=== PATIENT | female | born 1935 | race Caucasian/White ===

== ENCOUNTER 2019-05-13 13:23 | Outpatient (CLI) | payer MEDICARE, OTHER, SELFPAY ==
[2019-05-13 13:30] VITALS: BP 114/82; RESP 20; TEMP 36.1; O2SAT 96
--- NOTE | 2019-05-13 14:12 | PM.PROC.1 ---
Procedures Date/Time Date of procedure: 05/13/19 Time of procedure: 14:12 General Procedure description: PROVIDER: Art Lazna DO Operative Note PREOP DIAGNOSIS 1. FORAMINAL STENOSIS WITH LE SYMPTOMS, POST OP DIAGNOSIS 1. FORAMINAL STENOSIS WITH LE SYMPTOMS, PROCEDURES 1. FLUOROSCOPICALLY GUIDED CONTRAST CONTROLLED TRANSFORAMINAL EPIDURAL STEROID INJECTION - RIGHT L2/3 TFESI SURGEON: Art Lanza DO INDICATIONS Debbie Adhikari is referredfor treatment of Foraminal Stenosis with right LE Symptoms FINDINGS Foraminal Nerve Root Compression secondary to disc disease and facet hypertrophy DESCRIPTION OF PROCEDURE Following review of allergy and review of potential side effects and complications, including, but not necessarily limited to, infection, allergic reaction, local tissue breakdown, stroke, temporary or permanent nerve injury, paralysis, and possible , the patient indicated that the patient understood and agreed to proceed. An informed consent document was signed by the patient, witnessed by a nurse, and placed in the patient's chart. Additionally, other treatment options including medications, modalities, and physical therapy were reviewed with the patient. After review of previous anaesthesic history and IV conscious sedation the patient was deemed safe to proceed with todays procedure with IV conscious sedation as ASA class II designation. Safety time-out was performed to confirm patient ID, procedure to be performed and site of procedure. IV sedation was accomplished with a combination of 2mg of Versed and 50mcg of Fentanyl was administered by the RN after DO order, titrated to patient comfort during the course of the procedure while the patient remained responsive to all verbal commands In the prone position following sterile prep and drape of the lumbar region, the right L3/4 posterior neuroforamen was identified fluoroscopically. The skin was anesthetized via a 25-gauge 1.5-inch needle with 1% lidocaine solution. At this point, a 25-gauge 3.5-inch spinal needle was atraumatically introduced and advanced under fluoroscopic guidance through the posterior right L3/4 neuroforamen to approximately the anterior aspect of the canal. Depth was confirmed on lateral view. Following negative aspiration, injection of approximately 1.5 cc of Isovue 200 under live fluoroscopy in the AP view confirmed excellent flow along the nerve root, into the epidural space without vascular or intrathecal uptake observed Radiological data, including multiple fluoroscopic views of the lumbosacral spine, reveal a spinal needle at the right L3/4 posterior neuroforamen. Subsequent views show flow of contrast material flowing superiorly and inferiorly along the nerve root confirming epidural flow. Subsequently, a test dose of 1.5 cc of 1% lidocaine solution was administered and patient was observed for two minutes for signs or symptoms of complications, including abdominal pain, shortness of breath, bilateral upper or lower extremity weakness, nausea and vomiting, prior to steroid injection. At this point, a total of 3cc or 20mg of dexamethasone and 6mg of betamethasone was injected without incident. The patient tolerated the procedure well without signs or symptoms of complications prior to transfer to the recovery area continued monitoring without incident. The patient was then transferred to the recovery area where they were observed for an appropriate time after the injection. The patient reported a VAS score of 7 prior to the procedure and a post-procedure VAS of 0. Total Fluoroscopy Time: 24.2 seconds Total Conscious Sedation Time: 24min POST OP INSTRUCTIONS The patient was provided a Pain Log to continue to record their response to the target-specific procedure prior to follow-up visit with their referring physician. Additionally, specific post-injection care instructions and a contact number to our office were provided if concerns arise regarding possible complications associated with the procedure are suspected. Art Lanza DO
--- NOTE | 2019-05-13 14:43 | PC.NURSE ---
Pt states UTI symptoms. Urine is dipped and sent to lab. Grossly positive so procedure is cancelled
== END 2019-05-13 14:44 | disposition home or self-care (01) ==
PROVIDERS: Visit Provider Physical Medicine & Rehabilitation
DX: M53.3 Sacrococcygeal disorders, not elsewhere classified (principal)
CPT/HCPCS: 87077; 87086; 87186; J0702; J2250; J3010

== ENCOUNTER 2019-05-30 09:02 | Outpatient (CLI) | payer MEDICARE, OTHER, SELFPAY ==
[2019-05-30] VITALS (8 sets, daily range): BP systolic 134–171; BP diastolic 61–89; PULSE 65–75; RESP 16; TEMP 36.3; O2SAT 94–100
--- NOTE | 2019-05-30 09:08 | DI.RAD.S_ITS ---
PROCEDURE: PAIN SI JOINT INJECTION INDICATIONS: SACROCOCCYGEAL DISORDERS FINDINGS: Fluoroscopic spot filming was performed to verify placement of spinal needles at the left sacroiliac joint as labeled on the films. Appropriate location(s) of the needle tip(s) was confirmed by injection of iodinated contrast. Dictated by: Uri Monterroso M.D. on 05/30/2019 at 11:30 Approved by: Uri Monterroso M.D. on 05/30/2019 at 11:30
[2019-05-30] MEDS: MIDAZOLAM 5 MG/5 ML VIAL IV (09:53)
[2019-05-30] MEDS: BUPIVACAINE 0.5% (PF) VIAL 2 ML INJ (09:59)
[2019-05-30] MEDS: IOPAMIDOL 15 ML VIAL 3 ML INJ (09:59)
[2019-05-30] MEDS: BETAMETHASONE 30 MG/5 ML MDV 12 MG INJ (10:00)
--- NOTE | 2019-05-30 10:02 | PC.NURSE ---
ASSISTING PT OFF TABLE AND TRANSPORTING TO POST PROC AREA IN STABLE CONDITION. PASSING RN CARE OF PT OFF TO MESHA Clark RN.
--- NOTE | 2019-05-30 10:08 | PM.PROC.1 ---
Procedures Date/Time Date of procedure: 05/30/19 Time of procedure: 10:08 General Procedure description: PREOP Dx: Sacroiliac joint pain/DJD POST OP DX: Sacroiliac Joint Pain/DJD Procedures: Fluoroscopic guided contrast controlled left sacroiliac joint injection Physician: Art Lanza D.O. Indications: Debbie Adhikari is referred by Dr. Toribio and DEBORA Dotson for treatment of left sacroiliac joint pain s/p lumbar fusion. Description of procedure Fluoroscopic guided, contrast controlled left sacroiliac joint injection Following review of allergies and review of potential side effects and complications, including, but not necessarily limited to, infection, allergic reaction, local tissue breakdown, temporary as well as permanent nerve injury, paralysis, stroke and possible , the patient indicated that they understood and agreed to proceed. An informed consent was signed by the patient, witnessed by a nurse, and placed in the patient's chart. Additionally, other treatment options including modalities, medications, and physical therapy were reviewed with the patient. After review of previous anaesthesic history and IV conscious sedation the patient was deemed safe to proceed with todays procedure with IV conscious sedation as ASA class II designation. Safety time-out was performed to confirm patient ID, procedure to be performed and site of procedure. IV sedation was accomplished with 1mg of Versed administered by the RN after DO order, titrated to patient comfort during the course of the procedure while the patient remained responsive to all verbal commands. In the prone position following sterile prep and drape of the pelvic region, the hyper lucency on in the inferior aspect of the left sacroiliac joint was identified fluoroscopically the skin was anesthetized be a 25 gauge needle with approximately 2cc of 1% lidocaine solution. At this point, a 25 gauge 3in spinal needle was atraumatically introduced and advanced under fluoroscopic guidance into the inferior aspect of the left sacroiliac joint. Following negative aspiration, approximately 0.3cc of Isovue-300 was injected confirming intra-articular placement without vascular uptake. Radiographic data, including multiple fluoroscopic views of the pelvis, reveals a spinal needle in the left sacroiliac joint hyper lucent zone. Subsequent view show flow contrast tear superiorly and inferiorly within the joint capsule without vascular intrathecal uptake. At this point a total of 1cc or 0.5% Marcaine was combined with 1cc of 6mg of betamethasone was injected without incident. The patient tolerated the procedure well without signs or symptoms of complications prior to transfer to the recovery area for further monitoring. The patient was then transferred to the recovery area with a bur observed for an appropriate time after the injection. The patient reverted a vas score of 7 prior to the procedure and postprocedure vas of 1. Total fluoroscopy time: 11 sec Total conscious sedation time: 24 min Postop instructions The patient was provided with a pain like to continue to record the patient's response to the target specific procedure prior to the patient's follow-up visit with the referring physician. Additionally, specific post injection care instructions and a contact number to our office were provided if concerns arise regarding the possible complications associated with procedure are suspected. Art Lazna D.O. Complications: none
--- NOTE | 2019-05-30 10:19 | PC.NURSE ---
Post procedure discharge note: Patient arrived at 1010 via w/c. Transferred to recliner with stand by assist. Pain level 0/10. VSS on arrival. O2 Sat on RA WNL. Son at chairside. Discharge instructions reviewed with patient and son with good understanding. Continue with plan of care.
== END 2019-05-30 10:25 | disposition home or self-care (01) ==
LOC: RAD 09:06
PROVIDERS: PCP Physician Assistant; Visit Provider Physical Medicine & Rehabilitation
DX: M53.3 Sacrococcygeal disorders, not elsewhere classified (principal); M47.898 Other spondylosis, sacral and sacrococcygeal region; Z98.1 Arthrodesis status
CPT/HCPCS: 27096; 99152; J0702; J2250

== ENCOUNTER → 2019-12-13 08:44 | Outpatient (CLI) | payer MEDICARE, OTHER, SELFPAY ==
--- NOTE | 2019-12-13 08:46 | DI.MRI.S_ITS ---
PROCEDURE: MR LUMBAR SPINE WO CON INDICATIONS: lumbatr radiculopathy s/p fusion TECHNIQUE: Noncontrast sagittal T1 spin echo and T2 fast echo, sagittal STIR, axial T1 and T2 fast spin echo through the lumbar spine. In cases with scoliosis, additional coronal T2 fast spin echo may be performed. COMPARISON: [facility], JAMESON, MRI L-SPINE W/WO CONTRAST, 10/15/2018, 14:08. [facility], JAMESON, XR L-SPINE 2-3V, 04/08/2019, 8:53. FINDINGS: Image quality: Excellent. Alignment and Curvature: Mild anterolisthesis of L4 on L5, measuring 5 mm. Mild retrolisthesis of L3 on L4, measuring 4 mm. Mild retrolisthesis of L2 on L3, measuring 5 mm. Mild retrolisthesis of L1 on L2, measuring 4 mm. Bone Marrow: Marrow is of normal overall signal. No acute vertebral body compression fractures. Spinal Cord: Conus medullaris terminates at the bottom of L1 level. Visualized cord demonstrates normal signal and size. Paraspinous Soft Tissues: No paravertebral masses. T11-T12: Severe disc height loss. Mild central posterior disc protrusion indenting on the ventral cord without canal stenosis. This is a chronic finding, and appears improved since the prior study. T12-L1: Chronic severe disc height loss. Posterior disc bulge. No canal stenosis or significant foraminal stenosis. L1-L2: Severe chronic disc height loss. No canal stenosis. Facet hypertrophy. Mild bilateral foraminal stenosis. L2-L3: Disc bulge. Facet and ligament hypertrophy. Mild canal stenosis. Moderate bilateral foraminal stenosis with mild flattening deformity on the exiting bilateral L2 nerve roots. L3-L4: Marked, progressive canal stenosis secondary to large diffuse disc bulge, which has progressed since the prior study, and prominent facet and ligament hypertrophy. L4-L5: Interval, remote posterior laminectomy and posterior lateral anand and pedicle screw fixation and interbody fusion. No canal stenosis. No foraminal stenosis. L5-S1: Disc bulge. Facet and ligament hypertrophy. Mild canal stenosis. Moderate to severe right foraminal narrowing and moderate left foraminal narrowing with flattening deformity on the exiting bilateral L5 nerve roots. IMPRESSION: 1. Interval posterior laminectomy and posterior lateral anand and pedicle screw fixation at L4-L5. No canal stenosis at that level. 2. Canal stenosis is moderate at L2-L3, marked at L3-L4, and mild at L5-S1. 3. Multilevel facet arthropathy. 4. Alignment as described above. 5. Multilevel foraminal narrowing as described above. Dictated by: Amadeo Rios M.D. on 12/15/2019 at 11:50 Approved by: Amadeo Rios M.D. on 12/15/2019 at 11:59
== END ==
PROVIDERS: PCP Physician Assistant; Referring Provider Physical Medicine & Rehabilitation; Visit Provider Physical Medicine & Rehabilitation
DX: M47.26 Other spondylosis with radiculopathy, lumbar region (principal); M43.16 Spondylolisthesis, lumbar region; M48.061 Spinal stenosis, lumbar region without neurogenic claudication; M48.07 Spinal stenosis, lumbosacral region; M51.24 Other intervertebral disc displacement, thoracic region; Z98.1 Arthrodesis status
CPT/HCPCS: 72148

== ENCOUNTER → 2020-02-21 14:41 | Outpatient (CLI) | payer MEDICARE, OTHER, SELFPAY ==
[2020-02-23 06:02] LABS: COVID19 Sendout Not Detected (Not Detect)
== END ==
PROVIDERS: PCP Physician Assistant; Visit Provider Physician Assistant
DX: Z01.812 Encounter for preprocedural laboratory examination (principal)
CPT/HCPCS: 87635

== ENCOUNTER 2020-02-24 14:05 | Outpatient (CLI) | payer MEDICARE, OTHER, SELFPAY ==
[2020-02-24] VITALS (15 sets, daily range): BP systolic 120–215; BP diastolic 69–116; PULSE 64–90; RESP 10–17; O2SAT 95–100
--- NOTE | 2020-02-24 14:09 | DI.RAD.S_ITS ---
PROCEDURE: PAIN L INTERLAMINAR/CAUDAL INJ INDICATIONS: SPONDYLOSIS COMPARISON: None. FINDINGS: Fluoroscopic spot filming was performed to verify placement of spinal needles at the L3-4 translaminar epidural level(s), as labeled on the films. Appropriate location(s) of the needle tip(s) was confirmed by injection of iodinated contrast. IMPRESSION: Successful paramedian L3-4 epidural access for steroid injection near the midline. Dictated by: Adarsh Foster M.D. on 02/24/2020 at 16:02 Approved by: Adarsh Foster M.D. on 02/24/2020 at 16:03
[2020-02-24] MEDS: fentaNYL 100 MCG/2 ML INJ 50 MCG IV (15:14)
[2020-02-24] MEDS: MIDAZOLAM 5 MG/5 ML VIAL IV (15:14)
[2020-02-24] MEDS: DEXAMETHASONE 10 MG/ML VIAL 20 MG INJ (15:18)
[2020-02-24] MEDS: BETAMETHASONE 30 MG/5 ML MDV 6 MG INJ (15:19)
[2020-02-24] MEDS: IOPAMIDOL 15 ML VIAL 3 ML INJ (15:19)
[2020-02-24] MEDS: BUPIVACAINE 0.25% (PF) VIAL 2 ML INJ (15:19)
--- NOTE | 2020-02-24 15:29 | P.PCN_ITS ---
Date/Time/Diagnoses Date of procedure: 02/24/20 Time of procedure: 15:29 Pre-procedure diagnosis: 1. HNP WITH RADICULAR FEATURES, 2. MULTILEVEL CENTRAL STENOSIS, Post-procedure diagnosis: same Procedure Notes Procedure: 1. FLUOROSCOPICALLY GUIDED CONTRAST CONTROLLED INTERLAMINAR EPIDURAL STEROID INJECTION -L3/4 Indications: Debbie Adhikari is referred by PAC Dotson for treatment of HNP/ Stenosis with R>L LE symptoms. Physician: Art Lanza Total Fluoroscopy time (seconds): 16 Total sedation minutes: 8 Complications: none Procedure in detail & Post-procedure care: FINDINGS Multilevel Central Spinal Stenosis with Nerve Root Compression DESCRIPTION OF PROCEDURE Fluoroscopically guided, contrast-controlled L3/4 translaminar epidural steroid injection. Following review of allergy and review of potential side effects and complications, including, but not necessarily limited to, infection, allergic reaction, local tissue breakdown, temporary as well as permanent nerve injury, paralysis, stroke and possible , the patient indicated that the patient understood and agreed to proceed. An informed consent document was signed by the patient, witnessed by a nurse, and placed in the patient's chart. Additionally, other treatment options including modalities, medications, and physical therapy were reviewed with the patient. After review of previous anaesthesic history and IV conscious sedation the patient was deemed safe to proceed with today?s procedure with IV conscious sedation as ASA class II designation. Safety time-out was performed to confirm patient ID, procedure to be performed and site of procedure. IV sedation was accomplished with a combination of 1mg of Versed and 50mcg of Fentanyl was administered by the RN after DO order, titrated to patient comfort during the course of the procedure while the patient remained responsive to all verbal commands In the prone position, following sterile prep and drape of the lumbar region, the L3/4 translaminar space was identified fluoroscopically. The skin was anesthetized via a 25-gauge, 1.5inch needle with 1% lidocaine solution. At this point, a 22-gauge short bevel spinal needle was atraumatically introduced and advanced under fluoroscopic guidance into the region of the L3/4 translaminar space. Depth was confirmed on lateral view. Radiological data, including multiple fluoroscopic views of the lumbar spine, reveal a spinal needle at the L3/4 translaminar space. Lateral views then show placement of the needle in the epidural space. Subsequent views show contrast material flowing superiorly and inferiorly in the epidural space. No vascular or intrathecal uptake is observed. At this point, using loss of resistance technique with saline and air, the epidural space was entered. This was confirmed following negative aspiration with injection of approximately 1.5cc of Isovue 200, showing excellent epidural flow without vascular or intrathecal uptake. At this point, 1cc of 1% lidocaine solution combined with 3cc or 20mg of dexamethasone and 6mg betamethasone was injected without incident. The patient tolerated the procedure well without signs or symptoms of complications prior to transfer to the recovery area continued monitoring without incident. The patient was then transferred to the recovery area where they were observed for an appropriate period of time after the injection. The patient reported a VAS score of 6 prior to the procedure and a post- procedure VAS of 0. POST OP INSTRUCTIONS The patient was provided a Pain Log to continue to record their response to the target-specific procedure prior to follow-up visit with their referring physician. Additionally, specific post-injection care instructions and a contact number to our office were provided if concerns arise regarding possible complications associated with the procedure are suspected.
== END 2020-02-24 16:39 | disposition home or self-care (01) ==
LOC: RAD 14:07
PROVIDERS: PCP Physician Assistant; Referring Provider Physical Medicine & Rehabilitation; Visit Provider Physical Medicine & Rehabilitation
DX: M51.16 Intervertebral disc disorders with radiculopathy, lumbar region (principal); M48.061 Spinal stenosis, lumbar region without neurogenic claudication
CPT/HCPCS: 62323; J0702; J1100; J2250; J3010

== ENCOUNTER → 2020-09-11 09:11 | Outpatient (CLI) | payer MEDICARE, OTHER, SELFPAY ==
[2020-09-11 11:58] LABS: COVID19 -Nasal RAPID Negative (Negative)
== END ==
PROVIDERS: PCP Physician Assistant; Referring Provider Student in an Organized Health Care Education/Training Program; Visit Provider Student in an Organized Health Care Education/Training Program
DX: Z01.812 Encounter for preprocedural laboratory examination (principal); Z20.822 Contact with and (suspected) exposure to COVID-19
CPT/HCPCS: 87635

== ENCOUNTER 2020-09-13 06:22 | Inpatient (IN) | payer MEDICARE, OTHER, SELFPAY ==
[2020-09-06 09:47] VITALS: BMI 32.2
[2020-09-13] VITALS (33 sets, daily range): BP systolic 107–184; BP diastolic 55–147; PULSE 76–107; RESP 6–98; TEMP 36.1–36.8; O2SAT 7–100; BMI 35.3; BMI 32.2
[2020-09-13] MEDS: LACTATED RINGERS 1,000 ML 42 ML IV ×3 (06:52→12:51)
[2020-09-13] MEDS: ACETAMINOPHEN 325 MG TABLET 975 MG PO (06:55)
--- NOTE | 2020-09-13 07:40 | PM.PREOP ---
Pre-operative Note COVID-19 COVID-19 status: Negative Result date/Date tested (Pos, Neg/Pending): 09/11/20 Interval Note History & Physical reviewed/Exam performed by Physician: Yes Changes to H&P: No
--- NOTE | 2020-09-13 07:47 | P.HP_ITS ---
History of Present Illness History of Present Illness Date Patient Seen: 09/13/20 Time Patient Seen: 07:47 Date of Onset of Symptoms: 09/13/09 Chief complaint: Translaminar Interbody Fusion/Laminotomy Narrative: Ms. Allen is a 85 yo F with hx of chronic back pain. She had previous lumbar fusion with worsening back pain and leg pain. She failed additional conservative care and is scheduled for revision lumbar fusion. Patient History Medical History (Updated 09/06/20 @ 10:34 by Concetta Miguel RN) Abnormal breast biopsy Asthma due to environmental allergies Breast cancer, left (06/2011) Cataract (lens) fragments in eye following cataract surgery, bilateral Cervical cancer (1973) Diabetes Diabetic peripheral neuropathy Difficulty swallowing Eczema GERD (gastroesophageal reflux disease) Gout Herniated nucleus pulposus, L3-4 left HLD (hyperlipidemia) HNP (herniated nucleus pulposus), thoracic HTN (hypertension) Hypothyroidism Kidney infection Lumbar radiculopathy Sacrococcygeal disorders, not elsewhere classified Status post lumbar spinal arthrodesis Vertebral fracture Vertigo Wound abscess Surgical History (Updated 09/06/20 @ 10:22 by Concetta Miguel RN) H/O bilateral mastectomy H/O hysterectomy for benign disease History of bunionectomy of right great toe History of left knee replacement History of lumbar spinal fusion History of surgery History of total right knee replacement Hx of bilateral cataract extraction S/P trigger finger release (2013) Family & Social History Family History Father Congestive heart failure Advanced cirrhosis of liver Grandmother Congestive heart failure Social History: household members spouse Prior Living Arrangements Mobile home Safety & Behavioral: Feels Safe in Current Yes Environment Been Physically Hurt or No Threatened By a Person Suicidal Ideation Description None Suicide Plan Description No Plan Tobacco & Substance use: Smoking Status Former smoker alcohol intake current alcohol intake frequency holiday/special occasion Substance Use Type does not use Meds Home Medications and Allergies Home Medications Medication Instructions Recorded Confirmed Type allopurinol 300 mg tablet 300 mg PO DAILY 12/10/19 09/13/20 History aspirin 81 mg tablet,delayed 162 mg PO DAILY 12/10/19 09/13/20 History release dicyclomine 10 mg capsule 10 mg PO BID 12/10/19 09/13/20 History ezetimibe 10 mg tablet 10 mg PO DAILY 12/10/19 09/13/20 History hydrocodone 5 mg-acetaminophen 325 1 tab PO BID 12/10/19 09/13/20 History mg tablet insulin glargine 100 unit/mL 16 unit SUBCUT BID 12/10/19 09/13/20 History subcutaneous solution insulin lispro 100 unit/mL 4 - 20 sliding scale dose SUBCUT 12/10/19 09/13/20 History subcutaneous solution USEASDIRECTD levothyroxine 88 mcg capsule 88 mcg PO DAILY 12/10/19 09/13/20 History lisinopril 40 mg tablet 40 mg PO DAILY 12/10/19 09/13/20 History celecoxib 200 mg capsule 200 mg PO DAILY #90 cap 06/02/20 09/13/20 Rx melatonin 9 mg PO BEDTIME 09/06/20 09/13/20 History naproxen sodium [Aleve] 220 mg PO TID-QID PRN 09/06/20 09/13/20 History triamcinolone acetonide 1 applic TOPICAL BID PRN 09/06/20 09/13/20 History trospium 20 mg PO BID 09/06/20 09/13/20 History Allergies Allergy/AdvReac Type Severity Reaction Status Date / Time adhesive Allergy Intermediate Rash Verified 09/13/20 07:00 Sulfa (Sulfonamide Allergy Pt does Verified 09/13/20 07:00 Antibiotics) not recall Pncsfqy-Pea-Xll Reductase AdvReac Severe I loose Verified 09/13/20 07:00 Inhibitor all muscle Exam Vital Signs (past 8 hours): - 09/13/20 07:18 Temperature 97.9 F Pulse Rate 76 Respiratory Rate 14 Blood Pressure 127/72 Pulse Oximetry 95 Oxygen Delivery Method Room Air Back/Spine/Pelvis Other: Previous scar from surgery well healed over lumbar spine. Neuro Other: decreased sensibility in bilateral L3, L4, L5 dermatome, motor strength is 4/5 in bilateral TA, EHL and gastroc, + straight leg raise to LLE. Assessment & Plan Assessment & Plan narrative: Ms. Allen is here for scheduled revision L3-4, L5- S1 TLIF and L3-S1 PSF. Risks for surgery include but not limited to bleeding, infection, nerve/dura/bladder/bowel/blood vessel injury, need for additional procedure, even . Pt understands and would like to proceed with surgery. Patient will proceed as planned. COVID-19 COVID-19 status: Negative Result date/Date tested (Pos, Neg/Pending): 09/11/20 Time Spent With Patient Time with patient: 15-24 minutes
[2020-09-13] MEDS: CEFAZOLIN 2 GM/100 ML FROZ.PIGGY IV ×3 (08:03→18:19)
--- NOTE | 2020-09-13 08:38 | SUR.OPER ---
Prone on spine table, head in foam head support, padded chest and pelvic supports, gel pad at knees, lower legs supported by pillows; nipples, genitalia and toes free of pressure, arms secured on foam padded arm boards at <90 degrees abduction. Tape over blanket at thigh secured to table.
[2020-09-13] MEDS: BUPIVACAINE 0.25% W/ EPI 30 ML VIAL INJ (08:44)
[2020-09-13] MEDS: BUPIVACAINE LIPOSOME 266 MG/20 ML VIAL INJ (08:47)
--- NOTE | 2020-09-13 08:48 | SUR.OPER ---
GLASSES IN LABELED BAG TO PACU WITH PATIENT
--- NOTE | 2020-09-13 12:34 | PM.OP.1 ---
Operative Date/Time/Diagnoses Date of procedure: 09/13/20 Time of procedure: 08:16 Pre-op diagnosis: 1. L3-4, L4-5, L5-S1 spinal stenosis 2. Hx of L4-5 fusion with pseudoarthrosis 3. post laminectomy syndrome Post-op diagnosis: same Procedure & Clinicians Procedure: 1. L3-4, L5-S1 posterolateral and posterior interbody fusion 2. L3-4, L5-S1 posterior interbody cage placement 3. L4-5 posterior non-segmental instrumentation removal 4. L4-5 revision laminectomy with exploration of fusion 5. L3-4, L4-5, L5-S1 posterior segmental instrumentation with pedicle screw placement 6. L4-5 posterolatearl fusion 7. [place] of bone marrow from iliac crest through a separate incision 8. Utilization of microsurgical technique and operating microscope Same procedure as scheduled: Yes Indications: Patient has been having chronic back pain and worsening lumbar radiculopathy. Patient had previous lumbar fusion with worsening back pain and lower extremity pain weakness and numbness. Patient failed multiple conservative management with worsening pain weakness and numbness in her lower extremity. Patient has been having difficulty performing activity of daily living. After discussing risks benefits of treatment options, patient elected proceed with surgery. Surgeon: Rupal Loya Infrastructure Software Engineer: Erwin Peñaloza Click Yes if Unassisted: No Anesthesia Type: General Operative Notes Closure Type: primary Specimen(s): none sent Prosthetic devices, grafts, tissues, transplants, or devices: Globus revolve screws, Rise cages Applied: catheter Estimated Blood Loss (mL): 100 Blood products transfused: none Procedure in detail: Patient was seen in the preoperative area. Risks and benefits of the surgery was discussed with the patient. Informed consent was obtained from the patient and placed in the chart. Surgical site was marked. Patient was taken to the operative room. General anesthesia was administered. Prophylactic antibiotic was given to the patient less than 30 min before the incision was made. Patient was placed into a prone position on the Micah table. Patient's back was then prepped and draped in the sterile fashion. Time-out was performed at this time. Using patient's previous scar incision was made over the L3-S1 interval on the left side. Fascia was incised in line with skin incision. Patient's previously placed hardware over the L4-5 level was identified by dissecting down to the level the hardware using a Bovie and a Lopez. The locking caps which was removed using [employer] tower truck driver. The locking anand was then removed from the tulips of the pedicle screws using a Joan. The pedicle screws were then removed using the screwdriver. The screws were found to have good purchase. The Globus and MARS retractors was then placed into the wound and docked onto the L3 and L5 lamina using C-arm guidance. Using microsurgical technique and operating microscope a laminectomy facetectomy was performed by removing the L3 and L5 lamina and the L3-4 L5-S1 facet. The disc space at L3-4 L5-S1 level was identified next. And a total diskectomy was performed at L3-4 L5-S1 level. The endplates were decorticated using a rasp and shaver. The total diskectomy and decortication was performed at L3-4 L5-S1 level in order to to accomplish a L3-4 L5-S1 fusion. The local bone from the laminectomy and facetectomy was saved for local bone grafting. After the total diskectomy and decortication was completed, Globus viacell bone graft material was combined with local bone that was harvested earlier. At this time, a separate skin is incision was made over the iliac crest. A Jamshidi needle was inserted into the iliac crest through a separate skin incision. 5 cc of bone marrow aspiration was obtained through the separate skin incision using a Jamshidi needle from the iliac crest. The bone marrow aspiration was combined with local bone and the via cell bone grafting material. The bone grafting material was placed into the L3-4 L5-S1 interbody space along with a expandable cage. The cage was expanded to its maximum height using the torque limiting screwdriver. At this time a mirror image incision was made on the right side. The fascia was incised in line with the skin incision. Patient's previously placed hardware on the right side was then removed in the same fashion as it was on the left side. The hardware was also found to have good purchase. The fusion mass on the left side was exposed by performing a left-sided hemilaminectomy at L4-5 level. The hemilaminectomy was performed using the Kerrison rongeur to undercut the lamina as well removing additional epidural scar tissue for purpose of decompressing the epidural space. The fusion mass was explored and was found have visible motion indicating pseudoarthrosis. Globus MARS retractor was inserted and docked onto the L3-4, L4-5, L5-S1 posterolateral gutter. Using the power drill, posterior-lateral decortication was performed at L3-4, L4-5, L5-S1 level until bleeding cortical bone was identified. The remaining bone grafting material was placed into the L3-4, L4-5, L5-S1 posterior lateral gutter he order to accomplish posterolateral fusion at the L3-4, L4-5, L5-S1 level. Using the double C-arm technique, pedicle screws were placed into the L3, L4, L5, S1 pedicles bilaterally. This was done by placing the Jamshidi needle into the pedicles, then placing the guidewires over the Jamshidi needle, and finally placing the cannulated screws over the guidewires bilaterally. After the pedicle screws were placed, 2 titanium rods was locked into the heads of the pedicle screws using locking caps and torque limiting screwdriver. After all the hardware was placed, and confirmed with AP and lateral C-arm imaging, the wound was then irrigated with sterile normal saline and packed with Ray-Amadou gauze for 3 min to accomplish hemostasis. After the gauze was removed the deep fascia was closed with #1 Vicryl suture. The subcutaneous layer was closed with 2-0 Vicryl. The skin was closed with skin sagar. Patient tolerated the procedure well. There were no complications. Complications: none Post-operative Condition: stable Disposition: PACU Plan for aftercare: Admit to inpatient hospital
--- NOTE | 2020-09-13 12:38 | DI.RAD.S_ITS ---
PROCEDURE: XR LUMBAR SPINE 2-3V INDICATIONS: L3-4, L5-S1 TLIF TECHNIQUE: 3 views of the lumbar spine were acquired. COMPARISON: [place] [facility], RG, XR L-SPINE 2-3V, 10/30/2019, 14:06. FINDINGS: Bones: 5 [id number] vertebrae are present. There is normal bony alignment. Postsurgical changes compatible with L3-S1 TLIF. Soft tissues: Overlying bowel gas pattern is normal. No suspicious soft tissue calcifications. IMPRESSION: Expected postsurgical change for L3-S1 TLIF. Dictated by: Tatianna Kevin MD, PhD on 09/13/2020 at 13:13 Approved by: Tatianna Kevin MD, PhD on 09/13/2020 at 13:14
[2020-09-13] MEDS: fentaNYL 100 MCG/2 ML INJ IV (13:04)
[2020-09-13] MEDS: hydrOXYzine 50 MG/ML INJ 25 MG IM (13:06)
[2020-09-13] MEDS: HYDROMORPHONE 2 MG INJ IV ×2 (13:45→14:02)
[2020-09-13] MEDS: SODIUM CHLORIDE 0.9% 1,000 ML 100 ML IV (17:41)
[2020-09-13] MEDS: SENNOSIDES 8.6 MG TABLET 17.2 MG PO (20:54)
[2020-09-13] MEDS: DICYCLOMINE 10 MG CAPSULE PO (20:54)
[2020-09-13] MEDS: DOCUSATE 100 MG CAPSULE PO (20:55)
[2020-09-13] MEDS: MELATONIN 3 MG TABLET 9 MG PO (20:55)
[2020-09-13] MEDS: INSULIN GLARGINE 100 UNIT/ML 3ML PEN 16 UNIT SUBCUT (21:02)
[2020-09-14] VITALS (7 sets, daily range): BP systolic 103–150; BP diastolic 51–68; PULSE 76–107; RESP 12–18; TEMP 36.3–37.1; O2SAT 92–100
[2020-09-14] MEDS: HYDROMORPHONE 0.5 MG INJ IV ×3 (00:27→05:22)
[2020-09-14] MEDS: CEFAZOLIN 2 GM/100 ML FROZ.PIGGY IV (01:33)
[2020-09-14] MEDS: LEVOTHYROXINE 88 MCG TABLET PO (05:22)
[2020-09-14] MEDS: hydrOXYzine pamoate 25 MG CAPSULE PO (05:22)
[2020-09-14 05:55] LABS: Hematocrit 33.2 % (36-46); Hemoglobin 10.7 g/dL (12.0-16.0)
[2020-09-14 05:57] LABS: BUN Creatinine Ratio 24.3 (6-22); Blood Urea Nitrogen 18 mg/dL (7-17); Calcium 8.8 mg/dL (8.4-10.2); Carbon Dioxide 26 mmol/L (22-32); Chloride 104 mmol/L (98-107); Estimated Glomerular Filt Rate > 60.0 mL/min (>60); Glucose 148 mg/dL (80-110); HEMOLYSIS < 15 (0-50); Potassium 5.1 mmol/L (3.4-5.1); Sodium 135 mmol/L (137-145)
--- NOTE | 2020-09-14 05:59 | PC.NURSE ---
Bottoming Machine Operator Note-Patient has been drowsy, rouses easily for assessments and care, is oriented x3. On 1L NC overnight, will desat to 88% briefly after IV Dilaudid given per prn, other cruz sats >93%, RR >10, lung sounds CTA. ST, 1st AVB, rate 99-105. Drsg to mid back D/I, CMS to BLEs intact.
--- NOTE | 2020-09-14 07:22 | PM.PNPO.1 ---
Subjective Subjective Date Patient Seen: 09/14/20 Time Patient Seen: 07:22 Interval history: Pain mild at rest and severe with activity. Denies fever or chills. No nausea or vomiting. Exam Vital Signs (past 8 hours): - 09/14/20 00:24 09/14/20 05:26 Temperature 97.3 F L 97.7 F Pulse Rate 102 H 104 H Respiratory Rate 16 15 Blood Pressure 131/53 L 103/51 L Pulse Oximetry 100 98 Oxygen Delivery Method Nasal Cannula Oxygen Flow Rate 0 Narrative Exam Narrative: 85-year-old female resting comfortably in bed in no apparent distress. Patient falls asleep easily well answering questions. Motor functions intact bilateral lower extremities. Sensation grossly intact to light touch. Per nurse dressing is Clean, dry, intact.. Objective Labs Result Diagrams: 09/14/20 05:20 09/14/20 05:20 Labs: Laboratory Results - last 24 hr 09/13/20 09/14/20 09/14/20 17:05 05:20 05:20 Hgb 10.7 L Hct 33.2 L Sodium 135 L Potassium 5.1 Chloride 104 Carbon Dioxide 26 BUN 18 H Creatinine 0.74 Estimated GFR > 60.0 BUN/Creatinine Ratio 24.3 H Glucose 148 H Calcium 8.8 Nasal Screen MRSA (PCR) Negative for mrsa [facility] Medical History Abnormal breast biopsy Asthma due to environmental allergies Breast cancer, left (06/2011) Cataract (lens) fragments in eye following cataract surgery, bilateral Cervical cancer (1973) Diabetes Diabetic peripheral neuropathy Difficulty swallowing Eczema GERD (gastroesophageal reflux disease) Gout Herniated nucleus pulposus, L3-4 left HLD (hyperlipidemia) HNP (herniated nucleus pulposus), thoracic HTN (hypertension) Hypothyroidism Kidney infection Lumbar radiculopathy Sacrococcygeal disorders, not elsewhere classified Status post lumbar spinal arthrodesis Vertebral fracture Vertigo Wound abscess Surgical History H/O bilateral mastectomy H/O hysterectomy for benign disease History of bunionectomy of right great toe History of left knee replacement History of lumbar spinal fusion History of surgery History of total right knee replacement Hx of bilateral cataract extraction S/P trigger finger release (2013) Family History Father Congestive heart failure Advanced cirrhosis of liver Grandmother Congestive heart failure Social History household members: spouse Smoking Status: Former smoker alcohol intake: current Assessment & Plan Post-op Postoperative Procedures: Procedures Operation Date: 09/13/20 07:45 Actual Procedures Side Surgeon p L3-4, L5-S1 TLIF, L4-5 HWR,L3-S1 PSF w. instrumentation Not Applicable Rupal Loya MD Postop day 1. Patient has not had physical therapy yet. Patient was ICU status because she is slow to wake up from anesthesia. Patient is now more alert however drowsy. Patient received Vistaril this morning. On discontinue the Vistaril. She has been receiving Dilaudid as needed. Increase oxycodone to 10 mg every 3 hours as needed pain. Mobilize with physical therapy. Limit bending, twisting, lifting. Quality VTE Deep Vein Thrombosis/Pulmonary Embolism Present on Admission: No
[2020-09-14] MEDS: ACETAMINOPHEN 325 MG TABLET 650 MG PO ×2 (08:49→23:40)
[2020-09-14] MEDS: OXYCODONE IR 10 MG TABLET PO ×2 (08:50→23:40)
[2020-09-14] MEDS: lisinopriL 20 MG TABLET 40 MG PO (08:51)
[2020-09-14] MEDS: EZETIMIBE 10 MG TABLET PO (08:51)
[2020-09-14] MEDS: DOCUSATE 100 MG CAPSULE PO ×2 (08:51→21:15)
[2020-09-14] MEDS: INSULIN LISPRO 100 UNIT/ML 3ML VIAL SUBCUT ×4 (08:52→21:33)
[2020-09-14] MEDS: DICYCLOMINE 10 MG CAPSULE PO ×2 (08:52→21:15)
[2020-09-14] MEDS: INSULIN GLARGINE 100 UNIT/ML 3ML PEN 16 UNIT SUBCUT ×2 (08:52→21:16)
[2020-09-14] MEDS: MAGNESIUM HYDROXIDE 30 ML UDC PO (08:53)
[2020-09-14] MEDS: FLUCONAZOLE 150 MG TABLET PO (08:54)
[2020-09-14] MEDS: allopurinoL 300 MG TABLET PO (09:00)
--- NOTE | 2020-09-14 10:30 | PT.IIE ---
Current Diagnoses Spondylolisthesis, lumbar region (09/13/20) Other spondylosis with radiculopathy, lumbosacral region (09/13/20) Arthrodesis status (09/13/20) Surgery Performed Operation Date: 09/13/20 07:45 Actual Procedures p L3-4, L5-S1 TLIF, L4-5 HWR,L3-S1 PSF w. instrumentation(Not Applicable) - Rupal Loya MD Surgical History (Last Reviewed 09/14/20 @ 07:24 by Edgardo Pastrana PA-C) H/O bilateral mastectomy H/O hysterectomy for benign disease History of bunionectomy of right great toe History of left knee replacement History of lumbar spinal fusion History of surgery History of total right knee replacement Hx of bilateral cataract extraction S/P trigger finger release (2013) Medical History (Last Reviewed 09/14/20 @ 07:24 by Edgardo Pastrana PA-C) Abnormal breast biopsy Asthma due to environmental allergies Breast cancer, left (06/2011) Cataract (lens) fragments in eye following cataract surgery, bilateral Cervical cancer (1973) Diabetes Diabetic peripheral neuropathy Difficulty swallowing Eczema GERD (gastroesophageal reflux disease) Gout Herniated nucleus pulposus, L3-4 left HLD (hyperlipidemia) HNP (herniated nucleus pulposus), thoracic HTN (hypertension) Hypothyroidism Kidney infection Lumbar radiculopathy Sacrococcygeal disorders, not elsewhere classified Status post lumbar spinal arthrodesis Vertebral fracture Vertigo Wound abscess Physical Therapy Inpatient Evaluation/Re-Eval M1 PT/OT-IP Prior Functional Status Start: 09/14/20 11:44 Freq: NEEDED Status: Active Protocol: Document 09/14/20 10:30 AB (Rec: 09/14/20 11:57 AB [id number]) Medical Review Prior Functional Status Medical History Reviewed Yes Communication pt is lethargic and requires constant cues to stay awake Mobility and Gait daughter stated that pt is modified independent with all mobilities and ambulation without AD Prior Functional Level (Other details) daughter stated that pt's spouse just passed last sunday Social History Household Members none Living Arrangements Mobile home Number of Floors (Floors) One Floor Number of Stairs To Enter/Railing? 2 platform steps + ramp to enter Home Environment Standard Height Toilet,Built- In Shower Seat Home Equipment Front Wheel Walker,Raised Toilet Seat w/Armrests,Hand Held Shower,Grab Bars In Shower Additional Social History Comment pt has a walk in tub shower M2 PT-IP Current Condition Start: 09/14/20 11:44 Freq: NEEDED Status: Active Protocol: Document 09/14/20 10:30 AB (Rec: 09/14/20 11:57 AB [id number]) Physical Therapy Current Condition Current Condition Evaluation Date 09/14/20 Treatment Diagnosis s/p L3-4, L4-5, L5S1 instrumentation; L3-4, L5S1 fusion; diff in walking Onset Date 09/13/20 Precautions Lumbar Precautions Log Roll,No Twisting,Limit Bending,Lifting Restriction of 10 lbs,Gait Belt above Incisional Area M3 PT-IP Subjective Start: 09/14/20 11:44 Freq: NEEDED Status: Active Protocol: Document 09/14/20 10:30 AB (Rec: 09/14/20 11:57 AB [email or web address]) Subjective Physical Therapy Visit Type Type Initial Evaluation Visit Start Time 10:30 Visit Stop Time 11:15 Total Visit Minutes 45 Number of ORNAMENTAL IRON WORKER Visits 0 Physical Therapy Visit Comments Patient Comments pt is lethergic but agreed to do PT; daughter in room M4 PT-IP Mobility and Gait Start: 09/14/20 11:44 Freq: NEEDED Status: Active Protocol: Document 09/14/20 10:30 AB (Rec: 09/14/20 11:57 AB [id number]) PT-Bed Mobility Assessment Rolling Type of Rolling Log Rolling Level of Assist Maximal Assistance,2 Person Assistance Supine to Sit Supine to Sit Maximum Assistance,Total Assistance,2 Person Assistance ,Bedrails Scooting Scooting to Edge of Bed Dependent PT-Transfer Assessment Sit to and From Stand Sit to and from Stand Maximum Assistance,2 Person Assistance,Use of Upper Extremities Equipment Transfer Assistive Device Gait Belt,Front Wheeled Walker Orthotic/Prosthetic Devices or Brace: No Transfers Transfer Destination Chair Transfer Technique Stand Pivot Transfer Ability Level of Assist Total Assistance,2 Person Assistance Comments Mobility Comments reviewed back precautions with pt. pt required constant cues to stay awake. completed log roll supine to sit max A x 2 to total Ax 2 and max cues . pt required max A to maintain sitting balance on EOB with increase posterior trunk lean. pt with difficulty following directions. completed sit to stand max A x 2 and max cues and completed 3 reps but pt unable to fully stand upright with BLE pushing against bed and unable to transfer to chair using FWW. completed stand pivot transfer with pt holding on to PT in front and NAC behind pt to assist and completed total A x 2 and max cues. positioned pt on chair. call light and table placed within reach. informed pt and daughter regarding SNF rehab at this time. Gait Assessment Comments Gait Comments unable at this time PT-Balance Assessment Sitting Balance and Reactions Static Sitting Balance Ability Poor Dynamic Sitting Balance Ability Poor Standing Balance and Reactions Static Standing Balance Ability Poor Dynamic Standing Balance Ability Poor Device Used FWW M5 PT-IP Objective Assessments Start: 09/14/20 11:44 Freq: NEEDED Status: Active Protocol: Document 09/14/20 10:30 AB (Rec: 09/14/20 11:57 AB [id number]) Orientation Orientation/Cognition Level of Alertness Lethargic Orientation Name Safety Awareness Decreased Safety Awareness Gross Range of Motion Lower Extremity ROM Assessment Within Functional Limits Strength Lower Extremity Strength Assessment Bilaterally Impaired Hip 3+/5 Knee 3/5 M6 PT-IP Treatment Start: 09/14/20 11:44 Freq: NEEDED Status: Active Protocol: Document 09/14/20 10:30 AB (Rec: 09/14/20 11:57 AB [id number]) Physical Therapy Treatment Education Education Provided Precautions,Weight Bearing Status,Post-Op Packet,Safety M7 PT-IP Assessment and Plan Start: 09/14/20 11:44 Freq: NEEDED Status: Active Protocol: Document 09/14/20 10:30 AB (Rec: 09/14/20 11:57 AB [id number]) PT Summary Assessment and Plan Potential Rehabilitation Potential Fair Status of Condition at Evaluation Evolving Summary Impairments Pain,ROM,Strength,Balance, Coordination,Sensation,Tone, Cognition,Bed Mobility, Transfers,Gait,Activity Tolerance Assessment Summary pt requiring max A x 2 to total A x 2 with all tasks and unable to ambulate at this time. pt is lethargic but able to keep eyes open when pt sat on EOB but has difficulty following directions and has overall weakness. pt will need SNF rehab at this time. Goals Bed Mobility Goal Minimal Assistance Transfer Goal Minimal Assistance,Front Wheeled Walker Gait Goal Minimal Assistance,Front Wheel Walker Gait Distance 50 Days to Meet Goals 10 Frequency of Treatment Frequency Of Treatment Twice a Day Treatment Plan Physical Therapy Treatment Plan Bed Mobility Training,Transfer Training,Gait Training, Therapeutic Exercise,Balance Retraining,Post Op Education, Discharge Planning,Hot or Cold Pack,Neuromuscular Re-ed, Coordination Retraining,Manual Therapy Precautions Lumbar Precautions Log Roll,No Twisting,Limit Bending,Lifting Restriction of 10 lbs,Gait Belt above Incisional Area Recommendations To Nursing Amount of Assist Needed Mechanical Lift Discharge Recommendations PT Discharge Recommendations SNF Rehab Transportation Needs at Discharge Wheelchair/Cabulance
--- NOTE | 2020-09-14 12:06 | CM.DANOTE ---
Discharge Planning/Care Management DCP: assessment: Case received, EMR reviewed. Discussed in Team Rounds. PT and OT will see pt today, no notes are yet available from them. Met now with pt and her POA daughter Shanice/[facility].: [phone]. Introduced self and role. Pt is an 85 year old female who admitted yesterday for a scheduled spinal/fusion surgery. Surgeon: Dr. Loya Admission status: INPT: confirmed by [facility] RENETTA Chacko Payer : Medicare and Pre[employer] D. of note, pt's , who has been at home under Hospice care, did just on Sunday, September 10. Both pt and Shanice say they have been discussing need for snf rehab in order for pt to recover well enough to go home with family support. She has never been in a snf as a pt. Medicare choice list: given. Shanice would like to research the options noting only: we don't want the [facility] of [place] and [facility] is too far away for us all. She is encouraged to chose 2 choices and let the DCP team know as soon as possible what these are. Let her know d/c is very probable 09/16 although not certain until the orthopedic team decide she is medically ready. PASRR: will be needed. CM Discharge Assessment Start: 09/14/20 11:42 Freq: Status: Active Protocol: Document 09/14/20 11:42 ITV (Rec: 09/14/20 11:43 ITV [id number]) Discharge Planning Assessment Advance Directives? Yes Advance Directives on File No History Provided By Medical Record Prior Living Arrangements Mobile home Document 09/14/20 12:05 ITV (Rec: 09/14/20 12:06 ITV [id number]) Discharge Planning Assessment Advance Directives? Yes Advance Directives on File No History Provided By Patient,Family Member,Medical Record Has Patient been admitted in last 30 No days? Prior Living Arrangements Mobile home Household Members none Is patient alert and oriented? Yes Patient/Family Preference [facility] Comment POA daughter Shanice is helping pt research snfs from the Medicare choice list. Review Status In Process Pre-Anesthesia Assessment Start: 09/06/20 09:47 Freq: Status: Complete Protocol: Document 09/06/20 09:47 CAB (Rec: 09/06/20 10:43 CAB [id number]) Pre-Anesthesia Assessment Preferred Name Debbie Adhikari or HAKAN Patient Information Reviewed Via Phone Assessment Assessment Completed With Patient Comment Labs/EKG @ [facility] done, not available, COVID screen @ Primary Care Provider Brenda Dotson Seen Specialist in Last 12 Months Yes Specialist Seen Orthopedist,Urologist,Other Comment GI Primary Language Pashto Corncob Pipes Assembler Required No Height 152.4 cm Weight 74.843 kg Body Mass Index (BMI) 32.2 Hearing Ability Normal Visual Assist Glasses Dentition Type Teeth, Natural Present,Teeth, Missing Barriers to Learning Memory Other Aids Yes: Back brace with outside ambulation Hx Anesthesia Reactions No Hx Family Anesthesia Reaction No Hx Malignant Hyperthermia No Hx Blood Transfusions No Anesthesia Review Requested No alcohol intake current alcohol intake frequency holidays/special occasions only Smoking Status Former smoker how long ago did patient quit smoking Quit 70's Substance Use Type does not use Pain Present Pain Reported Musculoskeletal Symptoms Abnormal Gait,Back Pain, Difficulty Walking,Joint Pain, Neck Pain,Numbness,Radiating Pain into Limb,Tingling History of Falling (Recent or History of Yes ) Patient is completely paralyzed or No completely immobile Prosthesis or Orthotic Device Cane Mental Status Oriented to own ability Is patient on oxygen? No Does patient have APL/SOB Yes: Very rare SOB w/exertion Hx Sleep Apnea No Currently Taking a Beta Maritza No Can You Climb a Flight of Stairs Without No SOB Hx Chest Pain No Hx SOB Yes: Very rare SOB w/exertion Hx Syncope or Dizziness Yes: Vertigo Anti-Coagulant Therapy Yes: ASA 162mg/day Has a Production Assembly Supervisor No Cardiac Testing No Hx Pacemaker/ICD No Pacemaker Rep Required? No Cardiac Clearance Received Not Applicable Diet Type At Home Regular,Low Sodium dysphagia Yes: Both liquids or solids Gastrointestinal Symptoms Reflux Bladder Pattern Incontinent Urinary Catheter Present No Hx Urinary Self Catheterization No Diabetes Yes: Checks blood sugars 4-5x/ day Patient No Lactating No Hx Drug Resistant Organism No Presence of External or Internal Medical Yes: Bilat eye lens, bilat Devices knees, back brace, right toe Have you had any close contact with No someone diagnosed with COVID-19? Marital Status Lives With spouse Prior Living Arrangements Mobile home Number of Floors (Floors) One Floor Support System Family Does the Patient Have Assistance After Yes: Granddaughter, son will Surgery assist, is supportive but in Hospice Patient Discharge Plan Description Return Home Comment Pt advised 3 day length of stay per surgeon Feels Safe in Current Environment Yes Been Physically Hurt or Threatened By a No Person in Current Environment Do you have thoughts of harming yourself None or others? Are you currently considering suicide? No Do you have a plan to hurt yourself or No Plan others? Do You Have Any Spiritual Beliefs That No May Affect Your HC Choices? Do You Have Any Cultural Practices That No May Affect Your HC Choices? Comment Cassidy Who Can We Speak to About Patient's Care Family, friends Identifying Code for Release of Patient Declines to issue Information Health Care Proxy/Next of Kin Luis () Shanice ( daughter) Health Care Proxy Phone Number Luis: [phone] Shanice: [phone] Emergency Contact Name Luis () Shanice ( daughter) Emergency Contact Phone Number Luis: [phone] Shanice: [phone] Advance Directives? No Power of Night Nurse Yes Power of Night Nurse Name Shanice (daughter) Power of Night Nurse PAC Instructions Diabetes instructions,Durable medical equipment,Medications to take/avoid,Nasal antibiotic ,No ETOH/petroleum product on skin DOS,NPO,Pre-surgical wash ,Sturdy shoes/comfortable clothes,Do not bring valuables and remove jewelry
--- NOTE | 2020-09-14 13:35 | PT.IPTN ---
Current Diagnoses Spondylolisthesis, lumbar region (09/13/20) Other spondylosis with radiculopathy, lumbosacral region (09/13/20) Arthrodesis status (09/13/20) Surgery Performed Operation Date: 09/13/20 07:45 Actual Procedures p L3-4, L5-S1 TLIF, L4-5 HWR,L3-S1 PSF w. instrumentation(Not Applicable) - Rupal Loya MD Physical Therapy Treatment Note M2 PT-IP Current Condition Start: 09/14/20 11:44 Freq: NEEDED Status: Active Protocol: Document 09/14/20 10:30 AB (Rec: 09/14/20 11:57 AB [email or web address]) Physical Therapy Current Condition Current Condition Evaluation Date 09/14/20 Treatment Diagnosis s/p L3-4, L4-5, L5S1 instrumentation; L3-4, L5S1 fusion; diff in walking Onset Date 09/13/20 Precautions Lumbar Precautions Log Roll,No Twisting,Limit Bending,Lifting Restriction of 10 lbs,Gait Belt above Incisional Area M3 PT-IP Subjective Start: 09/14/20 11:44 Freq: NEEDED Status: Active Protocol: Document 09/14/20 13:35 AB (Rec: 09/14/20 15:16 AB [email or web address]) Subjective Physical Therapy Visit Type Type Treatment Note Visit Start Time 13:35 Visit Stop Time 13:50 Total Visit Minutes 15 Number of CHEMICAL PROCESSING SUPERVISOR Visits 0 Physical Therapy Visit Comments Patient Comments requesting to go back to bed M4 PT-IP Mobility and Gait Start: 09/14/20 11:44 Freq: NEEDED Status: Active Protocol: Document 09/14/20 13:35 AB (Rec: 09/14/20 15:16 AB [email or web address]) PT-Bed Mobility Assessment Sit to Supine Sit to Supine Total Assistance,2 Person Assistance Scooting Scooting Up and Down in Bed Dependent PT-Transfer Assessment Sit to and From Stand Sit to and from Stand Maximum Assistance,1 Person Assistance,2 Person Assistance ,Use of Upper Extremities Equipment Transfer Assistive Device Gait Belt,Front Wheeled Walker Orthotic/Prosthetic Devices or Brace: No Transfers Transfer Destination Bed Transfer Technique Stand Step Pivot Transfer Ability Level of Assist Maximum Assistance,2 Person Assistance,Use of Upper Extremities Comments Mobility Comments pt sitting on chair and continues to be lethargic. completed sit to stand max A and max cues but unable to tolerate standing and after ~ 2-3 sec, pt sat back on chair and c/o back pain. NAC came in to assist. pt completed sit to stand gain max Ax 2 and max cues and completed stand step transfer using FWW max A x 2 and max cues. pt required total A x 2 for log roll sit to supine and total Ax2 for positioning in bed. call light and table placed within reach . Gait Assessment Comments Gait Comments unable at this time M5 PT-IP Objective Assessments Start: 09/14/20 11:44 Freq: NEEDED Status: Active Protocol: Document 09/14/20 10:30 AB (Rec: 09/14/20 11:57 AB [email or web address]) Orientation Orientation/Cognition Level of Alertness Lethargic Orientation Name Safety Awareness Decreased Safety Awareness Gross Range of Motion Lower Extremity ROM Assessment Within Functional Limits Strength Lower Extremity Strength Assessment Bilaterally Impaired Hip 3+/5 Knee 3/5 M6 PT-IP Treatment Start: 09/14/20 11:44 Freq: NEEDED Status: Active Protocol: Document 09/14/20 13:35 AB (Rec: 09/14/20 15:16 AB [email or web address]) Physical Therapy Treatment Education Education Provided Precautions,Safety M7 PT-IP Assessment and Plan Start: 09/14/20 11:44 Freq: NEEDED Status: Active Protocol: Document 09/14/20 13:35 AB (Rec: 09/14/20 15:16 AB [email or web address]) PT Summary Assessment and Plan Potential Rehabilitation Potential Fair Summary Impairments Pain,ROM,Strength,Balance, Coordination,Sensation,Tone, Cognition,Bed Mobility, Transfers,Gait,Activity Tolerance Progress Towards Goals Slow Progress due to Pain,Slow Progress due to Medical Issues,Slow Progress due to Activity Tolerance Assessment Summary pt continues to be lethargic and requires max Ax 2 to total A x 2 for mobility and is unable to tolerate much activity. pt will need SNF rehab to improve strength and mobility independence. Goals Bed Mobility Goal Minimal Assistance Transfer Goal Minimal Assistance,Front Wheeled Walker Gait Goal Minimal Assistance,Front Wheel Walker Gait Distance 50 Days to Meet Goals 10 Frequency of Treatment Frequency Of Treatment Twice a Day Treatment Plan Physical Therapy Treatment Plan Bed Mobility Training,Transfer Training,Gait Training, Therapeutic Exercise,Balance Retraining,Post Op Education, Discharge Planning,Hot or Cold Pack,Neuromuscular Re-ed, Coordination Retraining,Manual Therapy Precautions Lumbar Precautions Log Roll,No Twisting,Limit Bending,Lifting Restriction of 10 lbs,Gait Belt above Incisional Area Recommendations To Nursing Amount of Assist Needed Mechanical Lift Discharge Recommendations PT Discharge Recommendations SNF Rehab Transportation Needs at Discharge Wheelchair/Cabulance
--- NOTE | 2020-09-14 13:51 | OT.IPNOTE ---
Pt just got back to bed with PT and nursing aid . Pt states too tired to do OT eval at this time. Therefore to check on the pt tomorrow.
[2020-09-14] MEDS: SENNOSIDES 8.6 MG TABLET 17.2 MG PO (21:15)
[2020-09-14] MEDS: MELATONIN 3 MG TABLET 9 MG PO (21:15)
[2020-09-15 05:04] VITALS: BP 94/49; PULSE 71; RESP 16; TEMP 37.1; O2SAT 92
[2020-09-15] MEDS: LEVOTHYROXINE 88 MCG TABLET PO (06:10)
--- NOTE | 2020-09-15 07:41 | P.PN_ITS ---
Subjective Subjective Date Patient Seen: 09/15/20 Time Patient Seen: 07:42 Interval history: Pain [id number]. Pain significantly decreased since yesterday. Denies fever or chills. No nausea or vomiting. Exam Vital Signs (past 8 hours): - 09/14/20 23:50 09/15/20 05:04 Temperature 98.4 F 98.7 F Pulse Rate 89 71 Respiratory Rate 18 16 Blood Pressure 121/59 L 94/49 L Pulse Oximetry 92 92 Oxygen Delivery Method Room Air Oxygen Flow Rate 0 Narrative Exam Narrative: 85-year-old female resting comfortably in bed in no apparent distress. Motor functions intact bilateral lower extremities. Sensation grossly intact to light touch bilateral lower extremities. Dressing is Clean, dry, intact.. Objective Labs Result Diagrams: 09/14/20 05:20 09/14/20 05:20 [facility] Medical History Abnormal breast biopsy Asthma due to environmental allergies Breast cancer, left (06/2011) Cataract (lens) fragments in eye following cataract surgery, bilateral Cervical cancer (1973) Diabetes Diabetic peripheral neuropathy Difficulty swallowing Eczema GERD (gastroesophageal reflux disease) Gout Herniated nucleus pulposus, L3-4 left HLD (hyperlipidemia) HNP (herniated nucleus pulposus), thoracic HTN (hypertension) Hypothyroidism Kidney infection Lumbar radiculopathy Sacrococcygeal disorders, not elsewhere classified Status post lumbar spinal arthrodesis Vertebral fracture Vertigo Wound abscess Surgical History H/O bilateral mastectomy H/O hysterectomy for benign disease History of bunionectomy of right great toe History of left knee replacement History of lumbar spinal fusion History of surgery History of total right knee replacement Hx of bilateral cataract extraction S/P trigger finger release (2013) Family History Father Congestive heart failure Advanced cirrhosis of liver Grandmother Congestive heart failure Social History household members: none Smoking Status: Former smoker alcohol intake: current Assessment & Plan Post-op Postoperative Procedures: Procedures Operation Date: 09/13/20 07:45 Actual Procedures Side Surgeon p L3-4, L5-S1 TLIF, L4-5 HWR,L3-S1 PSF w. instrumentation Not Applicable Rupal Loya MD Postop day 2. Patient progressing slower than expected. Encourage out of bed. Recheck H&H. Likely discharge home versus senior living facility tomorrow. Quality VTE Deep Vein Thrombosis/Pulmonary Embolism Present on Admission: No
[2020-09-15 08:00] VITALS: BP 101/51; PULSE 76; RESP 18; TEMP 36.6; O2SAT 94
[2020-09-15] MEDS: INSULIN LISPRO 100 UNIT/ML 3ML VIAL SUBCUT ×4 (08:23→20:26)
[2020-09-15] MEDS: INSULIN GLARGINE 100 UNIT/ML 3ML PEN 16 UNIT SUBCUT ×2 (08:26→20:25)
[2020-09-15] MEDS: OXYCODONE IR 10 MG TABLET PO ×2 (08:27→15:44)
[2020-09-15] MEDS: allopurinoL 100 MG TABLET 200 MG PO (08:27)
[2020-09-15] MEDS: DOCUSATE 100 MG CAPSULE PO ×2 (08:27→20:23)
[2020-09-15] MEDS: lisinopriL 20 MG TABLET 40 MG PO (08:27)
[2020-09-15] MEDS: DICYCLOMINE 10 MG CAPSULE PO ×2 (08:27→20:23)
[2020-09-15] MEDS: MAGNESIUM HYDROXIDE 30 ML UDC PO (08:28)
[2020-09-15] MEDS: EZETIMIBE 10 MG TABLET PO (08:28)
[2020-09-15] MEDS: SODIUM CHLORIDE 0.9% FLUSH 10 ML IV ×2 (08:28→20:27)
[2020-09-15] MEDS: ACETAMINOPHEN 325 MG TABLET 650 MG PO ×2 (08:28→15:44)
--- NOTE | 2020-09-15 11:10 | OT.IP.EVAL ---
Current Diagnoses Spondylolisthesis, lumbar region (09/13/20) Other spondylosis with radiculopathy, lumbosacral region (09/13/20) Arthrodesis status (09/13/20) Surgery Performed Operation Date: 09/13/20 07:45 Actual Procedures p L3-4, L5-S1 TLIF, L4-5 HWR,L3-S1 PSF w. instrumentation(Not Applicable) - Rupal Loya MD Past Medical History (Last Reviewed 09/15/20 @ 07:42 by Edgardo Pastrana PA-C) Abnormal breast biopsy Asthma due to environmental allergies Breast cancer, left (06/2011) Cataract (lens) fragments in eye following cataract surgery, bilateral Cervical cancer (1973) Diabetes Diabetic peripheral neuropathy Difficulty swallowing Eczema GERD (gastroesophageal reflux disease) Gout Herniated nucleus pulposus, L3-4 left HLD (hyperlipidemia) HNP (herniated nucleus pulposus), thoracic HTN (hypertension) Hypothyroidism Kidney infection Lumbar radiculopathy Sacrococcygeal disorders, not elsewhere classified Status post lumbar spinal arthrodesis Vertebral fracture Vertigo Wound abscess Surgical History (Last Reviewed 09/14/20 @ 07:24 by Edgardo Pastrana PA-C) H/O bilateral mastectomy H/O hysterectomy for benign disease History of bunionectomy of right great toe History of left knee replacement History of lumbar spinal fusion History of surgery History of total right knee replacement Hx of bilateral cataract extraction S/P trigger finger release (2013) Occupational Therapy Inpatient Evaluation/Re-Eval M1 PT/OT-IP Prior Functional Status Start: 09/14/20 11:44 Freq: NEEDED Status: Active Protocol: Document 09/15/20 10:30 [facility] (Rec: 09/15/20 12:35 [facility] [id number]) Medical Review Prior Functional Status Medical History Reviewed Yes Communication pt is alert today Mobility and Gait Pt states mainly just holds onto surfaces to get around in her home. Prior Functional Level (Other details) daughter stated that pt's spouse just passed last sunday Social History Household Members none Living Arrangements Mobile home Number of Floors (Floors) One Floor Number of Stairs To Enter/Railing? Pt states has a ramp to enter. Home Environment Standard Height Toilet,Built- In Shower Seat Home Equipment Front Wheel Walker,Raised Toilet Seat w/Armrests,Hand Held Shower,Grab Bars In Shower Additional Social History Comment pt has a walk in tub shower M2 OT-IP Current Condition Start: 09/15/20 12:11 Freq: Status: Active Protocol: Document 09/15/20 10:30 [facility] (Rec: 09/15/20 12:35 [facility] [id number]) Occupational Therapy Current Condition Current Condition Evaluation Date 09/15/20 Treatment Diagnosis S/P L3-4, L5-S1 TLIF, L4-5 HWR , L3-S1 PSF Diagnosis Onset Date 09/13/20 Post Operative Precautions Lumbar Precautions Log Roll,No Twisting,Limit Bending,Lifting Restriction of 10 lbs,Gait Belt above Incisional Area M3 OT- IP Subjective and Pain Start: 09/15/20 12:11 Freq: Status: Active Protocol: Document 09/15/20 10:30 [facility] (Rec: 09/15/20 12:35 [facility] [id number]) OT- Subjective Occupational Therapy Visit Type Type Initial Evaluation Visit Start Time 10:30 Visit Stop Time 11:10 Total Visit Minutes 40 Occupational Therapy Visit Comments Patient Comments Pt agreed to get up. ASSISTANT PROJECT MANAGER present also during OT eval as pt needing extensive assist for mobility needs. Patient/Caregiver Goals TO go home, pt not wanting to go to skilled rehab. OT Pain Assessment Pain When Pain Assessed At Rest Pain Present Pain Present Pain Reported Location lower back Intensity 3 Scale Used Numeric (0 - 10) M4 OT- IP ADL's Start: 09/15/20 12:11 Freq: Status: Active Protocol: Document 09/15/20 10:30 [facility] (Rec: 09/15/20 12:35 [facility] [id number]) OT [id number] General Evaluation Self-Feeding Ability Standby Assistance Comments OT Self-Feeding Comments set-up assist OT ADL-Grooming General Evaluation Grooming Ability Standby Assistance Areas Needing Assistance Retrieving/Set-up of Grooming Items Comments OT Grooming Comments While seated in bed. OT ADL-Oral Care General Eval Oral Care Ability Independent OT ADL-Dressing General Eval Lower Body Dressing Ability Maximum Assistance Areas Needing Assistance Socks Comments OT Dressing Comments Pt has all LB dressing devices at home to use to assist with her dressing needs. OT ADL-Toileting General Evaluation Toileting Ability Standby Assistance,Moderate Assistance Comments OT Toileting Comments Pt able to wipe after urination, however if having a bowel movement would need assist for completeness in order to best follow her back precautions. OT ADL-Bathing Comments OT Bathing Comments Not performed. M5 OT- IP IADL's Start: 09/15/20 12:11 Freq: Status: Active Protocol: Document 09/15/20 10:30 [facility] (Rec: 09/15/20 12:35 [facility] [id number]) OT-Instrumental Activities of Daily Living Home Safety Awareness Awareness of Need for Assistance at Home Decreased Awareness Home Safety Comments Pt very insistent on going home and have insight of needs at this time. pt states, I am very stubborn. Medication Management Medication Management Comments If pt going home would be best for someone to assist her for all her ADL and functional mobility needs. M6 OT- IP Functional Cognition Start: 09/15/20 12:11 Freq: Status: Active Protocol: Document 09/15/20 10:30 [facility] (Rec: 09/15/20 12:35 [facility] [id number]) Cognitive Factors Limiting Selfcare Function Cognitive Ability Level of Alertness Alert Patient Orientation Name,Place,Situation Attention Span Ability Capable of Focused Attention Ability to Follow Commands Able to Follow One Step Commands Safety Awareness Decreased Ability to Apply Precautions,Underestimates Need for Assistance Cognitive Comments Cognitive Assessment Comments VC to keep the FWW closer. VC to push up from surfaces sitting on to stand. Pt really insistent on going home at this time and questionable how realistic it would be pending on success of caregiver training. OT- Vision and Hearing OT- Hearing Assessment OT- Hearing Assessment WFL OT- Vision Assessment Visual Acuity Glasses All The Time M7 OT- IP Mobility and Balance Start: 09/15/20 12:11 Freq: Status: Active Protocol: Document 09/15/20 10:30 [facility] (Rec: 09/15/20 12:35 [facility] [id number]) OT- Bed Mobility Assessment Rolling Type of Rolling Roll to Right Level of Assistance Moderate Assistance,1 Person Assistance Supine to Sit Supine to Sit Assist Maximum Assistance,1 Person Assistance OT-Transfer Assessment Sit to and From Stand Sit to and from Stand Minimal Assistance,1 Person Assistance,2 Person Assistance ,Use of Upper Extremities Transfers Transfer Ability Moderate Assistance,2 Person Assistance Technique Transfer Destination Bed,Chair Transfer Technique Stand Step Pivot Devices Transfer Assistive Devices Gait Belt,Front Wheeled Walker Comments Mobility Comments Pt maxA for bed mobility needs and 2 person assist for mobility as pt unsteady on her feet and having difficulty to guide the FWW. OT- Balance Assessment Sitting Balance and Reactions Static Sitting Balance Ability Good Dynamic Sitting Balance Ability Fair Standing Balance and Reactions Static Standing Balance Ability Poor M8 OT- IP Objective Assessments Start: 09/15/20 12:11 Freq: Status: Active Protocol: Document 09/15/20 10:30 [facility] (Rec: 09/15/20 12:35 [facility] [id number]) OT Gross Range of Motion Upper Extremity Range of Motion ROM Impairments grossly WFL for needs OT Strength Comments Strength Comments BUE 4/5 M9 OT- IP Assessment and Plan Start: 09/15/20 12:11 Freq: Status: Active Protocol: Document 09/15/20 10:30 [facility] (Rec: 09/15/20 12:35 [facility] [id number]) OT Summary Assessment and Plan Potential Rehabilitation Potential Good Analytic Complexity at Evaluation Low Summary OT Impairments Pain,Balance,Functional Cognition,Functional Mobility, Grooming,Dressing,Toileting, Bathing,Toilet Transfers, Shower Transfers,Activity Tolerance Progress Towards Goals Slow Progress due to Pain,Slow Progress due to Activity Tolerance Assessment Summary Pt low complexity and main barriers are pain, now needing two person assist for mobility needs at this time, and having difficulty to incorporate her back precautions during her needs. Sunni would highly benefit from skilled rehab to continued training educations of back precautions in order to improve on her safety and independence for all Adl and functional mobility needs. Pt insistent to go home, ASSISTANT PROJECT MANAGER set up caregiver training for this PM. Goals Grooming Goal Independent Dressing Goal Independent Toileting Goal Independent Bathing Goal Independent Toilet Transfer Goal Independent Shower Transfer Goal Independent Patient/Caregiver Education Goal Demonstrate Post-Op Precautions,Caregiver Independent Assisting Patient Days to Meet Goals 10 Frequency of Treatment Frequency Of Treatment Once a Day Treatment Plan OT Treatment Plan ADL Training,Functional Cognition Training,Functional Mobility,Patient/Family Education,Discharge Planning Other Treatment Recommendations and Next Practicing back precautions Treatment Focus during ADl needs. Discharge Recommendations OT Discharge Recommendations SNF Rehab Other Discharge Recommendations Pending success of caregiver training, questionable home with 27/11 assist. Transportation Needs at Discharge Wheelchair/Cabulance
--- NOTE | 2020-09-15 11:13 | PT.IPTN ---
Current Diagnoses Spondylolisthesis, lumbar region (09/13/20) Other spondylosis with radiculopathy, lumbosacral region (09/13/20) Arthrodesis status (09/13/20) Surgery Performed Operation Date: 09/13/20 07:45 Actual Procedures p L3-4, L5-S1 TLIF, L4-5 HWR,L3-S1 PSF w. instrumentation(Not Applicable) - Rupla Loya MD Physical Therapy Treatment Note M2 PT-IP Current Condition Start: 09/14/20 11:44 Freq: NEEDED Status: Active Protocol: Document 09/14/20 10:30 AB (Rec: 09/14/20 11:57 AB [id number]) Physical Therapy Current Condition Current Condition Evaluation Date 09/14/20 Treatment Diagnosis s/p L3-4, L4-5, L5S1 instrumentation; L3-4, L5S1 fusion; diff in walking Onset Date 09/13/20 Precautions Lumbar Precautions Log Roll,No Twisting,Limit Bending,Lifting Restriction of 10 lbs,Gait Belt above Incisional Area M3 PT-IP Subjective Start: 09/14/20 11:44 Freq: NEEDED Status: Active Protocol: Document 09/15/20 10:43 SP (Rec: 09/15/20 13:08 SP [id number]) Subjective Physical Therapy Visit Type Type Treatment Note Visit Start Time 10:43 Visit Stop Time 11:13 Total Visit Minutes 30 Notes Co Tx with OT Number of PIGMENT WEIGHER Visits 1 Physical Therapy Visit Comments Patient Comments Pt agreeable to working with PT. Patient Goals To return home with daughter and or grand daughter to assist her. Therapy Pain Assessment Pain When Pain Assessed During Mobility Pain Present Pain Present Denied Pain Location lower back Intensity 3 Scale Used Numeric (0 - 10) Description With Movement Pain Behaviors Facial Grimacing Pain Management Techniques Re-positioning,Timing of Activity with Medications M4 PT-IP Mobility and Gait Start: 09/14/20 11:44 Freq: NEEDED Status: Active Protocol: Document 09/15/20 10:43 SP (Rec: 09/15/20 13:08 SP [id number]) PT-Bed Mobility Assessment Rolling Type of Rolling Log Rolling,Roll to Right Level of Assist Moderate Assistance,1 Person Assistance Supine to Sit Supine to Sit Maximum Assistance,1 Person Assistance,Bedrails Scooting Scooting to Edge of Bed Maximum Assistance PT-Transfer Assessment Sit to and From Stand Sit to and from Stand Moderate Assistance,2 Person Assistance,Use of Upper Extremities Equipment Transfer Assistive Device Gait Belt,Front Wheeled Walker Orthotic/Prosthetic Devices or Brace: No Transfers Transfer Destination Chair,Toilet Transfer Technique Pt ambulated using FWW Transfer Ability Level of Assist Moderate Assistance,2 Person Assistance,Use of Upper Extremities Comments Mobility Comments Completed LR to R with cuing for LUE reaching across body to bed rail and verbal/ contact cues LLE bent WB on bed assist Mod A x1, R SL>sit Max A x1 for trunk righting and scoot wt shift each LE to EOB. Sitting balance EOB CGA> SBA. Sit>stand Min A then FWW from EOB cues for pushing from bed, only stood 10 sec before needed sit. Sit>stand cGA ambulated to toilet 10 ft Mod A x2 with trunk support due to retro lean and assist for fWW repositioning. Cued piovt and center back up toilet then use of grab bar slow descent to toilet Min A x1. Sit>stand from toilet using grab bar Min A and complete self hygiene, declined brief use to OT when offered not unless really need it, pt ambulate back to chair 5 ft with CG, Min A x2 with support for fWW repositioning and body positioning, cued reach back prior to sit for slow descent Torie x1. Pt feet supported on chair foot plate. Instructed BLE exercises seated in chair. Provided call light and all needs in reach before left. Gait Assessment Gait Gait Assistance Required: Moderate Assistance,2 Person Assist Distance (Feet) 10 Able to Maintain Weight Bearing Status No During Gait Assistive Devices Assistive Device Gait Belt,Front Wheeled Walker Orthotic/Prosthetic Devices or Brace: No Gait Deviations General Gait Pattern Antalgic,Decreased Stride Length,Decreased Feet Clearance,Flexed Trunk,Narrow Based Gait,Step-to Gait Factors Limiting Gait Function Factors Limiting Gait Function Decreased Activity Tolerance, Decreased Strength,Limited Range of Motion,Pain,Poor Balance,Poor Safety Awareness Comments Gait Comments Retro lean initially, max cuing for body closer to FWW, Mod 2 for trunk support and FWW repositioning and proper use of FWW using BUE, tends to let go reaching for furniture . Flexed trunk return to chair cued for upright posture, pt reported usually a bent posture. Stair Climbing Assessment Comments Stair Climbing Comments Unable at this time, unsure if 2 PF steps, pt states only a ramp. Clarify with daughter at pm tx. PT-Balance Assessment Sitting Balance and Reactions Static Sitting Balance Ability Good Dynamic Sitting Balance Ability Fair Standing Balance and Reactions Static Standing Balance Ability Poor Dynamic Standing Balance Ability Poor Device Used FWW M5 PT-IP Objective Assessments Start: 09/14/20 11:44 Freq: NEEDED Status: Active Protocol: Document 09/14/20 10:30 AB (Rec: 09/14/20 11:57 AB [facility] [id number]) Orientation Orientation/Cognition Level of Alertness Lethargic Orientation Name Safety Awareness Decreased Safety Awareness Gross Range of Motion Lower Extremity ROM Assessment Within Functional Limits Strength Lower Extremity Strength Assessment Bilaterally Impaired Hip 3+/5 Knee 3/5 M6 PT-IP Treatment Start: 09/14/20 11:44 Freq: NEEDED Status: Active Protocol: Document 09/15/20 10:43 SP (Rec: 09/15/20 13:08 SP [id number]) Physical Therapy Treatment Exercises Exercises Ankle Pumps,Seated Knee Flexion/Extension Education Education Provided Precautions,Safety Other Treatments Other Treatment Performed seated marching x5 reps each BLE M7 PT-IP Assessment and Plan Start: 09/14/20 11:44 Freq: NEEDED Status: Active Protocol: Document 09/15/20 10:43 SP (Rec: 09/15/20 13:08 SP [id number]) PT Summary Assessment and Plan Potential Rehabilitation Potential Fair Status of Condition at Evaluation Evolving Summary Impairments Pain,ROM,Strength,Balance, Coordination,Sensation,Tone, Cognition,Bed Mobility, Transfers,Gait,Activity Tolerance Progress Towards Goals Slow Progress due to Pain,Slow Progress due to Activity Tolerance Assessment Summary Pt has decreased assist required this am tx. She requires max cuing for safety use of FWW requiring Mod A x2 persons during standing mobility using FWW, Max x1 during bed mobility. Pt plans to return home upon discharge. PIGMENT WEIGHER recommending continue acute skilled PT services at this time, coordinated caregiver training with daughter at 230. Will continue to assess progress. Goals Bed Mobility Goal Minimal Assistance Transfer Goal Minimal Assistance,Front Wheeled Walker Gait Goal Minimal Assistance,Front Wheel Walker Gait Distance 50 Days to Meet Goals 10 Frequency of Treatment Frequency Of Treatment Twice a Day Treatment Plan Physical Therapy Treatment Plan Bed Mobility Training,Transfer Training,Gait Training, Therapeutic Exercise,Balance Retraining,Post Op Education, Discharge Planning,Hot or Cold Pack,Neuromuscular Re-ed, Coordination Retraining,Manual Therapy Other Recommendations and Next Treatment caregiver training 230 w/ Focus Shanice, bed mobility, transfers, gait, clarify if 2 PF steps or just ramp. Precautions Lumbar Precautions Log Roll,No Twisting,Limit Bending,Lifting Restriction of 10 lbs,Gait Belt above Incisional Area Recommendations To Nursing Amount of Assist Needed 2 Person Assist Discharge Recommendations PT Discharge Recommendations SNF Rehab Transportation Needs at Discharge Wheelchair/Cabulance
[2020-09-15 12:00] VITALS: BP 96/54; PULSE 98; RESP 17; TEMP 36.6; O2SAT 93
--- NOTE | 2020-09-15 12:52 | CM.DPC ---
DCP Cont: Was going to meet with patient, but she is currently sleeping. Confirmed with Jayne at [facility] that she can accept patient tomorrow, as will be her 3rd Medicare midnight. Called and spoke to patient's daughter, Shanice, who is POA. Let her know that patient wants to go home, but she is a two person maximum assist. Daughter agrees that she needs skilled. Confirmed that [facility] is the plan, and gave her October's phone number for questions that daughter has regarding visitation policy. Patient has had both COVID vaccinations, and prem has her card. Daughter has also been vaccinated. Daughter will stop by and see her mom and discuss discharge plan. Patient's spouse just on Sunday after being on hospice services. Grand daughter had been primary caregiver. Daughter, Shanice, lives in [place], and can't care for her mother, so she mentioned that skilled is necessary before she goes home. Encouraged daughter to let mom know that this is temporary until she can be strong enough to go home. P: DCP to continue to follow. Will complete PASSR today. Agueda Carter, RENETTA/Foreign Legal Consultant
[2020-09-15] MEDS: TRIAMCINOLONE 0.1% CREAM 1 APPLIC TOP (14:09)
--- NOTE | 2020-09-15 14:13 | PC.NURSE ---
Day Shift Note Pt alert and oriented x3. Medicated with 10 mg oxycodone/Tylenol this morning, has declined any further pain meds, denies pain. Dressing to lower back D/I, old bloody drainage visible through dressing. CMS is intact to BLEs. Up with PT/OT, in chair for several hours. Currently back in bed, 2 person assist with FWW to transfer. Noted leaning backward while transferring, required cueing and physical assistance to stand up straight. Itching reported under abdominal folds, right side split at fold with erythema surrounding, left side erythemic with intact skin. Pt reports this is not new for her. Cleansed under folds and triamcinolone cream applied. Call light within reach and bed alarm on for safety.
--- NOTE | 2020-09-15 15:22 | PT.IPTN ---
Current Diagnoses Spondylolisthesis, lumbar region (09/13/20) Other spondylosis with radiculopathy, lumbosacral region (09/13/20) Arthrodesis status (09/13/20) Surgery Performed Operation Date: 09/13/20 07:45 Actual Procedures p L3-4, L5-S1 TLIF, L4-5 HWR,L3-S1 PSF w. instrumentation(Not Applicable) - Rupal Loya MD Physical Therapy Treatment Note M2 PT-IP Current Condition Start: 09/14/20 11:44 Freq: NEEDED Status: Active Protocol: Document 09/14/20 10:30 AB (Rec: 09/14/20 11:57 AB [id number]) Physical Therapy Current Condition Current Condition Evaluation Date 09/14/20 Treatment Diagnosis s/p L3-4, L4-5, L5S1 instrumentation; L3-4, L5S1 fusion; diff in walking Onset Date 09/13/20 Precautions Lumbar Precautions Log Roll,No Twisting,Limit Bending,Lifting Restriction of 10 lbs,Gait Belt above Incisional Area M3 PT-IP Subjective Start: 09/14/20 11:44 Freq: NEEDED Status: Active Protocol: Document 09/15/20 14:51 SP (Rec: 09/15/20 17:08 SP [id number]) Subjective Physical Therapy Visit Type Type Treatment Note Visit Start Time 14:51 Visit Stop Time 15:22 Total Visit Minutes 31 Notes Daughter completed caregiver trng, provided physical assist throughout tx. Vitals taken during PT: seated EOB post mobility BP 118/68. Number of POWER AND RECOVERY SUPERVISOR Visits 2 Physical Therapy Visit Comments Patient Comments Pt agreeable to working with PT. Patient Goals Pt agreeable to go to SNF rehab. Therapy Pain Assessment Pain When Pain Assessed During Mobility Pain Present Pain Present Pain Reported Location lower back Intensity 10 Scale Used 3/10 at rest, 10/10 Description With Movement Pain Behaviors Facial Grimacing Pain Management Techniques Re-positioning,Timing of Activity with Medications M4 PT-IP Mobility and Gait Start: 09/14/20 11:44 Freq: NEEDED Status: Active Protocol: Document 09/15/20 14:51 SP (Rec: 09/15/20 17:08 SP [id number]) PT-Bed Mobility Assessment Rolling Type of Rolling Log Rolling,Roll to Right,Roll to Left Level of Assist Moderate Assistance,Maximal Assistance,1 Person Assistance Supine to Sit Supine to Sit Maximum Assistance,1 Person Assistance,Bedrails Sit to Supine Sit to Supine Maximum Assistance,1 Person Assistance,Bedrails Scooting Scooting to Edge of Bed Moderate Assistance PT-Transfer Assessment Sit to and From Stand Sit to and from Stand Minimal Assistance,1 Person Assistance,Use of Upper Extremities Equipment Transfer Assistive Device Gait Belt,Front Wheeled Walker Orthotic/Prosthetic Devices or Brace: No Transfers Transfer Destination Bed Transfer Technique Pt ambulated using FWW Transfer Ability Level of Assist Moderate Assistance,2 Person Assistance,Use of Upper Extremities Comments Mobility Comments Pt required Mod A x1 LR R, R SL>sit Max A x1, scoot Mod A x1 for trunk balance, able to self scoot to EOB. Occasional Min A due to retro lean,cues for forward trunk positioning. Sit>Stand Min A x1 with max cues for hand placement push from bed, ambulated 5 ft to PF step using heavy BUE on FWW able to steer FWW self, cuing for upright posture. Once front step pt leaning on FWW with forearms, unable to attempt ascend PF step, has to complete x2 to enter her home . Pt pivoted and returned to R EOB with mod A x1-2 persons due to forward posture fWW out front then retro lean stepping into fWW. stand>sit EOB min A safety cues HP. Sitting balance EOB CG- Min x1 w/ mod cues for sitting balance forward during vital assessment. sit>R SL>supine with support for trunk righting and LE support into bed Max x1. Pt able to reposition LEs and upper body self with cuing. Pt had call light, all needs in reach, bed alarmed for safety fall risk. POWER AND RECOVERY SUPERVISOR discussed SNF upon DC with daughter and pt in agreement. Gait Assessment Gait Gait Assistance Required: Moderate Assistance,2 Person Assist Distance (Feet) 10 Able to Maintain Weight Bearing Status No During Gait Assistive Devices Assistive Device Gait Belt,Front Wheeled Walker Orthotic/Prosthetic Devices or Brace: No Gait Deviations General Gait Pattern Antalgic,Decreased Stride Length,Decreased Feet Clearance,Flexed Trunk,Narrow Based Gait,Step-to Gait Factors Limiting Gait Function Factors Limiting Gait Function Decreased Activity Tolerance, Decreased Strength,Difficulty Following Directions,Limited Range of Motion,Pain,Poor Balance,Poor Safety Awareness Comments Gait Comments See mobility comments. Stair Climbing Assessment Comments Stair Climbing Comments Pt stated wanted to perform 2- 4 PF steps has at home. Unable at this time due to heavy on FWW and flexed trunk when front of PF step and unable to stand tall w/ leaning on fWW Min A. PT-Balance Assessment Sitting Balance and Reactions Static Sitting Balance Ability Poor Dynamic Sitting Balance Ability Poor Standing Balance and Reactions Static Standing Balance Ability Poor Dynamic Standing Balance Ability Poor Device Used FWW M5 PT-IP Objective Assessments Start: 09/14/20 11:44 Freq: NEEDED Status: Active Protocol: Document 09/14/20 10:30 AB (Rec: 09/14/20 11:57 AB [id number]) Orientation Orientation/Cognition Level of Alertness Lethargic Orientation Name Safety Awareness Decreased Safety Awareness Gross Range of Motion Lower Extremity ROM Assessment Within Functional Limits Strength Lower Extremity Strength Assessment Bilaterally Impaired Hip 3+/5 Knee 3/5 M6 PT-IP Treatment Start: 09/14/20 11:44 Freq: NEEDED Status: Active Protocol: Document 09/15/20 14:51 SP (Rec: 09/15/20 17:08 SP [id number]) Physical Therapy Treatment Education Education Provided Precautions,Safety M7 PT-IP Assessment and Plan Start: 09/14/20 11:44 Freq: NEEDED Status: Active Protocol: Document 09/15/20 14:51 SP (Rec: 09/15/20 17:08 SP [id number]) PT Summary Assessment and Plan Potential Rehabilitation Potential Fair Status of Condition at Evaluation Evolving Summary Impairments Pain,ROM,Strength,Balance, Coordination,Sensation,Tone, Cognition,Bed Mobility, Transfers,Gait,Activity Tolerance Progress Towards Goals Slow Progress due to Pain,Slow Progress due to Activity Tolerance Assessment Summary Pt required Max A during bed mob, Min sit>stand, Mod 1-2 persons during gait using fWW. Pt unable complete stair mgt at this time to enter home. Pt would benefit from continued skilled service going to SNF with verbal in agreement end tx. Will continue to assess progress. Goals Bed Mobility Goal Minimal Assistance Transfer Goal Minimal Assistance,Front Wheeled Walker Gait Goal Minimal Assistance,Front Wheel Walker Gait Distance 50 Days to Meet Goals 10 Frequency of Treatment Frequency Of Treatment Twice a Day Treatment Plan Physical Therapy Treatment Plan Bed Mobility Training,Transfer Training,Gait Training, Therapeutic Exercise,Balance Retraining,Post Op Education, Discharge Planning,Hot or Cold Pack,Neuromuscular Re-ed, Coordination Retraining,Manual Therapy Other Recommendations and Next Treatment bed mobility, transfers, gait Focus using FWW further distance in room w/ tall posture. Precautions Lumbar Precautions Log Roll,No Twisting,Limit Bending,Lifting Restriction of 10 lbs,Gait Belt above Incisional Area Recommendations To Nursing Amount of Assist Needed 2 Person Assist Discharge Recommendations PT Discharge Recommendations SNF Rehab Other Discharge Recommendations Assess 2 PF steps prior to DC home. Transportation Needs at Discharge Wheelchair/Cabulance
[2020-09-15 15:25] LABS: Hematocrit 28.9 % (36-46); Hemoglobin 9.5 g/dL (12.0-16.0)
[2020-09-15 15:44] VITALS: BP 102/50; PULSE 87; RESP 16; TEMP 36.3; O2SAT 99
--- NOTE | 2020-09-15 18:20 | PC.NURSE ---
Evening shift note: Pt working with PT, Alert and oriented x3, refused pain medication to prior to working with PT, after working with PT pain is 8/10, educated pt and daughter on the importance of keeping pain under control and possibly medicating prior to working with PT/OT. Dressing to lower back dry and intact, old bloody drainage visible through the dressing, dressing to be changed tomorrow during showering per pt request. CMS intact to BLE, 1-2 person assist with FWW for transferring, pt does lean backward when walking with the FWW, cueing required to correct. Itching under abdominal folds, right side vs left, split on the right side with erythema surrounding, left side erythema only with intact skin, both sides cleansed and treated with triamcinolone cream. Bed low and locked, alarm on for safety, call light within reach, will continue to monitor.
[2020-09-15] MEDS: MELATONIN 3 MG TABLET 9 MG PO (20:23)
[2020-09-15] MEDS: SENNOSIDES 8.6 MG TABLET 17.2 MG PO (20:25)
[2020-09-15 21:17] VITALS: BP 92/48; PULSE 77; RESP 16; TEMP 36.2; O2SAT 97
[2020-09-16 00:10] VITALS: BP 123/55; PULSE 70; RESP 16; TEMP 36.3; O2SAT 97
[2020-09-16] MEDS: OXYCODONE IR 5 MG TABLET PO ×4 (00:19→11:23)
[2020-09-16 05:27] VITALS: BP 112/54; PULSE 89; RESP 18; TEMP 36.8; O2SAT 93
[2020-09-16] MEDS: LEVOTHYROXINE 88 MCG TABLET PO (05:41)
[2020-09-16 08:00] VITALS: BP 110/50; PULSE 77; RESP 18; TEMP 36.6; O2SAT 92
[2020-09-16] MEDS: DICYCLOMINE 10 MG CAPSULE PO (08:38)
[2020-09-16] MEDS: ACETAMINOPHEN 325 MG TABLET 650 MG PO (08:38)
[2020-09-16] MEDS: allopurinoL 100 MG TABLET 200 MG PO (08:38)
[2020-09-16] MEDS: DOCUSATE 100 MG CAPSULE PO (08:39)
[2020-09-16] MEDS: lisinopriL 20 MG TABLET 40 MG PO (08:39)
[2020-09-16] MEDS: MAGNESIUM HYDROXIDE 30 ML UDC PO (08:39)
[2020-09-16] MEDS: EZETIMIBE 10 MG TABLET PO (08:39)
[2020-09-16] MEDS: INSULIN GLARGINE 100 UNIT/ML 3ML PEN 16 UNIT SUBCUT (08:39)
[2020-09-16] MEDS: BISACODYL 10 MG SUPP PR (08:39)
[2020-09-16] MEDS: SODIUM CHLORIDE 0.9% FLUSH 10 ML IV (08:41)
[2020-09-16 09:23] LABS: COVID19 - ADMIT (NP swab/PCR) Negative (Negative)
--- NOTE | 2020-09-16 09:51 | PM.PNPO.1 ---
Subjective Subjective Date Patient Seen: 09/16/20 Time Patient Seen: 09:51 Interval history: Patient states she is doing well overall and feels that her condition is improving significantly. At this time the patient denies fever, chills, nausea, chest pain, shortness of breath, or urinary retention. Patient reports good sensation throughout the bilateral lower extremities. Patient explains that she understands that she is likely to be transferred to a nursing home facility. Exam Vital Signs (past 8 hours): - 09/16/20 05:27 09/16/20 08:00 Temperature 98.3 F 97.8 F Pulse Rate 89 77 Respiratory Rate 18 18 Blood Pressure 112/54 L 110/50 L Pulse Oximetry 93 92 Oxygen Delivery Method Room Air Oxygen Flow Rate 0 Narrative Exam Narrative: Pleasant 85-year-old female postop day 3. Patient is resting comfortably in bed, is in no acute distress, is alert and oriented x3. Skin is warm dry, and the skin surrounding the incision site is free of erythema, warmth, induration, or discharge. Good sensation appreciated throughout the bilateral lower extremities to light touch. Ankle dorsiflexion, plantar flexion, eversion, inversion performed bilaterally without difficulty or discomfort. Palpable pulses appreciated, capillary refill less than 2 seconds. Calves are soft and nontender, negative Homans sign. No other signs of DVT appreciated. Const General: cooperative, healthy appearing and comfortable Resp Effort & Inspection: normal respiratory effort and able to speak in complete sentences Skin General: no rashes or lesions noted Objective Labs Result Diagrams: 09/15/20 14:23 09/14/20 05:20 Labs: Laboratory Results - last 24 hr 09/15/20 09/16/20 14:23 08:45 Hgb 9.5 L Hct 28.9 L SARS-CoV-2 (PCR) Negative [facility] Medical History Abnormal breast biopsy Asthma due to environmental allergies Breast cancer, left (06/2011) Cataract (lens) fragments in eye following cataract surgery, bilateral Cervical cancer (1973) Diabetes Diabetic peripheral neuropathy Difficulty swallowing Eczema GERD (gastroesophageal reflux disease) Gout Herniated nucleus pulposus, L3-4 left HLD (hyperlipidemia) HNP (herniated nucleus pulposus), thoracic HTN (hypertension) Hypothyroidism Kidney infection Lumbar radiculopathy Sacrococcygeal disorders, not elsewhere classified Status post lumbar spinal arthrodesis Vertebral fracture Vertigo Wound abscess Surgical History H/O bilateral mastectomy H/O hysterectomy for benign disease History of bunionectomy of right great toe History of left knee replacement History of lumbar spinal fusion History of surgery History of total right knee replacement Hx of bilateral cataract extraction S/P trigger finger release (2013) Family History Father Congestive heart failure Advanced cirrhosis of liver Grandmother Congestive heart failure Social History household members: none Smoking Status: Former smoker alcohol intake: current Assessment & Plan Post-op Postoperative Procedures: Procedures Operation Date: 09/13/20 07:45 Actual Procedures Side Surgeon p L3-4, L5-S1 TLIF, L4-5 HWR,L3-S1 PSF w. instrumentation Not Applicable Rupal Loya MD Postoperative day: 3 Postoperative status: doing well Postoperative plan: ambulate Postoperative plan narrative: Patient is to continue working on ambulation with PT. Patient weight-bearing as tolerated with the assistance of a front wheeled walker. Current pain management regimen is to be continued as is adequately controlling the patient's pain level at this time. As of this morning the plan is to have the patient transferred to nursing home facility at approximately 1:30 p.m. today. Time Spent With Patient Time with patient: 15-24 minutes Quality VTE Deep Vein Thrombosis/Pulmonary Embolism Present on Admission: No
--- NOTE | 2020-09-16 10:37 | P.DS_ITS ---
History of Present Illness History of Present Illness Date Patient Seen: 09/16/20 Time Patient Seen: 10:38 Chief complaint: Translaminar Interbody Fusion/Laminotomy Narrative: Ms. Allen is a 85 yo F with hx of chronic back pain. She had previous lumbar fusion with worsening back pain and leg pain. She failed additional conservative care and is scheduled for revision lumbar fusion. 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 Following the procedure the patient has been convalescing slowly in her pain has been managed with her current pain management regimen. Patient has continued to improve in her condition following initial admission, and she notes that her pain level has gradually decreased throughout her stay. Throughout her time in the hospital the patient has denied fever, chills, nausea, chest pain, shortness of breath, or urinary retention. Patient has progressed slower than anticipated. Patient has worked with physical therapy on ambulation with the assistance of a front wheeled walker and has remained weight-bearing as tolerated. SCDs have been used throughout her stay for DVT prophylaxis. Status at Discharge Cognitive/behavioral status at discharge: oriented Functional status at discharge: uses cane/walker Overall status at discharge: patient is progressing back to baseline Exam Vital Signs (past 8 hours): - 09/16/20 05:27 09/16/20 08:00 Temperature 98.3 F 97.8 F Pulse Rate 89 77 Respiratory Rate 18 18 Blood Pressure 112/54 L 110/50 L Pulse Oximetry 93 92 Oxygen Delivery Method Room Air Oxygen Flow Rate 0 Narrative Exam Narrative: Pleasant 85-year-old female postop day 3. Patient is resting comfortably in bed, is in no acute distress, is alert and oriented x3. Skin is warm and dry, and the skin around the incision site is free of erythema, warmth, induration, or discharge. Good sensation appreciated throughout the bilateral lower extremities to light touch. Ankle dorsiflexion, plantar flexion, eversion, inversion performed bilaterally without difficulty or discomfort. Calves are soft and nontender, negative Homans sign. Capillary refill less than 2 seconds, palpable pulses appreciated. No other signs of DVT appreciated at this time. Const General: cooperative, healthy appearing and comfortable Resp Effort & Inspection: normal respiratory effort and able to speak in complete sentences Skin General: no rashes or lesions noted Objective Labs Result Diagrams: 09/15/20 14:23 09/14/20 05:20 Labs: Laboratory Results - last 24 hr 09/15/20 09/16/20 14:23 08:45 Hgb 9.5 L Hct 28.9 L SARS-CoV-2 (PCR) Negative PFSH Medical History Abnormal breast biopsy Asthma due to environmental allergies Breast cancer, left (06/2011) Cataract (lens) fragments in eye following cataract surgery, bilateral Cervical cancer (1973) Diabetes Diabetic peripheral neuropathy Difficulty swallowing Eczema GERD (gastroesophageal reflux disease) Gout Herniated nucleus pulposus, L3-4 left HLD (hyperlipidemia) HNP (herniated nucleus pulposus), thoracic HTN (hypertension) Hypothyroidism Kidney infection Lumbar radiculopathy Sacrococcygeal disorders, not elsewhere classified Status post lumbar spinal arthrodesis Vertebral fracture Vertigo Wound abscess Surgical History H/O bilateral mastectomy H/O hysterectomy for benign disease History of bunionectomy of right great toe History of left knee replacement History of lumbar spinal fusion History of surgery History of total right knee replacement Hx of bilateral cataract extraction S/P trigger finger release (2013) Family History Father Congestive heart failure Advanced cirrhosis of liver Grandmother Congestive heart failure Social History household members: none Smoking Status: Former smoker alcohol intake: current Discharge Assessment & Plan Assessment and Plan Assessment: Patient has gradually progressed throughout her stay in the hospital. Plan of Treatment: Patient is to remain weight-bearing as tolerated with the assistance of a front wheeled walker. Physical therapy is to be continued at [facility]. First postoperative visit is scheduled in the clinic 2 weeks following discharge from the hospital. Patient is to refrain from bending, twisting, or lifting in excess of 10 lb. Dressing over the incision site is to be addressed as needed if it is to become soiled or damaged. Incision site should remain free of any topical ointments. Current pain management regimen is to be continued as it is adequately control the patient's pain level at this time. Patient is to contact the clinic with any concerns or questions. Any signs of increased redness, swelling, warmth, or discharge from the incision site should be reported to the clinic. Patient is to remain weight-bearing as tolerated with the assistance of a front wheeled walker. Discharge Plan Discharge Plan Patient Disposition: SNF Transfer to: [facility] Discharge orders & Medications Prescriptions: New acetaminophen 325 mg Tablet 650 mg PO Q6HR PRN (Reason: Pain, Mild (1-3)) Qty: 90 RF: 0 oxycodone 10 mg Tablet 10 mg PO Q3HR PRN (Reason: Pain, Severe (7-10)) Qty: 42 RF: 0 Continued melatonin 3 mg Tablet 9 mg PO BEDTIME RF: 0 trospium 20 mg Tablet 20 mg PO BID RF: 0 naproxen sodium [Aleve] 220 mg Capsule 220 mg PO TID-QID PRN (Reason: Pain) RF: 0 triamcinolone acetonide 0.1 % Cream 1 applic TOPICAL BID PRN (Reason: Rash various locations) RF: 0 aspirin [Adult Aspirin Regimen] 81 mg tablet,delayed release (DR/EC) 162 mg PO DAILY RF: 0 lisinopril 40 mg tablet 40 mg PO DAILY RF: 0 levothyroxine 88 mcg capsule 88 mcg PO DAILY RF: 0 allopurinol 300 mg tablet 300 mg PO DAILY RF: 0 insulin lispro [Humalog U-100 Insulin] 100 unit/mL solution 4 - 20 sliding scale dose SUBCUT USEASDIRECTD RF: 0 Lantus U-100 Insulin 100 unit/mL solution 16 unit SUBCUT BID RF: 0 ezetimibe [Zetia] 10 mg tablet 10 mg PO DAILY RF: 0 hydrocodone-acetaminophen 5-325 mg tablet 1 tab PO BID RF: 0 dicyclomine 10 mg capsule 10 mg PO BID RF: 0 celecoxib [Celebrex] 200 mg capsule 200 mg PO DAILY Qty: 90 RF: 1 Follow up/Referrals: Brenda Dotson PA-C [Primary Care Provider] - Diet/Activity/Treatments Diet: Diet as Tolerated Activity: Weightbearing as tolerated the assistance of a front wheeled walker. Avoid bending, twisting, or lifting in excess of 10 lb. Skin/Wound/Dressing Care Report to your healthcare provider any signs of infection, such as:: chills, fever, night sweats, increased pain, unusual drainage and unusual redness Dressing: Dressing over the incision site is to be changed as needed if it is to become soiled or removed. Other wound treatment: Avoid placing topical ointments over the incision site. Special Rehabilitation Services Reason for rehabilitation: Post-operative therapy Visit Report/Discharge Packet Instructions: DI for Prescription Opioid Use, DI for Transforaminal Lumbar Interbody Fusion Stand Alone Forms: Surgery Discharge Discharge Data Primary Care Provider: Brenda Dotson Quality VTE Deep Vein Thrombosis/Pulmonary Embolism Present on Admission: No
--- NOTE | 2020-09-16 10:54 | PT.IPTN ---
Current Diagnoses Spondylolisthesis, lumbar region (09/13/20) Other spondylosis with radiculopathy, lumbosacral region (09/13/20) Arthrodesis status (09/13/20) Surgery Performed Operation Date: 09/13/20 07:45 Actual Procedures p L3-4, L5-S1 TLIF, L4-5 HWR,L3-S1 PSF w. instrumentation(Not Applicable) - Rupal Loya MD Physical Therapy Treatment Note M2 PT-IP Current Condition Start: 09/14/20 11:44 Freq: NEEDED Status: Active Protocol: Document 09/14/20 10:30 AB (Rec: 09/14/20 11:57 AB [email or web address]) Physical Therapy Current Condition Current Condition Evaluation Date 09/14/20 Treatment Diagnosis s/p L3-4, L4-5, L5S1 instrumentation; L3-4, L5S1 fusion; diff in walking Onset Date 09/13/20 Precautions Lumbar Precautions Log Roll,No Twisting,Limit Bending,Lifting Restriction of 10 lbs,Gait Belt above Incisional Area M3 PT-IP Subjective Start: 09/14/20 11:44 Freq: NEEDED Status: Active Protocol: Document 09/16/20 10:29 CLB (Rec: 09/16/20 11:12 CLB [id number]) Subjective Physical Therapy Visit Type Type Treatment Note Visit Start Time 10:29 Visit Stop Time 10:54 Total Visit Minutes 25 Notes daughter present for tx Number of ADULT PSYCHIATRIST Visits 3 Physical Therapy Visit Comments Patient Comments Pt agreeable to working with PT. Therapy Pain Assessment Pain When Pain Assessed At Rest Pain Present Pain Present Pain Reported Location lower back Intensity 3 Scale Used 5/10 during mobility Description With Movement Pain Behaviors Facial Grimacing Pain Management Techniques Re-positioning,Timing of Activity with Medications M4 PT-IP Mobility and Gait Start: 09/14/20 11:44 Freq: NEEDED Status: Active Protocol: Document 09/16/20 10:29 CLB (Rec: 09/16/20 11:12 CLB [id number]) PT-Bed Mobility Assessment Rolling Type of Rolling Log Rolling,Roll to Right Level of Assist Moderate Assistance,1 Person Assistance Supine to Sit Supine to Sit Maximum Assistance,1 Person Assistance Scooting Scooting to Edge of Bed Moderate Assistance PT-Transfer Assessment Sit to and From Stand Sit to and from Stand Minimal Assistance,1 Person Assistance,Use of Upper Extremities Equipment Transfer Assistive Device Gait Belt,Front Wheeled Walker Orthotic/Prosthetic Devices or Brace: No Transfers Transfer Destination Chair Transfer Technique Pt ambulated using FWW Transfer Ability Level of Assist Minimal Assistance,1 Person Assistance,Use of Upper Extremities Comments Mobility Comments Pt recalled 3/3 back precations. Pt requires verbal and tactile cues for sequencing with LR and hand placement while sitting on EOB . Pt had difficulty with posterior lean at EOB and required cues for posture. Pt stood with cues for HP for safety. Once in standing pt relied heavily with back of legs on bed for support. Pt ambulated to chair requiring Mod A x2 with Max cues for walker management and to stay closer to walker. Pt sat on chair with cues for HP and rested. Pt then stood from chair and ambulated Mod A with max cues for sequencing steps and walker use, pt also required constant cues for posture. Pt then sat in chair and after resting performed stand>sit to assure pt understood HP on chair before sitting to avoid plopping on chair. Pt performed seated ther ex. Pt left in room with all needs within reach and daughter present. Informed RN of pt progress. Gait Assessment Gait Gait Assistance Required: Moderate Assistance,2 Person Assist Distance (Feet) 10 Able to Maintain Weight Bearing Status No During Gait Assistive Devices Assistive Device Gait Belt,Front Wheeled Walker Orthotic/Prosthetic Devices or Brace: No Gait Deviations General Gait Pattern Antalgic,Decreased Stride Length,Decreased Feet Clearance,Flexed Trunk,Narrow Based Gait,Step-to Gait Factors Limiting Gait Function Factors Limiting Gait Function Decreased Activity Tolerance, Decreased Strength,Difficulty Following Directions,Limited Range of Motion,Pain,Poor Balance,Poor Safety Awareness Comments Gait Comments See mobility comments. Stair Climbing Assessment Comments Stair Climbing Comments unable at this time. M5 PT-IP Objective Assessments Start: 09/14/20 11:44 Freq: NEEDED Status: Active Protocol: Document 09/14/20 10:30 AB (Rec: 09/14/20 11:57 AB [id number]) Orientation Orientation/Cognition Level of Alertness Lethargic Orientation Name Safety Awareness Decreased Safety Awareness Gross Range of Motion Lower Extremity ROM Assessment Within Functional Limits Strength Lower Extremity Strength Assessment Bilaterally Impaired Hip 3+/5 Knee 3/5 M6 PT-IP Treatment Start: 09/14/20 11:44 Freq: NEEDED Status: Active Protocol: Document 09/16/20 10:29 CLB (Rec: 09/16/20 11:12 CLB [id number]) Physical Therapy Treatment Exercises Exercises Ankle Pumps,Quad Sets Education Education Provided Precautions,Safety M7 PT-IP Assessment and Plan Start: 09/14/20 11:44 Freq: NEEDED Status: Active Protocol: Document 09/16/20 10:29 CLB (Rec: 09/16/20 11:12 CLB [id number]) PT Summary Assessment and Plan Potential Rehabilitation Potential Fair Status of Condition at Evaluation Evolving Summary Impairments Pain,ROM,Strength,Balance, Coordination,Sensation,Tone, Cognition,Bed Mobility, Transfers,Gait,Activity Tolerance Progress Towards Goals Slow Progress due to Pain,Slow Progress due to Activity Tolerance Assessment Summary Pt continues to required Max A for bed mobility and Min A for sit-stand. Pt able to transfer to chair Mod A x2 then ambulate ~10ft Mod A x1 with chair follow. Pt with posterior lean with sitting balance in bed but able to sit up in chair. Pt will require SNF rehab to increase strength for functional mobility. Goals Bed Mobility Goal Minimal Assistance Transfer Goal Minimal Assistance,Front Wheeled Walker Gait Goal Minimal Assistance,Front Wheel Walker Gait Distance 50 Days to Meet Goals 10 Frequency of Treatment Frequency Of Treatment Twice a Day Treatment Plan Physical Therapy Treatment Plan Bed Mobility Training,Transfer Training,Gait Training, Therapeutic Exercise,Balance Retraining,Post Op Education, Discharge Planning,Hot or Cold Pack,Neuromuscular Re-ed, Coordination Retraining,Manual Therapy Precautions Lumbar Precautions Log Roll,No Twisting,Limit Bending,Lifting Restriction of 10 lbs,Gait Belt above Incisional Area Recommendations To Nursing Amount of Assist Needed 2 Person Assist Discharge Recommendations PT Discharge Recommendations SNF Rehab Transportation Needs at Discharge Wheelchair/Cabulance
--- NOTE | 2020-09-16 11:23 | CM.DPC ---
DCP Cont: Patient is discharging to [facility] today. Had Erwin Peñaloza, PAC/ortho, complete orders. Faxed over signed med sheets, PASSR, and COVID results to [facility]. Confirmed garbage pick up man time of 1330. Updated daughter and patient. She is hopeful to have BM before she goes. Updated white board at main nursing station. P: Patient is discharging to [facility] today. Agueda Carter RN/Exchange Specialist
[2020-09-16 12:00] VITALS: BP 112/53; PULSE 90; RESP 18; TEMP 36.6; O2SAT 96
--- NOTE | 2020-09-16 12:44 | OT.IP.TRT ---
Current Diagnoses Spondylolisthesis, lumbar region (09/13/20) Other spondylosis with radiculopathy, lumbosacral region (09/13/20) Arthrodesis status (09/13/20) Surgery Performed Operation Date: 09/13/20 07:45 Actual Procedures p L3-4, L5-S1 TLIF, L4-5 HWR,L3-S1 PSF w. instrumentation(Not Applicable) - Rupal Loya MD Occupational Therapy Treatment Note M2 OT-IP Current Condition Start: 09/15/20 12:11 Freq: Status: Active Protocol: Document 09/15/20 10:30 [facility] (Rec: 09/15/20 12:35 [facility] [id number]) Occupational Therapy Current Condition Current Condition Evaluation Date 09/15/20 Treatment Diagnosis S/P L3-4, L5-S1 TLIF, L4-5 HWR , L3-S1 PSF Diagnosis Onset Date 09/13/20 Post Operative Precautions Lumbar Precautions Log Roll,No Twisting,Limit Bending,Lifting Restriction of 10 lbs,Gait Belt above Incisional Area M3 OT- IP Subjective and Pain Start: 09/15/20 12:11 Freq: Status: Active Protocol: Document 09/16/20 12:25 [facility] (Rec: 09/16/20 12:44 [facility] [id number]) OT- Subjective Occupational Therapy Visit Type Type Treatment Note Visit Start Time 11:16 Visit Stop Time 11:47 Total Visit Minutes 31 Occupational Therapy Visit Comments Patient Comments Daughter in the room and pt not wanting to shower but agreed to sponge bath. Patient/Caregiver Goals To go to skilled rehab. OT Pain Assessment Pain When Pain Assessed At Rest Pain Present Pain Present Denied Pain M4 OT- IP ADL's Start: 09/15/20 12:11 Freq: Status: Active Protocol: Document 09/16/20 12:25 [facility] (Rec: 09/16/20 12:44 [facility] [id number]) OT ADL-Grooming General Evaluation Grooming Ability Standby Assistance Areas Needing Assistance Retrieving/Set-up of Grooming Items OT ADL-Toileting General Evaluation Toileting Ability Standby Assistance,Moderate Assistance Areas Needing Assistance Perform Perineal Hygiene Comments OT Toileting Comments Pt able to wipe after urination. Pt will need assist if having a bowel movement. OT ADL-Bathing Bathing Type Bathing Type Sponge Bath General Evaluation Bathing Ability Maximal Assistance Areas Needing Assistance Wash/Dry Back,Wash/Dry Perineal Area,Wash/Dry Lower Extremities M5 OT- IP IADL's Start: 09/15/20 12:11 Freq: Status: Active Protocol: Document 09/15/20 10:30 [facility] (Rec: 09/15/20 12:35 [facility] [id number]) OT-Instrumental Activities of Daily Living Home Safety Awareness Awareness of Need for Assistance at Home Decreased Awareness Home Safety Comments Pt very insistent on going home and have insight of needs at this time. pt states, I am very stubborn. Medication Management Medication Management Comments If pt going home would be best for someone to assist her for all her ADL and functional mobility needs. M6 OT- IP Functional Cognition Start: 09/15/20 12:11 Freq: Status: Active Protocol: Document 09/16/20 12:25 [facility] (Rec: 09/16/20 12:44 [facility] [id number]) Cognitive Factors Limiting Selfcare Function Cognitive Ability Level of Alertness Alert Patient Orientation Name,Place,Situation Attention Span Ability Capable of Focused Attention Ability to Follow Commands Able to Follow One Step Commands Safety Awareness Decreased Ability to Apply Precautions,Underestimates Need for Assistance Cognitive Comments Cognitive Assessment Comments Pt still needing cues to keep the FWW closer to her during transfers and be sure to use the FWW to turn all the way back to surfaces versus trying to reach out to the grab bar of the toilet or armrest of the recliner. Pt still needing more education for back precautions. M7 OT- IP Mobility and Balance Start: 09/15/20 12:11 Freq: Status: Active Protocol: Document 09/16/20 12:25 [facility] (Rec: 09/16/20 12:44 [facility] [id number]) OT-Transfer Assessment Sit to and From Stand Sit to and from Stand Minimal Assistance,Moderate Assistance,1 Person Assistance Transfers Transfer Ability Moderate Assistance,1 Person Assistance,2 Person Assistance Technique Transfer Destination Chair,Toilet Transfer Technique Stand Step Pivot Devices Transfer Assistive Devices Gait Belt,Front Wheeled Walker Comments Mobility Comments MINAx 2 to MOD A x2 for mobility needs assist for balance and to guide the FWW. OT- Balance Assessment Sitting Balance and Reactions Static Sitting Balance Ability Good Dynamic Sitting Balance Ability Fair Standing Balance and Reactions Static Standing Balance Ability Poor M8 OT- IP Objective Assessments Start: 09/15/20 12:11 Freq: Status: Active Protocol: Document 09/15/20 10:30 [facility] (Rec: 09/15/20 12:35 [facility] [id number]) OT Gross Range of Motion Upper Extremity Range of Motion ROM Impairments grossly WFL for needs OT Strength Comments Strength Comments BUE 4/5 M9 OT- IP Assessment and Plan Start: 09/15/20 12:11 Freq: Status: Active Protocol: Document 09/16/20 12:25 [facility] (Rec: 09/16/20 12:44 [facility] [id number]) OT Summary Assessment and Plan Potential Rehabilitation Potential Good Analytic Complexity at Evaluation Low Summary Progress Towards Goals Progressing Toward Goals Assessment Summary Pt able to participate in sponge bathing and toileting. Pt moving better but still needing safety cues for back precautions needs for ADl and functional mobility. Goals Grooming Goal Independent Dressing Goal Independent Toileting Goal Independent Bathing Goal Independent Toilet Transfer Goal Independent Shower Transfer Goal Independent Patient/Caregiver Education Goal Demonstrate Post-Op Precautions,Caregiver Independent Assisting Patient Days to Meet Goals 10 Treatment Plan OT Treatment Plan ADL Training,Functional Cognition Training,Functional Mobility,Patient/Family Education,Discharge Planning Discharge Recommendations OT Discharge Recommendations SNF Rehab Transportation Needs at Discharge Wheelchair/Cabulance
== END 2020-09-16 13:40 | DRG 454 ==
LOC: AC 13:59 → ICU 17:03
PROVIDERS: Physician Assistant Medical; Admitting Provider Orthopaedic Surgery Orthopaedic Surgery of the Spine; PCP Physician Assistant; Referring Provider Physical Medicine & Rehabilitation; Visit Provider Orthopaedic Surgery Orthopaedic Surgery of the Spine
PROC: 0SG00AJ Fusion of Lumbar Vertebral Joint with Interbody Fusion Device, Posterior Approach, Anterior Column, Open Approach (ICD-10-PCS; principal; 2020-09-13 07:45)
DX: M48.061 Spinal stenosis, lumbar region without neurogenic claudication (principal); M96.0 Pseudarthrosis after fusion or arthrodesis; M43.16 Spondylolisthesis, lumbar region; I10 Essential (primary) hypertension; E78.5 Hyperlipidemia, unspecified; E03.9 Hypothyroidism, unspecified; M53.3 Sacrococcygeal disorders, not elsewhere classified; M10.9 Gout, unspecified; E11.9 Type 2 diabetes mellitus without complications; Z79.4 Long term (current) use of insulin; Z87.891 Personal history of nicotine dependence; Z85.3 Personal history of malignant neoplasm of breast; Z20.822 Contact with and (suspected) exposure to COVID-19; M96.1 Postlaminectomy syndrome, not elsewhere classified; G89.18 Other acute postprocedural pain
CPT/HCPCS: 36415; 36592; 72100; 76000; 80048; 82962; 85014; 85018; 87635; 87797; 97116; 97162; 97165; 97530; 97535; C1776; C9803; C9290; J0330; J0690; J1170; J1815; J2250; J2405; J2704; J3010; J3410

== ENCOUNTER 2020-09-26 22:00 | Inpatient (IN) | payer MEDICARE, OTHER, SELFPAY ==
[2020-09-13 06:43] VITALS: BMI 35.3
[2020-09-26] VITALS (8 sets, daily range): BP systolic 95; BP diastolic 51–53; PULSE 88–97; RESP 15–23; TEMP 37.3–37.7; O2SAT 95–98; BMI 32.2
--- NOTE | 2020-09-26 22:06 | ED_ITS ---
HPI - General Adult General Chief complaint: Fever Stated complaint: Lethargic/ febrile/ poss sepsis Time Seen by Provider: 09/26/20 22:04 History of Present Illness HPI narrative: 85-year-old woman with spinal procedure detailed below on September 13. At [facility] for the last 2 weeks. Had been doing well until today when she began having increasing pain and purulence drainage from her surgical incision site. Had a temperature to 100.3. Staff report that she has been increasingly lethargic over the course of the day, initial blood pressure from medics was 96/62 with a map of 62. Last medication was 2 Vicodin 2 hours prior to arrival. She does not note that she has been having chest pain palpitations, dysuria, constipation or diarrhea. Age/Sex: 85 / F Date of Service: 09/13/20Provider: Rupal Loya MD Operative Date/Time/Diagnoses Date of procedure: 09/13/20 Time of procedure: 08:16 Pre-op diagnosis: 1. L3-4, L4-5, L5-S1 spinal stenosis 2. Hx of L4-5 fusion with pseudoarthrosis 3. post laminectomy syndrome Post-op diagnosis: same Procedure & Clinicians Procedure: 1. L3-4, L5-S1 posterolateral and posterior interbody fusion 2. L3-4, L5-S1 posterior interbody cage placement 3. L4-5 posterior non-segmental instrumentation removal 4. L4-5 revision laminectomy with exploration of fusion 5. L3-4, L4-5, L5-S1 posterior segmental instrumentation with pedicle screw placement 6. L4-5 posterolatearl fusion 7. [place] of bone marrow from iliac crest through a separate incision 8. Utilization of microsurgical technique and operating microscope Related Data Home Medications Medication Instructions Recorded Confirmed allopurinol 300 mg tablet 300 mg PO DAILY 12/10/19 09/27/20 aspirin 81 mg tablet,delayed 81 mg PO DAILY 12/10/19 09/27/20 release dicyclomine 10 mg capsule 10 mg PO BID 12/10/19 09/27/20 ezetimibe 10 mg tablet 10 mg PO DAILY 12/10/19 09/27/20 insulin glargine 100 unit/mL 16 unit SUBCUT BID 12/10/19 09/27/20 subcutaneous solution insulin lispro 100 unit/mL 4 - 20 sliding scale dose SUBCUT 12/10/19 09/27/20 subcutaneous solution USEASDIRECTD levothyroxine 88 mcg capsule 88 mcg PO DAILY 12/10/19 09/27/20 lisinopril 40 mg tablet 40 mg PO DAILY 12/10/19 09/27/20 melatonin 9 mg PO BEDTIME 09/06/20 09/27/20 naproxen sodium [Aleve] 220 mg PO TID-QID PRN 09/06/20 09/27/20 triamcinolone acetonide 1 applic TOPICAL BID PRN 09/06/20 09/27/20 trospium 20 mg PO BEDTIME 09/06/20 09/27/20 pantoprazole 40 mg PO DAILY 09/27/20 09/27/20 Previous Rx's Medication Instructions Recorded celecoxib 200 mg capsule 200 mg PO DAILY #90 cap 06/02/20 acetaminophen 650 mg PO Q6HR PRN #90 tab 09/16/20 hydrocodone-acetaminophen 1 tab PO BID PRN #30 tab 09/16/20 Allergies Allergy/AdvReac Type Severity Reaction Status Date / Time adhesive Allergy Intermediate Rash Verified 09/13/20 07:00 Sulfa (Sulfonamide Allergy Pt does Verified 09/13/20 07:00 Antibiotics) not recall Tpugoxd-Qqk-Chw Reductase AdvReac Severe I loose Verified 09/13/20 07:00 Inhibitor all muscle Review of Systems Review of Systems Narrative: Remainder of review is unremarkable Patient History Medical History Abnormal breast biopsy Asthma due to environmental allergies Breast cancer, left (06/2011) Cataract (lens) fragments in eye following cataract surgery, bilateral Cervical cancer (1973) Diabetes Diabetic peripheral neuropathy Difficulty swallowing Eczema GERD (gastroesophageal reflux disease) Gout Herniated nucleus pulposus, L3-4 left HLD (hyperlipidemia) HNP (herniated nucleus pulposus), thoracic HTN (hypertension) Hypothyroidism Kidney infection Lumbar radiculopathy Sacrococcygeal disorders, not elsewhere classified Status post lumbar spinal arthrodesis Vertebral fracture Vertigo Wound abscess Surgical History H/O bilateral mastectomy H/O hysterectomy for benign disease History of bunionectomy of right great toe History of left knee replacement History of lumbar spinal fusion History of surgery History of total right knee replacement Hx of bilateral cataract extraction S/P trigger finger release (2013) Family History Father Congestive heart failure Advanced cirrhosis of liver Grandmother Congestive heart failure Social History household members: none Smoking Status: Former smoker alcohol intake: current Smoking Status: Former smoker alcohol intake frequency: holidays/special occasions only Substance Use Type: does not use Exam Narrative Exam Narrative: General: Pale and acutely ill appearing. Cognitively alert and able to speak in full sentences HEENT: Very dry mucous membranes, normal sclera with reactive pupils, Neck: No JVD, supple Respiratory: Lungs are clear to auscultation, no wheezing no rales no rhonchi. Full and symmetrical air movement Chest: Surgically absent breasts Cardiac: Tachycardic but otherwise Regular rate and rhythm no murmurs no bruits Abdomen: Soft, nontender, good bowel tones, no flank pain Skin: Pale without diaphoresis Neurologic: Grossly neurologically intact with no obvious asymmetries or abnormalities Spine: Postoperative sites are both red and irritated and the 1 to the left of the spine has purulence drainage from both the upper and lower portions of the wound. [place] remain in place for both wounds Extremities: No trauma, delayed peripheral perfusion without overt mottling, 1+ bilateral lower extremity edema Psych: Cooperative, fluent speech with appropriate content Initial Vital Signs Initial Vital Signs: Vital Signs Pulse Rate 88 09/26/20 22:05 Respiratory Rate 17 09/26/20 22:05 Pulse Oximetry 95 09/26/20 22:05 Course Orders Ordered: ED Orders 09/26/20 22:17 EKG-12 Lead Stat 09/26/20 22:20 CT lumbar spine w con Stat 09/26/20 23:45 Blood Culture Stat Complete Blood Count AUTO DIFF Stat Comprehensive Metabolic Panel Stat Lactate (Lactic Acid) Stat Procalcitonin Stat Troponin & CK Cardiac Panel Stat 09/27/20 00:35 COVID19 - ADMIT (HOSPITAL PHARMACY TECHNICIAN swab/PCR) Stat 09/27/20 01:05 Urinalysis and Microscopic Stat Urine Culture Stat Hydromorphone HCl (Hydromorphone 0.5 Mg Inj) 0.5 mg IV Q15MIN PRN PRN Reason: Pain, Last Admin: 09/26/20 22:30 Dose: 0.5 mg Documented by: AKBAR Hydromorphone HCl (Hydromorphone 0.5 Mg Inj) 0.5 mg IV Q2H PRN PRN Reason: Pain, Severe (7-10) Sodium Chloride (Normal Saline 0.9%) 1,000 mls @ 125 mls/hr IV CONT GUIDO Last Admin: 09/27/20 02:13 Dose: 125 mls/hr Documented by: RAFITA Discontinued Medications Acetaminophen (Acetaminophen 325 Mg Tablet) 975 mg PO NOW ONE Stop: 09/26/20 22:21 Last Admin: 09/26/20 22:37 Dose: 975 mg Documented by: AKBAR Sodium Chloride (Normal Saline 0.9%) 2,245.29 mls @ 748.43 mls/hr 30 ml/kg infuse over 3 hr (2245.29 ml) IV NOW ONE Stop: 09/27/20 01:15 Last Infusion: 09/27/20 02:13 Dose: 0 mls/hr Documented by: Admin: 09/26/20 22:31 Dose: 748.43 mls/hr Documented by: AKBAR Cefepime HCl 2 gm/ Sodium (Chloride) 100 mls @ 200 mls/hr IV NOW ONE Stop: 09/26/20 22:17 Last Infusion: 09/27/20 00:33 Dose: 0 mls/hr Documented by: Admin: 09/26/20 23:54 Dose: 200 mls/hr Documented by: AKBAR Vancomycin HCl (Vancomycin) 1,000 mg in 200 mls @ 200 mls/hr IV NOW ONE Stop: 09/26/20 23:15 Last Infusion: 09/27/20 01:11 Dose: 0 mls/hr Documented by: Admin: 09/26/20 23:58 Dose: 200 mls/hr Documented by: AKBAR Vital Signs Vital signs: Vital Signs - 8 hr 09/26/20 22:05 09/26/20 22:06 09/26/20 22:07 Temperature 99.2 F Pulse Rate 88 90 91 H Respiratory Rate 17 23 20 Blood Pressure 95/53 L 95/53 L Pulse Oximetry 95 95 96 09/26/20 22:30 09/26/20 22:34 09/26/20 23:00 Temperature 100 F H Pulse Rate 91 H 97 H Respiratory Rate 15 19 Blood Pressure Pulse Oximetry 98 09/26/20 23:30 09/26/20 23:56 09/27/20 00:00 Temperature Pulse Rate 97 H 92 H 91 H Respiratory Rate 20 16 22 Blood Pressure 95/51 L 96/51 L Pulse Oximetry 96 96 09/27/20 00:30 09/27/20 00:32 09/27/20 01:00 Temperature Pulse Rate 91 H 90 96 H Respiratory Rate 23 20 21 Blood Pressure 90/49 L Pulse Oximetry 96 95 09/27/20 01:02 09/27/20 01:10 Temperature 97.8 F Pulse Rate 91 H Respiratory Rate 20 Blood Pressure 99/49 L Pulse Oximetry 96 Medical Decision Making Medical Records Medical records reviewed: Yes I reviewed the patient's medical records. Lab Data Lab results reviewed: Yes I reviewed the patient's lab results. Result diagrams: 09/26/20 23:45 09/26/20 23:45 Labs: Lab Results 09/26/20 09/26/20 09/26/20 Range/Units 23:30 23:45 23:45 WBC 22.4 H (4.5-11.0) X10^3/uL RBC 2.84 L (4.0-5.2) X10^6/uL Hgb 8.5 L (12.0-16.0) g/dL Hct 26.7 L (36-46) % MCV 93.9 (80-100) fL MCH 29.8 (26-34) PG MCHC 31.8 (30-36) % RDW 16.3 H (11.6-14.8) % Plt Count 306 (150-400) X10^3/uL Neut % (Auto) 93.7 H (50-75) % Lymph % (Auto) 2.8 L (25-40) % [place] % (Auto) 2.2 L (3-14) % Eos % (Auto) 0.2 L (2-4) % Baso % (Auto) 1.1 (0-2) % Neut # (Auto) 97793 H (4906-0748) /uL Lymph # (Auto) 600 L (2564-9602) /uL [place] # (Auto) 500 (0-900) /uL Eos # (Auto) 0 (0-450) /uL Baso # (Auto) 200 H (0-100) /uL Sodium 127 L (137-145) mmol/L Potassium 5.0 (3.4-5.1) mmol/L Chloride 97 L (98-107) mmol/L Carbon Dioxide 24 (22-32) mmol/L BUN 36 H (7-17) mg/dL Creatinine 1.52 H (0.52-1.04) mg/dL Estimated GFR 32.7 L (>60) mL/min BUN/Creatinine Ratio 23.7 H (6-22) Glucose 96 (80-110) mg/dL Lactate (0.7-2.1) mmol/L Calcium 8.4 (8.4-10.2) mg/dL Total Bilirubin 0.9 (0.2-1.3) mg/dL AST 50 H (14-36) IU/L ALT 15 (<35) IU/L Alkaline Phosphatase 167 H (38-126) U/L Total Creatine Kinase 76 (30-135) U/L CK-MB (CK-2) TNP CK-MB (CK-2) Rel Index TNP Troponin I < 0.012 (0.01-0.034) ng/mL Total Protein 6.2 L (6.3-8.2) g/dL Albumin 2.9 L (3.5-5.0) g/dL Globulin 3.3 (1.7-4.1) g/dL Albumin/Globulin Ratio 0.9 L (1.0-2.8) Procalcitonin 0.92 H (<0.5) ng/mL Urine Color Urine Appearance Urine pH (4.5-8.0) Ur Specific [place] (1.000-1.035) Urine Protein (Negative) Urine Glucose (UA) (Negative) g/dL Urine Ketones (NEGATIVE) Urine Occult Blood (Negative) Urine Nitrate (Negative) Urine Bilirubin (NEGATIVE) Urine Urobilinogen (0.2) E.U./dL Ur Leukocyte Esterase (NEGATIVE) Urine RBC (0-5/HPF) Urine WBC (0-5/HPF) Urine Bacteria (None) Ur Culture Indicated? SARS-CoV-2 (PCR) Negative (Negative) 09/26/20 09/27/20 Range/Units 23:45 01:05 WBC (4.5-11.0) X10^3/uL RBC (4.0-5.2) X10^6/uL Hgb (12.0-16.0) g/dL Hct (36-46) % MCV (80-100) fL MCH (26-34) PG MCHC (30-36) % RDW (11.6-14.8) % Plt Count (150-400) X10^3/uL Neut % (Auto) (50-75) % Lymph % (Auto) (25-40) % [place] % (Auto) (3-14) % Eos % (Auto) (2-4) % Baso % (Auto) (0-2) % Neut # (Auto) (8356-9756) /uL Lymph # (Auto) (9646-5505) /uL [place] # (Auto) (0-900) /uL Eos # (Auto) (0-450) /uL Baso # (Auto) (0-100) /uL Sodium (137-145) mmol/L Potassium (3.4-5.1) mmol/L Chloride (98-107) mmol/L Carbon Dioxide (22-32) mmol/L BUN (7-17) mg/dL Creatinine (0.52-1.04) mg/dL Estimated GFR (>60) mL/min BUN/Creatinine Ratio (6-22) Glucose (80-110) mg/dL Lactate 1.2 (0.7-2.1) mmol/L Calcium (8.4-10.2) mg/dL Total Bilirubin (0.2-1.3) mg/dL AST (14-36) IU/L ALT (<35) IU/L Alkaline Phosphatase (38-126) U/L Total Creatine Kinase (30-135) U/L CK-MB (CK-2) CK-MB (CK-2) Rel Index Troponin I (0.01-0.034) ng/mL Total Protein (6.3-8.2) g/dL Albumin (3.5-5.0) g/dL Globulin (1.7-4.1) g/dL Albumin/Globulin Ratio (1.0-2.8) Procalcitonin (<0.5) ng/mL Urine Color Yellow Urine Appearance Cloudy Urine pH 6.0 (4.5-8.0) Ur Specific [place] 1.020 (1.000-1.035) Urine Protein 2+ H (Negative) Urine Glucose (UA) Negative (Negative) g/dL Urine Ketones Negative (NEGATIVE) Urine Occult Blood 2+ H (Negative) Urine Nitrate Negative (Negative) Urine Bilirubin Negative (NEGATIVE) Urine Urobilinogen 0.2 (0.2) E.U./dL Ur Leukocyte Esterase 2+ H (NEGATIVE) Urine RBC None seen (0-5/HPF) Urine WBC >100/hpf H (0-5/HPF) Urine Bacteria Many (>30) H (None) Ur Culture Indicated? Specimen cultured SARS-CoV-2 (PCR) (Negative) MDM Narrative Medical decision making narrative: 85-year-old woman who is now 14 days post lumbar surgery presents from rehab facility with fevers, hypertension, increased surgical site/spine pain and [facility] staff report increased lethargy over the course of the day. Initially she is quite pale hypotensive she is alert and able to participate in history. Surgical site is clearly infected. Culture is done of the wound drainage. Initial concern for sepsis. Sepsis protocols were initiated with 30 per kilos fluid boluses and cefepime as well as vancomycin. Urine was obtained and is a quite cloudy. After initial L of fluid patient is significantly improved with blood pressures up to 99 systolic and maps in the 65-70 range with significantly improved color and overall perfusion. Labs returned with significant leukocytosis continued anemia, lactic acid is not elevated. She is mildly hyponatremic at 127 and mildly elevated alkaline phosphatase. CT scan of the lumbar spine is obtained and reveals bilateral superficial paraspinous fluid and air collections from L3 through L5 with nonspecific heterogeneous material noted in laminectomy defect that was not able to be further assessed on CT due to streak artifact. 100am Care is reviewed with Dr. Saldana, on-call for Dr. Loya. He agrees with hospital admission, continued NPO status with anticipation of surgical I and D of the wound after Dr. Andino is able to examine the patient later this morning. 130 at this time, pain is controlled, fluids are continuing to infuse, patient continues to improve both cognitively, overall visible perfusion as well as blood pressures. She has been given cefepime and vancomycin as initial antibiotic choice with concerns for sepsis. Urinalysis returns with significant leukocyte esterase, white blood cells and bacteria with presumption of urinary tract infection. Cefepime will be adequate initial coverage at this time. Discharge Plan Departure Patient Disposition: Admitted As Inpatient Clinical Impression: Deep incisional surgical site infection, Acute hyponatremia, Acute kidney injury, Acute UTI Admit Date/Time: 09/27/20 01:13 Admit Provider: Rupal Loya
--- NOTE | 2020-09-26 22:20 | DI.CT.S_ITS ---
PROCEDURE: CT LUMBAR SPINE W CON INDICATIONS: infected surgical site - L3-S1 TECHNIQUE: After the administration of intravenous Isovue contrast, 3 mm thick sections acquired through the levels of interest. Sagittal and coronal reformats were then constructed. For radiation dose reduction, the following was used: automated exposure control. COMPARISON: [facility], MR, MR LUMBAR SPINE WO CON, 12/13/2019, 8:49. [facility], CR, XR LUMBAR SPINE 2-3V, 09/13/2020, 8:32. FINDINGS: Image quality: Excellent. Bones: Postsurgical changes compatible with L3-S1 TLIF and L4 laminectomy. Orthopedic hardware is intact. No lucency is identified at the bone-hardware interface. No osseous erosive changes. There is mild L1-L2 and L2-L3 retrolisthesis. Severe degenerative disc changes noted throughout the visualized spine. Moderate facet hypertrophy noted throughout the visualized spine. Large posterior bridging osteophytes/disc osteophyte complex noted at the level of the T10-T11 and T11-T12 discs which causes severe central canal narrowing at the level of the T10-T11 disc and moderate central canal narrowing is low T11-T12 disc. Severe L2-L3 central canal narrowing secondary to degenerative spondylolisthesis, degenerative disc disease and facet arthropathy. Severe bilateral L2-L3 neural foraminal narrowing secondary to disc disease and facet hypertrophy. Chronic appearing L4 compression deformity stable compared to prior exams. Soft tissues: Multiple skin sagar noted in the posterior paraspinous soft tissues the level of the L1-L3 vertebral bodies. Scattered fluid collections with internal small air locules noted in the posterior superior spinous soft tissues extending from L2-L5 which could be related to recent surgery or infection. Small hiatal hernia incidentally noted. Atherosclerotic calcifications noted in the visualized abdominal and pelvic vasculature. IMPRESSION: 1. Status post L3-S1 TLIF and L4 laminectomy. 2. Multilevel degenerative disc disease. 3. Multilevel facet arthropathy. 4. Severe T10-T11 and L2-L3 central canal narrowing. 5. Severe bilateral L2-L3 neural foraminal narrowing. 6. Large fluid collection with small internal air locules in the posterior paraspinous soft tissues extending from L1-L5 which could be related to recent surgery or infection/abscess. Dictated by: Tatianna Kevin MD, PhD on 09/27/2020 at 8:00 Approved by: Tatianna Kevin MD, PhD on 09/27/2020 at 8:11
[2020-09-26] MEDS: HYDROMORPHONE 0.5 MG INJ IV (22:30)
[2020-09-26] MEDS: SODIUM CHLORIDE 0.9% 2,245.29 ML 748.43 ML IV (22:31)
[2020-09-26] MEDS: ACETAMINOPHEN 325 MG TABLET 975 MG PO (22:37)
[2020-09-26] MEDS: CEFEPIME 2 GM in SODIUM CHLORIDE 0.9% 100 ML 200 ML IV (23:54)
[2020-09-26] MEDS: VANCOMYCIN 1,000 MG/200 ML PIGGYBACK 200 MG IV (23:58)
[2020-09-27] VITALS (40 sets, daily range): BP systolic 65–151; BP diastolic 31–70; PULSE 73–120; RESP 11–23; TEMP 36.4–37.9; O2SAT 91–100; BMI 32.2
[2020-09-27 00:02] LABS: Add Manual Diff / Slide Review NO; Basophils Absolute Auto 200 /uL (0-100); Basophils Percent Auto 1.1 % (0-2); Eosinophils Absolute Auto 0 /uL (0-450); Eosinophils Percent Auto 0.2 % (2-4); Hematocrit 26.7 % (36-46); Hemoglobin 8.5 g/dL (12.0-16.0); Lymphocytes Absolute Auto 600 /uL (1100-4500); Lymphocytes Percent Auto 2.8 % (25-40); Mean Corpuscular HGB Conc 31.8 % (30-36); Mean Corpuscular Hemoglobin 29.8 PG (26-34); Mean Corpuscular Volume 93.9 fL (80-100); Monocytes Absolute Auto 500 /uL (0-900); Monocytes Percent Auto 2.2 % (3-14); Neutrophils Absolute Auto 21000 /uL (1500-7000); Neutrophils Percent Auto 93.7 % (50-75); Platelet Count 306 X10^3/uL (150-400); Red Blood Cell Count 2.84 X10^6/uL (4.0-5.2); Red Cell Distribution Width 16.3 % (11.6-14.8); White Blood Cell Count 22.4 X10^3/uL (4.5-11.0)
[2020-09-27 00:09] LABS: Lactate (Lactic Acid) 1.2 mmol/L (0.7-2.1)
[2020-09-27 00:10] LABS: Alanine Aminotransferase 15 IU/L (<35); Albumin 2.9 g/dL (3.5-5.0); Albumin Globulin Ratio 0.9 (1.0-2.8); BUN Creatinine Ratio 23.7 (6-22); Bilirubin Total 0.9 mg/dL (0.2-1.3); Blood Urea Nitrogen 36 mg/dL (7-17); Calcium 8.4 mg/dL (8.4-10.2); Carbon Dioxide 24 mmol/L (22-32); Chloride 97 mmol/L (98-107); Creatine Kinase 76 U/L (30-135); Estimated Glomerular Filt Rate 32.7 mL/min (>60); Globulin 3.3 g/dL (1.7-4.1); Glucose 96 mg/dL (80-110); Sodium 127 mmol/L (137-145); Total Protein 6.2 g/dL (6.3-8.2)
[2020-09-27 00:21] LABS: HEMOLYSIS 89 (0-50)
[2020-09-27 00:22] LABS: Troponin I < 0.012 ng/mL (0.01-0.034)
[2020-09-27 00:23] LABS: Alkaline Phosphatase 167 U/L (38-126); Aspartate Aminotransferase 50 IU/L (14-36)
[2020-09-27 00:27] LABS: Procalcitonin 0.92 ng/mL (<0.5)
[2020-09-27 01:12] LABS: RBC Urine None Seen (0-5/HPF)
[2020-09-27 01:15] LABS: Appearance Urine UA CLOUDY; Bilirubin Urine UA NEGATIVE (NEGATIVE); Color Urine UA YELLOW; Glucose Urine UA NEGATIVE (Negative); Ketones Urine UA NEGATIVE (NEGATIVE); Leukocyte Esterase Urine UA 2+ (NEGATIVE); Nitrite Urine UA NEGATIVE (Negative); Occult Blood Urine UA 2+ (Negative); Protein Urine UA 2+ (Negative); Urobilinogen Urine UA 0.2 E.U./dL (0.2)
[2020-09-27 01:26] LABS: Bacteria Urine Many (>30); Culture Indicated Urine Specimen Cultured; WBC Urine >100/HPF (0-5/HPF)
[2020-09-27 01:35] LABS: COVID19 - ADMIT (NP swab/PCR) Negative (Negative)
--- NOTE | 2020-09-27 02:12 | PC.NURSE ---
IVF were at a volume of 1371 at time of transfer; notified RN upstairs.
[2020-09-27] MEDS: SODIUM CHLORIDE 0.9% 1,000 ML 125 ML IV ×2 (02:13→10:25)
--- NOTE | 2020-09-27 07:32 | PC.NURSE ---
Oncoming PA notified of pt's BP of 91/42 (51) and that pt is A&Ox4 and denies feeling dizzy, weak, CP or SOB. PA reports that he will speak with Dr. Loya about interventions for hypotension. Oncoming RT notified that SpO2 probe is no working for this pt and requires a specialized probe. He reported that he will grab one.
--- NOTE | 2020-09-27 07:35 | P.PN_ITS ---
Subjective Subjective Date Patient Seen: 09/27/20 Time Patient Seen: 07:35 Interval history: Patient states she is doing well and is in minimal discomfort at rest. Patient reports that she was in the emergency room last night for symptoms of fever and increased fatigue. She also explains that she had increased pain from around her incision site with increased drainage. Patient had the following procedure on September 13: L3-4, L5-S1 posterolateral and posterior interbody fusion, L3-4, L5-S1 posterior interbody cage placement, L4-5 posterior non-segmental instrumentation removal, L4-5 revision laminectomy with exploration of fusion, L3-4, L4-5, L5-S1 posterior segmental instrumentation with pedicle screw placement, L4-5 posterolatearl fusion, [place] of bone marrow from iliac crest through a separate incision, Utilization of microsurgical technique and operating microscope. At this time the patient denies fever, chills, nausea, chest pain, shortness of breath, or urinary retention. Exam Vital Signs (past 8 hours): - 09/26/20 23:56 09/27/20 00:00 09/27/20 00:30 Temperature Pulse Rate 92 H 91 H 91 H Respiratory Rate 16 22 23 Blood Pressure 95/51 L 96/51 L Pulse Oximetry 96 96 96 09/27/20 00:32 09/27/20 01:00 09/27/20 01:02 Temperature Pulse Rate 90 96 H 91 H Respiratory Rate 20 21 20 Blood Pressure 90/49 L 99/49 L Pulse Oximetry 95 96 09/27/20 01:10 09/27/20 01:30 09/27/20 01:31 Temperature 97.8 F Pulse Rate 83 84 Respiratory Rate 14 20 Blood Pressure 86/40 L Pulse Oximetry 95 96 09/27/20 01:36 09/27/20 01:39 09/27/20 02:11 Temperature 98.0 F Pulse Rate 83 83 91 H Respiratory Rate 17 19 16 Blood Pressure 114/55 L 103/70 Pulse Oximetry 94 95 96 09/27/20 06:55 Temperature 98.3 F Pulse Rate 84 Respiratory Rate 16 Blood Pressure 100/40 L Pulse Oximetry Oxygen Delivery Method Room Air Oxygen Flow Rate 0 Narrative Exam Narrative: Pleasant 85-year-old female. Patient is resting comfortably in bed, is in no acute distress, is alert and oriented x3. Skin is warm and dry and pink. Good sensation appreciated throughout the bilateral lower extremities light touch. Calves are soft nontender, negative Homans sign. Ankle dorsif lexion, plantar flexion, eversion, inversion performed bilaterally without difficulty or discomfort. Hip flexion performed bilaterally with slight difficulty (patient notes this is her baseline strength). Dressing over the incision site is clean and dry. Const General: cooperative, healthy appearing and comfortable Resp Effort & Inspection: normal respiratory effort and able to speak in complete sentences Skin General: no rashes or lesions noted Objective Labs Result Diagrams: 09/26/20 23:45 09/26/20 23:45 Labs: Laboratory Results - last 24 hr 09/26/20 09/26/20 09/26/20 23:30 23:45 23:45 WBC 22.4 H RBC 2.84 L Hgb 8.5 L Hct 26.7 L MCV 93.9 MCH 29.8 MCHC 31.8 RDW 16.3 H Plt Count 306 Neut % (Auto) 93.7 H Lymph % (Auto) 2.8 L [place] % (Auto) 2.2 L Eos % (Auto) 0.2 L Baso % (Auto) 1.1 Neut # (Auto) 80785 H Lymph # (Auto) 600 L [place] # (Auto) 500 Eos # (Auto) 0 Baso # (Auto) 200 H Sodium 127 L Potassium 5.0 Chloride 97 L Carbon Dioxide 24 BUN 36 H Creatinine 1.52 H Estimated GFR 32.7 L BUN/Creatinine Ratio 23.7 H Glucose 96 Lactate Calcium 8.4 Total Bilirubin 0.9 AST 50 H ALT 15 Alkaline Phosphatase 167 H Total Creatine Kinase 76 CK-MB (CK-2) TNP CK-MB (CK-2) Rel Index TNP Troponin I < 0.012 Total Protein 6.2 L Albumin 2.9 L Globulin 3.3 Albumin/Globulin Ratio 0.9 L Procalcitonin 0.92 H Urine Color Urine Appearance Urine pH Ur Specific [place] Urine Protein Urine Glucose (UA) Urine Ketones Urine Occult Blood Urine Nitrate Urine Bilirubin Urine Urobilinogen Ur Leukocyte Esterase Urine RBC Urine WBC Urine Bacteria Ur Culture Indicated? SARS-CoV-2 (PCR) Negative 09/26/20 09/27/20 23:45 01:05 WBC RBC Hgb Hct MCV MCH MCHC RDW Plt Count Neut % (Auto) Lymph % (Auto) [place] % (Auto) Eos % (Auto) Baso % (Auto) Neut # (Auto) Lymph # (Auto) [place] # (Auto) Eos # (Auto) Baso # (Auto) Sodium Potassium Chloride Carbon Dioxide BUN Creatinine Estimated GFR BUN/Creatinine Ratio Glucose Lactate 1.2 Calcium Total Bilirubin AST ALT Alkaline Phosphatase Total Creatine Kinase CK-MB (CK-2) CK-MB (CK-2) Rel Index Troponin I Total Protein Albumin Globulin Albumin/Globulin Ratio Procalcitonin Urine Color Yellow Urine Appearance Cloudy Urine pH 6.0 Ur Specific [place] 1.020 Urine Protein 2+ H Urine Glucose (UA) Negative Urine Ketones Negative Urine Occult Blood 2+ H Urine Nitrate Negative Urine Bilirubin Negative Urine Urobilinogen 0.2 Ur Leukocyte Esterase 2+ H Urine RBC None seen Urine WBC >100/hpf H Urine Bacteria Many (>30) H Ur Culture Indicated? Specimen cultured SARS-CoV-2 (PCR) [facility] Medical History Abnormal breast biopsy Asthma due to environmental allergies Breast cancer, left (06/2011) Cataract (lens) fragments in eye following cataract surgery, bilateral Cervical cancer (1973) Diabetes Diabetic peripheral neuropathy Difficulty swallowing Eczema GERD (gastroesophageal reflux disease) Gout Herniated nucleus pulposus, L3-4 left HLD (hyperlipidemia) HNP (herniated nucleus pulposus), thoracic HTN (hypertension) Hypothyroidism Kidney infection Lumbar radiculopathy Sacrococcygeal disorders, not elsewhere classified Status post lumbar spinal arthrodesis Vertebral fracture Vertigo Wound abscess Surgical History H/O bilateral mastectomy H/O hysterectomy for benign disease History of bunionectomy of right great toe History of left knee replacement History of lumbar spinal fusion History of surgery History of total right knee replacement Hx of bilateral cataract extraction S/P trigger finger release (2013) Family History Father Congestive heart failure Advanced cirrhosis of liver Grandmother Congestive heart failure Social History household members: none Smoking Status: Former smoker alcohol intake: current Assessment & Plan Assessment & Plan narrative: Patient is doing well overall. Her pain is currently being managed with her current pain management regimen. At this time the patient is to remain NPO with anticipation of surgical I& D. She has been given cefepime and vancomycin as initial antibiotic choice with concerns for sepsis. Urinalysis returns with significant leukocyte esterase, white blood cells and bacteria with presumption of urinary tract infection. Cefepime will be adequate initial coverage at this time. Quality VTE Deep Vein Thrombosis/Pulmonary Embolism Present on Admission: No
[2020-09-27] MEDS: SODIUM CHLORIDE 0.9% 1,000 ML 1000 ML IV ×2 (10:22→10:51)
[2020-09-27 11:12] LABS: Add Manual Diff / Slide Review NO; Basophils Absolute Auto 100 /uL (0-100); Basophils Percent Auto 0.4 % (0-2); Eosinophils Absolute Auto 100 /uL (0-450); Eosinophils Percent Auto 0.3 % (2-4); Hematocrit 23.5 % (36-46); Hemoglobin 7.6 g/dL (12.0-16.0); Lymphocytes Absolute Auto 300 /uL (1100-4500); Lymphocytes Percent Auto 1.5 % (25-40); Mean Corpuscular HGB Conc 32.4 % (30-36); Mean Corpuscular Hemoglobin 30.5 PG (26-34); Mean Corpuscular Volume 94.2 fL (80-100); Monocytes Absolute Auto 1000 /uL (0-900); Monocytes Percent Auto 4.9 % (3-14); Neutrophils Absolute Auto 18800 /uL (1500-7000); Neutrophils Percent Auto 92.9 % (50-75); Platelet Count 266 X10^3/uL (150-400); Red Blood Cell Count 2.49 X10^6/uL (4.0-5.2); Red Cell Distribution Width 16.4 % (11.6-14.8); White Blood Cell Count 20.3 X10^3/uL (4.5-11.0)
[2020-09-27 11:24] LABS: Lactate (Lactic Acid) 1.2 mmol/L (0.7-2.1)
[2020-09-27 11:32] LABS: Acinetobacter baumannii Not Detected (Not Detect); Enterobacteriaceae species Detected (Not Detect); Enterococcus species Not Detected (Not Detect); Listeria monocytogenes Not Detected (Not Detect); Staphylococcus species Not Detected (Not Detect); Streptococcus agalactiae (Gr B Not Detected (Not Detect); Streptococcus pneumonia Not Detected (Not Detect); Streptococcus pyogenes (Gr A) Not Detected (Not Detect); Streptococcus species Not Detected (Not Detect)
[2020-09-27 11:33] LABS: Candida albicans Not Detected (Not Detect); Candida glabrata Not Detected (Not Detect); Candida krusei Not Detected (Not Detect); Candida parapsilosis Not Detected (Not Detect); Candida tropicalis Not Detected (Not Detect); Enterobacter cloacae complex Not Detected (Not Detect); Haemophilus influenzae Not Detected (Not Detect); KPC (carbapenem-resist gene) Not Detected (Not Detect); Neisseria meningitidis Not Detected (Not Detect); Proteus species Not Detected (Not Detect); Pseudomonas aeruginosa Not Detected (Not Detect); Serratia marcescens Not Detected (Not Detect)
[2020-09-27 11:34] LABS: E. coli Detected (Not Detect)
--- NOTE | 2020-09-27 11:43 | PC.NURSE ---
Day shift: Dr Garcia informed about E. Coli in Pt's blood at approx 1140.
[2020-09-27] MEDS: HYDROMORPHONE 0.5 MG INJ IV ×2 (11:46→13:06)
--- NOTE | 2020-09-27 11:47 | PC.NURSE ---
Day shift: Back dressing is approx 75% saturated. It remains intact w/ no leaking outside of dressing at this time. Dressing should be changed. No MD orders to change of reinforce dressing at this time. Per NOC RN report Pt to have I&D of back surgery site today. Will continue to monitor. Back to bed after voiding. Call light in reach. Daughter (Shanice) in room for support.
[2020-09-27] MEDS: ACETAMINOPHEN 325 MG TABLET 650 MG PO ×2 (13:21→19:59)
--- NOTE | 2020-09-27 13:36 | PC.NURSE ---
Day shift: Pt HR tachy at approx 118 bpm. BP better 139/59 and fluid bolus will be completed soon. Temp approx 100 and gave PO Tylenol per JUL. Dr Garcia informed of the above information. Pt is shaking and warm blankets placed on her. Will continue to monitor.
--- NOTE | 2020-09-27 14:10 | CM.DANOTE ---
Patient is an 85 yo female READMIT on 09/27/20 today for Infection. Pt has MCR and PRE DIM for insurance and her PCP is Dr. Brenda Dotson. EMR was reviewed. Per Ortho MD, pt had recent back surgery and discharged to SNF but readmission almost two weeks later for infection. Pt scheduled for I&D this evening and then likely need SNF again at d/c. PT not ordered until after I&D. SW met bedside with pt and Dtr/SULEMA Shanice (who lives in [place]) and explained role and they confirm that pt typically lives alone in [facility] fairly independently but does have granddtr living nearby who provides assist when needed but granddtr also works so not available 27/11. Pt confirms she has been at [facility] SNF rehab the past 10 days post back surgery and had multiple falls and pt and Dtr preference is not to return to [facility] and request a different SNF at d/c before pt is safe for return home. SW provided the SNF Choice List and preference is 1) [facility] 2) [facility]. SW called [facility] admissions and faxed referral and they reviewed and requested additional info regarding pt's RN notes (not many as pt just admitted), med list, social security number to look up her Medicare days and were able to find patient's [place] COVID vaccination record. [facility] confirms that they can accept when pt stable for d/c. SW met bedside with pt (Dtr was at [facility] picking up pt's belongings) and updated on acceptance at [facility] and pt very appreciative. PASRR completed in anticipation of SNF when stable. Plan: SW to follow for plan of [facility] when medically stable for d/c and confirming if COVID negative test needed prior to d/c pending pt's length of stay. HALIMA Prince Discharge Planning/Care Management CM Discharge Assessment Start: 09/27/20 14:05 Freq: Status: Active Protocol: Document 09/27/20 14:06 BF (Rec: 09/27/20 14:10 [id number]) Discharge Planning Assessment Assigned Cyber Workforce Developer And Manager HALIMA Spaulding/Assigned Designee Name Guillermostef Prasad in [place] Contact Information [phone] Advance Directives? Yes Advance Directives on File No History Provided By Patient,Family Member,Medical Record Has Patient been admitted in last 30 Yes days? Comment Recent d/c after back surg on 09/16/20 to [facility] Prior Living Arrangements House Household Members none Type of transporation used prior to Relies on Others admit Willing to Return to Facility? No Independent with ADL's Yes Is patient alert and oriented? Yes Needs Assistance With Managing Medications,Home Chores / Shopping Caregiver for Another No Community Services used prior to Physical Therapy admission: DME Already Rented / Owned FWW / Walker Patient/Family Preference [facility] Facility Barriers to Discharge No Discharge Plan [facility] Facility Transportation Arrangement facility van Referrals Initiated [facility] If patient plan is SNF: Has PASSR been Yes completed? Medicare Choice List Provided Yes SNF/HH Preference [facility] Has Agency SNF been contacted Yes Whiteboard Updated in Patient Room with Yes name and ext. # of Cyber Workforce Developer And Manager Review Status In Process Please Provide Date Initial DC 09/27/20 Assessment Was Performed Next Review Type Continued Stay Review
[2020-09-27 14:56] LABS: BUN Creatinine Ratio 24.2 (6-22); Blood Urea Nitrogen 32 mg/dL (7-17); Calcium 7.9 mg/dL (8.4-10.2); Carbon Dioxide 18 mmol/L (22-32); Chloride 106 mmol/L (98-107); Estimated Glomerular Filt Rate 38.4 mL/min (>60); Glucose 83 mg/dL (80-110); HEMOLYSIS 25 (0-50); Potassium 5.1 mmol/L (3.4-5.1); Sodium 131 mmol/L (137-145)
[2020-09-27] MEDS: LACTATED RINGERS 1,000 ML 42 ML IV (15:40)
--- NOTE | 2020-09-27 16:22 | PM.HP.1 ---
History of Present Illness History of Present Illness Date Patient Seen: 09/27/20 Time Patient Seen: 08:02 Date of Onset of Symptoms: 09/25/20 Chief complaint: Lethargic/ febrile/ poss sepsis Narrative: Ms. Allen is a 85 yo F presented through ED for fever, increased wound drainage from her lumbar spine 2 days ago and lethargy. Patient is 2 weeks s/p L3-S1 PSF with revision instrumentation and cages placement. Patient had additional work up showing an active UTI and dehydration. Medicine service has been consulted for management of patient's medical issues including UTI and dehydration. Patient History Medical History Abnormal breast biopsy Asthma due to environmental allergies Breast cancer, left (06/2011) Cataract (lens) fragments in eye following cataract surgery, bilateral Cervical cancer (1973) Diabetes Diabetic peripheral neuropathy Difficulty swallowing Eczema GERD (gastroesophageal reflux disease) Gout Herniated nucleus pulposus, L3-4 left HLD (hyperlipidemia) HNP (herniated nucleus pulposus), thoracic HTN (hypertension) Hypothyroidism Kidney infection Lumbar radiculopathy Sacrococcygeal disorders, not elsewhere classified Status post lumbar spinal arthrodesis Vertebral fracture Vertigo Wound abscess Surgical History H/O bilateral mastectomy H/O hysterectomy for benign disease History of bunionectomy of right great toe History of left knee replacement History of lumbar spinal fusion History of surgery History of total right knee replacement Hx of bilateral cataract extraction S/P trigger finger release (2013) Family & Social History Family History Father Congestive heart failure Advanced cirrhosis of liver Grandmother Congestive heart failure Social History: household members none Prior Living Arrangements House Safety & Behavioral: Feels Safe in Current Yes Environment Been Physically Hurt or No Threatened By a Person Suicidal Ideation Description None Suicide Plan Description No Plan Tobacco & Substance use: Tobacco type cigarettes Smoking Status Former smoker alcohol intake current alcohol intake frequency holiday/special occasion Substance Use Type does not use Meds Home Medications and Allergies Home Medications Medication Instructions Recorded Confirmed Type allopurinol 300 mg tablet 300 mg PO DAILY 12/10/19 09/27/20 History aspirin 81 mg tablet,delayed 81 mg PO DAILY 12/10/19 09/27/20 History release dicyclomine 10 mg capsule 10 mg PO BID 12/10/19 09/27/20 History ezetimibe 10 mg tablet 10 mg PO DAILY 12/10/19 09/27/20 History insulin glargine 100 unit/mL 16 unit SUBCUT BID 12/10/19 09/27/20 History subcutaneous solution insulin lispro 100 unit/mL 4 - 20 sliding scale dose SUBCUT 12/10/19 09/27/20 History subcutaneous solution USEASDIRECTD levothyroxine 88 mcg capsule 88 mcg PO DAILY 12/10/19 09/27/20 History lisinopril 40 mg tablet 40 mg PO DAILY 12/10/19 09/27/20 History celecoxib 200 mg capsule 200 mg PO DAILY #90 cap 06/02/20 09/27/20 Rx melatonin 9 mg PO BEDTIME 09/06/20 09/27/20 History naproxen sodium [Aleve] 220 mg PO TID-QID PRN 09/06/20 09/27/20 History triamcinolone acetonide 1 applic TOPICAL BID PRN 09/06/20 09/27/20 History trospium 20 mg PO BEDTIME 09/06/20 09/27/20 History acetaminophen 650 mg PO Q6HR PRN #90 tab 09/16/20 09/27/20 Rx hydrocodone-acetaminophen 1 tab PO BID PRN #30 tab 09/16/20 09/27/20 Rx pantoprazole 40 mg PO DAILY 09/27/20 09/27/20 History Allergies Allergy/AdvReac Type Severity Reaction Status Date / Time adhesive Allergy Intermediate Rash Verified 09/13/20 07:00 Sulfa (Sulfonamide Allergy Pt does Verified 09/13/20 07:00 Antibiotics) not recall [id number] Reductase AdvReac Severe I loose Verified 09/13/20 07:00 Inhibitor all muscle Exam Vital Signs (past 8 hours): - 09/27/20 08:49 09/27/20 08:52 09/27/20 10:00 Temperature 97.5 F L Pulse Rate 80 85 73 Respiratory Rate 16 Blood Pressure 90/39 L 81/37 L 65/40 L Pulse Oximetry 95 09/27/20 10:05 09/27/20 11:52 09/27/20 13:25 Temperature 98.1 F Pulse Rate 78 84 120 H Respiratory Rate 18 Blood Pressure 73/31 L 99/48 L Pulse Oximetry 95 100 09/27/20 13:28 09/27/20 13:33 09/27/20 14:03 Temperature 99.8 F H 99.4 F Pulse Rate 117 H 118 H Respiratory Rate 20 Blood Pressure 139/59 L Pulse Oximetry 98 09/27/20 14:05 09/27/20 15:08 09/27/20 15:15 Temperature 99.4 F 100.2 F H Pulse Rate 102 H 94 H Respiratory Rate 17 17 Blood Pressure 97/42 L Pulse Oximetry 99 91 97 09/27/20 15:33 09/27/20 15:42 Temperature Pulse Rate 90 86 Respiratory Rate 16 12 Blood Pressure 86/43 L 88/43 L Pulse Oximetry 97 97 Oxygen Delivery Method Nasal Cannula Oxygen Flow Rate 2 Back/Spine/Pelvis Other: Patient's back incisions has erythema around the sagar bilaterally, small amount of serosangunous drainage was identified on patient's dressing, no purulent material identified and foul odor. [place] are in place. Skin edges for incision are macerated due to excess moisture. Neuro Other: Patient is neurovascularly intact on exam. Objective Labs Result Diagrams: 09/27/20 11:00 09/27/20 14:05 Labs: Laboratory Results - last 24 hr 09/26/20 09/26/20 09/26/20 23:00 23:30 23:45 WBC 22.4 H RBC 2.84 L Hgb 8.5 L Hct 26.7 L MCV 93.9 MCH 29.8 MCHC 31.8 RDW 16.3 H Plt Count 306 Neut % (Auto) 93.7 H Lymph % (Auto) 2.8 L [place] % (Auto) 2.2 L Eos % (Auto) 0.2 L Baso % (Auto) 1.1 Neut # (Auto) 74622 H Lymph # (Auto) 600 L [place] # (Auto) 500 Eos # (Auto) 0 Baso # (Auto) 200 H Sodium Potassium Chloride Carbon Dioxide BUN Creatinine Estimated GFR BUN/Creatinine Ratio Glucose Lactate Calcium Total Bilirubin AST ALT Alkaline Phosphatase Total Creatine Kinase CK-MB (CK-2) CK-MB (CK-2) Rel Index Troponin I Total Protein Albumin Globulin Albumin/Globulin Ratio Procalcitonin Urine Color Urine Appearance Urine pH Ur Specific [place] Urine Protein Urine Glucose (UA) Urine Ketones Urine Occult Blood Urine Nitrate Urine Bilirubin Urine Urobilinogen Ur Leukocyte Esterase Urine RBC Urine WBC Urine Bacteria Ur Culture Indicated? A. baumannii (PCR) Not detected Madelyn albicans (PCR) Not detected C. glabrata (PCR) Not detected C. krusei (PCR) Not detected C. parapsilosis (PCR) Not detected C. tropicalis (PCR) Not detected SARS-CoV-2 (PCR) Negative Enterobacteriac sp PCR Detected H E. cloacae complex PCR Not detected Enterococcus sp PCR Not detected E. coli (PCR) Detected H H. influenzae (PCR) Not detected Klebsiella oxytoca PCR Not detected Klebsiella pneumoniae Not detected List. monocytogenes PCR Not detected N. meningitidis (PCR) Not detected Proteus species (PCR) Not detected Serratia marcescens PCR Not detected Staphylococcus sp PCR Not detected Staph aureus (PCR) Not detected mecA-Methicil Res Gene Not Reportable Streptococcus sp PCR Not detected Group A Strep (PCR) Not detected Strep agalactiae (PCR) Not detected Strep pneumoniae (PCR) Not detected P. aeruginosa (PCR) Not detected Ebony/B-Vanco Res Genes Not Reportable KPC-Carbap Res Gene PCR Not detected Blood Type Antibody Screen 09/26/20 09/26/20 09/27/20 23:45 23:45 01:05 WBC RBC Hgb Hct MCV MCH MCHC RDW Plt Count Neut % (Auto) Lymph % (Auto) [place] % (Auto) Eos % (Auto) Baso % (Auto) Neut # (Auto) Lymph # (Auto) [place] # (Auto) Eos # (Auto) Baso # (Auto) Sodium 127 L Potassium 5.0 Chloride 97 L Carbon Dioxide 24 BUN 36 H Creatinine 1.52 H Estimated GFR 32.7 L BUN/Creatinine Ratio 23.7 H Glucose 96 Lactate 1.2 Calcium 8.4 Total Bilirubin 0.9 AST 50 H ALT 15 Alkaline Phosphatase 167 H Total Creatine Kinase 76 CK-MB (CK-2) TNP CK-MB (CK-2) Rel Index TNP Troponin I < 0.012 Total Protein 6.2 L Albumin 2.9 L Globulin 3.3 Albumin/Globulin Ratio 0.9 L Procalcitonin 0.92 H Urine Color Yellow Urine Appearance Cloudy Urine pH 6.0 Ur Specific [place] 1.020 Urine Protein 2+ H Urine Glucose (UA) Negative Urine Ketones Negative Urine Occult Blood 2+ H Urine Nitrate Negative Urine Bilirubin Negative Urine Urobilinogen 0.2 Ur Leukocyte Esterase 2+ H Urine RBC None seen Urine WBC >100/hpf H Urine Bacteria Many (>30) H Ur Culture Indicated? Specimen cultured A. baumannii (PCR) Madelyn albicans (PCR) C. glabrata (PCR) C. krusei (PCR) C. parapsilosis (PCR) C. tropicalis (PCR) SARS-CoV-2 (PCR) Enterobacteriac sp PCR E. cloacae complex PCR Enterococcus sp PCR E. coli (PCR) H. influenzae (PCR) Klebsiella oxytoca PCR Klebsiella pneumoniae List. monocytogenes PCR N. meningitidis (PCR) Proteus species (PCR) Serratia marcescens PCR Staphylococcus sp PCR Staph aureus (PCR) mecA-Methicil Res Gene Streptococcus sp PCR Group A Strep (PCR) Strep agalactiae (PCR) Strep pneumoniae (PCR) P. aeruginosa (PCR) Ebony/B-Vanco Res Genes KPC-Carbap Res Gene PCR Blood Type Antibody Screen 09/27/20 09/27/20 09/27/20 11:00 11:00 11:00 WBC 20.3 H RBC 2.49 L Hgb 7.6 L Hct 23.5 L MCV 94.2 MCH 30.5 MCHC 32.4 RDW 16.4 H Plt Count 266 Neut % (Auto) 92.9 H Lymph % (Auto) 1.5 L [place] % (Auto) 4.9 Eos % (Auto) 0.3 L Baso % (Auto) 0.4 Neut # (Auto) 61289 H Lymph # (Auto) 300 L [place] # (Auto) 1000 H Eos # (Auto) 100 Baso # (Auto) 100 Sodium Potassium Chloride Carbon Dioxide BUN Creatinine Estimated GFR BUN/Creatinine Ratio Glucose Lactate 1.2 Calcium Total Bilirubin AST ALT Alkaline Phosphatase Total Creatine Kinase CK-MB (CK-2) CK-MB (CK-2) Rel Index Troponin I Total Protein Albumin Globulin Albumin/Globulin Ratio Procalcitonin Urine Color Urine Appearance Urine pH Ur Specific [place] Urine Protein Urine Glucose (UA) Urine Ketones Urine Occult Blood Urine Nitrate Urine Bilirubin Urine Urobilinogen Ur Leukocyte Esterase Urine RBC Urine WBC Urine Bacteria Ur Culture Indicated? A. baumannii (PCR) Madelyn albicans (PCR) C. glabrata (PCR) C. krusei (PCR) C. parapsilosis (PCR) C. tropicalis (PCR) SARS-CoV-2 (PCR) Enterobacteriac sp PCR E. cloacae complex PCR Enterococcus sp PCR E. coli (PCR) H. influenzae (PCR) Klebsiella oxytoca PCR Klebsiella pneumoniae List. monocytogenes PCR N. meningitidis (PCR) Proteus species (PCR) Serratia marcescens PCR Staphylococcus sp PCR Staph aureus (PCR) mecA-Methicil Res Gene Streptococcus sp PCR Group A Strep (PCR) Strep agalactiae (PCR) Strep pneumoniae (PCR) P. aeruginosa (PCR) Ebony/B-Vanco Res Genes KPC-Carbap Res Gene PCR Blood Type AB Positive Antibody Screen Negative 09/27/20 14:05 WBC RBC Hgb Hct MCV MCH MCHC RDW Plt Count Neut % (Auto) Lymph % (Auto) [place] % (Auto) Eos % (Auto) Baso % (Auto) Neut # (Auto) Lymph # (Auto) [place] # (Auto) Eos # (Auto) Baso # (Auto) Sodium 131 L Potassium 5.1 Chloride 106 Carbon Dioxide 18 L BUN 32 H Creatinine 1.32 H Estimated GFR 38.4 L BUN/Creatinine Ratio 24.2 H Glucose 83 Lactate Calcium 7.9 L Total Bilirubin AST ALT Alkaline Phosphatase Total Creatine Kinase CK-MB (CK-2) CK-MB (CK-2) Rel Index Troponin I Total Protein Albumin Globulin Albumin/Globulin Ratio Procalcitonin Urine Color Urine Appearance Urine pH Ur Specific [place] Urine Protein Urine Glucose (UA) Urine Ketones Urine Occult Blood Urine Nitrate Urine Bilirubin Urine Urobilinogen Ur Leukocyte Esterase Urine RBC Urine WBC Urine Bacteria Ur Culture Indicated? A. baumannii (PCR) Madelyn albicans (PCR) C. glabrata (PCR) C. krusei (PCR) C. parapsilosis (PCR) C. tropicalis (PCR) SARS-CoV-2 (PCR) Enterobacteriac sp PCR E. cloacae complex PCR Enterococcus sp PCR E. coli (PCR) H. influenzae (PCR) Klebsiella oxytoca PCR Klebsiella pneumoniae List. monocytogenes PCR N. meningitidis (PCR) Proteus species (PCR) Serratia marcescens PCR Staphylococcus sp PCR Staph aureus (PCR) mecA-Methicil Res Gene Streptococcus sp PCR Group A Strep (PCR) Strep agalactiae (PCR) Strep pneumoniae (PCR) P. aeruginosa (PCR) Ebony/B-Vanco Res Genes KPC-Carbap Res Gene PCR Blood Type Antibody Screen Assessment & Plan Assessment & Plan narrative: Patient is re-admitted for fever, elevated WBC 2 weeks post lumbar fusion surgery. Patient has cellullitis with possible wound infection. Patient has active UTI and current systemic response is likely to be urosepsis after discussing with medicine team. Since patient does have active drainage with macerated skin near her incisions, I recommended perform wound I&D and assess her wound for possible infection. Patient is being treated with IV antibiotics for her UTI and cellulitis of her lumbar wound. Patient is given informed consent and will be scheduled for urgent I&D of her lumbar wound. Risks for surgery include but not limited to bleeding, persisting infection, possible need for additional surgery, even , need for blood transfusion. Pt understands and will proceed with surgery today. Quality VTE Deep Vein Thrombosis/Pulmonary Embolism Present on Admission: No
--- NOTE | 2020-09-27 16:40 | SUR.PREOP ---
Surgeon at [facility] speaking with pt and pt's daughter. Questions answered and expectations explained. Consent obtained from pt.
--- NOTE | 2020-09-27 16:57 | SUR.PREOP ---
Pt going to OR. Daughter to be called when surgery finished.
[2020-09-27] MEDS: SODIUM CHLORIDE IRRIG SOLUTION 3,000 ML, GENTAMICIN 240 MG IRR ×2 (17:36→17:40)
[2020-09-27] MEDS: CEFEPIME 1 GM in SODIUM CHLORIDE 0.9% 100 ML 200 ML IV (17:43)
--- NOTE | 2020-09-27 18:52 | PM.OP.1 ---
Operative Date/Time/Diagnoses Date of procedure: 09/27/20 Time of procedure: 16:52 Pre-op diagnosis: 1. Lumbar post op wound infection Post-op diagnosis: same Procedure & Clinicians Procedure: 1. Lumbar post op wound irrigation and debridement of skin, muscle and bone Same procedure as scheduled: Yes Indications: Ms. Allen is 2 weeks s/p lumbar revision fusion L3-S1. Patient was admitted to SNF facility after discharge from the hospital. Patient reported fever, lethargy, drainage from her wound 2 days ago. Patient was admitted to hospital through ED. Patient was found to have an active UTI, draining lumbar wound, dehydration, hyponatremia. CT showed fluid collection in her lumbar surgical wound. After discussing risks and benefits of surgery, and obtaining informed consent, patient was taken to the OR urgently for I&D of her lumbar wound. Surgeon: Rupal Loya Industrial Fabric Cutter: Erwin Peñaloza Click Yes if Unassisted: No Anesthesia Type: General Operative Notes Closure Type: primary Specimen(s): none sent Applied: drain(s) (Bilateral HV) Estimated Blood Loss (mL): 50 Blood products transfused: none Procedure in detail: Patient was seen in the preoperative area. Risks and benefits of the surgery was discussed with the patient. Informed consent was obtained from the patient and placed in the chart. Surgical site was marked. Patient was taken to the operative room. General anesthesia was administered. Prophylactic antibiotic was given to the patient less than 30 min before the incision was made. Patient was placed into a prone position on the [place] table. Patient's back was then prepped and draped in the sterile fashion. Time-out was performed at this time. Patient's previously scheduled dose of IV antibiotics was given since patient has been on IV antibiotics since admission, IV antibiotics was not withheld. Patient's sagar were removed after patient was prepped and draped. There was immediately significant amount of purulent material identified in the subcutaneous layer of bilateral lumbar wound. Culture swabs were used to take culture from patient's wound at this time. Lopez and rongeur was used to remove unhealthy appearing soft tissue including subcutaneous fat and muscle fascia in order to expose healthy tissue. Patient's deep fascia was then explored. There was sutures in place. After exploration and exposing the deeper lumbar wound below the fascia was identified there was scant amount of purulent material below the fascia on both sides of the incision. The fascia was opened by removing the sutures that was previously placed. And any remaining suture and was removed from the wound to minimize chance of retaining foreign material. Curette and pituitary was used to remove unhealthy appearing skin muscle and bone including bone graft in the deep wound. And there was purulent material on both sides of the deep wound below the fascia. Copious amount of sterile normal saline with gentamicin was used to irrigate bilateral lumbar wounds total 6 L of sterile normal saline mixed with gentamicin was used. Hemovac drain was placed deep to the lumbar fascia bilaterally and sutured into the skin. The deep fascia was closed with #1 PDS suture. The subcutaneous tissue was closed with 2-0 PDS suture. Skin was closed with skin sagar. Patient tolerated the procedure well. There were no complications. Patient was transferred recovery room in stable condition. Patient will be admitted back to the inpatient hospital for IV antibiotics while following patient's wound culture and adjusting IV therapy accordingly. Patient will need 4-6 weeks of IV antibiotic therapy since patient's infection was down below the fascial layer. Patient will require a PICC line placement for IV therapy of antibiotics. Complications: none Post-operative Condition: stable Disposition: PACU Plan for aftercare: Admit to inpatient hospital
[2020-09-27] MEDS: HYDROMORPHONE 2 MG INJ IV ×4 (19:28→20:04)
--- NOTE | 2020-09-27 20:13 | P.CONS_ITS ---
History of Present Illness Consult details Date Patient Seen: 09/27/20 Time Patient Seen: 09:13 Chief complaint: Lethargic/ febrile/ poss sepsis Reason for consult: Hypotension Requesting provider: Rupal Loya Narrative: Ms. Allen is an 85W with PMH of recent spinal surgery with Dr. Loya for L3-L4,L4-L5, L5-S1 spinal stenosis. This was done on 09/13/20. She had been doing well until yesterday she developed pain and purulence from her surgical incision site. Her temperature was 100.3. She was lethargic and blood pressure was in the 90s. SHe was not having dysuria. She presented to the ED on 09/26, was found to have WBC of 22.4, hemoglobin 8.5, sodium 127, creatinine 1.52. UA showed, urine wbc >100, leuk esterase 2+, many bacteria. Urine culture, blood culture were ordered. She was started on vancomycin and cefepime. Her blood pressure was initially in the 90s. She dropped to a blood pressure in the 70s the morning of 09/27 at which point hospital medicine was consulted. She was given IV fluid boluses, she was continued on vancomycin and cefepime. Her urine culture was noted to be gram negative bacilli, her blood cultures were positive for E. coli. She was taken to the OR and was found to have pus in a deep fascial layer per orthopedics note and she did have washout of this. Meds Home Medications and Allergies Home Medications Medication Instructions Recorded Confirmed Type allopurinol 300 mg tablet 300 mg PO DAILY 12/10/19 09/27/20 History aspirin 81 mg tablet,delayed 81 mg PO DAILY 12/10/19 09/27/20 History release dicyclomine 10 mg capsule 10 mg PO BID 12/10/19 09/27/20 History ezetimibe 10 mg tablet 10 mg PO DAILY 12/10/19 09/27/20 History insulin glargine 100 unit/mL 16 unit SUBCUT BID 12/10/19 09/27/20 History subcutaneous solution insulin lispro 100 unit/mL 4 - 20 sliding scale dose SUBCUT 12/10/19 09/27/20 History subcutaneous solution USEASDIRECTD levothyroxine 88 mcg capsule 88 mcg PO DAILY 12/10/19 09/27/20 History lisinopril 40 mg tablet 40 mg PO DAILY 12/10/19 09/27/20 History celecoxib 200 mg capsule 200 mg PO DAILY #90 cap 06/02/20 09/27/20 Rx melatonin 9 mg PO BEDTIME 09/06/20 09/27/20 History naproxen sodium [Aleve] 220 mg PO TID-QID PRN 09/06/20 09/27/20 History triamcinolone acetonide 1 applic TOPICAL BID PRN 09/06/20 09/27/20 History trospium 20 mg PO BEDTIME 09/06/20 09/27/20 History acetaminophen 650 mg PO Q6HR PRN #90 tab 09/16/20 09/27/20 Rx hydrocodone-acetaminophen 1 tab PO BID PRN #30 tab 09/16/20 09/27/20 Rx pantoprazole 40 mg PO DAILY 09/27/20 09/27/20 History Allergies Allergy/AdvReac Type Severity Reaction Status Date / Time adhesive Allergy Intermediate Rash Verified 09/13/20 07:00 Sulfa (Sulfonamide Allergy Pt does Verified 09/13/20 07:00 Antibiotics) not recall Ipsxxhj-Sgv-Rid Reductase AdvReac Severe I loose Verified 09/13/20 07:00 Inhibitor all muscle Review of Systems Review of Systems Narrative: 14 systems reviewed and negative aside from what is noted in HPI Exam Vital Signs (past 8 hours): - 09/27/20 13:25 09/27/20 13:28 09/27/20 13:33 Temperature 99.8 F H Pulse Rate 120 H 117 H 118 H Respiratory Rate 20 Blood Pressure 139/59 L Pulse Oximetry 100 98 09/27/20 14:03 09/27/20 14:05 09/27/20 15:08 Temperature 99.4 F 99.4 F 100.2 F H Pulse Rate 102 H 94 H Respiratory Rate 17 17 Blood Pressure Pulse Oximetry 99 91 09/27/20 15:15 09/27/20 15:33 09/27/20 15:42 Temperature Pulse Rate 90 86 Respiratory Rate 16 12 Blood Pressure 97/42 L 86/43 L 88/43 L Pulse Oximetry 97 97 97 09/27/20 16:26 09/27/20 16:44 09/27/20 19:15 Temperature 99.3 F 99.4 F Pulse Rate 77 80 97 H Respiratory Rate 18 15 11 L Blood Pressure 100/40 L 101/35 L 98/38 L Pulse Oximetry 97 97 98 09/27/20 19:20 09/27/20 19:25 09/27/20 19:30 Temperature Pulse Rate 96 H 97 H 99 H Respiratory Rate 16 18 20 Blood Pressure 114/67 108/65 118/53 L Pulse Oximetry 95 95 94 09/27/20 19:45 Temperature Pulse Rate 98 H Respiratory Rate 14 Blood Pressure 110/46 L Pulse Oximetry 94 Oxygen Delivery Method Room Air Oxygen Flow Rate 2 Narrative Exam Narrative: GEN: pale, chronically ill appearing, no acute distress HEENT: Very dry mucous membranes, PERRL Neck: No JVD, trachea midline Respiratory: Lungs are clear with no wheezes, rhonchi, rales Cardiac: Regular rate and rhythm no murmurs no bruits Abdomen: Soft, nontender, normal bowel sounds Skin: no rashes noted Neurologic: moving all extremities, with no gross abnormalities Spine: Postoperative sites are erythematous with drainage from both the upper and lower portions of the wound. Radha in place Extremities: 1+ bilateral lower extremity edema Psych: Cooperative, fluent speech with appropriate content Objective Labs Result Diagrams: 09/27/20 11:00 09/27/20 14:05 Labs: Laboratory Results - last 24 hr 09/26/20 09/26/20 09/26/20 23:00 23:30 23:45 WBC 22.4 H RBC 2.84 L Hgb 8.5 L Hct 26.7 L MCV 93.9 MCH 29.8 MCHC 31.8 RDW 16.3 H Plt Count 306 Neut % (Auto) 93.7 H Lymph % (Auto) 2.8 L [place] % (Auto) 2.2 L Eos % (Auto) 0.2 L Baso % (Auto) 1.1 Neut # (Auto) 02058 H Lymph # (Auto) 600 L [place] # (Auto) 500 Eos # (Auto) 0 Baso # (Auto) 200 H Sodium Potassium Chloride Carbon Dioxide BUN Creatinine Estimated GFR BUN/Creatinine Ratio Glucose Lactate Calcium Total Bilirubin AST ALT Alkaline Phosphatase Total Creatine Kinase CK-MB (CK-2) CK-MB (CK-2) Rel Index Troponin I Total Protein Albumin Globulin Albumin/Globulin Ratio Procalcitonin Urine Color Urine Appearance Urine pH Ur Specific [place] Urine Protein Urine Glucose (UA) Urine Ketones Urine Occult Blood Urine Nitrate Urine Bilirubin Urine Urobilinogen Ur Leukocyte Esterase Urine RBC Urine WBC Urine Bacteria Ur Culture Indicated? A. baumannii (PCR) Not detected Madelyn albicans (PCR) Not detected C. glabrata (PCR) Not detected C. krusei (PCR) Not detected C. parapsilosis (PCR) Not detected C. tropicalis (PCR) Not detected SARS-CoV-2 (PCR) Negative Enterobacteriac sp PCR Detected H E. cloacae complex PCR Not detected Enterococcus sp PCR Not detected E. coli (PCR) Detected H H. influenzae (PCR) Not detected Klebsiella oxytoca PCR Not detected Klebsiella pneumoniae Not detected List. monocytogenes PCR Not detected N. meningitidis (PCR) Not detected Proteus species (PCR) Not detected Serratia marcescens PCR Not detected Staphylococcus sp PCR Not detected Staph aureus (PCR) Not detected mecA-Methicil Res Gene Not Reportable Streptococcus sp PCR Not detected Group A Strep (PCR) Not detected Strep agalactiae (PCR) Not detected Strep pneumoniae (PCR) Not detected P. aeruginosa (PCR) Not detected Ebony/B-Vanco Res Genes Not Reportable KPC-Carbap Res Gene PCR Not detected Blood Type Antibody Screen 09/26/20 09/26/20 09/27/20 23:45 23:45 01:05 WBC RBC Hgb Hct MCV MCH MCHC RDW Plt Count Neut % (Auto) Lymph % (Auto) [place] % (Auto) Eos % (Auto) Baso % (Auto) Neut # (Auto) Lymph # (Auto) [place] # (Auto) Eos # (Auto) Baso # (Auto) Sodium 127 L Potassium 5.0 Chloride 97 L Carbon Dioxide 24 BUN 36 H Creatinine 1.52 H Estimated GFR 32.7 L BUN/Creatinine Ratio 23.7 H Glucose 96 Lactate 1.2 Calcium 8.4 Total Bilirubin 0.9 AST 50 H ALT 15 Alkaline Phosphatase 167 H Total Creatine Kinase 76 CK-MB (CK-2) TNP CK-MB (CK-2) Rel Index TNP Troponin I < 0.012 Total Protein 6.2 L Albumin 2.9 L Globulin 3.3 Albumin/Globulin Ratio 0.9 L Procalcitonin 0.92 H Urine Color Yellow Urine Appearance Cloudy Urine pH 6.0 Ur Specific [place] 1.020 Urine Protein 2+ H Urine Glucose (UA) Negative Urine Ketones Negative Urine Occult Blood 2+ H Urine Nitrate Negative Urine Bilirubin Negative Urine Urobilinogen 0.2 Ur Leukocyte Esterase 2+ H Urine RBC None seen Urine WBC >100/hpf H Urine Bacteria Many (>30) H Ur Culture Indicated? Specimen cultured A. baumannii (PCR) Madelyn albicans (PCR) C. glabrata (PCR) C. krusei (PCR) C. parapsilosis (PCR) C. tropicalis (PCR) SARS-CoV-2 (PCR) Enterobacteriac sp PCR E. cloacae complex PCR Enterococcus sp PCR E. coli (PCR) H. influenzae (PCR) Klebsiella oxytoca PCR Klebsiella pneumoniae List. monocytogenes PCR N. meningitidis (PCR) Proteus species (PCR) Serratia marcescens PCR Staphylococcus sp PCR Staph aureus (PCR) mecA-Methicil Res Gene Streptococcus sp PCR Group A Strep (PCR) Strep agalactiae (PCR) Strep pneumoniae (PCR) P. aeruginosa (PCR) Ebony/B-Vanco Res Genes KPC-Carbap Res Gene PCR Blood Type Antibody Screen 09/27/20 09/27/20 09/27/20 11:00 11:00 11:00 WBC 20.3 H RBC 2.49 L Hgb 7.6 L Hct 23.5 L MCV 94.2 MCH 30.5 MCHC 32.4 RDW 16.4 H Plt Count 266 Neut % (Auto) 92.9 H Lymph % (Auto) 1.5 L [place] % (Auto) 4.9 Eos % (Auto) 0.3 L Baso % (Auto) 0.4 Neut # (Auto) 66388 H Lymph # (Auto) 300 L [place] # (Auto) 1000 H Eos # (Auto) 100 Baso # (Auto) 100 Sodium Potassium Chloride Carbon Dioxide BUN Creatinine Estimated GFR BUN/Creatinine Ratio Glucose Lactate 1.2 Calcium Total Bilirubin AST ALT Alkaline Phosphatase Total Creatine Kinase CK-MB (CK-2) CK-MB (CK-2) Rel Index Troponin I Total Protein Albumin Globulin Albumin/Globulin Ratio Procalcitonin Urine Color Urine Appearance Urine pH Ur Specific [place] Urine Protein Urine Glucose (UA) Urine Ketones Urine Occult Blood Urine Nitrate Urine Bilirubin Urine Urobilinogen Ur Leukocyte Esterase Urine RBC Urine WBC Urine Bacteria Ur Culture Indicated? A. baumannii (PCR) Madelyn albicans (PCR) C. glabrata (PCR) C. krusei (PCR) C. parapsilosis (PCR) C. tropicalis (PCR) SARS-CoV-2 (PCR) Enterobacteriac sp PCR E. cloacae complex PCR Enterococcus sp PCR E. coli (PCR) H. influenzae (PCR) Klebsiella oxytoca PCR Klebsiella pneumoniae List. monocytogenes PCR N. meningitidis (PCR) Proteus species (PCR) Serratia marcescens PCR Staphylococcus sp PCR Staph aureus (PCR) mecA-Methicil Res Gene Streptococcus sp PCR Group A Strep (PCR) Strep agalactiae (PCR) Strep pneumoniae (PCR) P. aeruginosa (PCR) Ebony/B-Vanco Res Genes KPC-Carbap Res Gene PCR Blood Type AB Positive Antibody Screen Negative 09/27/20 14:05 WBC RBC Hgb Hct MCV MCH MCHC RDW Plt Count Neut % (Auto) Lymph % (Auto) [place] % (Auto) Eos % (Auto) Baso % (Auto) Neut # (Auto) Lymph # (Auto) [place] # (Auto) Eos # (Auto) Baso # (Auto) Sodium 131 L Potassium 5.1 Chloride 106 Carbon Dioxide 18 L BUN 32 H Creatinine 1.32 H Estimated GFR 38.4 L BUN/Creatinine Ratio 24.2 H Glucose 83 Lactate Calcium 7.9 L Total Bilirubin AST ALT Alkaline Phosphatase Total Creatine Kinase CK-MB (CK-2) CK-MB (CK-2) Rel Index Troponin I Total Protein Albumin Globulin Albumin/Globulin Ratio Procalcitonin Urine Color Urine Appearance Urine pH Ur Specific [place] Urine Protein Urine Glucose (UA) Urine Ketones Urine Occult Blood Urine Nitrate Urine Bilirubin Urine Urobilinogen Ur Leukocyte Esterase Urine RBC Urine WBC Urine Bacteria Ur Culture Indicated? A. baumannii (PCR) Madelyn albicans (PCR) C. glabrata (PCR) C. krusei (PCR) C. parapsilosis (PCR) C. tropicalis (PCR) SARS-CoV-2 (PCR) Enterobacteriac sp PCR E. cloacae complex PCR Enterococcus sp PCR E. coli (PCR) H. influenzae (PCR) Klebsiella oxytoca PCR Klebsiella pneumoniae List. monocytogenes PCR N. meningitidis (PCR) Proteus species (PCR) Serratia marcescens PCR Staphylococcus sp PCR Staph aureus (PCR) mecA-Methicil Res Gene Streptococcus sp PCR Group A Strep (PCR) Strep agalactiae (PCR) Strep pneumoniae (PCR) P. aeruginosa (PCR) Ebony/B-Vanco Res Genes KPC-Carbap Res Gene PCR Blood Type Antibody Screen Assessment & Plan Assessment & Plan narrative: Ms. Allen is a 85W with PMH of recent spinal surgery who presented with concern for sepsis from infected surgical wound versus urinary source. 1. Sepsis with spinal wound infection and urinary tract infection and bacteremia -evidenced by hypotension, organ dysfunction with acute kidney injury, leukocytosis of 22, procalcitonin 0.92 on admission -has multiple possible etiologies including infected spinal surgical site which per ortho operative note has evidence of pus -also has positive urinary tract infection and bacteremia -urinary tract infection shows gram negative rods, bacteremia with e.coli with sensitivities pending -wound cultures from OR pending -serology PCR shows e.coli and enterobacter -on vancomycin and cefepime -per ER note was diagnosed with sepsis and bolused IV fluids -likely will need prolonged antibiotics with likely need for PICC -hypotension improved with IV fluids 2. Anemia -hemoglobin midly low at 8.5 -no evidence of active blood loss -continue to monitor hemoglobin closely -transfuse if hemoglobin below 7 3. Acute kidney injury -probable from hypovolemia from sepsis and infection -creatinine on admission 1.52, baseline appears to be 0.74 -improved with IV fluids -has been having good urinary output -hold home dose lisinopril We will continue to follow. Thank you for this consult. Code status: Full, contact is daughter Shanice
[2020-09-27] MEDS: SODIUM CHLORIDE 0.9% 1,000 ML 100 ML IV (21:08)
[2020-09-28] VITALS (10 sets, daily range): BP systolic 93–137; BP diastolic 47–82; PULSE 58–90; RESP 14–20; TEMP 36.6–37.3; O2SAT 92–99
--- NOTE | 2020-09-28 00:39 | DI.RAD.S_ITS ---
PROCEDURE: XR CHEST 1V INDICATIONS: Pulmonary Status TECHNIQUE: One view of the chest was acquired. COMPARISON: None. FINDINGS: Surgical changes and devices: Partially visualized lumbar spine fixation hardware. Multiple surgical skin sagar project over the midline of the upper abdomen/back. Lungs and pleura: Lungs are clear. No pleural effusions or pneumothorax. Mediastinum: Mediastinal contours appear normal. Heart size is normal. Bones and chest wall: No suspicious bony lesions. Overlying soft tissues appear unremarkable. IMPRESSION: No acute cardiopulmonary disease process. Dictated by: Tatianna Kevin MD, PhD on 09/28/2020 at 7:23 Approved by: Tatianna Kevin MD, PhD on 09/28/2020 at 7:37
[2020-09-28] MEDS: SODIUM CHLORIDE 0.9% 1,000 ML 2000 ML IV (00:56)
[2020-09-28 04:29] LABS: Add Manual Diff / Slide Review NO; Basophils Absolute Auto 100 /uL (0-100); Basophils Percent Auto 0.6 % (0-2); Eosinophils Absolute Auto 100 /uL (0-450); Hematocrit 22.5 % (36-46); Hemoglobin 7.2 g/dL (12.0-16.0); Lymphocytes Absolute Auto 700 /uL (1100-4500); Lymphocytes Percent Auto 5.3 % (25-40); Mean Corpuscular HGB Conc 31.8 % (30-36); Mean Corpuscular Hemoglobin 30.3 PG (26-34); Mean Corpuscular Volume 95.1 fL (80-100); Monocytes Absolute Auto 800 /uL (0-900); Monocytes Percent Auto 6.6 % (3-14); Neutrophils Absolute Auto 11100 /uL (1500-7000); Neutrophils Percent Auto 86.5 % (50-75); Platelet Count 252 X10^3/uL (150-400); Red Blood Cell Count 2.37 X10^6/uL (4.0-5.2); Red Cell Distribution Width 16.2 % (11.6-14.8); White Blood Cell Count 12.8 X10^3/uL (4.5-11.0)
[2020-09-28 04:39] LABS: BUN Creatinine Ratio 24.8 (6-22); Blood Urea Nitrogen 30 mg/dL (7-17); Calcium 7.6 mg/dL (8.4-10.2); Carbon Dioxide 19 mmol/L (22-32); Chloride 112 mmol/L (98-107); Estimated Glomerular Filt Rate 42.5 mL/min (>60); Glucose 85 mg/dL (80-110); HEMOLYSIS 22 (0-50); Potassium 5.1 mmol/L (3.4-5.1); Sodium 137 mmol/L (137-145)
[2020-09-28] MEDS: LEVOTHYROXINE 88 MCG TABLET PO (08:33)
--- NOTE | 2020-09-28 08:33 | PM.PN.1 ---
Exam Vital Signs (past 8 hours): - 09/28/20 01:30 09/28/20 04:30 09/28/20 08:31 Temperature 98.3 F 98.1 F Pulse Rate 85 81 Respiratory Rate 18 16 Blood Pressure 137/55 L 110/53 L 111/49 L Pulse Oximetry 98 99 Oxygen Delivery Method Nasal Cannula Oxygen Flow Rate 2 Objective Labs Result Diagrams: 09/28/20 04:20 09/28/20 04:20 Labs: Laboratory Results - last 24 hr 09/26/20 09/26/20 09/26/20 23:00 23:45 23:45 WBC 22.4 H RBC 2.84 L Hgb 8.5 L Hct 26.7 L MCV 93.9 MCH 29.8 MCHC 31.8 RDW 16.3 H Plt Count 306 Neut % (Auto) 93.7 H Lymph % (Auto) 2.8 L [place] % (Auto) 2.2 L Eos % (Auto) 0.2 L Baso % (Auto) 1.1 Neut # (Auto) 05851 H Lymph # (Auto) 600 L [place] # (Auto) 500 Eos # (Auto) 0 Baso # (Auto) 200 H Sodium 127 L Potassium 5.0 Chloride 97 L Carbon Dioxide 24 BUN 36 H Creatinine 1.52 H Estimated GFR 32.7 L BUN/Creatinine Ratio 23.7 H Glucose 96 Lactate Calcium 8.4 Total Bilirubin 0.9 AST 50 H ALT 15 Alkaline Phosphatase 167 H Total Creatine Kinase 76 CK-MB (CK-2) TNP CK-MB (CK-2) Rel Index TNP Troponin I < 0.012 Total Protein 6.2 L Albumin 2.9 L Globulin 3.3 Albumin/Globulin Ratio 0.9 L Procalcitonin 0.92 H A. baumannii (PCR) Not detected Madelyn albicans (PCR) Not detected C. glabrata (PCR) Not detected C. krusei (PCR) Not detected C. parapsilosis (PCR) Not detected C. tropicalis (PCR) Not detected Enterobacteriac sp PCR Detected H E. cloacae complex PCR Not detected Enterococcus sp PCR Not detected E. coli (PCR) Detected H H. influenzae (PCR) Not detected Klebsiella oxytoca PCR Not detected Klebsiella pneumoniae Not detected List. monocytogenes PCR Not detected N. meningitidis (PCR) Not detected Proteus species (PCR) Not detected Serratia marcescens PCR Not detected Staphylococcus sp PCR Not detected Staph aureus (PCR) Not detected mecA-Methicil Res Gene Not Reportable Streptococcus sp PCR Not detected Group A Strep (PCR) Not detected Strep agalactiae (PCR) Not detected Strep pneumoniae (PCR) Not detected P. aeruginosa (PCR) Not detected Ebony/B-Vanco Res Genes Not Reportable KPC-Carbap Res Gene PCR Not detected Blood Type Antibody Screen Crossmatch 09/26/20 09/27/20 09/27/20 23:45 11:00 11:00 WBC 20.3 H RBC 2.49 L Hgb 7.6 L Hct 23.5 L MCV 94.2 MCH 30.5 MCHC 32.4 RDW 16.4 H Plt Count 266 Neut % (Auto) 92.9 H Lymph % (Auto) 1.5 L [place] % (Auto) 4.9 Eos % (Auto) 0.3 L Baso % (Auto) 0.4 Neut # (Auto) 13426 H Lymph # (Auto) 300 L [place] # (Auto) 1000 H Eos # (Auto) 100 Baso # (Auto) 100 Sodium Potassium Chloride Carbon Dioxide BUN Creatinine Estimated GFR BUN/Creatinine Ratio Glucose Lactate 1.2 1.2 Calcium Total Bilirubin AST ALT Alkaline Phosphatase Total Creatine Kinase CK-MB (CK-2) CK-MB (CK-2) Rel Index Troponin I Total Protein Albumin Globulin Albumin/Globulin Ratio Procalcitonin A. baumannii (PCR) Madelyn albicans (PCR) C. glabrata (PCR) C. krusei (PCR) C. parapsilosis (PCR) C. tropicalis (PCR) Enterobacteriac sp PCR E. cloacae complex PCR Enterococcus sp PCR E. coli (PCR) H. influenzae (PCR) Klebsiella oxytoca PCR Klebsiella pneumoniae List. monocytogenes PCR N. meningitidis (PCR) Proteus species (PCR) Serratia marcescens PCR Staphylococcus sp PCR Staph aureus (PCR) mecA-Methicil Res Gene Streptococcus sp PCR Group A Strep (PCR) Strep agalactiae (PCR) Strep pneumoniae (PCR) P. aeruginosa (PCR) Ebony/B-Vanco Res Genes KPC-Carbap Res Gene PCR Blood Type Antibody Screen Crossmatch 09/27/20 09/27/20 09/28/20 11:00 14:05 04:20 WBC RBC Hgb Hct MCV MCH MCHC RDW Plt Count Neut % (Auto) Lymph % (Auto) [place] % (Auto) Eos % (Auto) Baso % (Auto) Neut # (Auto) Lymph # (Auto) [place] # (Auto) Eos # (Auto) Baso # (Auto) Sodium 131 L 137 Potassium 5.1 5.1 Chloride 106 112 H Carbon Dioxide 18 L 19 L BUN 32 H 30 H Creatinine 1.32 H 1.21 H Estimated GFR 38.4 L 42.5 L BUN/Creatinine Ratio 24.2 H 24.8 H Glucose 83 85 Lactate Calcium 7.9 L 7.6 L Total Bilirubin AST ALT Alkaline Phosphatase Total Creatine Kinase CK-MB (CK-2) CK-MB (CK-2) Rel Index Troponin I Total Protein Albumin Globulin Albumin/Globulin Ratio Procalcitonin A. baumannii (PCR) Madelyn albicans (PCR) C. glabrata (PCR) C. krusei (PCR) C. parapsilosis (PCR) C. tropicalis (PCR) Enterobacteriac sp PCR E. cloacae complex PCR Enterococcus sp PCR E. coli (PCR) H. influenzae (PCR) Klebsiella oxytoca PCR Klebsiella pneumoniae List. monocytogenes PCR N. meningitidis (PCR) Proteus species (PCR) Serratia marcescens PCR Staphylococcus sp PCR Staph aureus (PCR) mecA-Methicil Res Gene Streptococcus sp PCR Group A Strep (PCR) Strep agalactiae (PCR) Strep pneumoniae (PCR) P. aeruginosa (PCR) Ebony/B-Vanco Res Genes KPC-Carbap Res Gene PCR Blood Type AB Positive Antibody Screen Negative Crossmatch See Detail 09/28/20 04:20 WBC 12.8 H RBC 2.37 L Hgb 7.2 L Hct 22.5 L MCV 95.1 MCH 30.3 MCHC 31.8 RDW 16.2 H Plt Count 252 Neut % (Auto) 86.5 H Lymph % (Auto) 5.3 L [place] % (Auto) 6.6 Eos % (Auto) 1.0 L Baso % (Auto) 0.6 Neut # (Auto) 01240 H Lymph # (Auto) 700 L [place] # (Auto) 800 Eos # (Auto) 100 Baso # (Auto) 100 Sodium Potassium Chloride Carbon Dioxide BUN Creatinine Estimated GFR BUN/Creatinine Ratio Glucose Lactate Calcium Total Bilirubin AST ALT Alkaline Phosphatase Total Creatine Kinase CK-MB (CK-2) CK-MB (CK-2) Rel Index Troponin I Total Protein Albumin Globulin Albumin/Globulin Ratio Procalcitonin A. baumannii (PCR) Madelyn albicans (PCR) C. glabrata (PCR) C. krusei (PCR) C. parapsilosis (PCR) C. tropicalis (PCR) Enterobacteriac sp PCR E. cloacae complex PCR Enterococcus sp PCR E. coli (PCR) H. influenzae (PCR) Klebsiella oxytoca PCR Klebsiella pneumoniae List. monocytogenes PCR N. meningitidis (PCR) Proteus species (PCR) Serratia marcescens PCR Staphylococcus sp PCR Staph aureus (PCR) mecA-Methicil Res Gene Streptococcus sp PCR Group A Strep (PCR) Strep agalactiae (PCR) Strep pneumoniae (PCR) P. aeruginosa (PCR) Ebony/B-Vanco Res Genes KPC-Carbap Res Gene PCR Blood Type Antibody Screen Crossmatch [facility] Medical History Abnormal breast biopsy Asthma due to environmental allergies Breast cancer, left (06/2011) Cataract (lens) fragments in eye following cataract surgery, bilateral Cervical cancer (1973) Diabetes Diabetic peripheral neuropathy Difficulty swallowing Eczema GERD (gastroesophageal reflux disease) Gout Herniated nucleus pulposus, L3-4 left HLD (hyperlipidemia) HNP (herniated nucleus pulposus), thoracic HTN (hypertension) Hypothyroidism Kidney infection Lumbar radiculopathy Sacrococcygeal disorders, not elsewhere classified Status post lumbar spinal arthrodesis Vertebral fracture Vertigo Wound abscess Surgical History H/O bilateral mastectomy H/O hysterectomy for benign disease History of bunionectomy of right great toe History of left knee replacement History of lumbar spinal fusion History of surgery History of total right knee replacement Hx of bilateral cataract extraction S/P trigger finger release (2013) Family History Father Congestive heart failure Advanced cirrhosis of liver Grandmother Congestive heart failure Social History household members: none Smoking Status: Former smoker alcohol intake: current Assessment & Plan Assessment & Plan narrative: POD#1 s/p I&D lumbar spine wound with deep wound infection. Bilateral drain in place and intact. Patient is neuro intact and reports I feel much better today. Crit is 22 today and will receive 1 U PRBC today. PICC line placement ordered. Patient will need IV antibiotics for 6 weeks. Will follow culture and adjust IV therapy accordingly if needed. Will re-evaluate tomorrow. Keep HV drain in until tomorrow. Quality VTE Deep Vein Thrombosis/Pulmonary Embolism Present on Admission: No
[2020-09-28] MEDS: allopurinoL 300 MG TABLET PO (08:58)
[2020-09-28] MEDS: EZETIMIBE 10 MG TABLET PO (08:58)
[2020-09-28] MEDS: DICYCLOMINE 10 MG CAPSULE PO ×2 (08:58→21:53)
[2020-09-28] MEDS: DOCUSATE 100 MG CAPSULE PO ×2 (08:58→21:53)
[2020-09-28] MEDS: PANTOPRAZOLE DR 40 MG TABLET PO (08:59)
[2020-09-28] MEDS: MAGNESIUM HYDROXIDE 30 ML UDC PO (08:59)
--- NOTE | 2020-09-28 10:00 | DI.RAD.S_ITS ---
PROCEDURE: XR CHEST FOR PICC 1V INDICATIONS: line placement COMPARISON: [facility], , XR CHEST 1V, 09/28/2020, 1:01. FINDINGS: PICC was placed by the intravenous therapy team from the left side. Fluoroscopic spot film demonstrates the tip of PICC projecting to the area of SVC. IMPRESSION: Tip of PICC projects to the area of SVC. Dictated by: Shen Andino M.D. on 09/28/2020 at 10:41 Approved by: Shen Andino M.D. on 09/28/2020 at 10:41
--- NOTE | 2020-09-28 11:30 | OT.IPNOTE ---
Per nursing , pt getting blood at this time and BP running low. Therefore to check on pt in the PM to see if she is appropriate to be seen fro OT phong.
--- NOTE | 2020-09-28 11:47 | PT-IP ANOTE ---
checked on pt and currently receiving blood transfusion. will check back later in the afternoon for PT eval.
[2020-09-28] MEDS: CEFEPIME 1 GM in SODIUM CHLORIDE 0.9% 100 ML 200 ML IV ×2 (11:57→22:45)
[2020-09-28] MEDS: SODIUM CHLORIDE 0.9% 1,000 ML 100 ML IV (12:02)
[2020-09-28] MEDS: VANCOMYCIN 750 MG/150 ML PIGGYBACK 150 MG IV (13:02)
--- NOTE | 2020-09-28 13:04 | OT.IPNOTE ---
Pt refusing to be seen for OT eval as to tired, and just wanting to rest. To attempt OT eval tomorrow.
--- NOTE | 2020-09-28 13:50 | PT-IP ANOTE ---
checked with nurse and stated to hold pt for now but PT can check with pt. Nurse stated that pt just blood transfusion ~ 1 1/2 hours ago and is resting. talked to pt's daugther and requested PT not to see pt at this time and have pt rest. will f/u tomorrow.
[2020-09-28] MEDS: HYDROCODONE/ACET 5/325 TABLET 1 TAB PO (14:33)
--- NOTE | 2020-09-28 15:18 | CM.DPC ---
DCP: continued: case received, discussed in Team Rounds. EMR reviewed. Debbie/MAXINE has called requesting update and confirmation that pt does wish to go to her facility. Checked in now with pt/appears to be sleeping and her daughter Shanice at bedside.: cell: [phone]. Shanice confirmed that [facility] is the choice. She is aware that IV antibiotics are planned for 6 weeks and that the specifics of same are still pending. PICC is ordered. IV antibiotics will need to be reviewed again by the facility once determination is made so as to insure that they are medications that can be accepted/financially/at the snf level of care but at this time Debbie says they are very prepared to accept pt whenever she is deemed stable for same. (prior to her admission here on 09/27 pt was at [facility] under her Medicare snf benefit and Debbie is aware of same). Shanice has picture of pt's vaccine card on her phone. Debbie will call her to discuss this and also to make herself available to any other questions pt or family may have about her process. PASRR: completed by HALIMA Spaulding yesterday. P: [facility] when stable for same, via w/c van transport. IV antibiotic specifics will need to be accepted by the snf as per above.
[2020-09-28] MEDS: HYDROMORPHONE 0.5 MG INJ 0.2 MG IV (16:01)
[2020-09-28] MEDS: hydrOXYzine pamoate 25 MG CAPSULE PO (16:02)
--- NOTE | 2020-09-28 16:08 | PM.PN.1 ---
Subjective Subjective Date Patient Seen: 09/28/20 Time Patient Seen: 08:08 Interval history: Today she feels improved. She is no longer as fatigued, rigors have stopped. Overnight she did have low blood pressures needing boluses with good improvement. She was ordered for blood this morning given a low hemoglobin. Exam Vital Signs (past 8 hours): - 09/28/20 08:31 09/28/20 08:46 09/28/20 09:05 Temperature 98.1 F 98.3 F 97.9 F Pulse Rate 81 87 90 Respiratory Rate 16 14 14 Blood Pressure 111/49 L 99/56 L 93/60 Pulse Oximetry 99 09/28/20 11:43 09/28/20 11:45 09/28/20 15:52 Temperature 98.2 F 98.2 F 98.2 F Pulse Rate 79 79 58 L Respiratory Rate 16 16 16 Blood Pressure 103/47 L 103/47 L 119/82 Pulse Oximetry 95 92 Oxygen Delivery Method Nasal Cannula Oxygen Flow Rate 0 Narrative Exam Narrative: GEN: pale, chronically ill appearing, no acute distress HEENT: Dry mucous membranes, PERRL Neck: No JVD, trachea midline Respiratory: Lungs are clear with no wheezes, rhonchi, rales Cardiac: Regular rate and rhythm no murmurs no bruits Abdomen: Soft, nontender, normal bowel sounds Skin: no rashes noted Neurologic: moving all extremities, with no gross abnormalities Spine: back bandaged Extremities: 1+ bilateral lower extremity edema Psych: Cooperative, fluent speech with appropriate content Objective Labs Result Diagrams: 09/28/20 04:20 09/28/20 04:20 Labs: Laboratory Results - last 24 hr 09/27/20 09/28/20 09/28/20 11:00 04:20 04:20 WBC 12.8 H RBC 2.37 L Hgb 7.2 L Hct 22.5 L MCV 95.1 MCH 30.3 MCHC 31.8 RDW 16.2 H Plt Count 252 Neut % (Auto) 86.5 H Lymph % (Auto) 5.3 L Waldo % (Auto) 6.6 Eos % (Auto) 1.0 L Baso % (Auto) 0.6 Neut # (Auto) 29177 H Lymph # (Auto) 700 L Waldo # (Auto) 800 Eos # (Auto) 100 Baso # (Auto) 100 Sodium 137 Potassium 5.1 Chloride 112 H Carbon Dioxide 19 L BUN 30 H Creatinine 1.21 H Estimated GFR 42.5 L BUN/Creatinine Ratio 24.8 H Glucose 85 Calcium 7.6 L Blood Type AB Positive Antibody Screen Negative Crossmatch See Detail [facility] Medical History Abnormal breast biopsy Asthma due to environmental allergies Breast cancer, left (06/2011) Cataract (lens) fragments in eye following cataract surgery, bilateral Cervical cancer (1973) Diabetes Diabetic peripheral neuropathy Difficulty swallowing Eczema GERD (gastroesophageal reflux disease) Gout Herniated nucleus pulposus, L3-4 left HLD (hyperlipidemia) HNP (herniated nucleus pulposus), thoracic HTN (hypertension) Hypothyroidism Kidney infection Lumbar radiculopathy Sacrococcygeal disorders, not elsewhere classified Status post lumbar spinal arthrodesis Vertebral fracture Vertigo Wound abscess Surgical History H/O bilateral mastectomy H/O hysterectomy for benign disease History of bunionectomy of right great toe History of left knee replacement History of lumbar spinal fusion History of surgery History of total right knee replacement Hx of bilateral cataract extraction S/P trigger finger release (2013) Family History Father Congestive heart failure Advanced cirrhosis of liver Grandmother Congestive heart failure Social History household members: none Smoking Status: Former smoker alcohol intake: current Assessment & Plan Assessment & Plan narrative: Ms. Allen is a 85W with PMH of recent spinal surgery who presented with concern for sepsis from infected surgical wound versus urinary source. 1. Sepsis with spinal wound infection and urinary tract infection and bacteremia -evidenced by hypotension, organ dysfunction with acute kidney injury, leukocytosis of 22, procalcitonin 0.92 on admission -also has positive urinary tract infection and bacteremia -urinary tract infection shows gram negative rods, bacteremia with e.coli with sensitivities pending -wound cultures from OR show E.coli, she also has E.coli in blood and urine -wound culture from back taken in ER show E.coli and proteus -in addition she has noted enterococcus in the urine -serology PCR shows e.coli and enterobacter -on vancomycin and cefepime -per ER note was diagnosed with sepsis and bolused IV fluids -will need prolonged antibiotics with PICC placed -E.coli appears pansensitive and will need 6 weeks of antibiotics for this -proteus and enterococcus sensitivities pending -final antibiotic selection pending speciation -hypotension improved with IV fluids 2. Anemia -hemoglobin midly low at 8.5 and dropped to 7.2 -no evidence of active blood loss -transfused 1U PRBC on 09/28 -continue to monitor hemoglobin closely -transfuse if hemoglobin below 7 3. Acute kidney injury -probable from hypovolemia from sepsis and infection -creatinine on admission 1.52, baseline appears to be 0.74 -improved with IV fluids, antibiotics to creatinine of 1.21 -has been having good urinary output -hold home dose lisinopril We will continue to follow. Thank you for this consult. Code status: Full, contact is daughter Shanice Roy VTE Deep Vein Thrombosis/Pulmonary Embolism Present on Admission: No
[2020-09-28 18:05] LABS: Hematocrit 26.5 % (36-46); Hemoglobin 8.7 g/dL (12.0-16.0); Mean Corpuscular HGB Conc 32.8 % (30-36); Mean Corpuscular Hemoglobin 29.8 PG (26-34); Mean Corpuscular Volume 90.9 fL (80-100); Platelet Count 243 X10^3/uL (150-400); Red Blood Cell Count 2.91 X10^6/uL (4.0-5.2); Red Cell Distribution Width 18.5 % (11.6-14.8); White Blood Cell Count 10.3 X10^3/uL (4.5-11.0)
[2020-09-28] MEDS: INSULIN LISPRO 100 UNIT/ML 3ML VIAL SUBCUT ×2 (18:20→21:53)
[2020-09-28] MEDS: MELATONIN 3 MG TABLET 9 MG PO (21:52)
[2020-09-28] MEDS: OXYBUTYNIN 5 MG ER TAB PO (21:53)
[2020-09-28] MEDS: SENNOSIDES 8.6 MG TABLET 17.2 MG PO (21:53)
[2020-09-28] MEDS: INSULIN GLARGINE 100 UNIT/ML 3ML PEN 16 UNIT SUBCUT (23:18)
[2020-09-29 04:00] VITALS: BP 130/59; PULSE 82; RESP 16; TEMP 37.6; O2SAT 92
[2020-09-29] MEDS: hydrOXYzine pamoate 25 MG CAPSULE PO (04:07)
[2020-09-29] MEDS: HYDROCODONE/ACET 5/325 TABLET 1 TAB PO (04:07)
[2020-09-29 04:45] LABS: Hematocrit 27.1 % (36-46); Hemoglobin 8.8 g/dL (12.0-16.0); Mean Corpuscular HGB Conc 32.4 % (30-36); Mean Corpuscular Hemoglobin 29.3 PG (26-34); Mean Corpuscular Volume 90.3 fL (80-100); Platelet Count 257 X10^3/uL (150-400); Red Cell Distribution Width 18.4 % (11.6-14.8)
[2020-09-29 04:57] LABS: Blood Urea Nitrogen 24 mg/dL (7-17); Calcium 8.2 mg/dL (8.4-10.2); Carbon Dioxide 19 mmol/L (22-32); Chloride 111 mmol/L (98-107); Estimated Glomerular Filt Rate 55.5 mL/min (>60); Glucose 110 mg/dL (80-110); HEMOLYSIS < 15 (0-50); Potassium 4.6 mmol/L (3.4-5.1); Sodium 136 mmol/L (137-145)
[2020-09-29] MEDS: LEVOTHYROXINE 88 MCG TABLET PO (05:28)
[2020-09-29 07:45] VITALS: BP 105/52; PULSE 66; RESP 12; TEMP 36.3; O2SAT 93
--- NOTE | 2020-09-29 07:53 | P.PN_ITS ---
Subjective Subjective Date Patient Seen: 09/29/20 Time Patient Seen: 07:53 Interval history: Patient states she is doing well overall and is in minimal discomfort at rest. She notes her pain is increased with activity, especially when she is asked to roll on 1 side at this time the patient denies fever, chills, nausea, chest pain, shortness of breath, or urinary retention. Exam Vital Signs (past 8 hours): - 09/29/20 04:00 Temperature 99.6 F Pulse Rate 82 Respiratory Rate 16 Blood Pressure 130/59 L Pulse Oximetry 92 Oxygen Delivery Method Room Air Oxygen Flow Rate 0 Narrative Exam Narrative: 85-year-old female postop day 2. Patient is resting comfortably in bed, is in no acute distress, is alert and oriented x3. Skin is warm and dry, and the skin surrounding the incision site is free of erythema, warmth, induration, or discharge. Dressing over the incision site is clean, dry, and intact. Good sensation appreciated throughout the bilateral lower extremities to light touch. Hip flexion performed bilaterally without discomfort he, however slight weakness noted on hip is flexed against resistance. Ankle dorsiflexion, plantar flexion, eversion, inversion performed bilaterally without difficulty or discomfort. Palpable pulses appreciated, capillary refill less t nguyen 2 seconds. Calves are soft and nontender, negative Homans sign. No other signs of DVT appreciated at this time. Const General: cooperative, healthy appearing and comfortable Resp Effort & Inspection: normal respiratory effort and able to speak in complete sentences Skin General: no rashes or lesions noted Objective Labs Result Diagrams: 09/29/20 04:25 09/29/20 04:25 Labs: Laboratory Results - last 24 hr 09/27/20 09/28/20 09/29/20 11:00 17:45 04:25 WBC 10.3 11.0 RBC 2.91 L 3.00 L Hgb 8.7 L 8.8 L Hct 26.5 L 27.1 L MCV 90.9 D 90.3 MCH 29.8 29.3 MCHC 32.8 32.4 RDW 18.5 H 18.4 H Plt Count 243 257 Sodium Potassium Chloride Carbon Dioxide BUN Creatinine Estimated GFR BUN/Creatinine Ratio Glucose Calcium Blood Type AB Positive Antibody Screen Negative Crossmatch See Detail 09/29/20 04:25 WBC RBC Hgb Hct MCV MCH MCHC RDW Plt Count Sodium 136 L Potassium 4.6 Chloride 111 H Carbon Dioxide 19 L BUN 24 H Creatinine 0.96 Estimated GFR 55.5 L BUN/Creatinine Ratio 25.0 H Glucose 110 Calcium 8.2 L Blood Type Antibody Screen Crossmatch [facility] Medical History Abnormal breast biopsy Asthma due to environmental allergies Breast cancer, left (06/2011) Cataract (lens) fragments in eye following cataract surgery, bilateral Cervical cancer (1973) Diabetes Diabetic peripheral neuropathy Difficulty swallowing Eczema GERD (gastroesophageal reflux disease) Gout Herniated nucleus pulposus, L3-4 left HLD (hyperlipidemia) HNP (herniated nucleus pulposus), thoracic HTN (hypertension) Hypothyroidism Kidney infection Lumbar radiculopathy Sacrococcygeal disorders, not elsewhere classified Status post lumbar spinal arthrodesis Vertebral fracture Vertigo Wound abscess Surgical History H/O bilateral mastectomy H/O hysterectomy for benign disease History of bunionectomy of right great toe History of left knee replacement History of lumbar spinal fusion History of surgery History of total right knee replacement Hx of bilateral cataract extraction S/P trigger finger release (2013) Family History Father Congestive heart failure Advanced cirrhosis of liver Grandmother Congestive heart failure Social History household members: none Smoking Status: Former smoker alcohol intake: current Assessment & Plan Post-op Postoperative Procedures: Procedures Operation Date: 09/27/20 16:45 Actual Procedures Side Surgeon p I&D L3-4,L4-5, L5-S1 (post op x 2 weeks) Rupal Loya MD Postoperative day: 2 Postoperative status: doing well Postoperative plan: ambulate Postoperative plan narrative: Patient is to continue working with PT on ambulation with the assistance of a front wheel walker. Patient is to continue current pain management regimen as it is adequately controlling her pain level at this time. Patient is to continue avoiding bending, twisting, or lifting in excess of 10 lb. IV vancomycin and IV cefepime is to be continued due to her wound culture results returned positive for E coli. Anticipated IV antibiotics for 6 weeks. Quality VTE Deep Vein Thrombosis/Pulmonary Embolism Present on Admission: No
[2020-09-29] MEDS: EZETIMIBE 10 MG TABLET PO (09:28)
[2020-09-29] MEDS: PANTOPRAZOLE DR 40 MG TABLET PO (09:28)
[2020-09-29] MEDS: DOCUSATE 100 MG CAPSULE PO ×2 (09:28→21:30)
[2020-09-29] MEDS: DICYCLOMINE 10 MG CAPSULE PO ×2 (09:28→21:30)
[2020-09-29] MEDS: allopurinoL 300 MG TABLET PO (09:28)
[2020-09-29] MEDS: INSULIN GLARGINE 100 UNIT/ML 3ML PEN 16 UNIT SUBCUT ×2 (09:28→21:32)
--- NOTE | 2020-09-29 10:15 | PT.IIE ---
Current Diagnoses Infection following a procedure, deep incisional surgical site, initial encounter (09/27/20) Surgery Performed Operation Date: 09/27/20 16:45 Actual Procedures p I&D L3-4,L4-5, L5-S1 (post op x 2 weeks) - Rupal Loya MD Surgical History (Last Reviewed 09/29/20 @ 07:55 by Erwin Peñaloza PA-C) H/O bilateral mastectomy H/O hysterectomy for benign disease History of bunionectomy of right great toe History of left knee replacement History of lumbar spinal fusion History of surgery History of total right knee replacement Hx of bilateral cataract extraction S/P trigger finger release (2013) Medical History (Last Reviewed 09/29/20 @ 07:55 by Erwin Peñaloza PA-C) Abnormal breast biopsy Asthma due to environmental allergies Breast cancer, left (06/2011) Cataract (lens) fragments in eye following cataract surgery, bilateral Cervical cancer (1973) Diabetes Diabetic peripheral neuropathy Difficulty swallowing Eczema GERD (gastroesophageal reflux disease) Gout Herniated nucleus pulposus, L3-4 left HLD (hyperlipidemia) HNP (herniated nucleus pulposus), thoracic HTN (hypertension) Hypothyroidism Kidney infection Lumbar radiculopathy Sacrococcygeal disorders, not elsewhere classified Status post lumbar spinal arthrodesis Vertebral fracture Vertigo Wound abscess Physical Therapy Inpatient Evaluation/Re-Eval M1 PT/OT-IP Prior Functional Status Start: 09/29/20 12:46 Freq: NEEDED Status: Active Protocol: Document 09/29/20 10:15 AB (Rec: 09/29/20 12:57 AB [id number]) Medical Review Prior Functional Status Medical History Reviewed Yes Communication able to make needs known Mobility and Gait pt with h/o of back surgery last 09/13 and was modified independent prior to back surgery and does not use any AD; pt d/c to SNF after her back surgery and admitted back to the hospital due to lumbar wound infection. pt stated that she was ambulatory using FWW when she was at SNF Social History Household Members none Living Arrangements House Number of Floors (Floors) One Floor Number of Stairs To Enter/Railing? 2 platform steps + ramp to enter Home Environment Walk in Shower,Built-In Shower Seat Home Equipment Front Wheel Walker,Straight Cane,Raised Toilet Seat w/ Armrests,Grab Bars In Shower M2 PT-IP Current Condition Start: 09/29/20 12:46 Freq: NEEDED Status: Active Protocol: Document 09/29/20 10:15 AB (Rec: 09/29/20 12:57 AB [email or web address]) Physical Therapy Current Condition Current Condition Evaluation Date 09/29/20 Treatment Diagnosis s/p I&D lumbar wound; difficulty in walking Onset Date 09/27/20 Precautions Lumbar Precautions Log Roll,No Twisting,Limit Bending,Lifting Restriction of 10 lbs,Gait Belt above Incisional Area M3 PT-IP Subjective Start: 09/29/20 12:46 Freq: NEEDED Status: Active Protocol: Document 09/29/20 10:15 AB (Rec: 09/29/20 12:57 AB [email or web address]) Subjective Physical Therapy Visit Type Type Initial Evaluation Visit Start Time 10:15 Visit Stop Time 11:25 Total Visit Minutes 30 Notes pt seen for split visits: 1015 am to 1035 and 1115 to 1125 Number of CATH LAB TECHNOLOGIST Visits 0 Physical Therapy Visit Comments Patient Comments pt is sleepy but able to follow commands Therapy Pain Assessment Pain When Pain Assessed At Rest Pain Present Pain Present Pain Reported Location lower back Intensity 5 Scale Used increases with mobility Pain Management Techniques Distraction,Modification of Treatment,Re-positioning, Timing of Activity with Medications M4 PT-IP Mobility and Gait Start: 09/29/20 12:46 Freq: NEEDED Status: Active Protocol: Document 09/29/20 10:15 AB (Rec: 09/29/20 12:57 AB [email or web address]) PT-Bed Mobility Assessment Rolling Type of Rolling Log Rolling Level of Assist Maximal Assistance,2 Person Assistance Sit to Supine Sit to Supine Maximum Assistance,2 Person Assistance Scooting Scooting to Edge of Bed Dependent Scooting Up and Down in Bed Dependent PT-Transfer Assessment Sit to and From Stand Sit to and from Stand Maximum Assistance,2 Person Assistance,Use of Upper Extremities Equipment Transfer Assistive Device Gait Belt,Front Wheeled Walker Orthotic/Prosthetic Devices or Brace: No Transfers Transfer Destination Bed Transfer Technique Stand Step Pivot Transfer Ability Level of Assist Maximum Assistance,2 Person Assistance,Use of Upper Extremities Comments Mobility Comments pt sitting on chair and agreed to do PT. reviewed back precautions and log roll bed mobility and pt was able to recall. attempted sit to stand x 3 reps but pt was unable despite max a x 2 provided. pt requested for pain meds. left pt on chair. call light and table within reach. checked on pt again after pain meds was taken ~40 min after. pt requesting to go back to bed and continues to c/o increase back pain. completed sit to stand from chair max A x 2 and max cues. completed step transfer to bed using FWW max A x 2 and max cues. completed log roll sit to supine max a x 2 and max cues. positioned in bed. call light and table placed within reach. Gait Assessment Comments Gait Comments unable to ambulate but able to take steps during transfer using FWW max A x 2 and cues PT-Balance Assessment Sitting Balance and Reactions Static Sitting Balance Ability Good Dynamic Sitting Balance Ability Fair Standing Balance and Reactions Static Standing Balance Ability Poor Dynamic Standing Balance Ability Poor Device Used FWW M5 PT-IP Objective Assessments Start: 09/29/20 12:46 Freq: NEEDED Status: Active Protocol: Document 09/29/20 10:15 AB (Rec: 09/29/20 12:57 AB [email or web address]) Orientation Orientation/Cognition Level of Alertness Lethargic Orientation Name Language Function Ability No Deficits Noted Safety Awareness Decreased Safety Awareness Memory Description Short Term Impaired Gross Range of Motion Lower Extremity ROM Assessment Within Functional Limits Strength Lower Extremity Strength Assessment Bilaterally Impaired Comments Strength Comments RLE: 3+/5 LLE: 3-/5 Muscle Tone Muscle Tone WNL Yes M6 PT-IP Treatment Start: 09/29/20 12:46 Freq: NEEDED Status: Active Protocol: Document 09/29/20 10:15 AB (Rec: 09/29/20 12:57 AB [email or web address]) Physical Therapy Treatment Education Education Provided Precautions,Safety M7 PT-IP Assessment and Plan Start: 09/29/20 12:46 Freq: NEEDED Status: Active Protocol: Document 09/29/20 10:15 AB (Rec: 09/29/20 12:57 AB [id number]) PT Summary Assessment and Plan Potential Rehabilitation Potential Good Status of Condition at Evaluation Evolving Summary Impairments Pain,ROM,Strength,Balance, Coordination,Sensation,Tone, Cognition,Bed Mobility, Transfers,Gait,Activity Tolerance Assessment Summary pt requiring max A x 2 with all mobilities and unable to ambulate at this time. pt will require SNF rehab to improve strength and mobility. Goals Bed Mobility Goal Minimal Assistance Transfer Goal Minimal Assistance,Front Wheeled Walker Gait Goal Minimal Assistance,Front Wheel Walker Gait Distance 50 Days to Meet Goals 10 Frequency of Treatment Frequency Of Treatment Twice a Day Treatment Plan Physical Therapy Treatment Plan Bed Mobility Training,Transfer Training,Gait Training, Therapeutic Exercise,Balance Retraining,Post Op Education, Discharge Planning,Hot or Cold Pack,Neuromuscular Re-ed, Coordination Retraining,Manual Therapy Precautions Lumbar Precautions Log Roll,No Twisting,Limit Bending,Lifting Restriction of 10 lbs,Gait Belt above Incisional Area Recommendations To Nursing Amount of Assist Needed Mechanical Lift Discharge Recommendations PT Discharge Recommendations SNF Rehab Transportation Needs at Discharge Wheelchair/Cabulance
[2020-09-29] MEDS: HYDROMORPHONE 0.5 MG INJ 0.2 MG IV (10:52)
[2020-09-29] MEDS: CIPROFLOXACIN 400 MG/200 ML PIGGYBACK 200 MG IV ×2 (11:37→21:30)
[2020-09-29] MEDS: SODIUM CHLORIDE 0.9% 250 ML 21 ML IV (11:42)
--- NOTE | 2020-09-29 11:51 | PM.PN.1 ---
Subjective Subjective Date Patient Seen: 09/29/20 Time Patient Seen: 08:51 Interval history: Today she is feeling is much improved. She no longer has rigors. Her back pain is well controlled. She has no fevers/chills. Exam Vital Signs (past 8 hours): - 09/29/20 04:00 09/29/20 07:45 Temperature 99.6 F 97.4 F L Pulse Rate 82 66 Respiratory Rate 16 12 Blood Pressure 130/59 L 105/52 L Pulse Oximetry 92 93 Oxygen Delivery Method Room Air Oxygen Flow Rate 0 Narrative Exam Narrative: GEN: pale, chronically ill appearing, no acute distress HEENT: Dry mucous membranes, PERRL Neck: No JVD, trachea midline Respiratory: Lungs are clear with no wheezes, rhonchi, rales Cardiac: Regular rate and rhythm no murmurs no bruits Abdomen: Soft, nontender, normal bowel sounds Skin: no rashes noted Neurologic: moving all extremities, with no gross abnormalities Spine: back bandaged Extremities: 1+ bilateral lower extremity edema Psych: Cooperative, fluent speech with appropriate content Objective Labs Result Diagrams: 09/29/20 04:25 09/29/20 04:25 Labs: Laboratory Results - last 24 hr 09/28/20 09/29/20 09/29/20 17:45 04:25 04:25 WBC 10.3 11.0 RBC 2.91 L 3.00 L Hgb 8.7 L 8.8 L Hct 26.5 L 27.1 L MCV 90.9 D 90.3 MCH 29.8 29.3 MCHC 32.8 32.4 RDW 18.5 H 18.4 H Plt Count 243 257 Sodium 136 L Potassium 4.6 Chloride 111 H Carbon Dioxide 19 L BUN 24 H Creatinine 0.96 Estimated GFR 55.5 L BUN/Creatinine Ratio 25.0 H Glucose 110 Calcium 8.2 L PFSH Medical History Abnormal breast biopsy Asthma due to environmental allergies Breast cancer, left (06/2011) Cataract (lens) fragments in eye following cataract surgery, bilateral Cervical cancer (1973) Diabetes Diabetic peripheral neuropathy Difficulty swallowing Eczema GERD (gastroesophageal reflux disease) Gout Herniated nucleus pulposus, L3-4 left HLD (hyperlipidemia) HNP (herniated nucleus pulposus), thoracic HTN (hypertension) Hypothyroidism Kidney infection Lumbar radiculopathy Sacrococcygeal disorders, not elsewhere classified Status post lumbar spinal arthrodesis Vertebral fracture Vertigo Wound abscess Surgical History H/O bilateral mastectomy H/O hysterectomy for benign disease History of bunionectomy of right great toe History of left knee replacement History of lumbar spinal fusion History of surgery History of total right knee replacement Hx of bilateral cataract extraction S/P trigger finger release (2013) Family History Father Congestive heart failure Advanced cirrhosis of liver Grandmother Congestive heart failure Social History household members: none Smoking Status: Former smoker alcohol intake: current Assessment & Plan Assessment & Plan narrative: Ms. Allen is a 85W with PMH of recent spinal surgery who presented with concern for sepsis from infected surgical wound versus urinary source. 1. Sepsis with spinal wound infection and urinary tract infection and bacteremia -evidenced by hypotension, organ dysfunction with acute kidney injury, leukocytosis of 22, procalcitonin 0.92 on admission -also has positive urinary tract infection and bacteremia -urinary tract infection shows gram negative rods, bacteremia with e.coli with sensitivities pending -wound cultures from OR show E.coli, she also has E.coli in blood and urine -wound culture from back taken in ER show E.coli and proteus -in addition she has noted enterococcus in the urine -serology PCR shows e.coli and enterobacter -on vancomycin and cefepime -per ER note was diagnosed with sepsis and bolused IV fluids -will need prolonged antibiotics with PICC placed -E.coli appears pansensitive and will need 6 weeks of antibiotics for this -proteus and enterococcus sensitivities pending -final antibiotic selection pending speciation -hypotension improved with IV fluids 2. Anemia -hemoglobin midly low at 8.5 and dropped to 7.2 -no evidence of active blood loss -transfused 1U PRBC on 09/28 improved to 8.8 -continue to monitor hemoglobin closely -transfuse if hemoglobin below 7 3. Acute kidney injury -probable from hypovolemia from sepsis and infection -creatinine on admission 1.52, baseline appears to be 0.74, -improved with IV fluids, antibiotics to creatinine of 0.96 -has been having good urinary output -hold home dose lisinopril We will continue to follow. Thank you for this consult. Code status: Full, contact is daughter Shanice Roy VTE Deep Vein Thrombosis/Pulmonary Embolism Present on Admission: No
[2020-09-29 12:00] VITALS: BP 139/67; PULSE 75; RESP 12; TEMP 36.4; O2SAT 94
[2020-09-29] MEDS: INSULIN LISPRO 100 UNIT/ML 3ML VIAL SUBCUT ×3 (12:30→21:31)
[2020-09-29] MEDS: OXYCODONE IR 5 MG TABLET 10 MG PO ×3 (14:09→21:30)
--- NOTE | 2020-09-29 14:18 | CM.DPC ---
DCP Cont: Spoke to Debbie at [facility] to confirm that they can accept patient. Debbie will want to be updated as to which antibiotic that patient will be discharged with. Patient would qualify for jail rehab by tomorrow, as this will be her 3rd medicare midnight. PASSR has been completed. P: DCP to continue to follow. As long as patient is medically ready, she should be able to go to [facility] tomorrow. Agueda Carter RN/Ladle Puller
--- NOTE | 2020-09-29 15:20 | OT.IP.EVAL ---
Current Diagnoses Infection following a procedure, deep incisional surgical site, initial encounter (09/27/20) Surgery Performed Operation Date: 09/27/20 16:45 Actual Procedures p I&D L3-4,L4-5, L5-S1 (post op x 2 weeks) - Rupal Loya MD Past Medical History (Last Reviewed 09/29/20 @ 07:55 by Erwin Peñaloza PA-C) Abnormal breast biopsy Asthma due to environmental allergies Breast cancer, left (06/2011) Cataract (lens) fragments in eye following cataract surgery, bilateral Cervical cancer (1973) Diabetes Diabetic peripheral neuropathy Difficulty swallowing Eczema GERD (gastroesophageal reflux disease) Gout Herniated nucleus pulposus, L3-4 left HLD (hyperlipidemia) HNP (herniated nucleus pulposus), thoracic HTN (hypertension) Hypothyroidism Kidney infection Lumbar radiculopathy Sacrococcygeal disorders, not elsewhere classified Status post lumbar spinal arthrodesis Vertebral fracture Vertigo Wound abscess Surgical History (Last Reviewed 09/29/20 @ 07:55 by Erwin Peñaloza PA-C) H/O bilateral mastectomy H/O hysterectomy for benign disease History of bunionectomy of right great toe History of left knee replacement History of lumbar spinal fusion History of surgery History of total right knee replacement Hx of bilateral cataract extraction S/P trigger finger release (2013) Occupational Therapy Inpatient Evaluation/Re-Eval M1 PT/OT-IP Prior Functional Status Start: 09/29/20 12:46 Freq: NEEDED Status: Active Protocol: Document 09/29/20 14:30 [facility] (Rec: 09/29/20 16:01 [facility] [id number]) Medical Review Prior Functional Status Medical History Reviewed Yes Communication able to make needs known Mobility and Gait pt with h/o of back surgery last 09/13 and was modified independent prior to back surgery and does not use any AD; pt d/c to SNF after her back surgery and admitted back to the hospital due to lumbar wound infection. pt stated that she was ambulatory using FWW when she was at SNF Activities of Daily Living and IADL's Prior to previous back surgery , pt able to do her ADl's with increased time. Social History Household Members none Living Arrangements House Number of Floors (Floors) One Floor Number of Stairs To Enter/Railing? 2 platform steps + ramp to enter Home Environment Walk in Shower,Built-In Shower Seat Home Equipment Front Wheel Walker,Straight Cane,Raised Toilet Seat w/ Armrests,Grab Bars In Shower M2 OT-IP Current Condition Start: 09/29/20 15:40 Freq: Status: Active Protocol: Document 09/29/20 14:30 [facility] (Rec: 09/29/20 16:01 [facility] [id number]) Occupational Therapy Current Condition Current Condition Evaluation Date 09/29/20 Treatment Diagnosis I and D lumbar, s/p revision L3-S1 Diagnosis Onset Date 09/27/20 Post Operative Precautions Lumbar Precautions Log Roll,No Twisting,Limit Bending,Lifting Restriction of 10 lbs,Gait Belt above Incisional Area M3 OT- IP Subjective and Pain Start: 09/29/20 15:40 Freq: Status: Active Protocol: Document 09/29/20 14:30 [facility] (Rec: 09/29/20 16:01 [facility] [id number]) OT- Subjective Occupational Therapy Visit Type Type Initial Evaluation Visit Start Time 14:30 Visit Stop Time 15:20 Total Visit Minutes 50 Occupational Therapy Visit Comments Patient Comments Pt willing to get up as nursing able to pre-medicate pt earlier. Pt's daughter in the room. Patient/Caregiver Goals To be able to care for herself . OT Pain Assessment Pain When Pain Assessed At Rest Pain Present Pain Present Pain Reported Location lower back Intensity 1 M4 OT- IP ADL's Start: 09/29/20 15:40 Freq: Status: Active Protocol: Document 09/29/20 14:30 [facility] (Rec: 09/29/20 16:01 [facility] [id number]) OT [id number]-Girg-Wimdcpo Comments OT Self-Feeding Comments NOt at meal time. OT ADL-Grooming General Evaluation Grooming Ability Standby Assistance Comments OT Grooming Comments Pt able to wash her face after set-up of wash cloth while in bed. OT ADL-Oral Care Comments Oral Care Comments Not performed. 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 OT ADL-Bathing Bathing Type Bathing Type Sponge Bath General Evaluation Bathing Ability Maximal Assistance Comments OT Bathing Comments Pt able to do her arms, body, and face and needing assist for the rest. M5 OT- IP IADL's Start: 09/29/20 15:40 Freq: Status: Active Protocol: Document 09/29/20 14:30 [facility] (Rec: 09/29/20 16:01 [facility] [id number]) OT-Instrumental Activities of Daily Living Home Safety Awareness Home Safety Comments Pt a little forgetful and not thinking well per her daughter - daughter feel that it is from the pain medications and that pt is not at her baseline for cognition. Therefore if pt having to go home would need 24/ assist. Pt to go to skilled rehab prior to going home. M6 OT- IP Functional Cognition Start: 09/29/20 15:40 Freq: Status: Active Protocol: Document 09/29/20 14:30 [facility] (Rec: 09/29/20 16:01 [facility] [id number]) Cognitive Factors Limiting Selfcare Function Cognitive Ability Level of Alertness Alert,Confusional State Patient Orientation Name,Place,Situation Attention Span Ability Capable of Focused Attention, Unable to Sustain Attention Ability to Follow Commands Able to Follow One Step Commands with Increased Time, Able to Follow One Step Commands with Repetition Memory Description Short Term Impaired Safety Awareness Decreased Ability to Apply Precautions,Underestimates Need for Assistance Cognitive Comments Cognitive Assessment Comments Pt groggy from pain medications and needing step by step commands for safety awareness, fww, and back precautions. Pt tends to want to grab the FWW versus push up from the bed. Pt also noted distracted and needing cues to refocus. OT- Vision and Hearing OT- Hearing Assessment OT- Hearing Assessment WFL OT- Vision Assessment Visual Acuity Glasses All The Time M7 OT- IP Mobility and Balance Start: 09/29/20 15:40 Freq: Status: Active Protocol: Document 09/29/20 14:30 [facility] (Rec: 09/29/20 16:01 [facility] [id number]) OT- Bed Mobility Assessment Rolling Level of Assistance Moderate Assistance,2 Person Assistance Supine to Sit Supine to Sit Assist Moderate Assistance,2 Person Assistance Sit to Supine Sit to Supine Assist Maximum Assistance,2 Person Assistance Scooting Scooting to Edge of Bed Moderate Assistance,2 Person Assistance OT-Transfer Assessment Sit to and From Stand Sit to and from Stand Moderate Assistance,2 Person Assistance Transfers Transfer Ability Moderate Assistance,2 Person Assistance Technique Transfer Destination Bed,Bedside Commode Transfer Technique Stand Step Pivot Devices Transfer Assistive Devices Gait Belt,Front Wheeled Walker Comments Mobility Comments MODA X 2, assist for balance and guiding the FWW for the transfer to and from [facility] to bed. OT- Gait Assessment Comments Gait Ability Comments transfer only OT- Balance Assessment Sitting Balance and Reactions Static Sitting Balance Ability Good Dynamic Sitting Balance Ability Fair Standing Balance and Reactions Static Standing Balance Ability Poor M8 OT- IP Objective Assessments Start: 09/29/20 15:40 Freq: Status: Active Protocol: Document 09/29/20 14:30 [facility] (Rec: 09/29/20 16:01 [facility] [id number]) OT Gross Range of Motion Upper Extremity Range of Motion Assessment Bilaterally Impaired OT-Muscle Tone Assessment Muscle Tone WNL Yes M9 OT- IP Assessment and Plan Start: 09/29/20 15:40 Freq: Status: Active Protocol: Document 09/29/20 14:30 [facility] (Rec: 09/29/20 16:01 [facility] [id number]) OT Summary Assessment and Plan Potential Rehabilitation Potential Good Analytic Complexity at Evaluation Moderate Summary OT Impairments Pain,Strength,Balance, Functional Cognition, Functional Mobility,Grooming, Dressing,Toileting,Bathing, Toilet Transfers,Shower Transfers,Activity Tolerance Progress Towards Goals Slow Progress due to Pain,Slow Progress due to Medical Issues,Slow Progress due to Activity Tolerance,Slow Progress due to Cognition Assessment Summary Pt MOD complexity and main barriers are steps, needing extensive assist for ADL's and mobility needs, and will benefit from skilled rehab prior to going home. Goals Grooming Goal Independent Dressing Goal Independent Toileting Goal Independent Bathing Goal Independent Toilet Transfer Goal Independent Shower Transfer Goal Independent Patient/Caregiver Education Goal Demonstrate Post-Op Precautions Days to Meet Goals 20 Frequency of Treatment Frequency Of Treatment Once a Day Treatment Plan OT Treatment Plan ADL Training,Functional Cognition Training,Functional Mobility,Patient/Family Education,Discharge Planning Other Treatment Recommendations and Next GO over LB dressing equipment Treatment Focus and back precautions. Discharge Recommendations OT Discharge Recommendations SNF Rehab Transportation Needs at Discharge Wheelchair/Cabulance
--- NOTE | 2020-09-29 15:20 | PT.IPTN ---
Current Diagnoses Infection following a procedure, deep incisional surgical site, initial encounter (09/27/20) Surgery Performed Operation Date: 09/27/20 16:45 Actual Procedures p I&D L3-4,L4-5, L5-S1 (post op x 2 weeks) - Rupal Loya MD Physical Therapy Treatment Note M2 PT-IP Current Condition Start: 09/29/20 12:46 Freq: NEEDED Status: Active Protocol: Document 09/29/20 10:15 [facility] (Rec: 09/29/20 12:57 AB [id number]) Physical Therapy Current Condition Current Condition Evaluation Date 09/29/20 Treatment Diagnosis s/p I&D lumbar wound; difficulty in walking Onset Date 09/27/20 Precautions Lumbar Precautions Log Roll,No Twisting,Limit Bending,Lifting Restriction of 10 lbs,Gait Belt above Incisional Area M3 PT-IP Subjective Start: 09/29/20 12:46 Freq: NEEDED Status: Active Protocol: Document 09/29/20 14:40 [facility] (Rec: 09/29/20 16:25 [facility] [id number]) Subjective Physical Therapy Visit Type Type Treatment Note Visit Start Time 14:40 Visit Stop Time 15:20 Total Visit Minutes 40 Notes Cotx with OT for additional physical assist for mobilizing . 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 Patient Goals Pt agreeable to working with therapy. Therapy Pain Assessment Pain Present Pain Present Pain Reported Location lower back Intensity 1 Scale Used increases with mobility Pain Management Techniques Re-positioning,Timing of Activity with Medications M4 PT-IP Mobility and Gait Start: 09/29/20 12:46 Freq: NEEDED Status: Active Protocol: Document 09/29/20 14:40 [facility] (Rec: 09/29/20 16:25 [facility] [id number]) PT-Bed Mobility Assessment Rolling Type of Rolling Log Rolling Level of Assist Moderate Assistance,2 Person Assistance Supine to Sit Supine to Sit Moderate Assistance,2 Person Assistance Sit to Supine Sit to Supine Maximum Assistance,2 Person Assistance Scooting Scooting to Edge of Bed Moderate Assistance Scooting Up and Down in Bed Maximum Assistance PT-Transfer Assessment Sit to and From Stand Sit to and from Stand Moderate Assistance,2 Person Assistance,Use of Upper Extremities Equipment Transfer Assistive Device Gait Belt,Front Wheeled Walker Orthotic/Prosthetic Devices or Brace: No Transfers Transfer Destination Bed,Bedside Commode Transfer Technique Stand Step Pivot Transfer Ability Level of Assist Moderate Assistance,2 Person Assistance,Use of Upper Extremities Comments Mobility Comments Pt was elevated supine, OT and daughter in room when arrived . Pt completed LR to R, R sidelying> sit with support for trunk transitioning and LE to EOB, pelvis sequencing R and L to scoot to EOB all mobility Mod A x2 persons. Sit >stand with max cuing for UE push from bed then transition to fWW Mod A x2 with noted posterior LE press into bed. SPT bed>BSC heavy BUE on fWW Mod A x2 and assist reposition FWW and cues to reach back for slow descent onto BSC. Pt safe and able to sit on BSC unsupported SBA, unsuccessful voiding worked on self ADLs with OT. Sit>stand Mod A x2, static standing Min A x1 while 2nd person assisted pericare and hygiene mgt, max cues for upright posture to improve decrease trunk forward lean and for proper hand positioning on FWW handles for safety instead of front of fWW or leaning on R forearm to improve LE strengthening and back health. Pt required to sit again due to urgent need to void with success. Sit> stand assist for brief mgt, SPT to bed using fWW Mod A x2 and Max cues for reaching back with no follow through. Mod A x2 for scooting back onto bed then sit>supine Max A x2 and center in bed. Pt had call light and all needs in reach, bed armed with daughter in room before left. Gait Assessment Comments Gait Comments unable to ambulate but able to take steps during transfer using FWW mod A x 2 and cues PT-Balance Assessment Sitting Balance and Reactions Static Sitting Balance Ability Good Dynamic Sitting Balance Ability Fair Standing Balance and Reactions Static Standing Balance Ability Poor Dynamic Standing Balance Ability Poor Device Used FWW M5 PT-IP Objective Assessments Start: 09/29/20 12:46 Freq: NEEDED Status: Active Protocol: Document 09/29/20 10:15 [facility] (Rec: 09/29/20 12:57 [facility] [id number]) Orientation Orientation/Cognition Level of Alertness Lethargic Orientation Name Language Function Ability No Deficits Noted Safety Awareness Decreased Safety Awareness Memory Description Short Term Impaired Gross Range of Motion Lower Extremity ROM Assessment Within Functional Limits Strength Lower Extremity Strength Assessment Bilaterally Impaired Comments Strength Comments RLE: 3+/5 LLE: 3-/5 Muscle Tone Muscle Tone WNL Yes M6 PT-IP Treatment Start: 09/29/20 12:46 Freq: NEEDED Status: Active Protocol: Document 09/29/20 14:40 [facility] (Rec: 09/29/20 16:25 SP [id number]) Physical Therapy Treatment Education Education Provided Precautions,Safety M7 PT-IP Assessment and Plan Start: 09/29/20 12:46 Freq: NEEDED Status: Active Protocol: Document 09/29/20 14:40 [facility] (Rec: 09/29/20 16:25 [facility] [id number]) PT Summary Assessment and Plan Potential Rehabilitation Potential Good Status of Condition at Evaluation Evolving Summary Impairments Pain,ROM,Strength,Balance, Coordination,Sensation,Tone, Cognition,Bed Mobility, Transfers,Gait,Activity Tolerance Progress Towards Goals Progressing Toward Goals,Slow Progress due to Activity Tolerance Assessment Summary Pt requiring Mod Ax2 during all mob using FWW step transfers at this time, unable to assess distance gait, Max A x2 sit>supine with assist for maintain. pt will require SNF rehab to improve strength and mobility with pt and daughter in agreement. Goals Bed Mobility Goal Minimal Assistance Transfer Goal Minimal Assistance,Front Wheeled Walker Gait Goal Minimal Assistance,Front Wheel Walker Gait Distance 50 Days to Meet Goals 10 Frequency of Treatment Frequency Of Treatment Twice a Day Treatment Plan Physical Therapy Treatment Plan Bed Mobility Training,Transfer Training,Gait Training, Therapeutic Exercise,Balance Retraining,Post Op Education, Discharge Planning,Hot or Cold Pack,Neuromuscular Re-ed, Coordination Retraining,Manual Therapy Other Recommendations and Next Treatment bed mobility, transfers, gait Focus using FWW further distance in room w/ tall posture. Precautions Lumbar Precautions Log Roll,No Twisting,Limit Bending,Lifting Restriction of 10 lbs,Gait Belt above Incisional Area Recommendations To Nursing Amount of Assist Needed 2 Person Assist Discharge Recommendations PT Discharge Recommendations SNF Rehab Transportation Needs at Discharge Wheelchair/Cabulance
[2020-09-29 16:49] VITALS: BP 134/92; PULSE 66; RESP 17; TEMP 36.4; O2SAT 96
[2020-09-29 20:45] VITALS: BP 124/66; PULSE 69; RESP 16; TEMP 37.3; O2SAT 96
[2020-09-29] MEDS: SENNOSIDES 8.6 MG TABLET 17.2 MG PO (21:30)
[2020-09-29] MEDS: MELATONIN 3 MG TABLET 9 MG PO (21:30)
[2020-09-29] MEDS: OXYBUTYNIN 5 MG ER TAB PO (21:30)
[2020-09-30 00:15] VITALS: BP 111/47; PULSE 73; RESP 16; TEMP 37.7; O2SAT 97
[2020-09-30 01:20] VITALS: TEMP 37.7
[2020-09-30] MEDS: ACETAMINOPHEN 325 MG TABLET 650 MG PO (01:20)
[2020-09-30 01:58] VITALS: TEMP 37.1
[2020-09-30 02:45] VITALS: BP 128/58; PULSE 77; RESP 18; TEMP 37.3; O2SAT 94
[2020-09-30] MEDS: LEVOTHYROXINE 88 MCG TABLET PO (05:10)
[2020-09-30 05:34] LABS: Hemoglobin 8.4 g/dL (12.0-16.0); Mean Corpuscular HGB Conc 32.5 % (30-36); Mean Corpuscular Hemoglobin 29.4 PG (26-34); Mean Corpuscular Volume 90.4 fL (80-100); Platelet Count 251 X10^3/uL (150-400); Red Blood Cell Count 2.87 X10^6/uL (4.0-5.2); Red Cell Distribution Width 18.8 % (11.6-14.8); White Blood Cell Count 10.3 X10^3/uL (4.5-11.0)
[2020-09-30 05:41] LABS: BUN Creatinine Ratio 20.4 (6-22); Blood Urea Nitrogen 19 mg/dL (7-17); Calcium 8.4 mg/dL (8.4-10.2); Carbon Dioxide 23 mmol/L (22-32); Chloride 108 mmol/L (98-107); Estimated Glomerular Filt Rate 57.6 mL/min (>60); Glucose 78 mg/dL (80-110); HEMOLYSIS < 15 (0-50); Potassium 4.5 mmol/L (3.4-5.1); Sodium 133 mmol/L (137-145)
[2020-09-30] MEDS: OXYCODONE IR 5 MG TABLET 10 MG PO ×2 (07:40→12:54)
--- NOTE | 2020-09-30 08:18 | PT.IPTN ---
Current Diagnoses Infection following a procedure, deep incisional surgical site, initial encounter (09/27/20) Surgery Performed Operation Date: 09/27/20 16:45 Actual Procedures p I&D L3-4,L4-5, L5-S1 (post op x 2 weeks) - Rupal Loya MD Physical Therapy Treatment Note M2 PT-IP Current Condition Start: 09/29/20 12:46 Freq: NEEDED Status: Active Protocol: Document 09/29/20 10:15 [facility] (Rec: 09/29/20 12:57 [facility] [id number]) Physical Therapy Current Condition Current Condition Evaluation Date 09/29/20 Treatment Diagnosis s/p I&D lumbar wound; difficulty in walking Onset Date 09/27/20 Precautions Lumbar Precautions Log Roll,No Twisting,Limit Bending,Lifting Restriction of 10 lbs,Gait Belt above Incisional Area M3 PT-IP Subjective Start: 09/29/20 12:46 Freq: NEEDED Status: Active Protocol: Document 09/30/20 07:46 SP (Rec: 09/30/20 08:44 SP [id number]) Subjective Physical Therapy Visit Type Type Treatment Note Visit Start Time 07:46 Visit Stop Time 08:18 Total Visit Minutes 32 Notes 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 Therapy Pain Assessment Pain When Pain Assessed At Rest Pain Present Pain Present Pain Reported Location lower back Intensity 1 Scale Used 1/10 at rest, 5/10 with mobility Pain Management Techniques Re-positioning,Timing of Activity with Medications M4 PT-IP Mobility and Gait Start: 09/29/20 12:46 Freq: NEEDED Status: Active Protocol: Document 09/30/20 07:46 [facility] (Rec: 09/30/20 08:44 [facility] [id number]) PT-Bed Mobility Assessment Rolling Type of Rolling Log Rolling,Roll to Right Level of Assist Minimal Assistance,1 Person Assistance Supine to Sit Supine to Sit Moderate Assistance,1 Person Assistance,Bedrails Scooting Scooting to Edge of Bed Contact Guard Assistance, Minimal Assistance PT-Transfer Assessment Sit to and From Stand Sit to and from Stand Minimal Assistance,Moderate Assistance,1 Person Assistance ,Use of Upper Extremities Equipment Transfer Assistive Device Gait Belt,Front Wheeled Walker Orthotic/Prosthetic Devices or Brace: No Transfers Transfer Destination Chair,Toilet,Bedside Commode Transfer Technique pt ambulated with FWW Transfer Ability Level of Assist Minimal Assistance,1 Person Assistance,Use of Upper Extremities Comments Mobility Comments Pt was supine when arrived. Completed LR R with use of bed rail Min A using transfer pad , L SL>sit Max A x1 for trunk righting then scoot to EOB CG- Min for trunk balance. Sit> stand Min A x1 with Max cuing for proper hand placement push from bed to stand then handles on FWW. Pt ambulated to sink Torie with support for trunk stability. She stood at sink for 8 min total working w / ADL with OT,cued for upright and center trunk alignment due to pt tends to lean forearms on sink and pelvis of set to L of which states has done previously but more recently. Rest break on BSC for 3 min before Sit>stand using FWW ambulated to bathroom CGA- Min A with pt able to manage FWW with cuing, required brief mgt and cue for use of grab bar Min A slow descent to toilet. CGA- min A for trunk balance on toilet performing ADL with OT. Sit> stand Min A x2 with use of grab bar and assist for brief mgt. Pt ambulated back to chair FWW Min Ax2 with support for FWW mgt and stability, tipped to L x1. Pt was seated in chair when with call light and chair alarmed with all needs in reach. Daughter in room. Continue to recommend SNF for further skilled therapy to improved functional strenghth toward independence . Gait Assessment Gait Gait Assistance Required: Contact Guard Assist,Minimum Assistance,2 Person Assist Distance (Feet) 10 Able to Maintain Weight Bearing Status Yes During Gait Assistive Devices Assistive Device Gait Belt,Front Wheeled Walker Orthotic/Prosthetic Devices or Brace: No Gait Deviations General Gait Pattern Antalgic,Decreased Stride Length,Decreased Feet Clearance,Flexed Trunk,Lateral Trunk Lean,Wide Based Gait Factors Limiting Gait Function Factors Limiting Gait Function Decreased Activity Tolerance, Decreased Strength,Difficulty Following Directions,Limited Range of Motion,Pain,Poor Balance,Poor Safety Awareness Comments Gait Comments Pt ambulated 5 ft, 10 ft, 8 ft using FWW CG- min A x2 persons with support for trunk balance and fWW stability. PT-Balance Assessment Sitting Balance and Reactions Static Sitting Balance Ability Good Dynamic Sitting Balance Ability Fair Standing Balance and Reactions Static Standing Balance Ability Fair Dynamic Standing Balance Ability Fair Device Used FWW M5 PT-IP Objective Assessments Start: 05/26/21 12:46 Freq: NEEDED Status: Active Protocol: Document 09/29/20 10:15 [facility] (Rec: 09/29/20 12:57 AB [id number]) Orientation Orientation/Cognition Level of Alertness Lethargic Orientation Name Language Function Ability No Deficits Noted Safety Awareness Decreased Safety Awareness Memory Description Short Term Impaired Gross Range of Motion Lower Extremity ROM Assessment Within Functional Limits Strength Lower Extremity Strength Assessment Bilaterally Impaired Comments Strength Comments RLE: 3+/5 LLE: 3-/5 Muscle Tone Muscle Tone WNL Yes M6 PT-IP Treatment Start: 09/29/20 12:46 Freq: NEEDED Status: Active Protocol: Document 09/30/20 07:46 SP (Rec: 09/30/20 08:44 SP [id number]) Physical Therapy Treatment Education Education Provided Precautions,Safety Other Treatments Other Treatment Performed Static standing to perform ADLs at sink 8 min CG- Min A x1 with intermittent cuing for upright and trunk alignment. see mobility details. M7 PT-IP Assessment and Plan Start: 09/29/20 12:46 Freq: NEEDED Status: Active Protocol: Document 09/30/20 07:46 SP (Rec: 09/30/20 08:44 SP [id number]) PT Summary Assessment and Plan Potential Rehabilitation Potential Good Status of Condition at Evaluation Evolving Summary Impairments Pain,ROM,Strength,Balance, Coordination,Sensation,Tone, Cognition,Bed Mobility, Transfers,Gait,Activity Tolerance Progress Towards Goals Progressing Toward Goals,Slow Progress due to Pain,Slow Progress due to Activity Tolerance Assessment Summary Pt requires Mod A for bed mobility, Min A for sit>stand using FWW max cuign for safety hand placement, Min A x2 for trunk and FWW stability during gait using FWW. Goals Bed Mobility Goal Minimal Assistance Transfer Goal Minimal Assistance,Front Wheeled Walker Gait Goal Minimal Assistance,Front Wheel Walker Gait Distance 50 Days to Meet Goals 10 Frequency of Treatment Frequency Of Treatment Twice a Day Treatment Plan Physical Therapy Treatment Plan Bed Mobility Training,Transfer Training,Gait Training, Therapeutic Exercise,Balance Retraining,Post Op Education, Discharge Planning,Hot or Cold Pack,Neuromuscular Re-ed, Coordination Retraining,Manual Therapy Other Recommendations and Next Treatment bed mobility, transfers, gait Focus room distance if tolerated using FWW 2nd person trail chair for safety. Precautions Lumbar Precautions Log Roll,No Twisting,Limit Bending,Lifting Restriction of 10 lbs,Gait Belt above Incisional Area Discharge Recommendations PT Discharge Recommendations SNF Rehab Transportation Needs at Discharge Wheelchair/Cabulance
--- NOTE | 2020-09-30 08:20 | OT.IP.TRT ---
Current Diagnoses Infection following a procedure, deep incisional surgical site, initial encounter (09/27/20) Surgery Performed Operation Date: 09/27/20 16:45 Actual Procedures p I&D L3-4,L4-5, L5-S1 (post op x 2 weeks) - Rupal Loya MD Occupational Therapy Treatment Note M2 OT-IP Current Condition Start: 09/29/20 15:40 Freq: Status: Active Protocol: Document 09/29/20 14:30 [facility] (Rec: 09/29/20 16:01 [facility] [id number]) Occupational Therapy Current Condition Current Condition Evaluation Date 09/29/20 Treatment Diagnosis I and D lumbar, s/p revision L3-S1 Diagnosis Onset Date 09/27/20 Post Operative Precautions Lumbar Precautions Log Roll,No Twisting,Limit Bending,Lifting Restriction of 10 lbs,Gait Belt above Incisional Area M3 OT- IP Subjective and Pain Start: 09/29/20 15:40 Freq: Status: Active Protocol: Document 09/30/20 08:26 [facility] (Rec: 09/30/20 08:38 [facility] [id number]) OT- Subjective Occupational Therapy Visit Type Type Treatment Note Visit Start Time 07:47 Visit Stop Time 08:20 Total Visit Minutes 33 Occupational Therapy Visit Comments Patient Comments Pt agreed to get up and then wanting to use the bathroom. Patient/Caregiver Goals To be able to care for herself . OT Pain Assessment Pain When Pain Assessed At Rest Pain Present Pain Present Pain Reported Location lower back Intensity 1 M4 OT- IP ADL's Start: 09/29/20 15:40 Freq: Status: Active Protocol: Document 09/30/20 08:26 [facility] (Rec: 09/30/20 08:38 [facility] [id number]) OT [id number] Comments OT Self-Feeding Comments NOt at meal time. OT ADL-Grooming General Evaluation Grooming Ability Standby Assistance Comments OT Grooming Comments Pt able to stand for 8 minutes , while leaning on the counter and FWW for grooming needs. OT ADL-Oral Care General Eval Oral Care Ability Independent OT ADL-Dressing General Eval Lower Body Dressing Ability Maximum Assistance Areas Needing Assistance Underpants/Brief,Socks OT ADL-Toileting General Evaluation Toileting Ability Maximum Assistance Areas Needing Assistance Manage Clothing Devices Toileting Assistive Devices Grab Bars Comments OT Toileting Comments Pt hinging at hips to wipe from the front and needing cues to be sure not to bend at her trunk. Pt trying to use the gas welder but getting tired and therefore needing assist from therapist for brief management needs. M5 OT- IP IADL's Start: 09/29/20 15:40 Freq: Status: Active Protocol: Document 09/29/20 14:30 [facility] (Rec: 09/29/20 16:01 [facility] [id number]) OT-Instrumental Activities of Daily Living Home Safety Awareness Home Safety Comments Pt a little forgetful and not thinking well per her daughter and if having to go home would need 24/7 assist. Pt to go to skilled rehab prior to going home. M6 OT- IP Functional Cognition Start: 09/29/20 15:40 Freq: Status: Active Protocol: Document 09/30/20 08:26 [facility] (Rec: 09/30/20 08:38 [facility] [id number]) Cognitive Factors Limiting Selfcare Function Cognitive Ability Level of Alertness Alert,Confusional State Patient Orientation Name,Place,Situation Attention Span Ability Capable of Focused Attention, Unable to Sustain Attention Ability to Follow Commands Able to Follow One Step Commands with Increased Time, Able to Follow One Step Commands with Repetition Memory Description Short Term Impaired Safety Awareness Decreased Ability to Apply Precautions,Underestimates Need for Assistance Cognitive Comments Cognitive Assessment Comments Pt seems a bit more confused and tired today and needing more cues for safety and to incorporate use of back precautions for needs. M7 OT- IP Mobility and Balance Start: 09/29/20 15:40 Freq: Status: Active Protocol: Document 09/30/20 08:26 [facility] (Rec: 09/30/20 08:38 [facility] [id number]) OT- Bed Mobility Assessment Rolling Level of Assistance Moderate Assistance,1 Person Assistance,Bedrails Supine to Sit Supine to Sit Assist Moderate Assistance,Maximum Assistance,1 Person Assistance Scooting Scooting to Edge of Bed Moderate Assistance,1 Person Assistance OT-Transfer Assessment Sit to and From Stand Sit to and from Stand Moderate Assistance,1 Person Assistance Transfers Transfer Ability Minimal Assistance,Moderate Assistance,1 Person Assistance ,2 Person Assistance Technique Transfer Destination Bed,Chair,Toilet Transfer Technique Stand Step Pivot Devices Transfer Assistive Devices Gait Belt,Front Wheeled Walker Comments Mobility Comments Doing better with bed mobility today, one person assist. When up on FWW from MIN/MODA x1 to KATEY x2 as pt tires FWW gets too far ahead of her and also needing assist to guide the FWW and also needing assist for her balance. OT- Gait Assessment Comments Gait Ability Comments Pt able to walk to and from the bathroom with KATEY x 2 with FWW. OT- Balance Assessment Sitting Balance and Reactions Static Sitting Balance Ability Good Dynamic Sitting Balance Ability Fair Standing Balance and Reactions Static Standing Balance Ability Poor Comments Other Balance Tests/Deviations/Treatment While standing pt tends to lean : to the left and needing cues to get to midline while standing and doing her grooming needs. M8 OT- IP Objective Assessments Start: 09/29/20 15:40 Freq: Status: Active Protocol: Document 09/29/20 14:30 [facility] (Rec: 09/29/20 16:01 [facility] [id number]) OT Gross Range of Motion Upper Extremity Range of Motion Assessment Bilaterally Impaired OT-Muscle Tone Assessment Muscle Tone WNL Yes M9 OT- IP Assessment and Plan Start: 09/29/20 15:40 Freq: Status: Active Protocol: Document 09/30/20 08:26 [facility] (Rec: 09/30/20 08:38 [facility] [id number]) OT Summary Assessment and Plan Potential Rehabilitation Potential Good Analytic Complexity at Evaluation Moderate Summary OT Impairments Pain,Strength,Balance, Functional Cognition, Functional Mobility,Grooming, Dressing,Toileting,Bathing, Toilet Transfers,Shower Transfers,Activity Tolerance Progress Towards Goals Progressing Toward Goals Assessment Summary Pt doing better today and able to walk to the bathroom with FWW with MODAx1 to KATEY x 2. Pt still would benefit from continued OT to work on incorporating back precautions for ADl needs and practice use of LB dressing equipment. When medically stable, pt to go to skilled rehab. Goals Grooming Goal Independent Dressing Goal Independent Toileting Goal Independent Bathing Goal Independent Toilet Transfer Goal Independent Shower Transfer Goal Independent Patient/Caregiver Education Goal Demonstrate Post-Op Precautions Days to Meet Goals 19 Frequency of Treatment Frequency Of Treatment Once a Day Treatment Plan OT Treatment Plan ADL Training,Functional Cognition Training,Functional Mobility,Patient/Family Education,Discharge Planning Other Treatment Recommendations and Next shower Treatment Focus Discharge Recommendations OT Discharge Recommendations SNF Rehab Transportation Needs at Discharge Wheelchair/Cabulance
[2020-09-30] MEDS: DICYCLOMINE 10 MG CAPSULE PO (09:15)
[2020-09-30] MEDS: DOCUSATE 100 MG CAPSULE PO (09:15)
[2020-09-30] MEDS: MAGNESIUM HYDROXIDE 30 ML UDC PO (09:15)
[2020-09-30] MEDS: PANTOPRAZOLE DR 40 MG TABLET PO (09:16)
[2020-09-30] MEDS: allopurinoL 300 MG TABLET PO (09:16)
[2020-09-30] MEDS: INSULIN GLARGINE 100 UNIT/ML 3ML PEN 16 UNIT SUBCUT (09:16)
[2020-09-30] MEDS: EZETIMIBE 10 MG TABLET PO (09:25)
[2020-09-30 09:55] VITALS: BP 117/51; PULSE 69; RESP 16; TEMP 36.2
[2020-09-30] MEDS: CIPROFLOXACIN 400 MG/200 ML PIGGYBACK 200 MG IV (10:53)
[2020-09-30 12:00] VITALS: BP 141/55; PULSE 66; RESP 16; TEMP 36.8; O2SAT 95
[2020-09-30] MEDS: polyethylene glycoL 3350 17 GM POWD.PACK PO (12:47)
[2020-09-30] MEDS: BISACODYL 5 MG TABLET PO (12:47)
[2020-09-30] MEDS: INSULIN LISPRO 100 UNIT/ML 3ML VIAL SUBCUT (12:50)
--- NOTE | 2020-09-30 13:05 | PC.NURSE ---
Patient is sitting up in chair comfortable. Both Hemavacs were removed at 1245 and patient tolerated it well. Operative site sutures are intact, no drainage noted there is some swelling and bruising in the peripheral suture area. Coversite was applied over incision sites. GABI Hood visualized photos of the surgical site shortly there after. Patient given pain and bowel meds and denies needs at this time.
[2020-09-30 13:21] LABS: COVID19 - ADMIT (NP swab/PCR) Negative (Negative)
--- NOTE | 2020-09-30 13:56 | PM.DS.1 ---
History of Present Illness History of Present Illness Date Patient Seen: 09/30/20 Time Patient Seen: 13:56 Chief complaint: Lethargic/ febrile/ poss sepsis Narrative: Ms. Allen is a 85 yo F presented through ED for fever, increased wound drainage from her lumbar spine 2 days ago and lethargy. Patient is 2 weeks s/p L3-S1 PSF with revision instrumentation and cages placement. Patient had additional work up showing an active UTI and dehydration. Medicine service has been consulted for management of patient's medical issues including UTI and dehydration. Discharge Providers Provider Date of admission: 09/27/20 01:13 Discharge Date: 09/30/20 Primary care physician: Brenda Dotson PA-C Consults: 09/27/20 02:34 Consult to Pastoral Services Routine Comment: Cassidy 09/27/20 10:08 Consult to Hospitalist Service Routine Comment: Per Dr Loya. Low BP Consulting Provider: Kavin Garcia Reason for consultation: Low Blood Pressure Has provider been notified: Yes 09/27/20 15:25 Consult to Pastoral Services Routine Comment: lost on September 10. 09/27/20 20:47 Consult to Discharge Planning Routine Comment: Consult to Occupational Therapy Evaluate & Treat Comment: Physician Instructions: Evaluate and treat Consult to Physical Therapy Evaluate & Treat Comment: Physician Instructions: Evaluate and Treat Discharge provider: Erwin Peñaloza PA-C Summary Hospital Course Discharge Diagnosis: Lumbar postoperative wound infection Status post Lumbar post op wound irrigation and debridement of skin, muscle and bone Hospital Course: Patient was admitted to the hospital following the above-listed procedure for the above-listed diagnosis. Following the procedure the patient has been convalescing appropriately and her pain is managed with her current pain management regimen. Throughout the course of her time in the hospital the patient has denied fever, chills, nausea, chest pain, shortness of breath, or urinary retention. Patient had been on IV antibiotics vancomycin and cefepime prior to and after surgery. Sequential compression devices have been used throughout her stay for DVT prophylaxis. Patient has successfully worked on ambulation with the assistance of a front wheeled walker with physical therapy. Status at Discharge Cognitive/behavioral status at discharge: oriented Functional status at discharge: uses cane/walker Overall status at discharge: patient is progressing back to baseline Exam Vital Signs (past 8 hours): - 09/30/20 09:55 09/30/20 12:00 Temperature 97.1 F L 98.3 F Pulse Rate 69 66 Respiratory Rate 16 16 Blood Pressure 117/51 L 141/55 H Pulse Oximetry 95 Oxygen Delivery Method Room Air Oxygen Flow Rate 0 Narrative Exam Narrative: 85-year-old female. Patient is resting comfortably in chair, is in no acute distress, and is alert and oriented x3. Skin is warm and dry, and the skin surrounding the incision site is free of warmth, induration, or discharge. Scant erythema and swelling appreciated around the borders of the incision sites. Dressing over the incision sites is free strike through skin is clean and dry. Sensation appreciated throughout the bilateral lower extremities light touch. Ankle dorsiflexion, plantar flexion, eversion, inversion performed bilaterally without difficulty or discomfort. Palpable pulses appreciated capillary refill less than 2 seconds. Calves are soft nontender, negative Homans sign. No other signs of DVT appreciated. Const General: cooperative, healthy appearing and comfortable Resp Effort & Inspection: normal respiratory effort and able to speak in complete sentences Skin General: no rashes or lesions noted Objective Labs Result Diagrams: 09/30/20 05:15 09/30/20 05:15 Labs: Laboratory Results - last 24 hr 09/30/20 09/30/20 09/30/20 05:15 05:15 11:52 WBC 10.3 RBC 2.87 L Hgb 8.4 L Hct 26.0 L MCV 90.4 MCH 29.4 MCHC 32.5 RDW 18.8 H Plt Count 251 Sodium 133 L Potassium 4.5 Chloride 108 H Carbon Dioxide 23 BUN 19 H Creatinine 0.93 Estimated GFR 57.6 L BUN/Creatinine Ratio 20.4 Glucose 78 L Calcium 8.4 SARS-CoV-2 (PCR) Negative [facility] Medical History Abnormal breast biopsy Asthma due to environmental allergies Breast cancer, left (06/2011) Cataract (lens) fragments in eye following cataract surgery, bilateral Cervical cancer (1973) Diabetes Diabetic peripheral neuropathy Difficulty swallowing Eczema GERD (gastroesophageal reflux disease) Gout Herniated nucleus pulposus, L3-4 left HLD (hyperlipidemia) HNP (herniated nucleus pulposus), thoracic HTN (hypertension) Hypothyroidism Kidney infection Lumbar radiculopathy Sacrococcygeal disorders, not elsewhere classified Status post lumbar spinal arthrodesis Vertebral fracture Vertigo Wound abscess Surgical History H/O bilateral mastectomy H/O hysterectomy for benign disease History of bunionectomy of right great toe History of left knee replacement History of lumbar spinal fusion History of surgery History of total right knee replacement Hx of bilateral cataract extraction S/P trigger finger release (2013) Family History Father Congestive heart failure Advanced cirrhosis of liver Grandmother Congestive heart failure Social History household members: none Smoking Status: Former smoker alcohol intake: current Discharge Assessment & Plan Assessment and Plan Assessment: Patient is doing well. Plan of Treatment: Patient is to follow-up in clinic for her 1st postoperative visit 2 weeks following discharge from the hospital. Patient is to continue working on ambulation with the assistance of a front wheeled walker. Patient is also to avoid bending, twisting, or lifting in excess of 10 lb. Current pain management regimen is to be continued as it is adequately control the patient's pain level. Dressing over the incision site can be changed as needed if it becomes damaged or soiled. Patient is to contact clinic with any concerns or questions. Any signs of increased redness, swelling, warmth, pain, or discharge from the incision site should be reported to the clinic. Discharge Plan Discharge Plan Patient Disposition: SNF Transfer to: [facility] Discharge orders & Medications Prescriptions: New acetaminophen 325 mg Tablet 650 mg PO Q6HR PRN (Reason: Pain, Mild (1-3)) Qty: 90 RF: 0 hydrocodone-acetaminophen 5-325 mg Tablet 1 tab PO BID PRN (Reason: Pain (Scale Score 4-6)) Qty: 42 RF: 0 oxycodone 5 mg Tablet 10 mg PO Q3HR PRN (Reason: Pain, Severe (7-10)) Qty: 42 RF: 0 ciprofloxacin [Cipro] 500 mg/5 mL suspension,microcapsule recon 500 mg PO BID Qty: 420 RF: 0 Continued pantoprazole 40 mg Tablet,Delayed Release (Dr/Ec) 40 mg PO DAILY RF: 0 celecoxib [Celebrex] 200 mg capsule 200 mg PO DAILY Qty: 90 RF: 1 melatonin 3 mg Tablet 9 mg PO BEDTIME RF: 0 trospium 20 mg Tablet 20 mg PO BEDTIME RF: 0 naproxen sodium [Aleve] 220 mg Capsule 220 mg PO TID-QID PRN (Reason: Pain) RF: 0 triamcinolone acetonide 0.1 % Cream 1 applic TOPICAL BID PRN (Reason: Rash various locations) RF: 0 acetaminophen 325 mg Tablet 650 mg PO Q6HR PRN (Reason: Pain, Mild (1-3)) Qty: 90 RF: 0 hydrocodone-acetaminophen 5-325 mg Tablet 1 tab PO BID PRN (Reason: Pain (Scale Score 4-6)) Qty: 30 RF: 0 aspirin [Adult Aspirin Regimen] 81 mg tablet,delayed release (DR/EC) 81 mg PO DAILY RF: 0 lisinopril 40 mg tablet 40 mg PO DAILY RF: 0 levothyroxine 88 mcg capsule 88 mcg PO DAILY RF: 0 allopurinol 300 mg tablet 300 mg PO DAILY RF: 0 insulin lispro [Humalog U-100 Insulin] 100 unit/mL solution 4 - 20 sliding scale dose SUBCUT USEASDIRECTD RF: 0 Lantus U-100 Insulin 100 unit/mL solution 16 unit SUBCUT BID RF: 0 ezetimibe [Zetia] 10 mg tablet 10 mg PO DAILY RF: 0 dicyclomine 10 mg capsule 10 mg PO BID RF: 0 Follow up/Referrals: Brenda Dotson PA-C [Primary Care Provider] - Diet/Activity/Treatments Diet: Diet as Tolerated Activity: Ambulation with the assistance of a front wheeled walker. Avoid bending, twisting, or lifting in excess of 10 lb. Skin/Wound/Dressing Care Report to your healthcare provider any signs of infection, such as:: chills, fever, night sweats, increased pain, unusual drainage and unusual redness Dressing: Dressing over the incision site can be changed as needed if it begins damaged or soiled. Other wound treatment: Avoid placing topical ointments over the incision sites or soaking the incision sites. Special Rehabilitation Services Reason for rehabilitation: Post-operative therapy Rehab type: Physical therapy and Occupational therapy Visit Report/Discharge Packet Instructions: DI for Prescription Opioid Use, DI for Incision and Drainage Stand Alone Forms: Surgery Discharge Discharge Data Primary Care Provider: Brenda Dotson Quality VTE Deep Vein Thrombosis/Pulmonary Embolism Present on Admission: No
--- NOTE | 2020-09-30 14:24 | CM.DPC ---
DCP Cont: Patient is to be discharged today. Confirmed with Debbie at [facility] that she can accept. She arranged pick remover for 1600. Met with patient and daughter, Shanice. Introduced self and role. Daughter's concern, I hope that her bodily fluids are working, last time she was at the other facility, she didn't have a bowel movement for 10 days. Let her know that this is being addressed. Gretchen, nurse, indicated that they have given her bowel medications. Patient was sitting up eating vegetables in her room. Erwin, PAC, came in to confirm that she is going to [facility]. Let him know that [facility] has accepted. He completed orders, and COVID results are in and negative. Faxed over PASSR, med sheets, COVID results, prescriptions, over to [facility]. Separately, faxed DC Summary electronically as well. Will send copy of IMM at discharge. P: Patient is to be discharged to [facility] today. Daughter has been in contact with Debbie regarding vaccination information. Agueda Carter RN/Emergency Vehicle Technician
--- NOTE | 2020-09-30 14:43 | CM.DPNOTE ---
[place] RN asked to have me fax sliding scale, Signed by Dr. Stewart, to [facility], Klaudia is aware. Received fax confirmation. Bridgett Caba CM Asst.
--- NOTE | 2020-09-30 15:47 | PT-IP ANOTE ---
Pt refusing PM treatment. RN informs this PT the pt is being transported to SNF at 1600.
[2020-09-30] MEDS: HYDROCODONE/ACET 5/325 TABLET 1 TAB PO (16:40)
--- NOTE | 2020-09-30 16:47 | PC.NURSE ---
Pt sleeping in bed @ beginning of shift. [facility] prints off discharge paperwork for transporter to take to facility. Transporter arrives with wheelchair and was given paperwork in envelope. Pt requires assist x 2 to transfer from bed to chair. Brief changed d/t urinary incontinence. Pt c/o back pain 3-08/14 and was given hydrocodone as per emar for pt's admitted pain level. Pt's daughter gathers pt's personal effects and reports these are all intact and accounted for. Pt left hospital in stable condition with daughter following with transport from facility via wheelchair. Pt left hospital in stable condition.
== END 2020-09-30 16:52 | DRG 856 ==
LOC: ED 22:39 → AC 09-27 01:15
PROVIDERS: Anesthesiology; Family Medicine; Internal Medicine; Admitting Provider Orthopaedic Surgery Orthopaedic Surgery of the Spine; Emergency Provider Emergency Medicine; PCP Physician Assistant; Referring Provider Emergency Medicine; Visit Provider Orthopaedic Surgery Orthopaedic Surgery of the Spine
PROC: 0QB00ZZ Excision of Lumbar Vertebra, Open Approach (ICD-10-PCS; CPT 10180; principal; 2020-09-27 16:45)
DX: T81.42XA Infection following a procedure, deep incisional surgical site, initial encounter (principal); A41.51 Sepsis due to Escherichia coli [E. coli]; R65.20 Severe sepsis without septic shock; L03.312 Cellulitis of back [any part except buttock and flank]; N17.9 Acute kidney failure, unspecified; N39.0 Urinary tract infection, site not specified; E87.1 Hypo-osmolality and hyponatremia; I95.9 Hypotension, unspecified; E86.9 Volume depletion, unspecified; D64.9 Anemia, unspecified; Z20.822 Contact with and (suspected) exposure to COVID-19
CPT/HCPCS: 36415; 36430; 36569; 36573; 36592; 71045; 72132; 80048; 80053; 81001; 82550; 82553; 82962; 83605; 84145; 84484; 85025; 85027; 86850; 86900; 86901; 87040; 87070; 87075; 87077; 87086; 87150; 87185; 87186; 87205; 87635; 93005; 96361; 96365; 96368; 96375; 97116; 97162; 97166; 97530; 97535; 99284; C9803; P9016; J0330; J0692; J0744; J1170; J1815; J2405; J2704; J3010; Q9967

== ENCOUNTER 2020-10-11 12:34 | Inpatient (IN) | payer MEDICARE, OTHER, MEDICAID, SELFPAY ==
[2020-09-27 02:19] VITALS: BMI 32.2
[2020-10-11 15:30] VITALS: BP 112/55; PULSE 66; RESP 18; TEMP 36.3; O2SAT 97
[2020-10-11 16:30] VITALS: BMI 32.7
--- NOTE | 2020-10-11 16:58 | PM.CN ---
History of Present Illness Consult details Date Patient Seen: 10/11/20 Time Patient Seen: 16:58 Chief complaint: Infection of Surgical Site,Lumbar Reason for consult: Medical management of diabetes, chronic medical problems Requesting provider: Rupal Loya Narrative: Ms. Allen is an 85W with PMH of recent spinal surgery with Dr. Loya for L3-L4,L4-L5, L5-S1 spinal stenosis. This was done on 09/13/20. She represented to the hospital on 09/26 with sepsis and found to have bacteremia, urinary tract infection, and deep fascial layer infection in her back. Cultures of blood, wound, and urine all had pansensitive E.coli. She also had enterococcus in her urine, and proteus in her back swab culture. All were sensitive to ciprofloxacin. She went for I&D on 09/27. She was continued on antibiotics and discharged on 09/30 to SNF with plan for 6 weeks of antibiotics. She had been doing well at SNF initially, feeling like she was getting stronger. However, she then began being told by nursing she was having more wound from the drain. She has some sharp, but stable back pain. She feels cold chronically, but has no fevers/chills/rigors. She has been eating poorly. She has no chest pain, cough, shortness of breath, nausea, vomiting, diarrhea, or dysuria. She went to OR follow up and was noted to have a wound that appeared erythematous and was open with drainage and was admitted by orthopedic surgery for plan for washout on 10/11. She is planned for NPO for tonight. Meds Home Medications and Allergies Home Medications Medication Instructions Recorded Confirmed Type allopurinol 300 mg tablet 300 mg PO DAILY 12/10/19 10/11/20 History aspirin 81 mg tablet,delayed 81 mg PO DAILY 12/10/19 10/11/20 History release dicyclomine 10 mg capsule 10 mg PO BID 12/10/19 10/11/20 History ezetimibe 10 mg tablet 10 mg PO DAILY 12/10/19 10/11/20 History insulin glargine 100 unit/mL 16 unit SUBCUT BID 12/10/19 10/11/20 History subcutaneous solution insulin lispro 100 unit/mL 4 - 20 sliding scale dose SUBCUT 12/10/19 10/11/20 History subcutaneous solution USEASDIRECTD levothyroxine 88 mcg capsule 88 mcg PO DAILY 12/10/19 10/11/20 History lisinopril 40 mg tablet 40 mg PO DAILY 12/10/19 10/11/20 History melatonin 9 mg PO BEDTIME 09/06/20 10/11/20 History naproxen sodium [Aleve] 220 mg PO TID-QID PRN 09/06/20 10/11/20 History triamcinolone acetonide 1 applic TOPICAL BID PRN 09/06/20 10/11/20 History trospium 20 mg PO BEDTIME 09/06/20 10/11/20 History pantoprazole 40 mg PO DAILY 09/27/20 10/11/20 History celecoxib [Celebrex] 200 mg PO DAILY #90 cap 09/30/20 10/11/20 Rx ciprofloxacin [Cipro] 500 mg PO BID #420 ml 09/30/20 10/11/20 Rx hydrocodone-acetaminophen 1 tab PO BID PRN #42 tab 09/30/20 10/11/20 Rx Allergies Allergy/AdvReac Type Severity Reaction Status Date / Time adhesive Allergy Intermediate Rash Verified 09/13/20 07:00 Sulfa (Sulfonamide Allergy Pt does Verified 09/13/20 07:00 Antibiotics) not recall Jdnkdmx-Nde-Hlj Reductase AdvReac Severe I loose Verified 09/13/20 07:00 Inhibitor all muscle Review of Systems Review of Systems Narrative: 14 systems reviewed and negative aside from HPI Exam Vital Signs (past 8 hours): - 10/11/20 15:30 Temperature 97.4 F L Pulse Rate 66 Respiratory Rate 18 Blood Pressure 112/55 L Pulse Oximetry 97 Oxygen Flow Rate 0 Narrative Exam Narrative: GEN: pale, no acute distress HEENT: Dry mucous membranes, PERRL Neck: No JVD, trachea midline Respiratory: Lungs are clear with no wheezes, rhonchi, rales Cardiac: Regular rate and rhythm no murmurs no bruits Abdomen: Soft, nontender, normal bowel sounds Skin: no rashes noted Neurologic: moving all extremities, with no gross abnormalities Spine: back bandaged Extremities: 1+ bilateral edema in feet Psych: Cooperative, fluent speech Assessment & Plan Assessment & Plan narrative: Ms. Allen is an 85W with PMH of recent spinal surgery complicated by sepsis from infected surgical wound currently on antibiotics for six weeks, with unhealing wound, worsening drainage and plant for return to OR for debridement. 1. Infected spinal surgical wound, acute -patient with poor nutrition, and was lying in bed on wound, may have contributed to poor healing -however could also be newly infected, or developed a resistant infection -surgery plan for OR on 10/12 -will order cultures and plan to broaden antibiotics to zoysn for now while await new cultures -may need PICC as patient has difficult IV access 2. Diabetes, Type 2, on insulin -continue home dose of insulin at 16U BID -ordered for achs glucose checks, and insulin sliding scale 3. Hypertension -hold lisinopril for now with relatively low blood pressure 4. Hypothyroidism -continue home dose synthroid Code status: Full, contact is daughter Shanice
[2020-10-11 18:01] LABS: Add Manual Diff / Slide Review NO; Basophils Absolute Auto 100 /uL (0-100); Basophils Percent Auto 0.9 % (0-2); Eosinophils Absolute Auto 700 /uL (0-450); Eosinophils Percent Auto 8.4 % (2-4); Hematocrit 29.1 % (36-46); Hemoglobin 9.4 g/dL (12.0-16.0); Lymphocytes Absolute Auto 1700 /uL (1100-4500); Lymphocytes Percent Auto 18.9 % (25-40); Mean Corpuscular HGB Conc 32.2 % (30-36); Mean Corpuscular Hemoglobin 29.3 PG (26-34); Mean Corpuscular Volume 90.9 fL (80-100); Monocytes Absolute Auto 800 /uL (0-900); Monocytes Percent Auto 8.6 % (3-14); Neutrophils Absolute Auto 5600 /uL (1500-7000); Neutrophils Percent Auto 63.2 % (50-75); Platelet Count 308 X10^3/uL (150-400); Red Cell Distribution Width 17.4 % (11.6-14.8); White Blood Cell Count 8.8 X10^3/uL (4.5-11.0)
[2020-10-11 18:12] LABS: Alanine Aminotransferase 12 IU/L (<35); Albumin 3.2 g/dL (3.5-5.0); Albumin Globulin Ratio 0.9 (1.0-2.8); Alkaline Phosphatase 110 U/L (38-126); Aspartate Aminotransferase 28 IU/L (14-36); Bilirubin Total 0.4 mg/dL (0.2-1.3); Blood Urea Nitrogen 37 mg/dL (7-17); Calcium 8.8 mg/dL (8.4-10.2); Carbon Dioxide 21 mmol/L (22-32); Chloride 105 mmol/L (98-107); Globulin 3.7 g/dL (1.7-4.1); Glucose 130 mg/dL (80-110); HEMOLYSIS < 15 (0-50); Potassium 5.1 mmol/L (3.4-5.1); Sodium 135 mmol/L (137-145); Total Protein 6.9 g/dL (6.3-8.2)
--- NOTE | 2020-10-11 18:36 | DI.RAD.S_ITS ---
PROCEDURE: XR CHEST 1V INDICATIONS: sob TECHNIQUE: One view of the chest was acquired. COMPARISON: [facility], CR, XR CHEST FOR PICC 1V, 09/28/2020, 10:04. [facility], CR, XR CHEST 1V, 09/28/2020, 1:01. FINDINGS: Surgical changes and devices: None. Lungs and pleura: Lungs are clear. No pleural effusions or pneumothorax. Mediastinum: Mediastinal contours appear normal. Heart size is normal. Bones and chest wall: No suspicious bony lesions. Overlying soft tissues appear unremarkable. IMPRESSION: No acute cardiopulmonary disease. Dictated by: Anais Olguin M.D. on 10/11/2020 at 20:43 Approved by: Anais Olguin M.D. on 10/11/2020 at 20:43
--- NOTE | 2020-10-11 18:41 | DI.US.S_ITS ---
PROCEDURE: US RENAL COMPLETE INDICATIONS: ACUTE KIDNEY INJURY TECHNIQUE: Real-time scanning was performed of the kidneys and bladder, with image documentation. COMPARISON: [facility], CT, CT ABDOMEN PELVIS WITH CONTRAST, 06/07/2019, 13:40. [facility], CT, CHEST/ABD/PELVIS W/CON (PNL), 07/07/2011, 12:27. FINDINGS: Kidneys: Kidneys are normal in size. Right kidney measures 10.1 cm long; left kidney measures 8.9 cm long. Right renal cortical thickness is 1.2 cm; left renal cortical thickness is 2.0 cm. Renal cortical echotexture is normal. No hydronephrosis or nephrolithiasis. No suspicious solid mass lesions. Bladder: A Murillo catheter empties the bladder lumen. Miscellaneous: No free pelvic fluid. IMPRESSION: No hydronephrosis or nephrolithiasis is found. Chronic mild asymmetry with the left kidney smaller when compared to that on the right. This could represent a normal anatomic variant, however. Dictated by: Adarsh Foster M.D. on 10/12/2020 at 10:55 Approved by: Adarsh Foster M.D. on 10/12/2020 at 10:58
[2020-10-11 18:58] LABS: COVID19 - ADMIT (NP swab/PCR) Negative (Negative)
[2020-10-11] MEDS: SODIUM CHLORIDE 0.9% 500 ML 1000 ML IV (19:15)
[2020-10-11] MEDS: PIPERACILLIN/TAZO 3.375 GM in SODIUM CHLORIDE 0.9% 100 ML 25 ML IV (19:15)
[2020-10-11 20:00] VITALS: BP 120/46; PULSE 75; RESP 18; TEMP 36.7; O2SAT 97
[2020-10-11 20:23] LABS: Creatinine Urine Random 66.4 mg/dL; Sodium Urine Random 54 mmol/L (30-90)
[2020-10-11] MEDS: SODIUM CHLORIDE 0.9% 1,000 ML 100 ML IV (21:09)
[2020-10-11] MEDS: INSULIN GLARGINE 100 UNIT/ML 3ML PEN 16 UNIT SUBCUT (21:10)
[2020-10-11 21:11] LABS: Bacteria Urine None Seen; RBC Urine None Seen (0-5/HPF); WBC Urine None Seen (0-5/HPF)
[2020-10-11 21:12] LABS: Appearance Urine UA CLEAR; Bilirubin Urine UA NEGATIVE (NEGATIVE); Color Urine UA YELLOW; Glucose Urine UA NEGATIVE (Negative); Ketones Urine UA NEGATIVE (NEGATIVE); Leukocyte Esterase Urine UA NEGATIVE (NEGATIVE); Nitrite Urine UA NEGATIVE (Negative); Occult Blood Urine UA NEGATIVE (Negative); Protein Urine UA NEGATIVE (Negative); Urobilinogen Urine UA 0.2 E.U./dL (0.2)
[2020-10-11] MEDS: DICYCLOMINE 10 MG CAPSULE PO (21:14)
[2020-10-11 21:48] LABS: Culture Indicated Urine Cult Not Indicated; Squamous Epithelial Cell Urine 10-30 /HPF (0-5/HPF)
--- NOTE | 2020-10-11 22:50 | PC.NURSE ---
Admit/Evening Shift Note- Patient arrived direct admit with daughter at 1530. Patient alert and oriented and able to make needs known to staff. Admit questions done, medications reviewed, physical assessment done, and skin check completed. IV line to left upper arm. Patient oriented to bed and bed controls, room, lights, phone, menu, bathroom, and call vasquez/tv remote. Patient agrees to call for assistance. bed alarm activated. call vasquez and phone within reach. will continue to monitor.
[2020-10-11 23:46] VITALS: BP 126/50; PULSE 71; RESP 16; TEMP 37.2; O2SAT 94
[2020-10-11] MEDS: MELATONIN 3 MG TABLET 9 MG PO (23:47)
[2020-10-12 06:00] VITALS: BP 109/48; PULSE 67; RESP 16; TEMP 36.7; O2SAT 96
[2020-10-12] MEDS: LEVOTHYROXINE 88 MCG TABLET PO (06:09)
[2020-10-12] MEDS: HYDROCODONE/ACET 5/325 TABLET 1 TAB PO ×3 (06:09→19:12)
[2020-10-12] MEDS: PIPERACILLIN/TAZO 3.375 GM in SODIUM CHLORIDE 0.9% 100 ML 25 ML IV (06:09)
--- NOTE | 2020-10-12 07:19 | PC.NURSE ---
MD informed of infiltrated IV, PICC to be ordered.
[2020-10-12 08:40] VITALS: BP 135/93; PULSE 62; RESP 18; TEMP 36.3; O2SAT 95
[2020-10-12 08:59] LABS: Hematocrit 26.2 % (36-46); Hemoglobin 8.5 g/dL (12.0-16.0); Mean Corpuscular HGB Conc 32.4 % (30-36); Mean Corpuscular Hemoglobin 29.1 PG (26-34); Mean Corpuscular Volume 89.9 fL (80-100); Platelet Count 305 X10^3/uL (150-400); Red Blood Cell Count 2.92 X10^6/uL (4.0-5.2); Red Cell Distribution Width 17.5 % (11.6-14.8); White Blood Cell Count 8.5 X10^3/uL (4.5-11.0)
[2020-10-12] MEDS: allopurinoL 300 MG TABLET PO (09:05)
[2020-10-12] MEDS: DICYCLOMINE 10 MG CAPSULE PO ×2 (09:05→20:51)
[2020-10-12 09:11] LABS: BUN Creatinine Ratio 10.7 (6-22); Blood Urea Nitrogen 36 mg/dL (7-17); Calcium 8.6 mg/dL (8.4-10.2); Carbon Dioxide 20 mmol/L (22-32); Chloride 111 mmol/L (98-107); Glucose 96 mg/dL (80-110); HEMOLYSIS < 15 (0-50); Potassium 5.1 mmol/L (3.4-5.1); Sodium 137 mmol/L (137-145)
--- NOTE | 2020-10-12 09:46 | PC.NURSE ---
Called [facility] and spoke with triage nurse Lupe. Informed her of infiltrated IV and PICC ordered to be placed around 1030, and lab results concerning her kidney function as well as her decreased H/H. Lupe reports that she will pass this information on to Dr. Mcdonough and Dr. Loya and request they evaluate.
[2020-10-12] MEDS: LIDOCAINE 1% 20 ML 4.2 ML INJ (10:35)
[2020-10-12] MEDS: cefTRIAXone 2,000 MG VIAL 1000 MG IM (10:35)
--- NOTE | 2020-10-12 10:47 | CM.DANOTE ---
Patient is an 85 yo female READMIT on 10/11/20 today for Infection. Pt has MCR and PRE DIM for insurance and her PCP is Dr. Brenda Dotson. EMR was reviewed. Per Tadeo CLARKE, pt had recent back surgery 09/13/20 and discharged to [facility] but readmission almost two weeks later for infection 09/27/20 and discharged 09/30/20 to [facility] for 6 weeks IV-Abx. Pt returns for ongoing infection and is scheduled for I&D this evening and then likely need SNF again at d/c. PT not ordered until after I&D. SW met bedside with pt and Dtr/SULEMA Shanice [phone] (who lives in [place]) and explained role and they confirm that pt typically lives alone in [facility] fairly independently but does have granddtr living nearby who provides assist when needed but granddtr also works so not available 27/11. Pt confirms she has been at [facility] SNF rehab and chose not to return and discharged to [facility] after last admission and now states her preference is not to go to SNF but to return home with family to assist 27/11 and HH if possible. SW provided the HH Choice list and discussed HH services as pt has no hx of HH and currently they have no HH preference. SW then discussed that PT will work with pt sometime to confirm that she will be safe for return to home but also there is a need to determine if IV-Abx needed at d/c and therefore home infusion may have out of pocket expense pending the medication and dosing. Pt and Dtr aware and are hopeful to be able to d/c home but unclear at this time and d/c medication needs unknown currently until likely after I&D this evening and culture results. Pt states that shortly after she discharged to SNF with 6 weeks IV-Abx, they switched her to oral abx. SW made initial HH referral based on Vendor Calendar to [facility] in case pt is able to safely d/c home pending her medical needs. Per RN, PICC to be attempted to be placed today and pt to get IM Ceftriaxone while awaiting PICC. Plan: SW to follow closely after I&D towards determining IV-Abx needs at d/c and for PT eval to determine if pt safe for plan of home. HALIMA Prince Discharge Planning/Care Management CM Discharge Assessment Start: 10/12/20 10:44 Freq: Status: Active Protocol: Document 10/12/20 10:45 BF (Rec: 10/12/20 10:47 BF [id number]) Discharge Planning Assessment Assigned Rfid Analyst HALIMA Spaulding DPOA/Assigned Designee Name GuillermoCesar Barnett Contact Information [phone] Advance Directives? Yes Advance Directives on File No History Provided By Patient,Family Member,Medical Record Has Patient been admitted in last 30 Yes days? Comment 3rd readmit and last d/c on to [facility] Prior Living Arrangements Mobile home Household Members none Type of transporation used prior to Relies on Others admit Independent with ADL's Yes Is patient alert and oriented? Yes Needs Assistance With Home Chores / Shopping Caregiver for Another No Community Services used prior to Physical Therapy admission: DME Already Rented / Owned Elevated Toilet Seat Patient/Family Preference [facility] Facility Comment SNF vs home pending PT and IV- Abx needs Barriers to Discharge Yes Comment IV-Abx may be a barrier to home d/c Discharge Plan [facility] Transportation Arrangement facility [facility] if SNF, [facility] if home Referrals Initiated Correction Medicare Choice List Provided Yes Whiteboard Updated in Patient Room with Yes name and ext. # of Rfid Analyst Review Status In Process Please Provide Date Initial DC 10/12/20 Assessment Was Performed Next Review Type Continued Stay Review
[2020-10-12 13:13] VITALS: BP 134/113; PULSE 65; RESP 18; TEMP 36.1; O2SAT 97
--- NOTE | 2020-10-12 13:14 | PM.PN.1 ---
Subjective Subjective Date Patient Seen: 10/12/20 Time Patient Seen: 13:01 Interval history: She notes she is doing okay. She has some but not incapacitating back pain and basically no back pain when she is resting. She denies recent fevers or chills. She denies any myalgias. She notes that she has been eating and drinking some but the halfway but maybe not quite enough. She does not note any new numbness or tingling in the legs. Exam Vital Signs (past 8 hours): - 10/12/20 06:00 10/12/20 08:40 Temperature 98.1 F 97.3 F L Pulse Rate 67 62 Respiratory Rate 16 18 Blood Pressure 109/48 L 135/93 H Pulse Oximetry 96 95 Oxygen Flow Rate 0 Narrative Exam Narrative: She is resting comfortably in bed she is alert she is oriented abdomen is benign, she has some mild numbness in bilateral lower extremities but can easily fire her toe flexors and extensors quads and hamstrings, her dressing is intact on her back but there is some drainage Objective Labs Result Diagrams: 10/12/20 08:30 10/12/20 08:30 Labs: Laboratory Results - last 24 hr 10/11/20 10/11/20 10/11/20 16:55 17:46 17:46 WBC 8.8 RBC 3.20 L Hgb 9.4 L Hct 29.1 L MCV 90.9 MCH 29.3 MCHC 32.2 RDW 17.4 H Plt Count 308 Neut % (Auto) 63.2 Lymph % (Auto) 18.9 L [place] % (Auto) 8.6 Eos % (Auto) 8.4 H Baso % (Auto) 0.9 Neut # (Auto) 5600 Lymph # (Auto) 1700 [place] # (Auto) 800 Eos # (Auto) 700 H Baso # (Auto) 100 Sodium 135 L Potassium 5.1 Chloride 105 Carbon Dioxide 21 L BUN 37 H Creatinine 3.37 H Estimated GFR 13.0 L BUN/Creatinine Ratio 11.0 Glucose 130 H Calcium 8.8 Total Bilirubin 0.4 AST 28 ALT 12 Alkaline Phosphatase 110 Total Protein 6.9 Albumin 3.2 L Globulin 3.7 Albumin/Globulin Ratio 0.9 L Urine Color Urine Appearance Urine pH Ur Specific [place] Urine Protein Urine Glucose (UA) Urine Ketones Urine Occult Blood Urine Nitrate Urine Bilirubin Urine Urobilinogen Ur Leukocyte Esterase Urine RBC Urine WBC Ur Squamous Epith Cells Urine Bacteria Ur Culture Indicated? Ur Random Sodium Urine Creatinine SARS-CoV-2 (PCR) Negative 10/11/20 10/11/20 10/12/20 19:15 19:15 08:30 WBC 8.5 RBC 2.92 L Hgb 8.5 L Hct 26.2 L MCV 89.9 MCH 29.1 MCHC 32.4 RDW 17.5 H Plt Count 305 Neut % (Auto) Lymph % (Auto) [place] % (Auto) Eos % (Auto) Baso % (Auto) Neut # (Auto) Lymph # (Auto) [place] # (Auto) Eos # (Auto) Baso # (Auto) Sodium Potassium Chloride Carbon Dioxide BUN Creatinine Estimated GFR BUN/Creatinine Ratio Glucose Calcium Total Bilirubin AST ALT Alkaline Phosphatase Total Protein Albumin Globulin Albumin/Globulin Ratio Urine Color Yellow Urine Appearance Clear Urine pH 6.0 Ur Specific [place] 1.020 Urine Protein Negative Urine Glucose (UA) Negative Urine Ketones Negative Urine Occult Blood Negative Urine Nitrate Negative Urine Bilirubin Negative Urine Urobilinogen 0.2 Ur Leukocyte Esterase Negative Urine RBC None seen Urine WBC None seen Ur Squamous Epith Cells 10-30 /hpf H Urine Bacteria None seen Ur Culture Indicated? Cult not indicated Ur Random Sodium 54 Urine Creatinine 66.4 SARS-CoV-2 (PCR) 10/12/20 08:30 WBC RBC Hgb Hct MCV MCH MCHC RDW Plt Count Neut % (Auto) Lymph % (Auto) [place] % (Auto) Eos % (Auto) Baso % (Auto) Neut # (Auto) Lymph # (Auto) [place] # (Auto) Eos # (Auto) Baso # (Auto) Sodium 137 Potassium 5.1 Chloride 111 H Carbon Dioxide 20 L BUN 36 H Creatinine 3.37 H Estimated GFR 13.0 L BUN/Creatinine Ratio 10.7 Glucose 96 Calcium 8.6 Total Bilirubin AST ALT Alkaline Phosphatase Total Protein Albumin Globulin Albumin/Globulin Ratio Urine Color Urine Appearance Urine pH Ur Specific [place] Urine Protein Urine Glucose (UA) Urine Ketones Urine Occult Blood Urine Nitrate Urine Bilirubin Urine Urobilinogen Ur Leukocyte Esterase Urine RBC Urine WBC Ur Squamous Epith Cells Urine Bacteria Ur Culture Indicated? Ur Random Sodium Urine Creatinine SARS-CoV-2 (PCR) [facility] Medical History Abnormal breast biopsy Asthma due to environmental allergies Breast cancer, left (06/2011) Cataract (lens) fragments in eye following cataract surgery, bilateral Cervical cancer (1973) Diabetes Diabetic peripheral neuropathy Difficulty swallowing Eczema GERD (gastroesophageal reflux disease) Gout Herniated nucleus pulposus, L3-4 left HLD (hyperlipidemia) HNP (herniated nucleus pulposus), thoracic HTN (hypertension) Hypothyroidism Kidney infection Lumbar radiculopathy Sacrococcygeal disorders, not elsewhere classified Status post lumbar spinal arthrodesis Vertebral fracture Vertigo Wound abscess Surgical History H/O bilateral mastectomy H/O hysterectomy for benign disease History of bunionectomy of right great toe History of left knee replacement History of lumbar spinal fusion History of surgery History of total right knee replacement Hx of bilateral cataract extraction S/P trigger finger release (2013) Family History Father Congestive heart failure Advanced cirrhosis of liver Grandmother Congestive heart failure Social History household members: none Smoking Status: Former smoker alcohol intake: current Assessment & Plan Assessment & Plan narrative: Some component of acute renal failure with a creatinine of 3.3 which is markedly elevated in comparison to previously. Had a discussion with the hospitalist and we both felt that she needed additional antibiotics and hydration as well as stopping her ciprofloxacin in order to further evaluate her kidney disease and kidney function. She is not currently septic. Her wound does show some necrosis and some drainage but there does not appear to be an acute abscess. She does not appear septic in her neurological status is stable. I think she would benefit from an I and D of her lumbar spine but we need to further attempt to stabilize her kidney function prior to surgical procedure. Surgical procedure of irrigation and debridement and hopefully closure was discussed with her and her family in detail. Procedure alternatives risks benefits and complications were discussed and the tentative plan is to do this tomorrow if we get stabilization or improvement in her kidney function.
[2020-10-12 13:53] LABS: BUN Creatinine Ratio 10.8 (6-22); Blood Urea Nitrogen 36 mg/dL (7-17); Calcium 8.4 mg/dL (8.4-10.2); Carbon Dioxide 23 mmol/L (22-32); Chloride 108 mmol/L (98-107); Estimated Glomerular Filt Rate 13.2 mL/min (>60); Glucose 154 mg/dL (80-110); HEMOLYSIS < 15 (0-50); Potassium 4.9 mmol/L (3.4-5.1); Sodium 136 mmol/L (137-145)
[2020-10-12] MEDS: SODIUM CHLORIDE 0.9% 1,000 ML 75 ML IV (14:02)
--- NOTE | 2020-10-12 14:03 | P.PN_ITS ---
Subjective Subjective Date Patient Seen: 10/12/20 Time Patient Seen: 09:03 Interval history: Overnight her IV infiltrated. She denies shortness of breath, she feels cold which is chronic for her. She is continuing to urinate normally. She has pain in her back but it is controlled. She has no fevers/chills. Exam Vital Signs (past 8 hours): - 10/12/20 08:40 10/12/20 13:13 Temperature 97.3 F L 97 F L Pulse Rate 62 65 Respiratory Rate 18 18 Blood Pressure 135/93 H 134/113 H Pulse Oximetry 95 97 Oxygen Flow Rate 0 Narrative Exam Narrative: GEN: pale, no acute distress HEENT: Dry mucous membranes, PERRL Neck: No JVD, trachea midline Respiratory: Lungs are clear with no wheezes, rhonchi, rales Cardiac: Regular rate and rhythm no murmurs no bruits Abdomen: Soft, nontender, normal bowel sounds Skin: no rashes noted Neurologic: moving all extremities, with no gross abnormalities Spine: back bandaged Extremities: trace bilateral edema in feet, L arm swelling at IV infiltrate site Psych: Cooperative, fluent speech Objective Labs Result Diagrams: 10/12/20 08:30 10/12/20 13:30 Labs: Laboratory Results - last 24 hr 10/11/20 10/11/20 10/11/20 16:55 17:46 17:46 WBC 8.8 RBC 3.20 L Hgb 9.4 L Hct 29.1 L MCV 90.9 MCH 29.3 MCHC 32.2 RDW 17.4 H Plt Count 308 Neut % (Auto) 63.2 Lymph % (Auto) 18.9 L [place] % (Auto) 8.6 Eos % (Auto) 8.4 H Baso % (Auto) 0.9 Neut # (Auto) 5600 Lymph # (Auto) 1700 [place] # (Auto) 800 Eos # (Auto) 700 H Baso # (Auto) 100 Sodium 135 L Potassium 5.1 Chloride 105 Carbon Dioxide 21 L BUN 37 H Creatinine 3.37 H Estimated GFR 13.0 L BUN/Creatinine Ratio 11.0 Glucose 130 H Calcium 8.8 Total Bilirubin 0.4 AST 28 ALT 12 Alkaline Phosphatase 110 Total Protein 6.9 Albumin 3.2 L Globulin 3.7 Albumin/Globulin Ratio 0.9 L Urine Color Urine Appearance Urine pH Ur Specific [place] Urine Protein Urine Glucose (UA) Urine Ketones Urine Occult Blood Urine Nitrate Urine Bilirubin Urine Urobilinogen Ur Leukocyte Esterase Urine RBC Urine WBC Ur Squamous Epith Cells Urine Bacteria Ur Culture Indicated? Ur Random Sodium Urine Creatinine SARS-CoV-2 (PCR) Negative 10/11/20 10/11/20 10/12/20 19:15 19:15 08:30 WBC 8.5 RBC 2.92 L Hgb 8.5 L Hct 26.2 L MCV 89.9 MCH 29.1 MCHC 32.4 RDW 17.5 H Plt Count 305 Neut % (Auto) Lymph % (Auto) [place] % (Auto) Eos % (Auto) Baso % (Auto) Neut # (Auto) Lymph # (Auto) [place] # (Auto) Eos # (Auto) Baso # (Auto) Sodium Potassium Chloride Carbon Dioxide BUN Creatinine Estimated GFR BUN/Creatinine Ratio Glucose Calcium Total Bilirubin AST ALT Alkaline Phosphatase Total Protein Albumin Globulin Albumin/Globulin Ratio Urine Color Yellow Urine Appearance Clear Urine pH 6.0 Ur Specific [place] 1.020 Urine Protein Negative Urine Glucose (UA) Negative Urine Ketones Negative Urine Occult Blood Negative Urine Nitrate Negative Urine Bilirubin Negative Urine Urobilinogen 0.2 Ur Leukocyte Esterase Negative Urine RBC None seen Urine WBC None seen Ur Squamous Epith Cells 10-30 /hpf H Urine Bacteria None seen Ur Culture Indicated? Cult not indicated Ur Random Sodium 54 Urine Creatinine 66.4 SARS-CoV-2 (PCR) 10/12/20 10/12/20 08:30 13:30 WBC RBC Hgb Hct MCV MCH MCHC RDW Plt Count Neut % (Auto) Lymph % (Auto) [place] % (Auto) Eos % (Auto) Baso % (Auto) Neut # (Auto) Lymph # (Auto) [place] # (Auto) Eos # (Auto) Baso # (Auto) Sodium 137 136 L Potassium 5.1 4.9 Chloride 111 H 108 H Carbon Dioxide 20 L 23 BUN 36 H 36 H Creatinine 3.37 H 3.33 H Estimated GFR 13.0 L 13.2 L BUN/Creatinine Ratio 10.7 10.8 Glucose 96 154 H Calcium 8.6 8.4 Total Bilirubin AST ALT Alkaline Phosphatase Total Protein Albumin Globulin Albumin/Globulin Ratio Urine Color Urine Appearance Urine pH Ur Specific [place] Urine Protein Urine Glucose (UA) Urine Ketones Urine Occult Blood Urine Nitrate Urine Bilirubin Urine Urobilinogen Ur Leukocyte Esterase Urine RBC Urine WBC Ur Squamous Epith Cells Urine Bacteria Ur Culture Indicated? Ur Random Sodium Urine Creatinine SARS-CoV-2 (PCR) PFSH Medical History Abnormal breast biopsy Asthma due to environmental allergies Breast cancer, left (06/2011) Cataract (lens) fragments in eye following cataract surgery, bilateral Cervical cancer (1973) Diabetes Diabetic peripheral neuropathy Difficulty swallowing Eczema GERD (gastroesophageal reflux disease) Gout Herniated nucleus pulposus, L3-4 left HLD (hyperlipidemia) HNP (herniated nucleus pulposus), thoracic HTN (hypertension) Hypothyroidism Kidney infection Lumbar radiculopathy Sacrococcygeal disorders, not elsewhere classified Status post lumbar spinal arthrodesis Vertebral fracture Vertigo Wound abscess Surgical History H/O bilateral mastectomy H/O hysterectomy for benign disease History of bunionectomy of right great toe History of left knee replacement History of lumbar spinal fusion History of surgery History of total right knee replacement Hx of bilateral cataract extraction S/P trigger finger release (2013) Family History Father Congestive heart failure Advanced cirrhosis of liver Grandmother Congestive heart failure Social History household members: none Smoking Status: Former smoker alcohol intake: current Assessment & Plan Assessment & Plan narrative: Ms. Allen is an 85W with PMH of recent spinal surgery complicated by sepsis from infected surgical wound currently on antibiotics for six weeks, with unhealing wound, worsening drainage and plant for return to OR for debridement. 1. ESTEBAN -creatinine increased to 3.3, from normal baseline -BUN normal currently, K 5, no shortness of breath so no need for urgent dialysis -urine na high at 54, not consistent with prerenal etiology -urine shows no proteinuria, no hematuria, no WBCs -etiology is ATN likely from a combination of medications including cipro, naproxen, celeocoxib, lisinopril -all nephrotoxic medications stopped -switched antibiotics to ceftriaxone as has less renal effects -renal ultrasound shows no obstruction -CK pending -schafer placed for accurate I and Os, so far with decent urine output -plan for no more than 2L IV fluid daily -BMP twice daily to monitor potassium -low threshold for transfer if she develops volume overload, hyperkalemia, uremia 2. Infected spinal surgical wound, acute -patient with poor nutrition, and was lying in bed on wound, and has ESTEBAN all may have contributed to poor healing -no evidence of sepsis -however could also be newly infected, or developed a resistant infection -surgery plan for OR when renal function improved -cultures pending, and plan to continue antibiotics but switch to ceftriaxone as above for less renal effect -PICC ordered as difficult IV access 3. Diabetes, Type 2, on insulin -continue home dose of insulin at 16U BID -ordered for [facility] glucose checks, and insulin sliding scale 4. Hypertension -hold lisinopril for now with relatively low blood pressure 5. Hypothyroidism -continue home dose synthroid Code status: Full, contact is daughter Shnaice
[2020-10-12 14:36] LABS: Creatine Kinase 60 U/L (30-135)
--- NOTE | 2020-10-12 15:25 | DIET.PN ---
Dietary Progress Note Assessment: 85y F admitted for I&D of spinal surgery site referred to nutrition for help with renal diet and nutrient adequacy for healing. Pt reports she has been in a hospital or SNF since September 13. Pt reports she normally has a small appetite and is familiar with renal diet because her had renal disease so they followed the diet x10y. Pt feels poor meals at SNF contributed to her poor PO intake. Pts renal fxn WNL as late as 10/04/20 indicating ESTEBAN. Discussed nutrients for wound healing: Pro: pt enjoys all pro, ate many eggs at SNF, doesn't like red meat much Vit A: pt likes orange F/V, eats carrots regularly Vit C: pt likes citrus, strawberries, spinach, vasquez peppers Zinc: pt does not like red meat, enjoys beans but has not eaten them recently Rec pt focus on all nutrients but zinc may be a limiting factor nutrition cruz for healing. Kitchen aware of pts low renal fxn and will provide renal diet this evening with restrictions to sodium, potassium, and protein with carb consistent diet in mind. HT: 152.4cm WT: 76kg BMI: 32.7 Labs: hgb 8.5 L, BUN 36 H, Cr 3.33 H, eGFR 13.2 L Nutrition Diagnosis: poor wound healing r/t low appetite and low intake zinc foods aeb pt has been in hospital/SNF x4w doesn't like food and low intake zinc foods, pt admitted for I&D of spinal surgical site. Interventions: 1. Educated pt and daughter on foods for wound healing. Pts daughter took notes and will make wound healing chili for pt to consume several times per week in addition to increasing intake of nutrients mentioned above. 2. [facility] O[facility] [place] bid to support wound healing. Will send one tonight for pt to try to see if acceptable, once renal fxn improves will send bid while hospitalized and pts daughter will purchase a week supply for d/c use. Diet Order: Renal EER: 2g Na max, 2g K+ max, 1/2 proteins, 45g CHO/meal Monitoring/Evaluations: renal fxn, ons tolerance, help with meal planning
[2020-10-12 15:39] VITALS: BP 109/41; PULSE 61; RESP 18; TEMP 36.6; O2SAT 95
[2020-10-12 20:25] VITALS: BP 148/76; PULSE 71; RESP 17; TEMP 36.4; O2SAT 96
[2020-10-12] MEDS: MELATONIN 3 MG TABLET 9 MG PO (20:46)
--- NOTE | 2020-10-12 21:22 | PC.NURSE ---
Pt had relatively uneventful evening. Med @ 1900 for discomfort w/minimal relief. Dsg to back remains CDI @ this time. Tle NSR first degree AVB x 2 per ICU staff. CBG 117 & 139. no coverage required. Pt declined HS lantus due to NPO @ [place] and possible surgery tomorrow. SCD in place. Call light w/in reach, bed alarm on for pt safety. Continue w/plan of care.
[2020-10-13] VITALS (7 sets, daily range): BP systolic 111–146; BP diastolic 48–66; PULSE 60–69; RESP 14–16; TEMP 36.3–37.4; O2SAT 95–97
[2020-10-13] MEDS: SODIUM CHLORIDE 0.9% 1,000 ML 75 ML IV (04:27)
[2020-10-13] MEDS: LEVOTHYROXINE 88 MCG TABLET PO (05:58)
[2020-10-13 06:14] LABS: Hematocrit 24.3 % (36-46); Hemoglobin 7.9 g/dL (12.0-16.0); Mean Corpuscular HGB Conc 32.6 % (30-36); Mean Corpuscular Hemoglobin 29.2 PG (26-34); Mean Corpuscular Volume 89.6 fL (80-100); Platelet Count 280 X10^3/uL (150-400); Red Blood Cell Count 2.71 X10^6/uL (4.0-5.2); White Blood Cell Count 8.3 X10^3/uL (4.5-11.0)
[2020-10-13 06:21] LABS: BUN Creatinine Ratio 13.1 (6-22); Blood Urea Nitrogen 43 mg/dL (7-17); Calcium 8.4 mg/dL (8.4-10.2); Carbon Dioxide 22 mmol/L (22-32); Chloride 111 mmol/L (98-107); Estimated Glomerular Filt Rate 13.4 mL/min (>60); Glucose 108 mg/dL (80-110); HEMOLYSIS < 15 (0-50); Potassium 4.9 mmol/L (3.4-5.1); Sodium 138 mmol/L (137-145)
[2020-10-13] MEDS: DICYCLOMINE 10 MG CAPSULE PO ×2 (08:30→21:51)
[2020-10-13] MEDS: INSULIN GLARGINE 100 UNIT/ML 3ML PEN 16 UNIT SUBCUT ×2 (08:55→21:52)
[2020-10-13] MEDS: cefTRIAXone 1,000 MG in SODIUM CHLORIDE 0.9% 100 ML 200 ML IV (09:03)
--- NOTE | 2020-10-13 09:36 | PC.NURSE ---
Left message on [facility] nurse line requesting PT orders to work with pt, as Dr. Mcdonough encouraged ambulation today.
--- NOTE | 2020-10-13 10:24 | P.PN_ITS ---
Subjective Subjective Date Patient Seen: 10/13/20 Time Patient Seen: 07:24 Interval history: Today she has no complaints. Her pain is well controlled. She has no shortness of breath. She has been urinating about 600cc per 8 hour nursing shift per review of I/Os with nurse. Exam Vital Signs (past 8 hours): - 10/13/20 04:00 10/13/20 07:32 Temperature 98.6 F 97.3 F L Pulse Rate 64 69 Respiratory Rate 16 14 Blood Pressure 123/50 L 111/48 L Pulse Oximetry 96 95 Oxygen Flow Rate 0 Narrative Exam Narrative: GEN: pale, no acute distress HEENT: moist mucous membranes, PERRL Neck: No JVD, trachea midline Respiratory: Lungs are clear with no wheezes, rhonchi, rales Cardiac: Regular rate and rhythm no murmurs no bruits Abdomen: Soft, nontender, normal bowel sounds Skin: no rashes noted Neurologic: moving all extremities, with no gross abnormalities Spine: back bandaged Extremities: trace bilateral edema in feet, L arm swelling at former IV infiltrate site Psych: Cooperative, fluent speech Objective Labs Result Diagrams: 10/13/20 06:02 10/13/20 06:02 Labs: Laboratory Results - last 24 hr 10/12/20 10/12/20 10/13/20 13:30 13:30 06:02 WBC 8.3 RBC 2.71 L Hgb 7.9 L Hct 24.3 L MCV 89.6 MCH 29.2 MCHC 32.6 RDW 17.0 H Plt Count 280 Sodium 136 L Potassium 4.9 Chloride 108 H Carbon Dioxide 23 BUN 36 H Creatinine 3.33 H Estimated GFR 13.2 L BUN/Creatinine Ratio 10.8 Glucose 154 H Calcium 8.4 Total Creatine Kinase 60 10/13/20 06:02 WBC RBC Hgb Hct MCV MCH MCHC RDW Plt Count Sodium 138 Potassium 4.9 Chloride 111 H Carbon Dioxide 22 BUN 43 H Creatinine 3.29 H Estimated GFR 13.4 L BUN/Creatinine Ratio 13.1 Glucose 108 Calcium 8.4 Total Creatine Kinase [facility] Medical History Abnormal breast biopsy Asthma due to environmental allergies Breast cancer, left (06/2011) Cataract (lens) fragments in eye following cataract surgery, bilateral Cervical cancer (1973) Diabetes Diabetic peripheral neuropathy Difficulty swallowing Eczema GERD (gastroesophageal reflux disease) Gout Herniated nucleus pulposus, L3-4 left HLD (hyperlipidemia) HNP (herniated nucleus pulposus), thoracic HTN (hypertension) Hypothyroidism Kidney infection Lumbar radiculopathy Sacrococcygeal disorders, not elsewhere classified Status post lumbar spinal arthrodesis Vertebral fracture Vertigo Wound abscess Surgical History H/O bilateral mastectomy H/O hysterectomy for benign disease History of bunionectomy of right great toe History of left knee replacement History of lumbar spinal fusion History of surgery History of total right knee replacement Hx of bilateral cataract extraction S/P trigger finger release (2013) Family History Father Congestive heart failure Advanced cirrhosis of liver Grandmother Congestive heart failure Social History household members: none Smoking Status: Former smoker alcohol intake: current Assessment & Plan Assessment & Plan narrative: Ms. Allen is an 85W with PMH of recent spinal surgery complicated by sepsis from infected surgical wound currently on antibiotics for six weeks, with unhealing wound, worsening drainage and plant for return to OR for debridement. 1. ESTEBAN -creatinine increased to 3.37, from normal baseline of 0.7-0.9 -BUN normal currently, K 4.9, no shortness of breath so no need for urgent dialysis -urine na high at 54, not consistent with prerenal etiology -urine shows no proteinuria, no hematuria, no WBCs -etiology is ATN likely from a combination of medications including cipro, naproxen, celeocoxib, lisinopril -all nephrotoxic medications stopped -switched antibiotics to ceftriaxone as has less renal effects -renal ultrasound shows no obstruction -CK normal -schafer placed for accurate I and Os, so far with decent urine output, approximately 600cc/8hrs -plan for no more than 2L IV fluid daily -BMP twice daily to monitor potassium -low threshold for transfer if she develops volume overload, hyperkalemia, uremia 2. Infected spinal surgical wound, acute -patient with poor nutrition, and was lying in bed on wound, and has ESTEBAN all may have contributed to poor healing -no evidence of sepsis -surgery plan for OR when renal function improved -cultures pending, and plan to continue antibiotics but switch to ceftriaxone as above for less renal effect -PICC ordered as difficult IV access 3. Diabetes, Type 2, on insulin -continue home dose of insulin at 16U BID -ordered for achs glucose checks, and insulin sliding scale 4. Hypertension -hold lisinopril for now with relatively low blood pressure 5. Hypothyroidism -continue home dose synthroid Code status: Full, contact is daughter Shanice
--- NOTE | 2020-10-13 12:21 | CM.DPC ---
DCP Cont: Per MD, pt with ongoing kidney function issues and some bp and therefore holding off on I&D for today and now rescheduled for tomorrow. PT ordered for today while waiting for I&D to keep pt's strength and mobility up. Pt previously discharged with initially thought of needing IV-Abx at SNF but was able to be switched to oral Cipro based on her cultures and currently unclear if IV-Abx will be needed at d/c this time or if she can d/c on orals. SW met bedside with pt and Dtr again today and discussed the variable of potential need of IV-Abx at d/c and the complications of having to then determine what medication and dosing frequency in order to determine any out of pocket expense for home infusion or option of outpt Infusion Clinic or if SNF needed. Difficult to plan with the unknown of IV-Abx vs oral. Pt and Dtr adamantly refused SNF at d/c since pt has been to [facility] and [facility] and feels that her infection and progress were impaired at SNF. Although pt also states she could not afford a high out of pocket expense for home infusion if not covered by insurance and IV-Abx needed at d/c. Since difficult to plan without clear determination of IV-Abx vs oral, then SW discussed waiting until tomorrow after I&D to help better guide d/c planning. Pt and Dtr are still agreeable with plan of d/c to pt's home with 27/11 assist and [facility] referral and willing to further discuss d/c needs after I&D tomorrow. Chelly Tineo MSW
--- NOTE | 2020-10-13 12:55 | PT.IIE ---
Current Diagnoses Infection following a procedure, deep incisional surgical site, initial encounter (10/11/20) Surgery Performed Operation Date: 10/13/20 17:30 <No data on this case meets the specified criteria> Surgical History (Last Reviewed 10/13/20 @ 15:29 by Edgardo Pastrana PA-C) H/O bilateral mastectomy H/O hysterectomy for benign disease History of bunionectomy of right great toe History of left knee replacement History of lumbar spinal fusion History of surgery History of total right knee replacement Hx of bilateral cataract extraction S/P trigger finger release (2013) Medical History (Last Reviewed 10/13/20 @ 15:29 by Edgardo Pastrana PA-C) Abnormal breast biopsy Asthma due to environmental allergies Breast cancer, left (06/2011) Cataract (lens) fragments in eye following cataract surgery, bilateral Cervical cancer (1973) Diabetes Diabetic peripheral neuropathy Difficulty swallowing Eczema GERD (gastroesophageal reflux disease) Gout Herniated nucleus pulposus, L3-4 left HLD (hyperlipidemia) HNP (herniated nucleus pulposus), thoracic HTN (hypertension) Hypothyroidism Kidney infection Lumbar radiculopathy Sacrococcygeal disorders, not elsewhere classified Status post lumbar spinal arthrodesis Vertebral fracture Vertigo Wound abscess Physical Therapy Inpatient Evaluation/Re-Eval M1 PT/OT-IP Prior Functional Status Start: 10/13/20 16:14 Freq: NEEDED Status: Active Protocol: Document 10/13/20 12:55 AB (Rec: 10/13/20 16:31 AB [id number]) Medical Review Prior Functional Status Medical History Reviewed Yes Communication able to make needs known Mobility and Gait pt s/o lumbar fusion last september 13 and was independent with all mobilities and ambulation without AD. pt was d/c to SNF rehab afterwards but pt had lumbar wound infection and underwent I&D september 27. pt d/c to SNF again afterwards. Pt stated that she is moving and walking at the SNF using FWW. pt now back for a possible I& D of lumbar wound again pending kidney function per EMR. pt stated that she plans to d/c straight home from the hospital this time and does not want to go to SNF. Social History Household Members none Living Arrangements Mobile home Number of Floors (Floors) One Floor Number of Stairs To Enter/Railing? 2 platform steps + ramp to enter the house Home Environment Standard Height Toilet,Walk in Shower,Built-In Shower Seat Home Equipment Front Wheel Walker,Straight Cane,Raised Toilet Seat w/ Armrests,Lift Recliner, Mechanical Lift,Grab Bars In Shower Additional Social History Comment pt stated that she has her family doing rotations to assist her at home. M2 PT-IP Current Condition Start: 10/13/20 16:14 Freq: NEEDED Status: Active Protocol: Document 10/13/20 12:55 AB (Rec: 10/13/20 16:31 AB [id number]) Physical Therapy Current Condition Current Condition Evaluation Date 10/13/20 Treatment Diagnosis lumbar wound infection; difficulty in walking Onset Date 10/11/20 Precautions Lumbar Precautions Log Roll,No Twisting,Limit Bending,Lifting Restriction of 10 lbs,Gait Belt above Incisional Area M3 PT-IP Subjective Start: 10/13/20 16:14 Freq: NEEDED Status: Active Protocol: Document 10/13/20 12:55 AB (Rec: 10/13/20 16:31 AB [id number]) Subjective Physical Therapy Visit Type Type Initial Evaluation Visit Start Time 12:55 Visit Stop Time 13:25 Total Visit Minutes 30 Number of DEALER CARD ROOM Visits 0 Physical Therapy Visit Comments Patient Comments agreeable to do PT Therapy Pain Assessment Pain When Pain Assessed At Rest Pain Present Pain Present Pain Reported Location lower back Intensity 1 Scale Used increases with bed mobility Pain Management Techniques Distraction,Modification of Treatment,Re-positioning, Timing of Activity with Medications M4 PT-IP Mobility and Gait Start: 10/13/20 16:14 Freq: NEEDED Status: Active Protocol: Document 10/13/20 12:55 AB (Rec: 10/13/20 16:31 AB [id number]) PT-Bed Mobility Assessment Rolling Type of Rolling Log Rolling Level of Assist Standby Assistance Supine to Sit Supine to Sit Standby Assistance,Bedrails Sit to Supine Sit to Supine Standby Assistance,Bedrails PT-Transfer Assessment Sit to and From Stand Sit to and from Stand Standby Assistance Equipment Transfer Assistive Device Gait Belt,Front Wheeled Walker Orthotic/Prosthetic Devices or Brace: No Transfers Transfer Destination Bed,Chair Transfer Technique ambulated using FWW Transfer Ability Level of Assist Standby Assistance,1 Person Assistance,Use of Upper Extremities Comments Mobility Comments pt able to recall her precautions. completed sit to stand from the chair SBA and ambulated in room ~ 50 ft SBA using FWW. ambulated to the bed and demonstrated bed mobility supine <>sit SBA with use of bed rail. completed transfer to chair using FWW SBA. positiioned on chair. call light and table placed within reach. Left pt with daughter in room. pt plans to have I&D on lumbar wound again but per doctor's note is pending kidney function progress. pt stated that she usually has a bad reaction to anesthesia for several days. informed pt that PT tx frequency at this time will be once a day and will reassess after I&D procedure if frequency will be changed. Pt agreed and understood. Gait Assessment Gait Gait Assistance Required: Standby Assistance Distance (Feet) 50 Able to Maintain Weight Bearing Status Yes During Gait Assistive Devices Assistive Device Gait Belt,Front Wheeled Walker Orthotic/Prosthetic Devices or Brace: No Gait Deviations General Gait Pattern Decreased Stride Length, Decreased Feet Clearance,Step- to Gait Factors Limiting Gait Function Factors Limiting Gait Function Decreased Activity Tolerance, Decreased Strength,Limited Range of Motion,Pain,Poor Balance PT-Balance Assessment Sitting Balance and Reactions Static Sitting Balance Ability Good Dynamic Sitting Balance Ability Good Standing Balance and Reactions Static Standing Balance Ability Fair Dynamic Standing Balance Ability Fair Device Used FWW M5 PT-IP Objective Assessments Start: 10/13/20 16:14 Freq: NEEDED Status: Active Protocol: Document 10/13/20 12:55 AB (Rec: 10/13/20 16:31 AB [id number]) Orientation Orientation/Cognition Level of Alertness Alert Orientation Name,Place,Situation Language Function Ability No Deficits Noted Safety Awareness Understands Safety Issues Memory Description No Deficits Noted Gross Range of Motion Lower Extremity ROM Assessment Within Functional Limits Strength Lower Extremity Strength Assessment Left Impaired Hip 4-/5 Knee 3+/5 Coordination Assessment Gross Coordination Gross Coordination WNL Muscle Tone Muscle Tone WNL Yes M6 PT-IP Treatment Start: 10/13/20 16:14 Freq: NEEDED Status: Active Protocol: Document 10/13/20 12:55 AB (Rec: 10/13/20 16:31 AB [id number]) Physical Therapy Treatment Education Education Provided Precautions,Safety M7 PT-IP Assessment and Plan Start: 10/13/20 16:14 Freq: NEEDED Status: Active Protocol: Document 10/13/20 12:55 AB (Rec: 10/13/20 16:31 AB [email or web address]) PT Summary Assessment and Plan Potential Rehabilitation Potential Good Status of Condition at Evaluation Stable Summary Impairments Pain,ROM,Strength,Balance,Tone ,Cognition,Bed Mobility, Transfers,Gait,Activity Tolerance Assessment Summary pt requiring SBA with mobility using FWW but is pending lumbar wound I&D and will need further assessment after I&D procedure to determine safe d/ c plan. pt stated that she wants to go home after hospitalization and does not want to go to SNF. stated that she has family lined up to assist her at home. will continue to assess. Goals Bed Mobility Goal Independent Transfer Goal Independent,Front Wheeled Walker Gait Goal Independent,Front Wheel Walker Gait Distance 200 Other Goals up/down 2 platform step using FWW SBA Days to Meet Goals 5 Frequency of Treatment Frequency Of Treatment Once a Day Treatment Plan Physical Therapy Treatment Plan Bed Mobility Training,Transfer Training,Gait Training, Therapeutic Exercise,Balance Retraining,Post Op Education, Discharge Planning,Hot or Cold Pack,Neuromuscular Re-ed, Coordination Retraining,Manual Therapy Precautions Lumbar Precautions Log Roll,No Twisting,Limit Bending,Lifting Restriction of 10 lbs,Gait Belt above Incisional Area Recommendations To Nursing Amount of Assist Needed 1 Person Assist Discharge Recommendations PT Discharge Recommendations Home with Assistance, Outpatient PT Transportation Needs at Discharge Private Vehicle
[2020-10-13] MEDS: HYDROCODONE/ACET 5/325 TABLET 1 TAB PO (13:41)
[2020-10-13 14:45] LABS: Hematocrit 27.4 % (36-46); Hemoglobin 8.8 g/dL (12.0-16.0); Mean Corpuscular HGB Conc 32.2 % (30-36); Mean Corpuscular Hemoglobin 28.9 PG (26-34); Mean Corpuscular Volume 89.7 fL (80-100); Platelet Count 265 X10^3/uL (150-400); Red Blood Cell Count 3.05 X10^6/uL (4.0-5.2); Red Cell Distribution Width 16.8 % (11.6-14.8); White Blood Cell Count 7.9 X10^3/uL (4.5-11.0)
[2020-10-13 14:50] LABS: Appearance Urine UA CLEAR; Bacteria Urine None Seen; Bilirubin Urine UA NEGATIVE (NEGATIVE); Color Urine UA YELLOW; Glucose Urine UA NEGATIVE (Negative); Ketones Urine UA NEGATIVE (NEGATIVE); Leukocyte Esterase Urine UA 1+ (NEGATIVE); Nitrite Urine UA NEGATIVE (Negative); Occult Blood Urine UA 3+ (Negative); Protein Urine UA 2+ (Negative); Urobilinogen Urine UA 0.2 E.U./dL (0.2)
[2020-10-13 14:51] LABS: Culture Indicated Urine Specimen Cultured; RBC Urine 5-10/HPF (0-5/HPF); WBC Urine 5-10/HPF (0-5/HPF)
[2020-10-13 14:56] LABS: Chloride 109 mmol/L (98-107); HEMOLYSIS < 15 (0-50)
[2020-10-13 14:59] LABS: BUN Creatinine Ratio 13.3 (6-22); Blood Urea Nitrogen 42 mg/dL (7-17); Calcium 8.7 mg/dL (8.4-10.2); Carbon Dioxide 21 mmol/L (22-32); Glucose 131 mg/dL (80-110); Potassium 5.1 mmol/L (3.4-5.1); Sodium 136 mmol/L (137-145)
--- NOTE | 2020-10-13 15:28 | PM.PN.1 ---
Subjective Subjective Date Patient Seen: 10/13/20 Time Patient Seen: 15:28 Interval history: Patient reports her back pain is moderate to severe with any movement. Denies fever or chills. No nausea or vomiting. Exam Vital Signs (past 8 hours): - 10/13/20 07:32 10/13/20 11:23 Temperature 97.3 F L 97.8 F Pulse Rate 69 69 Respiratory Rate 14 15 Blood Pressure 111/48 L 123/66 Pulse Oximetry 95 95 Oxygen Flow Rate 0 Narrative Exam Narrative: 85-year-old female resting comfortably in bed in no apparent distress. Sensation grossly intact to light touch bilateral lower extremities. Motor functions intact bilateral lower extremities. Murillo catheter in place with clear light yellow urine. Objective Labs Result Diagrams: 10/13/20 14:42 10/13/20 14:42 Labs: Laboratory Results - last 24 hr 10/13/20 10/13/20 10/13/20 06:02 06:02 14:42 WBC 8.3 RBC 2.71 L Hgb 7.9 L Hct 24.3 L MCV 89.6 MCH 29.2 MCHC 32.6 RDW 17.0 H Plt Count 280 Sodium 138 136 L Potassium 4.9 5.1 Chloride 111 H 109 H Carbon Dioxide 22 21 L BUN 43 H 42 H Creatinine 3.29 H 3.16 H Estimated GFR 13.4 L 14.0 L BUN/Creatinine Ratio 13.1 13.3 Glucose 108 131 H Calcium 8.4 8.7 Urine Color Urine Appearance Urine pH Ur Specific [place] Urine Protein Urine Glucose (UA) Urine Ketones Urine Occult Blood Urine Nitrate Urine Bilirubin Urine Urobilinogen Ur Leukocyte Esterase Urine RBC Urine WBC Urine Bacteria Ur Culture Indicated? 10/13/20 10/13/20 14:42 14:48 WBC 7.9 RBC 3.05 L Hgb 8.8 L Hct 27.4 L MCV 89.7 MCH 28.9 MCHC 32.2 RDW 16.8 H Plt Count 265 Sodium Potassium Chloride Carbon Dioxide BUN Creatinine Estimated GFR BUN/Creatinine Ratio Glucose Calcium Urine Color Yellow Urine Appearance Clear Urine pH 6.0 Ur Specific [place] 1.020 Urine Protein 2+ H Urine Glucose (UA) Negative Urine Ketones Negative Urine Occult Blood 3+ H Urine Nitrate Negative Urine Bilirubin Negative Urine Urobilinogen 0.2 Ur Leukocyte Esterase 1+ H Urine RBC 5-10/hpf H Urine WBC 5-10/hpf H Urine Bacteria None seen Ur Culture Indicated? Specimen cultured PFSH Medical History Abnormal breast biopsy Asthma due to environmental allergies Breast cancer, left (06/2011) Cataract (lens) fragments in eye following cataract surgery, bilateral Cervical cancer (1973) Diabetes Diabetic peripheral neuropathy Difficulty swallowing Eczema GERD (gastroesophageal reflux disease) Gout Herniated nucleus pulposus, L3-4 left HLD (hyperlipidemia) HNP (herniated nucleus pulposus), thoracic HTN (hypertension) Hypothyroidism Kidney infection Lumbar radiculopathy Sacrococcygeal disorders, not elsewhere classified Status post lumbar spinal arthrodesis Vertebral fracture Vertigo Wound abscess Surgical History H/O bilateral mastectomy H/O hysterectomy for benign disease History of bunionectomy of right great toe History of left knee replacement History of lumbar spinal fusion History of surgery History of total right knee replacement Hx of bilateral cataract extraction S/P trigger finger release (2013) Family History Father Congestive heart failure Advanced cirrhosis of liver Grandmother Congestive heart failure Social History household members: none Smoking Status: Former smoker alcohol intake: current Assessment & Plan Assessment & Plan narrative: Patient is stable. Plan is for irrigation and debridement lumbar incision October 14, 2020 or October 15, 2020. Patient is status post L3 through S1 fusion September 13, 2020. s/p Lumbar post op wound irrigation and debridement of skin, muscle and bone 09/27/20. ESTEBAN being managed by hospitalist creatinine currently 3.37. Currently on ceftriaxone No evidence of sepsis at this point. WBC 7.9
[2020-10-13] MEDS: SODIUM POLYSTYRENE SULFON/SORB 15 GM/60 ML CUP 30 GM PO (16:55)
[2020-10-13] MEDS: INSULIN LISPRO 100 UNIT/ML 3ML VIAL SUBCUT (16:56)
[2020-10-13] MEDS: MELATONIN 3 MG TABLET 9 MG PO (21:51)
[2020-10-13] MEDS: SODIUM CHLORIDE 0.9% 1,000 ML 50 ML IV (23:29)
--- NOTE | 2020-10-14 01:46 | PC.NURSE ---
Addendum entered by Eveline Tovar R.N. 10/14/20 06:39: correction on previous documentation: gaps noted on both incisions with dark tissue at proximal end of left incision. Small amount serous drainage noted this morning. Original Note: patient is alert and oriented. Breath sounds CTA with RA sat of 95%. HRR w/telemetry reading of SR w/1st degree AVB. Denies nausea. BT present and is passing flatus but has not had a BM since 10/10; no bowel meds ordered at this time and surgery is planned for later today. Indwelling catheter is patent; urine is clear, light yellow. Is able to move self in bed. Gait not assessed at this time. 2 incisions to back are W[employer] STITCH[employer]ACH[employer] and well approximated with intact sagar and dull redness around each incision; no drainage noted. States pain is currently less than 1 and declines pain medication or ice pack. Refusing SCD's so reminded to ankle wave; verbalizes understanding. Fall risk score is high (patient reports having fallen in past 3 months) and bed alarm is activated.
[2020-10-14] MEDS: LEVOTHYROXINE 88 MCG TABLET PO (05:48)
[2020-10-14] MEDS: SODIUM CHLORIDE 0.9% FLUSH 10 ML IV ×2 (06:05→09:39)
[2020-10-14 06:10] VITALS: BP 138/75; PULSE 77; RESP 18; TEMP 36.7; O2SAT 96
[2020-10-14 06:39] LABS: BUN Creatinine Ratio 13.2 (6-22); Blood Urea Nitrogen 41 mg/dL (7-17); Calcium 8.7 mg/dL (8.4-10.2); Carbon Dioxide 22 mmol/L (22-32); Chloride 112 mmol/L (98-107); Estimated Glomerular Filt Rate 14.3 mL/min (>60); Glucose 76 mg/dL (80-110); HEMOLYSIS < 15 (0-50); Magnesium 1.7 mg/dL (1.6-2.3); Phosphorous 4.2 mg/dL (2.8-4.1); Potassium 4.3 mmol/L (3.4-5.1); Sodium 140 mmol/L (137-145)
--- NOTE | 2020-10-14 07:36 | P.PN_ITS ---
Subjective Subjective Date Patient Seen: 10/14/20 Time Patient Seen: 07:36 Interval history: Patient states she is doing well at the moment and is in no discomfort at rest. She does note occasionally that she experiences severe pain in her lower back that comes on whether she is at rest or active. At this time she denies fever, chills, nausea, chest pain, or shortness breath. Patient reports good sensation throughout the bilateral lower extremities. Exam Vital Signs (past 8 hours): - 10/13/20 23:51 10/14/20 06:10 Temperature 98.9 F 98.1 F Pulse Rate 62 77 Respiratory Rate 16 18 Blood Pressure 124/57 L 138/75 Pulse Oximetry 95 96 Oxygen Delivery Method Room Air Oxygen Flow Rate 0 Narrative Exam Narrative: 85-year-old female. Patient is resting comfortably in bed, is in no acute distress, is alert and oriented x3. Skin is warm and dry. Good sensation appreciated throughout the bilateral lower extremities to light touch. Calves are soft and nontender, negative Homans sign. Ankle dorsiflexion, plantar flexion, eversion, inversion performed bilaterally without difficulty or discomfort. DP pulses palpated bilaterally. Const General: cooperative, healthy appearing and comfortable Resp Effort & Inspection: normal respiratory effort and able to speak in complete sentences Skin General: no rashes or lesions noted Objective Labs Result Diagrams: 10/13/20 14:42 10/14/20 06:05 Labs: Laboratory Results - last 24 hr 10/13/20 10/13/20 10/13/20 14:42 14:42 14:48 WBC 7.9 RBC 3.05 L Hgb 8.8 L Hct 27.4 L MCV 89.7 MCH 28.9 MCHC 32.2 RDW 16.8 H Plt Count 265 Sodium 136 L Potassium 5.1 Chloride 109 H Carbon Dioxide 21 L BUN 42 H Creatinine 3.16 H Estimated GFR 14.0 L BUN/Creatinine Ratio 13.3 Glucose 131 H Calcium 8.7 Phosphorus Magnesium Urine Color Yellow Urine Appearance Clear Urine pH 6.0 Ur Specific [place] 1.020 Urine Protein 2+ H Urine Glucose (UA) Negative Urine Ketones Negative Urine Occult Blood 3+ H Urine Nitrate Negative Urine Bilirubin Negative Urine Urobilinogen 0.2 Ur Leukocyte Esterase 1+ H Urine RBC 5-10/hpf H Urine WBC 5-10/hpf H Urine Bacteria None seen Ur Culture Indicated? Specimen cultured 10/14/20 06:05 WBC RBC Hgb Hct MCV MCH MCHC RDW Plt Count Sodium 140 Potassium 4.3 Chloride 112 H Carbon Dioxide 22 BUN 41 H Creatinine 3.10 H Estimated GFR 14.3 L BUN/Creatinine Ratio 13.2 Glucose 76 L Calcium 8.7 Phosphorus 4.2 H Magnesium 1.7 Urine Color Urine Appearance Urine pH Ur Specific [place] Urine Protein Urine Glucose (UA) Urine Ketones Urine Occult Blood Urine Nitrate Urine Bilirubin Urine Urobilinogen Ur Leukocyte Esterase Urine RBC Urine WBC Urine Bacteria Ur Culture Indicated? [facility] Medical History Abnormal breast biopsy Asthma due to environmental allergies Breast cancer, left (06/2011) Cataract (lens) fragments in eye following cataract surgery, bilateral Cervical cancer (1973) Diabetes Diabetic peripheral neuropathy Difficulty swallowing Eczema GERD (gastroesophageal reflux disease) Gout Herniated nucleus pulposus, L3-4 left HLD (hyperlipidemia) HNP (herniated nucleus pulposus), thoracic HTN (hypertension) Hypothyroidism Kidney infection Lumbar radiculopathy Sacrococcygeal disorders, not elsewhere classified Status post lumbar spinal arthrodesis Vertebral fracture Vertigo Wound abscess Surgical History H/O bilateral mastectomy H/O hysterectomy for benign disease History of bunionectomy of right great toe History of left knee replacement History of lumbar spinal fusion History of surgery History of total right knee replacement Hx of bilateral cataract extraction S/P trigger finger release (2013) Family History Father Congestive heart failure Advanced cirrhosis of liver Grandmother Congestive heart failure Social History household members: none Smoking Status: Former smoker alcohol intake: current Assessment & Plan Assessment & Plan narrative: Patient is doing well overall. Plan is for irrigation and debridement lumbar incision October 14, 2020 or October 15, 2020. Patient is status post L3 through S1 fusion September 13, 2020. s/p Lumbar post op wound irrigation and debridement of skin, muscle and bone 09/27/20. ESTEBAN being managed by hospitalist, creatinine last recorded at 3.37. Patient is currently on Rocephin. Most recent WBC was 7.9.
[2020-10-14 08:02] VITALS: BP 146/54; PULSE 72; RESP 14; TEMP 36.6; O2SAT 97
[2020-10-14] MEDS: cefTRIAXone 1,000 MG in SODIUM CHLORIDE 0.9% 100 ML 200 ML IV (09:39)
[2020-10-14] MEDS: DICYCLOMINE 10 MG CAPSULE PO ×2 (09:39→21:12)
[2020-10-14] MEDS: HYDROCODONE/ACET 5/325 TABLET 1 TAB PO (09:46)
--- NOTE | 2020-10-14 11:27 | CM.DPNOTE ---
DCP Note According to discussion in multidisciplinary rounds this morning, patient is scheduled for additional I+D of the lumbar incision October 15, 2020 0745. Patient is status post L3 through S1 fusion September 13, 2020. s/p Lumbar post op wound irrigation and debridement of skin, muscle and bone 09/27/20. ESTEBAN being managed by hospitalist Patient continues to want to DC home w/family. DCP team will continue to follow closely for coordination of the safest DCP that patient/family agree upon JW
--- NOTE | 2020-10-14 11:45 | PT.IPTN ---
Current Diagnoses Infection following a procedure, deep incisional surgical site, initial encounter (10/11/20) Surgery Performed Operation Date: 10/15/20 07:45 <No data on this case meets the specified criteria> Physical Therapy Treatment Note M2 PT-IP Current Condition Start: 10/13/20 16:14 Freq: NEEDED Status: Active Protocol: Document 10/13/20 12:55 AB (Rec: 10/13/20 16:31 AB [id number]) Physical Therapy Current Condition Current Condition Evaluation Date 10/13/20 Treatment Diagnosis lumbar wound infection; difficulty in walking Onset Date 10/11/20 Precautions Lumbar Precautions Log Roll,No Twisting,Limit Bending,Lifting Restriction of 10 lbs,Gait Belt above Incisional Area M3 PT-IP Subjective Start: 10/13/20 16:14 Freq: NEEDED Status: Active Protocol: Document 10/14/20 11:36 CLB (Rec: 10/14/20 12:22 CLB [id number]) Subjective Physical Therapy Visit Type Type Treatment Note Visit Start Time 11:36 Visit Stop Time 11:45 Total Visit Minutes 9 Notes Daughter present Number of ORDER PROCESSING MANAGER Visits 1 Physical Therapy Visit Comments Patient Comments agreeable to do PT Therapy Pain Assessment Pain When Pain Assessed At Rest Pain Present Pain Present Pain Reported M4 PT-IP Mobility and Gait Start: 10/13/20 16:14 Freq: NEEDED Status: Active Protocol: Document 10/14/20 11:36 CLB (Rec: 10/14/20 12:22 CLB [id number]) PT-Transfer Assessment Sit to and From Stand Sit to and from Stand Standby Assistance Equipment Transfer Assistive Device Gait Belt,Front Wheeled Walker Orthotic/Prosthetic Devices or Brace: No Transfers Transfer Destination Chair,Toilet Transfer Technique ambulated using FWW Transfer Ability Level of Assist Standby Assistance,1 Person Assistance,Use of Upper Extremities Comments Mobility Comments Pt stood from chair and ambulated in room ~60ft with RN entering room stating ICU called due to increased HR. Pt entered BR as pt was having BM during ambulation. Pt sat on toilet SBA and CLOTHING DESIGNER entered room to assist pt. Gait Assessment Gait Gait Assistance Required: Standby Assistance Distance (Feet) 60 Able to Maintain Weight Bearing Status Yes During Gait Assistive Devices Assistive Device Gait Belt,Front Wheeled Walker Orthotic/Prosthetic Devices or Brace: No Gait Deviations General Gait Pattern Decreased Stride Length, Decreased Feet Clearance, Flexed Trunk Factors Limiting Gait Function Factors Limiting Gait Function Decreased Activity Tolerance, Decreased Strength,Limited Range of Motion,Pain,Poor Balance Comments Gait Comments Pt is steady with use of FWW/ SBA requiring assist with IV pole. PT-Balance Assessment Sitting Balance and Reactions Static Sitting Balance Ability Good Dynamic Sitting Balance Ability Good Standing Balance and Reactions Static Standing Balance Ability Fair Dynamic Standing Balance Ability Fair Device Used FWW M5 PT-IP Objective Assessments Start: 10/13/20 16:14 Freq: NEEDED Status: Active Protocol: Document 10/13/20 12:55 AB (Rec: 10/13/20 16:31 AB [id number]) Orientation Orientation/Cognition Level of Alertness Alert Orientation Name,Place,Situation Language Function Ability No Deficits Noted Safety Awareness Understands Safety Issues Memory Description No Deficits Noted Gross Range of Motion Lower Extremity ROM Assessment Within Functional Limits Strength Lower Extremity Strength Assessment Left Impaired Hip 4-/5 Knee 3+/5 Coordination Assessment Gross Coordination Gross Coordination WNL Muscle Tone Muscle Tone WNL Yes M6 PT-IP Treatment Start: 10/13/20 16:14 Freq: NEEDED Status: Active Protocol: Document 10/13/20 12:55 AB (Rec: 10/13/20 16:31 AB [id number]) Physical Therapy Treatment Education Education Provided Precautions,Safety M7 PT-IP Assessment and Plan Start: 10/13/20 16:14 Freq: NEEDED Status: Active Protocol: Document 10/14/20 11:36 CLB (Rec: 10/14/20 12:22 CLB [id number]) PT Summary Assessment and Plan Potential Rehabilitation Potential Good Status of Condition at Evaluation Stable Summary Impairments Pain,ROM,Strength,Balance,Tone ,Cognition,Bed Mobility, Transfers,Gait,Activity Tolerance Assessment Summary Pt is SBA for sit<>stand and gait w/FWW. Pt with increased HR during gait. Pt scheduled I &D tomorrow 10/15 @0745. Goals Bed Mobility Goal Independent Transfer Goal Independent,Front Wheeled Walker Gait Goal Independent,Front Wheel Walker Gait Distance 200 Other Goals up/down 2 platform step using FWW SBA Days to Meet Goals 5 Frequency of Treatment Frequency Of Treatment Once a Day Treatment Plan Physical Therapy Treatment Plan Bed Mobility Training,Transfer Training,Gait Training, Therapeutic Exercise,Balance Retraining,Post Op Education, Discharge Planning,Hot or Cold Pack,Neuromuscular Re-ed, Coordination Retraining,Manual Therapy Precautions Lumbar Precautions Log Roll,No Twisting,Limit Bending,Lifting Restriction of 10 lbs,Gait Belt above Incisional Area Recommendations To Nursing Amount of Assist Needed 1 Person Assist Discharge Recommendations PT Discharge Recommendations Home with Assistance, Outpatient PT Transportation Needs at Discharge Private Vehicle
[2020-10-14 12:00] VITALS: BP 136/51; PULSE 64; RESP 14; TEMP 36.6; O2SAT 98
--- NOTE | 2020-10-14 13:34 | PM.PN.1 ---
Subjective Subjective Date Patient Seen: 10/14/20 Time Patient Seen: 09:15 Interval history: Patient reports her back pain is controlled currently at rest, okay with some movements today. Denies fever or chills. No nausea or vomiting. Orthopedics plan for surgery tomorrow, at this time ESTEBAN continues to improve slowly and will likely take some time. Will need to monitor closely after OR kidney function, but appears as medically optimized as possible prior to surgery. Exam Vital Signs (past 8 hours): - 10/14/20 06:10 10/14/20 08:02 10/14/20 12:00 Temperature 98.1 F 97.9 F 97.9 F Pulse Rate 77 72 64 Respiratory Rate 18 14 14 Blood Pressure 138/75 146/54 H 136/51 L Pulse Oximetry 96 97 98 Oxygen Delivery Method Room Air Oxygen Flow Rate 0 Narrative Exam Narrative: GEN: pale, no acute distress HEENT: moist mucous membranes, PERRL Neck: No JVD, trachea midline Respiratory: Lungs are clear with no wheezes, rhonchi, rales Cardiac: Regular rate and rhythm no murmurs no bruits Abdomen: Soft, nontender, normal bowel sounds Skin: no rashes noted Neurologic: moving all extremities, with no gross abnormalities Spine: back bandaged Extremities: trace bilateral edema in feet, L arm swelling at former IV infiltrate site Psych: Cooperative, fluent speech Objective Labs Result Diagrams: 10/13/20 14:42 10/14/20 06:05 Labs: Laboratory Results - last 24 hr 10/13/20 10/13/20 10/13/20 14:42 14:42 14:48 WBC 7.9 RBC 3.05 L Hgb 8.8 L Hct 27.4 L MCV 89.7 MCH 28.9 MCHC 32.2 RDW 16.8 H Plt Count 265 Sodium 136 L Potassium 5.1 Chloride 109 H Carbon Dioxide 21 L BUN 42 H Creatinine 3.16 H Estimated GFR 14.0 L BUN/Creatinine Ratio 13.3 Glucose 131 H Calcium 8.7 Phosphorus Magnesium Urine Color Yellow Urine Appearance Clear Urine pH 6.0 Ur Specific [place] 1.020 Urine Protein 2+ H Urine Glucose (UA) Negative Urine Ketones Negative Urine Occult Blood 3+ H Urine Nitrate Negative Urine Bilirubin Negative Urine Urobilinogen 0.2 Ur Leukocyte Esterase 1+ H Urine RBC 5-10/hpf H Urine WBC 5-10/hpf H Urine Bacteria None seen Ur Culture Indicated? Specimen cultured 10/14/20 06:05 WBC RBC Hgb Hct MCV MCH MCHC RDW Plt Count Sodium 140 Potassium 4.3 Chloride 112 H Carbon Dioxide 22 BUN 41 H Creatinine 3.10 H Estimated GFR 14.3 L BUN/Creatinine Ratio 13.2 Glucose 76 L Calcium 8.7 Phosphorus 4.2 H Magnesium 1.7 Urine Color Urine Appearance Urine pH Ur Specific [place] Urine Protein Urine Glucose (UA) Urine Ketones Urine Occult Blood Urine Nitrate Urine Bilirubin Urine Urobilinogen Ur Leukocyte Esterase Urine RBC Urine WBC Urine Bacteria Ur Culture Indicated? [facility] Medical History Abnormal breast biopsy Asthma due to environmental allergies Breast cancer, left (06/2011) Cataract (lens) fragments in eye following cataract surgery, bilateral Cervical cancer (1973) Diabetes Diabetic peripheral neuropathy Difficulty swallowing Eczema GERD (gastroesophageal reflux disease) Gout Herniated nucleus pulposus, L3-4 left HLD (hyperlipidemia) HNP (herniated nucleus pulposus), thoracic HTN (hypertension) Hypothyroidism Kidney infection Lumbar radiculopathy Sacrococcygeal disorders, not elsewhere classified Status post lumbar spinal arthrodesis Vertebral fracture Vertigo Wound abscess Surgical History H/O bilateral mastectomy H/O hysterectomy for benign disease History of bunionectomy of right great toe History of left knee replacement History of lumbar spinal fusion History of surgery History of total right knee replacement Hx of bilateral cataract extraction S/P trigger finger release (2013) Family History Father Congestive heart failure Advanced cirrhosis of liver Grandmother Congestive heart failure Social History household members: none Smoking Status: Former smoker alcohol intake: current Assessment & Plan Assessment & Plan narrative: Ms. Allen is an 85W with PMH of recent spinal surgery complicated by sepsis from infected surgical wound currently on antibiotics for six weeks, with unhealing wound, worsening drainage and plan for return to OR for debridement. Medicine consulted for ESTEBAN, which has been improving. 1. ESTEBAN secondary to ATN, present on admission. -creatinine increased to 3.37, from normal baseline of 0.7-0.9. Now improved to 3.10 with continued downtrend since admission. -BUN normal currently, K wnl, no shortness of breath so no need for urgent dialysis -etiology is ATN likely from a combination of medications including cipro, naproxen, celeocoxib, lisinopril -all nephrotoxic medications stopped -switched antibiotics to ceftriaxone as has less renal effects -renal ultrasound shows no obstruction -appears as medically optimized as possible, discussed that surgery could induce further worsening of her kidney function but given surgical need she appears as optimized as possible. Monitor creatinine and electrolytes closely after OR tomorrow. 2. Infected spinal surgical wound, acute -patient with poor nutrition, and was lying in bed on wound, and has ESTEBAN all may have contributed to poor healing -no evidence of sepsis -surgery plan for OR tomorrow -cultures pending, and plan to continue antibiotics but switched to ceftriaxone as above for less renal effect -PICC line placed for difficult IV access. 3. Diabetes, Type 2, on insulin -continue home dose of insulin at 16U BID -ordered for achs glucose checks, and insulin sliding scale 4. Hypertension -hold lisinopril for now with relatively low blood pressure and ATN. 5. Hypothyroidism -continue home dose synthroid Code status: Full, contact is [facility] will continue to follow along. Please reach out with additional questions.
[2020-10-14 15:15] VITALS: BP 151/72; PULSE 67; RESP 16; TEMP 36.2; O2SAT 95
[2020-10-14 19:30] VITALS: BP 113/80; PULSE 69; RESP 16; TEMP 36.9; O2SAT 94
[2020-10-14] MEDS: MELATONIN 3 MG TABLET 9 MG PO (21:12)
[2020-10-14] MEDS: INSULIN GLARGINE 100 UNIT/ML 3ML PEN 16 UNIT SUBCUT (21:13)
[2020-10-14 23:58] VITALS: BP 119/61; PULSE 57; RESP 16; TEMP 37.2; O2SAT 97
[2020-10-15] VITALS (15 sets, daily range): BP systolic 89–158; BP diastolic 52–105; PULSE 53–91; RESP 14–16; TEMP 36–37.2; O2SAT 94–99; BMI 33.4
--- NOTE | 2020-10-15 00:23 | PC.NURSE ---
Addendum entered by Eveline Tovar R.N. 10/15/20 06:45: Surgery staff here and taking patient down to surgery. Addendum entered by Eveline Tovar R.N. 10/15/20 03:44: CBG now 65. Loc QUIROS, informed and new orders received. Addendum entered by Eveline Tovar R.N. 10/15/20 02:45: CBG checked as was only 94 at hs (evening RN reports patient did have snack) and CBG is now 72. Loc QUIROS, informed as patient is NPO at this time for impending surgery. Verbal order to recheck in another hour. Addendum entered by Eveline Tovar R.N. 10/15/20 00:39: 0000 telemetry reading now documented and was SB w/1st degree AVB w/rate of 56 bpm. Original Note: patient is alert and oriented. Breath sounds CTA with RA sat of 97%. HRR w/last recorded telemetry reading of SR. Denies nausea. BT present and abdomen is soft; had 3 BM's yesterday. Indwelling catheter is patent; urine is light, clear yellow. Able to turn self in bed. Up to BSC with walker and SBA. Dressing to back is intact; 50% saturated with serous drainage. States pain is minimal at 1/10 and declines pain medication or ice pack. Refusing SCD's so reminded to ankle wave and verbalizes understanding. Fall risk score is high and bed alarm is activated. Currently NPO for surgery in a.m.
[2020-10-15] MEDS: DEXTROSE 5%-LACTATED RINGERS 1,000 ML 100 ML IV (03:50)
--- NOTE | 2020-10-15 03:50 | PM.CALLCOV.1 ---
Call Coverage Note Note Narrative of Care Provided: Patient began to develop hypoglycemia, last glucose reading was 63. She is NPO in anticipation of surgery first thing this am. She will be started on D5 LR. CBC, BMP, mag and phosphorous ordered for this am labs.
[2020-10-15] MEDS: SODIUM CHLORIDE 0.9% FLUSH 10 ML IV (05:00)
[2020-10-15 05:25] LABS: BUN Creatinine Ratio 14.3 (6-22); Blood Urea Nitrogen 38 mg/dL (7-17); Calcium 8.7 mg/dL (8.4-10.2); Carbon Dioxide 22 mmol/L (22-32); Chloride 111 mmol/L (98-107); Estimated Glomerular Filt Rate 17.1 mL/min (>60); Glucose 76 mg/dL (80-110); HEMOLYSIS < 15 (0-50); Magnesium 1.5 mg/dL (1.6-2.3); Phosphorous 4.5 mg/dL (2.8-4.1); Potassium 4.1 mmol/L (3.4-5.1); Sodium 137 mmol/L (137-145)
[2020-10-15 05:38] LABS: Add Manual Diff / Slide Review NO; Basophils Absolute Auto 100 /uL (0-100); Basophils Percent Auto 1.2 % (0-2); Eosinophils Absolute Auto 700 /uL (0-450); Eosinophils Percent Auto 8.3 % (2-4); Lymphocytes Absolute Auto 1900 /uL (1100-4500); Lymphocytes Percent Auto 22.4 % (25-40); Mean Corpuscular HGB Conc 32.7 % (30-36); Mean Corpuscular Hemoglobin 29.1 PG (26-34); Mean Corpuscular Volume 89.2 fL (80-100); Monocytes Absolute Auto 700 /uL (0-900); Monocytes Percent Auto 8.5 % (3-14); Neutrophils Absolute Auto 5100 /uL (1500-7000); Neutrophils Percent Auto 59.6 % (50-75); Platelet Count 276 X10^3/uL (150-400); Red Blood Cell Count 2.74 X10^6/uL (4.0-5.2); Red Cell Distribution Width 17.2 % (11.6-14.8); White Blood Cell Count 8.5 X10^3/uL (4.5-11.0)
[2020-10-15 05:43] LABS: Hematocrit 24.4 % (36-46)
--- NOTE | 2020-10-15 07:34 | PM.PREOP ---
Pre-operative Note COVID-19 COVID-19 status: Negative Interval Note History & Physical reviewed/Exam performed by Physician: Yes Changes to H&P: No H&P completed within 30 days and has changed as indicated here:: Debbie Adhikari continues to be doing reasonably well on the freitas. She did have some acute back pain but that has improved slightly. She has not had fevers or chills and she has been in the hospital. Her renal function is substantially improved today. Her wound has been checked and she still has a necrotic region along the skin incision without substantial fluctuance. I think it is reasonable to go ahead and proceed with irrigation and debridement and she is probably a candidate for primary closure. Her medical status has otherwise been stable. She spent much of yesterday up in the chair.
--- NOTE | 2020-10-15 07:39 | PM.OP.1 ---
Operative Date/Time/Diagnoses Date of procedure: 10/15/20 Time of procedure: 07:57 Pre-op diagnosis: Infected back wound with some necrotic tissue status post multilevel decompression and fusion Post-op diagnosis: same Procedure & Clinicians Procedure: Excisional lumbar spine debridement with debridement of skin and subcutaneous tissues and necrotic muscle Same procedure as scheduled: Yes Indications: This is an 85-year-old female who has a history of an instrumented spine fusion. She developed an infection previously and has undergone a previous irrigation and debridement. She was on oral antibiotics and was admitted with continued wound drainage. Her evaluation showed significant renal impairment and some component of acute renal failure. She has been medically stabilized and is now brought to the operating room for repeat irrigation and debridement. Surgeon: Mirna Mcdonough Anesthesia Type: General Operative Notes Findings: Necrotic skin and subcutaneous tissue with some necrotic tissue fascia and muscle which was meticulously debrided evidence of some purulence material which tracked down to the instrumentation in bilateral wounds. The wound was meticulously debrided and copiously irrigated. Closure Type: primary Specimen(s): other (Cultures tissue and deep culture from left side in the region the instrumentation.) Estimated Blood Loss (mL): 50 Blood products transfused: none Procedure in detail: Patient was brought to the operating room. She underwent induction of a general anesthesia. She was carefully positioned in the prone position on a Seymour frame. She was prepped and draped in a standard sterile fashion. A time-out was performed. Patient was on preoperative antibiotics which were continued. Skin incision was made along the patient's previous incision sites all sagar were removed and necrotic tissue was sharply debrided with a knife and a rongeur including skin and subcutaneous tissues. The necrotic skin edge was carefully removed dissection was carried out down to the level of the fascia. There was some necrotic fascia. This was meticulously debrided with a combination of sharp debridement and a rongeur. Tissue was debrided back to viable appearing fascia muscle and skin edge. The wound was checked deeply and there was a tract which extended down to the instrumentation. On the left side purulence material was encountered and it was sent for Gram stain culture and sensitivity. Additionally debrided necrotic tissue was sent for Gram stain culture and sensitivity. All nonviable tissue was carefully removed excising skin, subcutaneous tissue fascia and some muscle. A deep drain was placed on the left which went down to the level of the instrumentation. The wound was meticulously irrigated with pulse lavage. Subcutaneous tissue was gently closed with interrupted PDS. Skin was closed with near-far far-near sutures in order to allow distribution of the tension and approximation of the skin edge. There was acceptable overall skin tension. The wound was dressed sterilely. Complications: none Post-operative Condition: stable Disposition: Acute Care Plan for aftercare: Dry dressing. Continue antibiotics and careful monitoring of renal function. Good hydration. Check cultures and possible discharge to home on antibiotics. Continue rehab getting the patient out of bed and ambulating.
--- NOTE | 2020-10-15 08:40 | SUR.OPER ---
Prone on padded OR bed, head in foam head support, on Seymour frame, gel pad under knees, pillow under lower legs, toes free of pressure, arms secured on padded arm boards at <90 degrees abduction. Safety belt at thigh.
[2020-10-15] MEDS: BUPIVACAINE 0.5% (PF) VIAL 30 ML INJ (08:50)
--- NOTE | 2020-10-15 09:25 | PT-IP ANOTE ---
Pt is currently out of the acute floor for I&D surgery for lumbar wound. will f/u post-op.
[2020-10-15] MEDS: LACTATED RINGERS 1,000 ML 42 ML IV (09:36)
[2020-10-15] MEDS: DEXTROSE 5% WATER 1,000 ML 500 ML IV (11:06)
[2020-10-15] MEDS: cefTRIAXone 1,000 MG in SODIUM CHLORIDE 0.9% 100 ML 200 ML IV (12:41)
--- NOTE | 2020-10-15 14:00 | PM.PN.1 ---
Subjective Subjective Date Patient Seen: 10/15/20 Time Patient Seen: 14:00 Interval history: Patient seen after her surgery this morning. She feels well, with only minimal twinges of back pain. She denies any weakness or numbness at this time. Unfortunately during her surgery it appear that some of infection was near her hardware, cultures were sent and the patient has been stable on antibiotic therapy. Her creatinine improved down to 2.66 this morning. Exam Vital Signs (past 8 hours): - 10/15/20 07:06 10/15/20 10:12 10/15/20 10:15 Temperature 97.4 F L 97.7 F Pulse Rate 63 56 L 91 H Respiratory Rate 14 16 16 Blood Pressure 135/56 L 138/52 L 89/62 L Pulse Oximetry 98 98 99 10/15/20 10:45 10/15/20 11:00 10/15/20 11:20 Temperature 97.0 F L 97.1 F L Pulse Rate 55 L 59 L 55 L Respiratory Rate 16 16 16 Blood Pressure 152/59 H 146/67 H 134/68 Pulse Oximetry 98 98 99 10/15/20 12:15 Temperature 96.8 F L Pulse Rate 58 L Respiratory Rate 14 Blood Pressure 156/105 H Pulse Oximetry 97 Oxygen Delivery Method Room Air Oxygen Flow Rate 0 Narrative Exam Narrative: GEN: pale, no acute distress HEENT: moist mucous membranes, PERRL Neck: No JVD, trachea midline Respiratory: Lungs are clear with no wheezes, rhonchi, rales Cardiac: Regular rate and rhythm no murmurs no bruits Abdomen: Soft, nontender, normal bowel sounds Skin: no rashes noted Neurologic: moving all extremities, with no gross abnormalities Spine: back bandaged Extremities: trace bilateral edema in feet, L arm swelling at former IV infiltrate site Psych: Cooperative, fluent speech Objective Labs Result Diagrams: 10/15/20 05:00 10/15/20 05:00 Labs: Laboratory Results - last 24 hr 10/15/20 10/15/20 05:00 05:00 WBC 8.5 RBC 2.74 L Hgb 8.0 L Hct 24.4 L MCV 89.2 MCH 29.1 MCHC 32.7 RDW 17.2 H Plt Count 276 Neut % (Auto) 59.6 Lymph % (Auto) 22.4 L [place] % (Auto) 8.5 Eos % (Auto) 8.3 H Baso % (Auto) 1.2 Neut # (Auto) 5100 Lymph # (Auto) 1900 [place] # (Auto) 700 Eos # (Auto) 700 H Baso # (Auto) 100 Sodium 137 Potassium 4.1 Chloride 111 H Carbon Dioxide 22 BUN 38 H Creatinine 2.66 H Estimated GFR 17.1 L BUN/Creatinine Ratio 14.3 Glucose 76 L Calcium 8.7 Phosphorus 4.5 H Magnesium 1.5 L PFSH Medical History Abnormal breast biopsy Asthma due to environmental allergies Breast cancer, left (06/2011) Cataract (lens) fragments in eye following cataract surgery, bilateral Cervical cancer (1973) Diabetes Diabetic peripheral neuropathy Difficulty swallowing Eczema GERD (gastroesophageal reflux disease) Gout Herniated nucleus pulposus, L3-4 left HLD (hyperlipidemia) HNP (herniated nucleus pulposus), thoracic HTN (hypertension) Hypothyroidism Kidney infection Lumbar radiculopathy Sacrococcygeal disorders, not elsewhere classified Status post lumbar spinal arthrodesis Vertebral fracture Vertigo Wound abscess Surgical History H/O bilateral mastectomy H/O hysterectomy for benign disease History of bunionectomy of right great toe History of left knee replacement History of lumbar spinal fusion History of surgery History of total right knee replacement Hx of bilateral cataract extraction S/P trigger finger release (2013) Family History Father Congestive heart failure Advanced cirrhosis of liver Grandmother Congestive heart failure Social History household members: none Smoking Status: Former smoker alcohol intake: current Assessment & Plan Assessment & Plan narrative: Ms. Allen is an 85W with PMH of recent spinal surgery complicated by sepsis from infected surgical wound currently on antibiotics for six weeks, with unhealing wound, worsening drainage and plan for return to OR for debridement. Medicine consulted for ESTEBAN, which has been improving. 1. ESTEBAN secondary to ATN, present on admission. -creatinine increased to 3.37, from normal baseline of 0.7-0.9. Now improved to 2.66 with continued downtrend since admission. -BUN normal currently, K wnl, no shortness of breath so no need for urgent dialysis -etiology is ATN likely from a combination of medications including cipro, naproxen, celeocoxib, lisinopril -all nephrotoxic medications stopped -switched antibiotics to ceftriaxone as has less renal effects -renal ultrasound shows no obstruction 2. Infected spinal surgical wound, acute -patient with poor nutrition, and was lying in bed on wound, and has ESTEBAN all may have contributed to poor healing -no evidence of sepsis -surgery did debridement, appeared to have extension of infection to hardware. Will follow up final cultures, contact ID after cultures result for antitbiotic recommendations. -cultures pending, and plan to continue antibiotics but switched to ceftriaxone as above for less renal effect. Likely will need prolonged antibiotic therapy. -PICC line already placed for difficult IV access. 3. Diabetes, Type 2, on insulin -continue home dose of insulin at 16U BID -ordered for achs glucose checks, and insulin sliding scale 4. Hypertension -hold lisinopril for now with relatively low blood pressure and ATN. 5. Hypothyroidism -continue home dose synthroid Code status: Full, contact is daughter Shanice [facility] will continue to follow along. Please reach out with additional questions.
--- NOTE | 2020-10-15 14:39 | PT-IP ANOTE ---
pt came back up on acute floor after I&D of lumbar wound. pt is awake. NAC stated that BP and blood sugar is good. pt refused PT at this time. stated that she wants to rest and has pain on her back and does not want to move at this time but agreed for PT to see her tomorrow. will f/u
[2020-10-15] MEDS: HYDROCODONE/ACET 5/325 TABLET 1 TAB PO (15:41)
--- NOTE | 2020-10-15 15:56 | PC.NURSE ---
Pt returned to floor at 1200. There was some confusion as to whether or not she had received her ceftriaxone in OR or PACU. It was determined it had not been and med was given after she returned to the floor. Dressing to back was saturated by 2/3, now is completely saturated, message sent to md about same, change vs reinforce.
[2020-10-15] MEDS: DICYCLOMINE 10 MG CAPSULE PO (21:19)
[2020-10-16] VITALS (7 sets, daily range): BP systolic 117–149; BP diastolic 46–78; PULSE 57–75; RESP 16–19; TEMP 36.1–36.3; O2SAT 92–96
[2020-10-16] MEDS: MELATONIN 3 MG TABLET 9 MG PO ×2 (00:42→20:25)
--- NOTE | 2020-10-16 02:47 | PC.NURSE ---
patient is alert and oriented. Breath sounds CTA with RA sat of 94%. HRR; BP elevated at 140/58 consistent with last few recordings. Denied nausea. BT hypoactive and denied having passed flatus as yet. Indwelling catheter is patent; urine is clear, light yellow. Dressing to back with shadow drainage; hemovac is intact and compressed. Is able to move herself in bed. Gait not assessed at this time. States pain is < 1/10 but describes as a burning; declines pain medication or ice pack. Bilateral calf SCD's applied at shift change. Fall risk score is high and bed alarm is activated.
[2020-10-16] MEDS: HYDROCODONE/ACET 5/325 TABLET 1 TAB PO ×2 (04:11→11:21)
--- NOTE | 2020-10-16 04:15 | PC.NURSE ---
Patient c/o back pain at operative site at 12/14. Vicodin one tab given per EMAR. Primary RN, Eveline notified, for reassessment.
[2020-10-16] MEDS: SODIUM CHLORIDE 0.9% FLUSH 10 ML IV ×3 (05:58→20:25)
[2020-10-16 06:25] LABS: Hematocrit 24.6 % (36-46); Hemoglobin 7.9 g/dL (12.0-16.0); Mean Corpuscular Hemoglobin 28.5 PG (26-34); Mean Corpuscular Volume 89.3 fL (80-100); Platelet Count 253 X10^3/uL (150-400); Red Blood Cell Count 2.75 X10^6/uL (4.0-5.2); Red Cell Distribution Width 16.7 % (11.6-14.8); White Blood Cell Count 8.1 X10^3/uL (4.5-11.0)
[2020-10-16 06:28] LABS: BUN Creatinine Ratio 13.9 (6-22); Blood Urea Nitrogen 32 mg/dL (7-17); Calcium 8.7 mg/dL (8.4-10.2); Carbon Dioxide 23 mmol/L (22-32); Chloride 109 mmol/L (98-107); Estimated Glomerular Filt Rate 20.1 mL/min (>60); Glucose 107 mg/dL (80-110); HEMOLYSIS < 15 (0-50); Magnesium 1.4 mg/dL (1.6-2.3); Potassium 4.2 mmol/L (3.4-5.1); Sodium 137 mmol/L (137-145)
[2020-10-16] MEDS: MAGNESIUM SULFATE 2 GM/50 ML PIGGYBACK IV (08:06)
[2020-10-16] MEDS: DICYCLOMINE 10 MG CAPSULE PO ×2 (08:29→20:49)
[2020-10-16] MEDS: ASPIRIN EC 81 MG TABLET PO (08:30)
[2020-10-16] MEDS: EZETIMIBE 10 MG TABLET PO (08:30)
[2020-10-16] MEDS: PANTOPRAZOLE DR 40 MG TABLET PO (08:30)
[2020-10-16] MEDS: lisinopriL 20 MG TABLET 40 MG PO (08:31)
[2020-10-16] MEDS: ACETAMINOPHEN 325 MG TABLET 975 MG PO ×2 (08:31→20:24)
--- NOTE | 2020-10-16 08:31 | PM.PNPO.1 ---
Subjective Subjective Date Patient Seen: 10/16/20 Time Patient Seen: 08:31 Interval history: Pain is mild. Denies fever or chills. No nausea or vomiting. Exam Vital Signs (past 8 hours): - 10/16/20 04:19 10/16/20 07:37 10/16/20 08:08 Temperature 97.4 F L 97.2 F L Pulse Rate 75 62 65 Respiratory Rate 16 16 16 Blood Pressure 131/55 L 118/46 L Pulse Oximetry 94 96 95 Oxygen Delivery Method Room Air Oxygen Flow Rate 0 Narrative Exam Narrative: Pleasant 85-year-old female resting comfortably in bed in no apparent distress. Patient is having breakfast. Scant drainage on the dressing. Hemovac in place with SS drainage. 5 mL last shift. Motor functions intact bilateral lower extremities. Sensation grossly intact to light touch bilateral lower extremities. Both legs are warm and dry. Objective Labs Result Diagrams: 10/16/20 05:58 10/16/20 05:58 Labs: Laboratory Results - last 24 hr 10/16/20 10/16/20 05:58 05:58 WBC 8.1 RBC 2.75 L Hgb 7.9 L Hct 24.6 L MCV 89.3 MCH 28.5 MCHC 32.0 RDW 16.7 H Plt Count 253 Sodium 137 Potassium 4.2 Chloride 109 H Carbon Dioxide 23 BUN 32 H Creatinine 2.31 H Estimated GFR 20.1 L BUN/Creatinine Ratio 13.9 Glucose 107 Calcium 8.7 Magnesium 1.4 L [facility] CLIA ID [id number] [address] [place] [address] RUN DATE: 10/16/20 Specimen Inquiry PAGE 1 RUN TIME: 833 Name: Debbie Allen Age/Sex: 85/F Attend Dr: Rupal Loya MD Unit#: [id number] : 1935Location: 205-1 Re10/11/20 Disch: Status: ADM IN SPEC #: [id number] CINTIA: 10/15/20 STATUS: RES REQ #: [id number] SPDESC: RECD: 10/15/[address]: Mirna Mcdonough MD SOURCE: Back ENTR: 10/15/20 [facility] DR: Brenda Dotson P.A-C, Dawei MD FAX TO: ORDERED: WOUND Cx and GS COMMENTS: Comment LEFT SIDE LUMBAR SPINE Procedure Result Verified Site Gram Stain Final 10/15/20 No Organism Seen No organisms seen White blood cells Occasional WBC seen Aerobic Culture for wounds Pending Anaerobic Culture Final 10/15/20 Test not performed [facility] Medical History Abnormal breast biopsy Asthma due to environmental allergies Breast cancer, left (06/2011) Cataract (lens) fragments in eye following cataract surgery, bilateral Cervical cancer (1973) Diabetes Diabetic peripheral neuropathy Difficulty swallowing Eczema GERD (gastroesophageal reflux disease) Gout Herniated nucleus pulposus, L3-4 left HLD (hyperlipidemia) HNP (herniated nucleus pulposus), thoracic HTN (hypertension) Hypothyroidism Kidney infection Lumbar radiculopathy Sacrococcygeal disorders, not elsewhere classified Status post lumbar spinal arthrodesis Vertebral fracture Vertigo Wound abscess Surgical History H/O bilateral mastectomy H/O hysterectomy for benign disease History of bunionectomy of right great toe History of left knee replacement History of lumbar spinal fusion History of surgery History of total right knee replacement Hx of bilateral cataract extraction S/P trigger finger release (2013) Family History Father Congestive heart failure Advanced cirrhosis of liver Grandmother Congestive heart failure Social History household members: none Smoking Status: Former smoker alcohol intake: current Assessment & Plan Post-op Postoperative Procedures: Procedures Operation Date: 10/15/20 07:45 Actual Procedures Side Surgeon p I&D spine Mirna Mcdonough MD Postop day 1 status post excisional lumbar spine debridement with debridement of skin and subcutaneous tissues and necrotic muscle. Keep dressing clean and dry. Continue antibiotics and careful monitoring of renal function. Monitor cultures and possible discharge to home on antibiotics. Mobilize with physical therapy. Limit bending, twisting, lifting. Creatinine 2.31 today. Internal Medicine managing acute kidney injury secondary to ATN, present on admission, type 2 diabetes, hypertension, hypothyroidism Disposition home in 1-2 days pending culture results.
[2020-10-16] MEDS: LEVOTHYROXINE 88 MCG TABLET PO (08:37)
--- NOTE | 2020-10-16 09:42 | P.PN_ITS ---
Subjective Subjective Date Patient Seen: 10/16/20 Time Patient Seen: 09:43 Interval history: Patient seen after her surgery this morning. She feels well, with only minimal twinges of back pain. She denies any weakness or numbness at this time. Unfortunately during her surgery it appear that some of infection was near her hardware, cultures were sent and the patient has been stable on antibiotic therapy. Cultures from OR without growth, prior cultures sensitive to ceftriaxone. Her creatinine improved down to 2.31 this morning. Exam Vital Signs (past 8 hours): - 10/16/20 04:19 10/16/20 07:37 10/16/20 08:08 Temperature 97.4 F L 97.2 F L Pulse Rate 75 62 65 Respiratory Rate 16 16 16 Blood Pressure 131/55 L 118/46 L Pulse Oximetry 94 96 95 Oxygen Delivery Method Room Air Oxygen Flow Rate 0 Narrative Exam Narrative: GEN: no acute distress, well appearing HEENT: moist mucous membranes, PERRL Neck: No JVD, trachea midline Respiratory: Lungs are clear with no wheezes, rhonchi, rales Cardiac: Regular rate and rhythm no murmurs no bruits Abdomen: Soft, nontender, normal bowel sounds Skin: no rashes noted Neurologic: moving all extremities, with no gross abnormalities Spine: back bandaged Extremities: trace bilateral edema in feet, no joint effusions Psych: Cooperative, fluent speech Objective Labs Result Diagrams: 10/16/20 05:58 10/16/20 05:58 Labs: Laboratory Results - last 24 hr 10/16/20 10/16/20 05:58 05:58 WBC 8.1 RBC 2.75 L Hgb 7.9 L Hct 24.6 L MCV 89.3 MCH 28.5 MCHC 32.0 RDW 16.7 H Plt Count 253 Sodium 137 Potassium 4.2 Chloride 109 H Carbon Dioxide 23 BUN 32 H Creatinine 2.31 H Estimated GFR 20.1 L BUN/Creatinine Ratio 13.9 Glucose 107 Calcium 8.7 Magnesium 1.4 L PFSH Medical History Abnormal breast biopsy Asthma due to environmental allergies Breast cancer, left (06/2011) Cataract (lens) fragments in eye following cataract surgery, bilateral Cervical cancer (1973) Diabetes Diabetic peripheral neuropathy Difficulty swallowing Eczema GERD (gastroesophageal reflux disease) Gout Herniated nucleus pulposus, L3-4 left HLD (hyperlipidemia) HNP (herniated nucleus pulposus), thoracic HTN (hypertension) Hypothyroidism Kidney infection Lumbar radiculopathy Sacrococcygeal disorders, not elsewhere classified Status post lumbar spinal arthrodesis Vertebral fracture Vertigo Wound abscess Surgical History H/O bilateral mastectomy H/O hysterectomy for benign disease History of bunionectomy of right great toe History of left knee replacement History of lumbar spinal fusion History of surgery History of total right knee replacement Hx of bilateral cataract extraction S/P trigger finger release (2013) Family History Father Congestive heart failure Advanced cirrhosis of liver Grandmother Congestive heart failure Social History household members: none Smoking Status: Former smoker alcohol intake: current Assessment & Plan Assessment & Plan narrative: Ms. Allen is an 85W with PMH of recent spinal surgery complicated by sepsis from infected surgical wound currently on antibiotics for six weeks, with unhealing wound, worsening drainage and plan for return to OR for debridement. Medicine consulted for ESTEBAN, which has been improving. 1. ESTEBAN secondary to ATN, present on admission. -creatinine increased to 3.37, from normal baseline of 0.7-0.9. Now improved to 2.31 with continued downtrend since admission. -BUN normal currently, K wnl, no shortness of breath so no need for urgent dialysis -etiology is ATN likely from a combination of medications including cipro, naproxen, celeocoxib, lisinopril -all nephrotoxic medications stopped -switched antibiotics to ceftriaxone as has less renal effects, this covers cultures from her wound back in september. -renal ultrasound shows no obstruction 2. Infected spinal surgical wound, acute -patient with poor nutrition, and was lying in bed on wound, and has ESTEBAN all may have contributed to poor healing -no evidence of sepsis -surgery did debridement, appeared to have extension of infection to hardware. Will follow up final cultures, contact ID after cultures result for antibiotic recommendations and duration. -cultures pending, and plan to continue antibiotics but switched to ceftriaxone as above for less renal effect. Likely will need prolonged antibiotic therapy. -PICC line already placed for difficult IV access. Current OR cultures without growth but a few still pending. 3. Diabetes, Type 2, on insulin -continue home dose of insulin at 16U BID -ordered for achs glucose checks, and insulin sliding scale 4. Hypertension -hold lisinopril for now with relatively low blood pressure and ATN. 5. Hypothyroidism -continue home dose synthroid Code status: Full, contact is daughter Shanice [facility] will continue to follow along. Please reach out with additional questions.
--- NOTE | 2020-10-16 10:15 | PT.IPTN ---
Current Diagnoses Infection following a procedure, deep incisional surgical site, initial encounter (10/11/20) Surgery Performed Operation Date: 10/15/20 07:45 Actual Procedures p I&D spine - Mirna Mcdonough MD Physical Therapy Treatment Note M2 PT-IP Current Condition Start: 10/13/20 16:14 Freq: NEEDED Status: Active Protocol: Document 10/13/20 12:55 AB (Rec: 10/13/20 16:31 AB [id number]) Physical Therapy Current Condition Current Condition Evaluation Date 10/13/20 Treatment Diagnosis lumbar wound infection; difficulty in walking Onset Date 10/11/20 Precautions Lumbar Precautions Log Roll,No Twisting,Limit Bending,Lifting Restriction of 10 lbs,Gait Belt above Incisional Area M3 PT-IP Subjective Start: 10/13/20 16:14 Freq: NEEDED Status: Active Protocol: Document 10/16/20 10:15 AB (Rec: 10/16/20 13:16 AB [email or web address]) Subjective Physical Therapy Visit Type Type Treatment Note Visit Start Time 10:15 Visit Stop Time 10:35 Total Visit Minutes 20 Notes pt s/p lumbar wound I&D . PT assessed pt's mobility and has no significant change from last tx and re-eval is not necessary. PT goals are still appropriate for pt. PT seen for treatment today. Number of BASE BRANDER Visits 0 Physical Therapy Visit Comments Patient Comments agreeable to do PT Therapy Pain Assessment Pain When Pain Assessed At Rest Pain Present Pain Present Pain Reported Location lower back Intensity 3 Scale Used Numeric (0 - 10) Pain Management Techniques Distraction,Modification of Treatment,Re-positioning, Timing of Activity with Medications M4 PT-IP Mobility and Gait Start: 10/13/20 16:14 Freq: NEEDED Status: Active Protocol: Document 10/16/20 10:15 AB (Rec: 10/16/20 13:16 AB [email or web address]) PT-Bed Mobility Assessment Rolling Type of Rolling Log Rolling Level of Assist Standby Assistance Supine to Sit Supine to Sit Standby Assistance,Bedrails PT-Transfer Assessment Sit to and From Stand Sit to and from Stand Contact Guard Assistance,1 Person Assistance,Use of Upper Extremities Equipment Transfer Assistive Device Gait Belt,Front Wheeled Walker Orthotic/Prosthetic Devices or Brace: No Transfers Transfer Destination Chair Transfer Technique ambulated using FWW Transfer Ability Level of Assist Contact Guard Assistance,1 Person Assistance,Use of Upper Extremities Comments Mobility Comments pt recalls her precautions and log roll bed mobility. completed supine to sit log roll SBA using bed rail. pt has more pain on R low back and opted to get out of the L side. pt also stated that she has a lift recliner that she can sleep on depending on how she feels. completed sit to stand from EOB CGA and ambulated in room ~ 30 ft using FWW CGA. pt requested to sit on chair. positioned on chair. call light and table placed within reach. informed nurse/NAC that pt is up on chair and is ready for her wound dressing change. Gait Assessment Gait Gait Assistance Required: Contact Guard Assist Distance (Feet) 30 Able to Maintain Weight Bearing Status Yes During Gait Assistive Devices Assistive Device None,Front Wheeled Walker Orthotic/Prosthetic Devices or Brace: No Gait Deviations General Gait Pattern Antalgic,Decreased Stride Length,Decreased Feet Clearance Factors Limiting Gait Function Factors Limiting Gait Function Decreased Activity Tolerance, Decreased Strength,Limited Range of Motion,Pain,Poor Balance M5 PT-IP Objective Assessments Start: 10/13/20 16:14 Freq: NEEDED Status: Active Protocol: Document 10/13/20 12:55 AB (Rec: 10/13/20 16:31 AB [id number]) Orientation Orientation/Cognition Level of Alertness Alert Orientation Name,Place,Situation Language Function Ability No Deficits Noted Safety Awareness Understands Safety Issues Memory Description No Deficits Noted Gross Range of Motion Lower Extremity ROM Assessment Within Functional Limits Strength Lower Extremity Strength Assessment Left Impaired Hip 4-/5 Knee 3+/5 Coordination Assessment Gross Coordination Gross Coordination WNL Muscle Tone Muscle Tone WNL Yes M6 PT-IP Treatment Start: 10/13/20 16:14 Freq: NEEDED Status: Active Protocol: Document 10/16/20 10:15 AB (Rec: 10/16/20 13:16 AB [email or web address]) Physical Therapy Treatment Education Education Provided Safety M7 PT-IP Assessment and Plan Start: 10/13/20 16:14 Freq: NEEDED Status: Active Protocol: Document 10/16/20 10:15 AB (Rec: 10/16/20 13:16 AB [email or web address]) PT Summary Assessment and Plan Summary Impairments Pain,ROM,Strength,Balance, Coordination,Sensation,Bed Mobility,Transfers,Gait, Activity Tolerance Progress Towards Goals Slow Progress due to Pain,Slow Progress due to Medical Issues Assessment Summary pt requiring CGA with mobility and had decrease activity tolerance affecting independence and safety. pt plans to go home with family rotating around to assist her so she can have 24/7 assist at home. pt plans to go home and does not want to go to SNF . will continue to assess progress and will conduct caregiver training when appropriate. will also conduct stair climbing training prior to d/c. pt will benefit from HHPT. Goals Bed Mobility Goal Independent Transfer Goal Independent,Front Wheeled Walker Gait Goal Independent,Front Wheel Walker Gait Distance 200 Other Goals up/down 2 platform step using FWW SBA Days to Meet Goals 5 Frequency of Treatment Frequency Of Treatment Once a Day Treatment Plan Physical Therapy Treatment Plan Bed Mobility Training,Transfer Training,Gait Training, Therapeutic Exercise,Balance Retraining,Post Op Education, Discharge Planning,Hot or Cold Pack,Neuromuscular Re-ed, Coordination Retraining,Manual Therapy Precautions Lumbar Precautions Log Roll,No Twisting,Limit Bending,Lifting Restriction of 10 lbs,Gait Belt above Incisional Area Recommendations To Nursing Amount of Assist Needed 1 Person Assist Discharge Recommendations PT Discharge Recommendations Home with Assistance, Outpatient PT Transportation Needs at Discharge Private Vehicle
[2020-10-16] MEDS: cefTRIAXone 1,000 MG in SODIUM CHLORIDE 0.9% 100 ML 200 ML IV (11:14)
--- NOTE | 2020-10-16 11:59 | CM.DPNOTE ---
DCP Cont Spoke w/patient this morning to review DCP; patient eager to return home when medically stable, patient states she will DC home w/assist from her dtr and two adult grandchildren rotating shifts. Patient remains agreeable to cristi services upon DC. DCP team will continue to follow closely JW
--- NOTE | 2020-10-16 12:04 | OT.IP.EVAL ---
Current Diagnoses Infection following a procedure, deep incisional surgical site, initial encounter (10/11/20) Surgery Performed Operation Date: 10/15/20 07:45 Actual Procedures p I&D spine - Mirna Mcdonough MD Past Medical History (Last Reviewed 10/16/20 @ 08:33 by Edgardo Pastrana PA-C) Abnormal breast biopsy Asthma due to environmental allergies Breast cancer, left (06/2011) Cataract (lens) fragments in eye following cataract surgery, bilateral Cervical cancer (1973) Diabetes Diabetic peripheral neuropathy Difficulty swallowing Eczema GERD (gastroesophageal reflux disease) Gout Herniated nucleus pulposus, L3-4 left HLD (hyperlipidemia) HNP (herniated nucleus pulposus), thoracic HTN (hypertension) Hypothyroidism Kidney infection Lumbar radiculopathy Sacrococcygeal disorders, not elsewhere classified Status post lumbar spinal arthrodesis Vertebral fracture Vertigo Wound abscess Surgical History (Last Reviewed 10/16/20 @ 08:33 by Edgardo Pastrana PA-C) H/O bilateral mastectomy H/O hysterectomy for benign disease History of bunionectomy of right great toe History of left knee replacement History of lumbar spinal fusion History of surgery History of total right knee replacement Hx of bilateral cataract extraction S/P trigger finger release (2013) Occupational Therapy Inpatient Evaluation/Re-Eval M1 PT/OT-IP Prior Functional Status Start: 10/13/20 16:14 Freq: NEEDED Status: Active Protocol: Document 10/16/20 14:03 CGR (Rec: 10/16/20 14:15 CGR [id number]) Medical Review Prior Functional Status Medical History Reviewed Yes Communication able to make needs known Mobility and Gait pt s/o lumbar fusion last september 13 and was independent with all mobilities and ambulation without AD. pt was d/c to SNF rehab afterwards but pt had lumbar wound infection and underwent I&D september 27. pt d/c to SNF again afterwards. Pt stated that she is moving and walking at the SNF using FWW. pt now back for a possible I& D of lumbar wound again pending kidney function per EMR. pt stated that she plans to d/c straight home from the hospital this time and does not want to go to SNF. Activities of Daily Living and IADL's Pt was IND in all ADLs prior to admit for original sx. Social History Household Members none Living Arrangements Mobile home Number of Floors (Floors) One Floor Number of Stairs To Enter/Railing? 2 platform steps + ramp to enter the house Home Environment Standard Height Toilet,Walk in Shower,Built-In Shower Seat Home Equipment Front Wheel Walker,Straight Cane,Raised Toilet Seat w/ Armrests,Grab Bars Near Toilet ,Grab Bars In Shower Additional Social History Comment pt stated that she has her family doing rotations to assist her at home. Pt has a walk in tub as well as a walk in shower. M1 PT/OT-IP Prior Functional Status Start: 10/16/20 14:03 Freq: NEEDED Status: Active Protocol: Document 10/16/20 14:03 CGR (Rec: 10/16/20 14:15 CGR [id number]) Medical Review Prior Functional Status Medical History Reviewed Yes Communication able to make needs known Mobility and Gait pt s/o lumbar fusion last september 13 and was independent with all mobilities and ambulation without AD. pt was d/c to SNF rehab afterwards but pt had lumbar wound infection and underwent I&D september 27. pt d/c to SNF again afterwards. Pt stated that she is moving and walking at the SNF using FWW. pt now back for a possible I& D of lumbar wound again pending kidney function per EMR. pt stated that she plans to d/c straight home from the hospital this time and does not want to go to SNF. Activities of Daily Living and IADL's Pt was IND in all ADLs prior to admit for original sx. Social History Household Members none Living Arrangements Mobile home Number of Floors (Floors) One Floor Number of Stairs To Enter/Railing? 2 platform steps + ramp to enter the house Home Environment Standard Height Toilet,Walk in Shower,Built-In Shower Seat Home Equipment Front Wheel Walker,Straight Cane,Raised Toilet Seat w/ Armrests,Grab Bars Near Toilet ,Grab Bars In Shower Additional Social History Comment pt stated that she has her family doing rotations to assist her at home. Pt has a walk in tub as well as a walk in shower. M2 OT-IP Current Condition Start: 10/16/20 14:03 Freq: Status: Active Protocol: Document 10/16/20 14:03 CGR (Rec: 10/16/20 14:15 CGR [id number]) Occupational Therapy Current Condition Current Condition Evaluation Date 10/16/20 Treatment Diagnosis ESTEBAN and sx infection to previous back sx. Diagnosis Onset Date 10/11/20 Post Operative Precautions Lumbar Precautions Log Roll,No Twisting,Limit Bending,Lifting Restriction of 10 lbs,Gait Belt above Incisional Area M3 OT- IP Subjective and Pain Start: 10/16/20 14:03 Freq: Status: Active Protocol: Document 10/16/20 14:03 CGR (Rec: 10/16/20 14:15 R [id number]) OT- Subjective Occupational Therapy Visit Type Type Initial Evaluation Visit Start Time 11:35 Visit Stop Time 12:04 Total Visit Minutes 29 OT Pain Assessment Pain When Pain Assessed At Rest Pain Present Pain Present Pain Reported Location lower back Intensity 3 Scale Used Numeric (0 - 10) Management Techniques Modification of Treatment,Re- positioning,Timing of Activity with Medications M4 OT- IP ADL's Start: 10/16/20 14:03 Freq: Status: Active Protocol: Document 10/16/20 14:03 CGR (Rec: 10/16/20 14:15 R [id number]) OT CFG-Uzcb-Kmnyprr General Evaluation Self-Feeding Ability Independent Comments OT Self-Feeding Comments seated in chair. OT ADL-Grooming Comments OT Grooming Comments not performed, pt states she already performed today. OT ADL-Oral Care Comments Oral Care Comments not performed, pt states she already performed today. OT ADL-Dressing Comments OT Dressing Comments Pt states that she is aware of the use of a hip kit and has one for use. OT ADL-Toileting General Evaluation Toileting Ability Moderate Assistance Areas Needing Assistance Perform Perineal Hygiene Comments OT Toileting Comments Pt was able to manage clothing but needed assist for back pericare. Discussed options with pt and pt's daughter who was present in the room. OT ADL-Bathing Comments OT Bathing Comments not performed M5 OT- IP IADL's Start: 10/16/20 14:03 Freq: Status: Active Protocol: Document 10/16/20 14:03 CGR (Rec: 10/16/20 14:15 R [id number]) OT-Instrumental Activities of Daily Living Deficits IADL Deficits Identified No Deficits Home Safety Awareness Awareness of Need for Assistance at Home Good Awareness Ability to Problem Solve Emergency Able to Problem Solve Situations Medication Management Medication Management No Deficits Identified Money Management Money Management No Deficits Identified Meal Preparation Meal Preparation Caregiver Provides Assist Company Driver Company Driver Caregiver Provides Assist Driving Driving Comments 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 M6 OT- IP Functional Cognition Start: 10/16/20 14:03 Freq: Status: Active Protocol: Document 10/16/20 14:03 CGR (Rec: 10/16/20 14:15 CGR [id number]) Cognitive Factors Limiting Selfcare Function Cognitive Ability Level of Alertness Alert Patient Orientation Name,Age,Birthday,Month,Date, Year,Day of Week,Place, Situation Attention Span Ability Capable of Focused Attention, Capable of Sustained Attention OT- Vision and Hearing OT- Hearing Assessment OT- Hearing Assessment WFL OT- Vision Assessment Visual Acuity Glasses All The Time Visual Attentiveness WFL Occular Pursuits WFL Visual Convergence WFL Vision Assessment Comments Pt wearing trifocals. M7 OT- IP Mobility and Balance Start: 10/16/20 14:03 Freq: Status: Active Protocol: Document 10/16/20 14:03 CGR (Rec: 10/16/20 14:15 CGR [id number]) OT-Transfer Assessment Sit to and From Stand Sit to and from Stand Standby Assistance Transfers Transfer Ability Standby Assistance Technique Transfer Destination Chair,Toilet Transfer Technique Stand Step Pivot Devices Transfer Assistive Devices Gait Belt,Front Wheeled Walker Comments Mobility Comments to and from the bathroom. OT- Balance Assessment Sitting Balance and Reactions Static Sitting Balance Ability Normal Dynamic Sitting Balance Ability Good M8 OT- IP Objective Assessments Start: 10/16/20 14:03 Freq: Status: Active Protocol: Document 10/16/20 14:03 CGR (Rec: 10/16/20 14:15 CGR [id number]) OT Gross Range of Motion Upper Extremity Range of Motion Assessment Within Functional Limits ROM Impairments Except pt states short arms make back pericare difficult OT Strength Upper Extremity Strength Assessment Within Functional Limits Comments Strength Comments 4/5 OT- Coordination Assessment Upper Extremity Finger to Nose Test Within Functional Limits Finger Tapping Test Within Functional Limits OT-Muscle Tone Assessment Muscle Tone WNL Yes OT Sensation Assessment Edema Edema Absent M9 OT- IP Assessment and Plan Start: 10/16/20 14:03 Freq: Status: Active Protocol: Document 10/16/20 14:03 CGR (Rec: 10/16/20 14:15 CGR [id number]) OT Summary Assessment and Plan Potential Rehabilitation Potential Excellent Analytic Complexity at Evaluation Low Summary OT Impairments Pain Progress Towards Goals Safe For Discharge,Goals Met Assessment Summary Pt presents as a low complexity evaluation s/p admit for ESTEBAN and back infection at previous back sx site. Pt states she wants to go home and daughter confirmed significant family assist. Pt knows her back precautions and follows back precautions throguhout OT session. No further OT needs. Recommend d/ c home with family. Frequency of Treatment Frequency Of Treatment Discharge Discharge Recommendations OT Discharge Recommendations Home with Assistance Transportation Needs at Discharge Private Vehicle
[2020-10-16] MEDS: INSULIN LISPRO 100 UNIT/ML 3ML VIAL SUBCUT (12:11)
--- NOTE | 2020-10-16 17:53 | PC.NURSE ---
Addendum entered by Flaca Miller R.N. 10/16/20 21:53: Satisfactory post op course. Denies discomfort each time asked. DELMY midline intact/patent. HS CBG = 189, ususal lantus dose given. Back dsg CDI. Hemavac intact/patent Murillo cath patetn 550cc clear, yellow urine. Call light w/in reach, bed alarm on for pt safety. Continue w/plan of care. Addendum entered by Flaca Miller R.N. 10/16/20 18:02: SCD's on at this time. Original Note: Pt watching TV. Denies discomfort at this time DELMY midline intact/patent. Dsg to back CDI, hemavac intact/patent. AC CBG = 100, no coverage required. Murillo cath patent clear yellow urine. Call light w/in reach, bed alarm on for pt safety.
[2020-10-16] MEDS: INSULIN GLARGINE 100 UNIT/ML 3ML PEN 16 UNIT SUBCUT (20:50)
[2020-10-17] VITALS: BP 121/53; PULSE 61; RESP 18; TEMP 36.2; O2SAT 96
--- NOTE | 2020-10-17 00:43 | PC.NURSE ---
patient is alert and oriented. Breath sounds CTA with RA sat of 96%. HRR. Denies nausea. BT present and is passing flatus. Indwelling catheter is patent; urine is clear, light yellow. Is able to move self in bed. Gait not assessed at this time. Dressing to back is intact w/shadow drainage noted; hemovac is intact and compressed. Left foot pedal edema. Denies pain. Back wound culture is growing gm + cocci so is currently on contact precautions awaiting identification/sensitivities. Wearing bilateral calf SCD's. Fall risk score is high and bed alarm is activated.
[2020-10-17] MEDS: LEVOTHYROXINE 88 MCG TABLET PO (05:38)
[2020-10-17] MEDS: SODIUM CHLORIDE 0.9% FLUSH 10 ML IV ×3 (05:38→21:11)
[2020-10-17 06:00] VITALS: BP 134/77; PULSE 64; RESP 18; TEMP 36.3; O2SAT 98
[2020-10-17 06:22] LABS: BUN Creatinine Ratio 12.6 (6-22); Blood Urea Nitrogen 30 mg/dL (7-17); Calcium 8.7 mg/dL (8.4-10.2); Carbon Dioxide 24 mmol/L (22-32); Chloride 109 mmol/L (98-107); Estimated Glomerular Filt Rate 19.4 mL/min (>60); Glucose 83 mg/dL (80-110); HEMOLYSIS < 15 (0-50); Magnesium 1.8 mg/dL (1.6-2.3); Potassium 4.1 mmol/L (3.4-5.1); Sodium 139 mmol/L (137-145)
[2020-10-17 07:56] VITALS: BP 137/58; PULSE 62; RESP 16; TEMP 36.2; O2SAT 96
[2020-10-17] MEDS: PANTOPRAZOLE DR 40 MG TABLET PO (09:09)
[2020-10-17] MEDS: AMLODIPINE 5 MG TABLET PO (09:09)
--- NOTE | 2020-10-17 09:09 | P.PN_ITS ---
Subjective Subjective Date Patient Seen: 10/17/20 Time Patient Seen: 09:09 Interval history: Pain is well controlled. She denies any significant increase in pain in lower back. She does complain of some itching about the dressing. Exam Vital Signs (past 8 hours): - 10/17/20 06:00 10/17/20 07:56 Temperature 97.4 F L 97.2 F L Pulse Rate 64 62 Respiratory Rate 18 16 Blood Pressure 134/77 137/58 L Pulse Oximetry 98 96 Oxygen Delivery Method Room Air Oxygen Flow Rate 0 Narrative Exam Narrative: Pleasant 85-year-old female resting comfortably in bed in no apparent distress, eating breakfast. Dressing is clean dry intact without strike through. Hemovac in place with SS drainage. 5 mL last shift. Motor functions intact bilateral lower extremities. Sensation grossly intact to light touch bilateral lower extremities. Both legs are warm and dry. Objective Labs Result Diagrams: 10/16/20 05:58 10/17/20 05:39 Labs: Laboratory Results - last 24 hr 10/17/20 05:39 Sodium 139 Potassium 4.1 Chloride 109 H Carbon Dioxide 24 BUN 30 H Creatinine 2.39 H Estimated GFR 19.4 L BUN/Creatinine Ratio 12.6 Glucose 83 Calcium 8.7 Magnesium 1.8 PFSH Medical History Abnormal breast biopsy Asthma due to environmental allergies Breast cancer, left (06/2011) Cataract (lens) fragments in eye following cataract surgery, bilateral Cervical cancer (1973) Diabetes Diabetic peripheral neuropathy Difficulty swallowing Eczema GERD (gastroesophageal reflux disease) Gout Herniated nucleus pulposus, L3-4 left HLD (hyperlipidemia) HNP (herniated nucleus pulposus), thoracic HTN (hypertension) Hypothyroidism Kidney infection Lumbar radiculopathy Sacrococcygeal disorders, not elsewhere classified Status post lumbar spinal arthrodesis Vertebral fracture Vertigo Wound abscess Surgical History H/O bilateral mastectomy H/O hysterectomy for benign disease History of bunionectomy of right great toe History of left knee replacement History of lumbar spinal fusion History of surgery History of total right knee replacement Hx of bilateral cataract extraction S/P trigger finger release (2013) Family History Father Congestive heart failure Advanced cirrhosis of liver Grandmother Congestive heart failure Social History household members: none Smoking Status: Former smoker alcohol intake: current Assessment & Plan Assessment & Plan narrative: Postop day 2 status post excisional lumbar spine debridement with debridement of skin and subcutaneous tissues and necrotic muscle with Dr. Mcdonough. Keep dressing clean and dry. Continue antibiotics and careful monitoring of renal function. Mobilize with physical therapy. Limit bending, twisting, lifting. Creatinine 2.39 today, up from 2.31 yesterday. Internal Medicine managing acute kidney injury secondary to ATN, present on admission, type 2 diabetes, hypertension, hypothyroidism Disposition home in 1-2 days pending renal function and recommendations from ID service. Several intraoperative cultures were taken only 1 has grown out bacteria this grew out Staphylococcus Werneri. Patient has a previous history surgical site infection and at last I and D grew out E coli and proteus. Unclear if current Staphylococcus culture is a contaminant or if this is truly the pathogen. Internal Medicine is in discussion with Infectious Disease over [facility] regarding duration and course of antibiotics. Time Spent With Patient Time with patient: less than 15 minutes
[2020-10-17] MEDS: ASPIRIN EC 81 MG TABLET PO (09:10)
[2020-10-17] MEDS: EZETIMIBE 10 MG TABLET PO (09:10)
[2020-10-17] MEDS: cefTRIAXone 1,000 MG in SODIUM CHLORIDE 0.9% 100 ML 200 ML IV (09:10)
[2020-10-17] MEDS: DICYCLOMINE 10 MG CAPSULE PO ×2 (09:17→21:11)
[2020-10-17] MEDS: HYDROCODONE/ACET 5/325 TABLET 1 TAB PO (09:17)
--- NOTE | 2020-10-17 10:44 | PM.PN.1 ---
Subjective Subjective Date Patient Seen: 10/17/20 Time Patient Seen: 10:44 Interval history: She feels well, with only minimal twinges of back pain. She denies any weakness or numbness at this time. Unfortunately during her surgery it appear that some of infection was near her hardware, cultures were sent and the patient has been stable on antibiotic therapy. Denies fever or chills. Cultures 1/5 growing staph warneri. Prior cultures with dowd-sensitive E. coli. Discussed with ID at [facility] today, recommended addition of daptomycin while admitted and on discharge if kidney function improved can give 1 dose of dalbavancin while awaiting PCR results on tissue samples from (ordered today). Recommended follow up with infectious disease clinic within 1 week of discharge. Exam Vital Signs (past 8 hours): - 10/17/20 06:00 10/17/20 07:56 Temperature 97.4 F L 97.2 F L Pulse Rate 64 62 Respiratory Rate 18 16 Blood Pressure 134/77 137/58 L Pulse Oximetry 98 96 Oxygen Delivery Method Room Air Oxygen Flow Rate 0 Narrative Exam Narrative: GEN: no acute distress, well appearing HEENT: moist mucous membranes, PERRL Neck: No JVD, trachea midline Respiratory: Lungs are clear with no wheezes, rhonchi, rales Cardiac: Regular rate and rhythm no murmurs no bruits Abdomen: Soft, nontender, normal bowel sounds Skin: no rashes noted Neurologic: moving all extremities, with no gross abnormalities Spine: back bandaged Extremities: trace bilateral edema in feet, no joint effusions Psych: Cooperative, fluent speech Objective Labs Result Diagrams: 10/16/20 05:58 10/17/20 05:39 Labs: Laboratory Results - last 24 hr 10/17/20 05:39 Sodium 139 Potassium 4.1 Chloride 109 H Carbon Dioxide 24 BUN 30 H Creatinine 2.39 H Estimated GFR 19.4 L BUN/Creatinine Ratio 12.6 Glucose 83 Calcium 8.7 Magnesium 1.8 [facility] Medical History Abnormal breast biopsy Asthma due to environmental allergies Breast cancer, left (06/2011) Cataract (lens) fragments in eye following cataract surgery, bilateral Cervical cancer (1973) Diabetes Diabetic peripheral neuropathy Difficulty swallowing Eczema GERD (gastroesophageal reflux disease) Gout Herniated nucleus pulposus, L3-4 left HLD (hyperlipidemia) HNP (herniated nucleus pulposus), thoracic HTN (hypertension) Hypothyroidism Kidney infection Lumbar radiculopathy Sacrococcygeal disorders, not elsewhere classified Status post lumbar spinal arthrodesis Vertebral fracture Vertigo Wound abscess Surgical History H/O bilateral mastectomy H/O hysterectomy for benign disease History of bunionectomy of right great toe History of left knee replacement History of lumbar spinal fusion History of surgery History of total right knee replacement Hx of bilateral cataract extraction S/P trigger finger release (2013) Family History Father Congestive heart failure Advanced cirrhosis of liver Grandmother Congestive heart failure Social History household members: none Smoking Status: Former smoker alcohol intake: current Assessment & Plan Assessment & Plan narrative: Ms. Allen is an 85W with PMH of recent spinal surgery complicated by sepsis from infected surgical wound currently on antibiotics for six weeks, with unhealing wound, worsening drainage and plan for return to OR for debridement. Medicine consulted for ESTEBAN, which has been improving. 1. ESTEBAN secondary to ATN, present on admission. -creatinine increased to 3.37, from normal baseline of 0.7-0.9. Now improved to 2.3 but did uptrend slightly today. -BUN normal currently, K wnl, no shortness of breath so no need for urgent dialysis -etiology is ATN likely from a combination of medications including cipro, naproxen, celeocoxib, lisinopril -all nephrotoxic medications stopped, continue to hold lisinopril. -renal ultrasound shows no obstruction 2. Infected spinal surgical wound, acute -patient with poor nutrition, and was lying in bed on wound, and has ESTEBAN all may have contributed to poor healing -no evidence of sepsis -surgery did debridement, appeared to have extension of infection to hardware. Will follow up final cultures, contact ID after cultures result for antibiotic recommendations and duration. -cultures pending, and plan to continue antibiotics but switched to ceftriaxone as above for less renal effect. Likely will need prolonged antibiotic therapy. -PICC line already placed for difficult IV access. -switched antibiotics to ceftriaxone as has less renal effects, this covers cultures from her wound back in september. Discussed with ID today as new wound cultures with staph warneri but only 1/5. Recommended PCR testing at of tissue samples (ordered today). -in the meantime continue ceftriaxone with plan for at least 2 weeks, add daptomycin and monitor kidney function while admitted. If kidney function improves can give 1x dose of dalbavancin on discharge which would provide adequate coverage for at least one week. - recommended follow up with ID clinic within 1 week of discharge. Call Clinic during weekday to coordinate referral. 3. Diabetes, Type 2, on insulin -continue home dose of insulin at 16U BID -ordered for achs glucose checks, and insulin sliding scale 4. Hypertension -hold lisinopril for now with relatively low blood pressure and ATN. Slightly increased yesterday, started amlodipine instead of losartan at 5 mg daily. 5. Hypothyroidism -continue home dose synthroid Code status: Full, contact is [facility] Pras[facility] will continue to follow along. Please reach out with additional questions.
--- NOTE | 2020-10-17 11:06 | PT.IPTN ---
Current Diagnoses Infection following a procedure, deep incisional surgical site, initial encounter (10/11/20) Surgery Performed Operation Date: 10/15/20 07:45 Actual Procedures p I&D spine - Mirna Mcdonough MD Physical Therapy Treatment Note M2 PT-IP Current Condition Start: 10/13/20 16:14 Freq: NEEDED Status: Active Protocol: Document 10/13/20 12:55 AB (Rec: 10/13/20 16:31 AB [id number]) Physical Therapy Current Condition Current Condition Evaluation Date 10/13/20 Treatment Diagnosis lumbar wound infection; difficulty in walking Onset Date 10/11/20 Precautions Lumbar Precautions Log Roll,No Twisting,Limit Bending,Lifting Restriction of 10 lbs,Gait Belt above Incisional Area M3 PT-IP Subjective Start: 10/13/20 16:14 Freq: NEEDED Status: Active Protocol: Document 10/17/20 10:46 MAGGIE (Rec: 10/17/20 11:06 MAGGIE [id number]) Subjective Physical Therapy Visit Type Type Treatment Note Visit Start Time 09:46 Visit Stop Time 10:06 Total Visit Minutes 20 Number of BILLBOARD ERECTOR Visits 1 Physical Therapy Visit Comments Patient Comments agreeable to do PT Therapy Pain Assessment Pain When Pain Assessed At Rest Pain Present Pain Present Pain Reported M4 PT-IP Mobility and Gait Start: 10/13/20 16:14 Freq: NEEDED Status: Active Protocol: Document 10/17/20 10:46 MAGGIE (Rec: 10/17/20 11:06 MAGGIE [id number]) PT-Bed Mobility Assessment Rolling Type of Rolling Log Rolling Level of Assist Standby Assistance Supine to Sit Supine to Sit Standby Assistance,Bedrails PT-Transfer Assessment Sit to and From Stand Sit to and from Stand Standby Assistance,Use of Upper Extremities Equipment Transfer Assistive Device Gait Belt,Front Wheeled Walker Orthotic/Prosthetic Devices or Brace: No Transfers Transfer Destination Chair,Toilet Transfer Technique Stand Step Pivot Transfer Ability Level of Assist Contact Guard Assistance,1 Person Assistance,Use of Upper Extremities Comments Mobility Comments Pt requested to change brief and use toilet. Completed supine>sit logroll SBA using bed rail. Sit<>stand CGA from bed then to toilet then to chair. Assist with IV and wound vac. Pt required pericare assist then ambulated to chair to don brief. Pt sat on brief then stood to fasten tapes x2. Fatigued after first attempt and needed a seated rest break to complete the brief taping. Pt left in chair with all needs within reach. Gait Assessment Gait Gait Assistance Required: Contact Guard Assist Distance (Feet) 25 Able to Maintain Weight Bearing Status Yes During Gait Assistive Devices Assistive Device Gait Belt,Front Wheeled Walker Orthotic/Prosthetic Devices or Brace: No Gait Deviations General Gait Pattern Antalgic,Decreased Stride Length,Decreased Feet Clearance Factors Limiting Gait Function Factors Limiting Gait Function Decreased Activity Tolerance, Decreased Strength,Limited Range of Motion,Pain,Poor Balance Comments Gait Comments Pt able to use FWW properly needing assist with IV pole only. Pt amabulated from bed to toilet to chair. Refused to ambulate in hallway stating she was too tired. M5 PT-IP Objective Assessments Start: 10/13/20 16:14 Freq: NEEDED Status: Active Protocol: Document 10/13/20 12:55 AB (Rec: 10/13/20 16:31 AB [id number]) Orientation Orientation/Cognition Level of Alertness Alert Orientation Name,Place,Situation Language Function Ability No Deficits Noted Safety Awareness Understands Safety Issues Memory Description No Deficits Noted Gross Range of Motion Lower Extremity ROM Assessment Within Functional Limits Strength Lower Extremity Strength Assessment Left Impaired Hip 4-/5 Knee 3+/5 Coordination Assessment Gross Coordination Gross Coordination WNL Muscle Tone Muscle Tone WNL Yes M6 PT-IP Treatment Start: 10/13/20 16:14 Freq: NEEDED Status: Active Protocol: Document 10/17/20 10:46 MAGGIE (Rec: 10/17/20 11:06 [id number]) Physical Therapy Treatment Education Education Provided Precautions,Safety M7 PT-IP Assessment and Plan Start: 10/13/20 16:14 Freq: NEEDED Status: Active Protocol: Document 10/17/20 10:46 MAGGIE (Rec: 10/17/20 11:06 LJ [id number]) PT Summary Assessment and Plan Potential Rehabilitation Potential Good Status of Condition at Evaluation Stable Summary Impairments Pain,ROM,Strength,Balance, Coordination,Sensation,Bed Mobility,Transfers,Gait, Activity Tolerance Progress Towards Goals Slow Progress due to Pain,Slow Progress due to Medical Issues Assessment Summary Pt requires SBA with bed mobility and CGA for ambulation. Will need to perform stairs and caregiver training prior to DC. Pt will also need to increase gait distance and mobility independence for successful DC home even with care as she has decreased ambulation distance and activity tolerance for the last two treatments. Goals Bed Mobility Goal Independent Transfer Goal Independent,Front Wheeled Walker Gait Goal Independent,Front Wheel Walker Gait Distance 200 Other Goals up/down 2 platform step using FWW SBA Days to Meet Goals 5 Frequency of Treatment Frequency Of Treatment Once a Day Treatment Plan Physical Therapy Treatment Plan Bed Mobility Training,Transfer Training,Gait Training, Therapeutic Exercise,Balance Retraining,Post Op Education, Discharge Planning,Hot or Cold Pack,Neuromuscular Re-ed, Coordination Retraining,Manual Therapy Precautions Lumbar Precautions Log Roll,No Twisting,Limit Bending,Lifting Restriction of 10 lbs,Gait Belt above Incisional Area Recommendations To Nursing Amount of Assist Needed 1 Person Assist Discharge Recommendations PT Discharge Recommendations Home with Assistance, Outpatient PT Transportation Needs at Discharge Private Vehicle
[2020-10-17 11:47] VITALS: BP 124/52; PULSE 62; RESP 15; TEMP 36.1; O2SAT 96
[2020-10-17] MEDS: INSULIN LISPRO 100 UNIT/ML 3ML VIAL SUBCUT (11:52)
[2020-10-17 15:38] VITALS: BP 116/59; PULSE 64; RESP 18; TEMP 36; O2SAT 95
--- NOTE | 2020-10-17 16:38 | CM.DPC ---
DCP Continued: Per chart review and Dr. Stewart patient will require two IV antibiotics at time of discharge. One will be a high dollar once a week infusion and the other will be a daily IV infusion. PICC-line in place. Occupational therapy has d/c her from services and physical therapy is recommending home with assistance and outpatient physical therapy. Patient is in agreement. CABLE MECHANIC and CABLE MECHAN[employer] Student met with patient in room she was sitting in chair alert and oriented. Spoke with patient regarding options for IV antibiotics her preference is: To have home infusion if the [id number] dollar amount is not too high. Her second choice is for outpatient infusion. Patient is against SNF placement. Patient reports she has several supports and anticipates her granddaughter will be able to stay with her during the recovery period. She had a recent loss, her x2 days prior to her surgery. Patient appears to be coping well with the loss and stated it was expected and she feels some relief. PLAN: CM Team to explore antibiotic options for home vs infusion center: cost and access. Anticipate D/C home with family support. Cultures currently pending, actual IV abx not know today. Orthopedics is primary. HALIMA Mello MSW Student
[2020-10-17 19:36] VITALS: BP 136/65; PULSE 66; RESP 16; TEMP 36; O2SAT 96
[2020-10-17] MEDS: INSULIN GLARGINE 100 UNIT/ML 3ML PEN 16 UNIT SUBCUT (21:09)
[2020-10-17] MEDS: ACETAMINOPHEN 325 MG TABLET 975 MG PO (21:09)
[2020-10-17] MEDS: MELATONIN 3 MG TABLET 9 MG PO (21:10)
[2020-10-18 00:01] VITALS: BP 121/49; PULSE 73; RESP 18; TEMP 36.6; O2SAT 96
[2020-10-18] MEDS: LEVOTHYROXINE 88 MCG TABLET PO (05:48)
[2020-10-18 06:00] VITALS: BP 135/46; PULSE 70; RESP 18; TEMP 36.7; O2SAT 97
[2020-10-18 06:16] LABS: BUN Creatinine Ratio 13.3 (6-22); Blood Urea Nitrogen 27 mg/dL (7-17); Calcium 8.7 mg/dL (8.4-10.2); Carbon Dioxide 24 mmol/L (22-32); Chloride 111 mmol/L (98-107); Estimated Glomerular Filt Rate 23.4 mL/min (>60); Glucose 72 mg/dL (80-110); HEMOLYSIS < 15 (0-50); Magnesium 1.6 mg/dL (1.6-2.3); Potassium 3.9 mmol/L (3.4-5.1); Sodium 140 mmol/L (137-145)
--- NOTE | 2020-10-18 07:33 | P.PN_ITS ---
Subjective Subjective Date Patient Seen: 10/18/20 Time Patient Seen: 07:33 Interval history: Patient states she is doing well overall and is in minimal discomfort at rest. At this time she denies fever, chills, nausea, chest pain, shortness of breath, or urinary retention. Patient reports feeling itchiness around her incision site. She reports good sensation throughout the bilateral lower extremities. Exam Vital Signs (past 8 hours): - 10/18/20 00:01 10/18/20 06:00 Temperature 97.8 F 98.0 F Pulse Rate 73 70 Respiratory Rate 18 18 Blood Pressure 121/49 L 135/46 L Pulse Oximetry 96 97 Oxygen Delivery Method Room Air Oxygen Flow Rate 0 Narrative Exam Narrative: 85-year-old female postop day 3. Patient is resting comfortably in bed, is in no acute distress, is alert and oriented x3. Skin is warm dry, and the skin surrounding the incision site is free of erythema, warmth, induration, or discharge. Dressing over the incision site is clean, dry, and intact. Good sensation appreciated throughout the bilateral lower extremities to light touch. Hip flexion performed bilaterally without difficulty or discomfort. Ankle dorsiflexion, plantar flexion, eversion, inversion performed bilaterally without difficulty or discomfort. Calves are soft nontender, negative Homans sign. DP pulses palpated bilaterally. No other signs of DVT appreciated. Const General: cooperative, healthy appearing and comfortable Resp Effort & Inspection: normal respiratory effort and able to speak in complete sentences Skin General: no rashes or lesions noted Objective Labs Result Diagrams: 10/16/20 05:58 10/18/20 05:58 Labs: Laboratory Results - last 24 hr 10/18/20 05:58 Sodium 140 Potassium 3.9 Chloride 111 H Carbon Dioxide 24 BUN 27 H Creatinine 2.03 H Estimated GFR 23.4 L BUN/Creatinine Ratio 13.3 Glucose 72 L Calcium 8.7 Magnesium 1.6 [facility] Medical History Abnormal breast biopsy Asthma due to environmental allergies Breast cancer, left (06/2011) Cataract (lens) fragments in eye following cataract surgery, bilateral Cervical cancer (1973) Diabetes Diabetic peripheral neuropathy Difficulty swallowing Eczema GERD (gastroesophageal reflux disease) Gout Herniated nucleus pulposus, L3-4 left HLD (hyperlipidemia) HNP (herniated nucleus pulposus), thoracic HTN (hypertension) Hypothyroidism Kidney infection Lumbar radiculopathy Sacrococcygeal disorders, not elsewhere classified Status post lumbar spinal arthrodesis Vertebral fracture Vertigo Wound abscess Surgical History H/O bilateral mastectomy H/O hysterectomy for benign disease History of bunionectomy of right great toe History of left knee replacement History of lumbar spinal fusion History of surgery History of total right knee replacement Hx of bilateral cataract extraction S/P trigger finger release (2013) Family History Father Congestive heart failure Advanced cirrhosis of liver Grandmother Congestive heart failure Social History household members: none Smoking Status: Former smoker alcohol intake: current Assessment & Plan Post-op Postoperative Procedures: Procedures Operation Date: 10/15/20 07:45 Actual Procedures Side Surgeon p I&D spine Mirna Mcdonough MD Postoperative day: 3 Postoperative plan narrative: Postop day 3 status post excisional lumbar spine debridement with debridement of skin and subcutaneous tissues and necrotic muscle with Dr. Mcdonough. Keep dressing clean and dry. Continue antibiotics and careful monitoring of renal function. Mobilize with physical therapy. Limit bending, twisting, lifting. Creatinine 2.39 yesterday, 2.03 today. Internal Medicine managing acute kidney injury secondary to ATN, present on admission, type 2 diabetes, hypertension, hypothyroidism Disposition home in 1-2 days pending renal function and recommendations from ID service. Several intraoperative cultures were taken only 1 has grown out bacteria this grew out Staphylococcus Werneri. Patient has a previous history surgical site infection and at last I and D grew out E coli and proteus. Unclear if current Staphylococcus culture is a contaminant or if this is truly the pathogen. Internal Medicine is in discussion with Infectious Disease over [facility] regarding duration and course of antibiotics.
[2020-10-18] MEDS: AMLODIPINE 5 MG TABLET PO (08:12)
[2020-10-18] MEDS: ASPIRIN EC 81 MG TABLET PO (08:12)
[2020-10-18] MEDS: ACETAMINOPHEN 325 MG TABLET 975 MG PO ×2 (08:12→14:28)
[2020-10-18] MEDS: EZETIMIBE 10 MG TABLET PO (08:13)
[2020-10-18] MEDS: DICYCLOMINE 10 MG CAPSULE PO (08:13)
[2020-10-18] MEDS: PANTOPRAZOLE DR 40 MG TABLET PO (08:14)
[2020-10-18] MEDS: SODIUM CHLORIDE 0.9% FLUSH 10 ML IV (08:16)
[2020-10-18] MEDS: cefTRIAXone 1,000 MG in SODIUM CHLORIDE 0.9% 100 ML 200 ML IV (09:15)
--- NOTE | 2020-10-18 09:19 | PC.NURSE ---
Addendum entered by Aubree Beltrán R.N. 10/18/20 14:29: Patient up to BSC for void post schafer removal. Able to void. <10ml remaining. Patient denies pain. No further needs at this time. Addendum entered by Aubree Beltrán R.N. 10/18/20 10:54: Patient up to chair with PT. Ambulating with FWW, SBA. Patient denies pain. Schafer catheter removed, patient tolerated. Patient verbalized understanding to call before getting up. Original Note: Patient A/O x 4, denied pain this morning. Back dsg dry and intact, three quarter sized points of shadow drainage noted. Schafer draining clear yellow urine, hemovac dislodged, site dressed with gauze and tape. Denies numbness or tingling in extremities. Denies weakness. Patient tolerated. Patient on RA, denies SOB. Last BM 10/17, BT active x 4. Patient up to chair with SBA and FWW. Call light in reach.
--- NOTE | 2020-10-18 09:20 | PT.IPTN ---
Current Diagnoses Infection following a procedure, deep incisional surgical site, initial encounter (10/11/20) Surgery Performed Operation Date: 10/15/20 07:45 Actual Procedures p I&D spine - Mirna Mcdonough MD Physical Therapy Treatment Note M2 PT-IP Current Condition Start: 10/13/20 16:14 Freq: NEEDED Status: Active Protocol: Document 10/13/20 12:55 AB (Rec: 10/13/20 16:31 AB [id number]) Physical Therapy Current Condition Current Condition Evaluation Date 10/13/20 Treatment Diagnosis lumbar wound infection; difficulty in walking Onset Date 10/11/20 Precautions Lumbar Precautions Log Roll,No Twisting,Limit Bending,Lifting Restriction of 10 lbs,Gait Belt above Incisional Area M3 PT-IP Subjective Start: 10/13/20 16:14 Freq: NEEDED Status: Active Protocol: Document 10/18/20 09:20 AW (Rec: 10/18/20 09:30 AW [id number]) Subjective Physical Therapy Visit Type Type Treatment Note Visit Start Time 08:55 Visit Stop Time 09:20 Total Visit Minutes 25 Notes Pt's daughter, Shanice, was present throughout Number of FEATHER BONER Visits 0 Physical Therapy Visit Comments Patient Comments agreeable to do PT Therapy Pain Assessment Pain When Pain Assessed At Rest Pain Present Pain Present Denied Pain M4 PT-IP Mobility and Gait Start: 10/13/20 16:14 Freq: NEEDED Status: Active Protocol: Document 10/18/20 09:20 AW (Rec: 10/18/20 09:30 AW [id number]) PT-Bed Mobility Assessment Rolling Type of Rolling Log Rolling Level of Assist Standby Assistance Supine to Sit Supine to Sit Standby Assistance PT-Transfer Assessment Sit to and From Stand Sit to and from Stand Standby Assistance,Use of Upper Extremities Equipment Transfer Assistive Device Gait Belt,Front Wheeled Walker Orthotic/Prosthetic Devices or Brace: No Transfers Transfer Destination Chair Transfer Technique ambulated using fww Transfer Ability Level of Assist Standby Assistance,1 Person Assistance,Use of Upper Extremities Comments Mobility Comments Pt sitting up in bed as PT arrived. With HOB flat, pt completed log roll to her right side as she would at home and SL to sit all SBA with no cues required. She stood from the bed in lowest position SBA and used the FWW to ambulate toward the door with one posterior LOB noted. Pt was able to recover without additional assist. She donned her face mask with good standing balance and ambulated to the hallway. She did stair training on platform step x 2 with CGA and assist to stabilize the walker. Pt's daughter was able to provide assist with second rep. Pt then ambulated around the [facility] nurse station ~200 feet before returning to the room and sitting on the chair SBA. She was positioned there with call light in reach. RN arrived to assess. BP after activity was 137/81 HR 100. Gait Assessment Gait Gait Assistance Required: Standby Assistance Distance (Feet) 200 Able to Maintain Weight Bearing Status Yes During Gait Assistive Devices Assistive Device Gait Belt,Front Wheeled Walker Orthotic/Prosthetic Devices or Brace: No Gait Deviations General Gait Pattern Antalgic,Decreased Stride Length,Decreased Feet Clearance Factors Limiting Gait Function Factors Limiting Gait Function Decreased Activity Tolerance, Decreased Strength,Limited Range of Motion,Pain,Poor Balance Comments Gait Comments No SOB during or after ambulation. Pt walks with kyphotic posture but responds well to cues for eyes up. Stair Climbing Assessment Evaluation Level of Assist On Stairs Contact Guard Assistance,1 Person Assistance Devices Stair Climbing Assistive Devices Front Wheel Walker Technique/Endurance Stair Climbing Direction Ascend and Descend Stair Climbing Technique Step to Step Number of Steps Climbed 1 Stair Climbing Set # Repetitions (reps) 2 Comments Stair Climbing Comments See mobility comments for detals. M5 PT-IP Objective Assessments Start: 10/13/20 16:14 Freq: NEEDED Status: Active Protocol: Document 10/13/20 12:55 AB (Rec: 10/13/20 16:31 AB [id number]) Orientation Orientation/Cognition Level of Alertness Alert Orientation Name,Place,Situation Language Function Ability No Deficits Noted Safety Awareness Understands Safety Issues Memory Description No Deficits Noted Gross Range of Motion Lower Extremity ROM Assessment Within Functional Limits Strength Lower Extremity Strength Assessment Left Impaired Hip 4-/5 Knee 3+/5 Coordination Assessment Gross Coordination Gross Coordination WNL Muscle Tone Muscle Tone WNL Yes M6 PT-IP Treatment Start: 10/13/20 16:14 Freq: NEEDED Status: Active Protocol: Document 10/18/20 09:20 AW (Rec: 10/18/20 09:30 AW [id number]) Physical Therapy Treatment Education Education Provided Precautions,Safety M7 PT-IP Assessment and Plan Start: 10/13/20 16:14 Freq: NEEDED Status: Active Protocol: Document 10/18/20 09:20 AW (Rec: 10/18/20 09:30 AW [id number]) PT Summary Assessment and Plan Summary Impairments Pain,ROM,Strength,Balance, Coordination,Sensation,Bed Mobility,Transfers,Gait, Activity Tolerance Progress Towards Goals Progressing Toward Goals,Slow Progress due to Medical Issues Assessment Summary Pt's daughter was present and completed caregiver training including stairs. Pt's activity tolerance is improved significantly today but still requiring SBA to occasional CGA with FWW. Pt will have 24/ 7 care from family at home and has all necessary equipment. She will be safe to discharge with 24/7 assist and outpatient PT once medically cleared. Goals Bed Mobility Goal Independent Transfer Goal Independent,Front Wheeled Walker Gait Goal Independent,Front Wheel Walker Gait Distance 200 Other Goals up/down 2 platform step using FWW SBA Days to Meet Goals 5 Frequency of Treatment Frequency Of Treatment Once a Day Treatment Plan Physical Therapy Treatment Plan Bed Mobility Training,Transfer Training,Gait Training, Therapeutic Exercise,Balance Retraining,Post Op Education, Discharge Planning,Hot or Cold Pack,Neuromuscular Re-ed, Coordination Retraining,Manual Therapy Precautions Lumbar Precautions Log Roll,No Twisting,Limit Bending,Lifting Restriction of 10 lbs,Gait Belt above Incisional Area Recommendations To Nursing Amount of Assist Needed 1 Person Assist Discharge Recommendations PT Discharge Recommendations Home with Assistance, Outpatient PT Transportation Needs at Discharge Private Vehicle
[2020-10-18 10:00] VITALS: BP 137/81; PULSE 69; RESP 17; TEMP 36.5; O2SAT 97
--- NOTE | 2020-10-18 10:31 | P.PN_ITS ---
Subjective Subjective Date Patient Seen: 10/18/20 Time Patient Seen: 10:31 Interval history: She feels well, with only minimal twinges of back pain. She denies any weakness or numbness at this time. Unfortunately during her surgery it appear that some of infection was near her hardware, cultures were sent and the patient has been stable on antibiotic therapy. Denies fever or chills. Cultures 1/5 growing staph warneri. Prior cultures with dowd-sensitive E. coli. Discussed with ID at [facility], recommended addition of daptomycin while admitted and on discharge if kidney function improved can give 1 dose of dalbavancin while awaiting PCR results on tissue samples from (ordered today). However dalbavancin will not be available at our pharmacy. Can reasonable discharge on ceftriaxone daily as well as daptomycin q48 hours as an outpatient with labs ordered to be drawn in 2-3 days. Working to coordinate outpatient antibiotics at this time. Exam Vital Signs (past 8 hours): - 10/18/20 06:00 Temperature 98.0 F Pulse Rate 70 Respiratory Rate 18 Blood Pressure 135/46 L Pulse Oximetry 97 Oxygen Delivery Method Room Air Oxygen Flow Rate 0 Narrative Exam Narrative: GEN: no acute distress, well appearing HEENT: moist mucous membranes, PERRL Neck: No JVD, trachea midline Respiratory: Lungs are clear with no wheezes, rhonchi, rales Cardiac: Regular rate and rhythm no murmurs no bruits Abdomen: Soft, nontender, normal bowel sounds Skin: no rashes noted Neurologic: moving all extremities, with no gross abnormalities Spine: back bandaged Extremities: trace bilateral edema in feet, no joint effusions Psych: Cooperative, fluent speech Objective Labs Result Diagrams: 10/16/20 05:58 10/18/20 05:58 Labs: Laboratory Results - last 24 hr 10/18/20 05:58 Sodium 140 Potassium 3.9 Chloride 111 H Carbon Dioxide 24 BUN 27 H Creatinine 2.03 H Estimated GFR 23.4 L BUN/Creatinine Ratio 13.3 Glucose 72 L Calcium 8.7 Magnesium 1.6 [facility] Medical History Abnormal breast biopsy Asthma due to environmental allergies Breast cancer, left (06/2011) Cataract (lens) fragments in eye following cataract surgery, bilateral Cervical cancer (1973) Diabetes Diabetic peripheral neuropathy Difficulty swallowing Eczema GERD (gastroesophageal reflux disease) Gout Herniated nucleus pulposus, L3-4 left HLD (hyperlipidemia) HNP (herniated nucleus pulposus), thoracic HTN (hypertension) Hypothyroidism Kidney infection Lumbar radiculopathy Sacrococcygeal disorders, not elsewhere classified Status post lumbar spinal arthrodesis Vertebral fracture Vertigo Wound abscess Surgical History H/O bilateral mastectomy H/O hysterectomy for benign disease History of bunionectomy of right great toe History of left knee replacement History of lumbar spinal fusion History of surgery History of total right knee replacement Hx of bilateral cataract extraction S/P trigger finger release (2013) Family History Father Congestive heart failure Advanced cirrhosis of liver Grandmother Congestive heart failure Social History household members: none Smoking Status: Former smoker alcohol intake: current Assessment & Plan Assessment & Plan narrative: Ms. Allen is an 85W with PMH of recent spinal surgery complicated by sepsis from infected surgical wound currently on antibiotics for six weeks, with unhealing wound, worsening drainage and plan for return to OR for debridement. Medicine consulted for ESTEBAN, which has been improving and have been coordinating antibiotics. 1. ESTEBAN secondary to ATN, present on admission, improving -creatinine increased to 3.37, from normal baseline of 0.7-0.9. Now improved to 2.03. -BUN normal currently, K wnl, no shortness of breath so no need for urgent dialysis -etiology is ATN likely from a combination of medications including cipro, naproxen, celeocoxib, lisinopril -all nephrotoxic medications stopped, continue to hold lisinopril. -renal ultrasound shows no obstruction 2. Infected spinal surgical wound, acute -patient with poor nutrition, and was lying in bed on wound, and has ESTEBAN all may have contributed to poor healing -no evidence of sepsis -surgery did debridement, appeared to have extension of infection to hardware. -cultures pending, and plan to continue antibiotics but switched to ceftriaxone as above for less renal effect. Likely will need prolonged antibiotic therapy. -PICC line already placed for difficult IV access. -switched antibiotics to ceftriaxone as has less renal effects, this covers cultures from her wound back in september. Discussed with ID at [facility] as new wound cultures with staph warneri but only 05/11. Recommended PCR testing at of tissue samples (ordered 10/17) which are pending. -in the meantime continue ceftriaxone with plan for at least 2 weeks, however final duration unknown. added daptomycin per ID recommendations and monitored kidney function while admitted which improved. If kidney function did improve ID recommended that patient can get 1x dose of dalbavancin on discharge which would provide adequate coverage for at least one week. However dalbavancin unable to be ordered per pharmacy. It seems reasonable to discharge home on continued daptomycin q48 with planned lab follow up in a couple of days. Working today to coordinate with either [facility] or [facility]. If this is set up, can reasonably be discharged home today. -labs to check in 2-3 days as an outpatient are a CBC, CMP, and CK level. - recommended follow up with ID clinic within 1 week of discharge. Called clinic today to initiate referral, records were faxed to coordinate follow up. -patient will follow up with orthopedic surgery as well. 3. Diabetes, Type 2, on insulin -continued home dose of insulin at 16U BID, given recent hypoglycemia recommend reducing dose to 14 U BID. -ordered for [facility] glucose checks, and insulin sliding scale 4. Hypertension -continue to hold lisinopril for now with relatively low blood pressure and ATN on admission. BP then started to rise and patient was started amlodipine instead of losartan at 5 mg daily. 5. Hypothyroidism -continue home dose synthroid 6. acute blood loss anemia, stable - patient with anemia, possibly chronic component due to anemia of chronic inflammation and secondary acute blood loss from multiple surgeries. Hg has been stable around 8 since admission. Code status: Full, contact is keyanna Prasad [facility] will continue to follow along, working to assist with discharge today if antibiotic infusions can be coordinated as an outpatient. Please reach out with additional questions.
--- NOTE | 2020-10-18 11:23 | CM.DPC ---
Addendum entered by HALIMA Prince 10/18/20 15:46: ADD: Per Ortho PA, pt stable for d/c with home infusion and HH today and wrote d/c orders and discharge summary and added [facility] to follow. HAO faxed to [facility] and confirmed that they have everything they need now to open pt to service tomorrow. BF Addendum entered by HALIMA Prince 10/18/20 14:34: ADD: Return call from Carlos at [facility] stating pt's Reg [employer] covers all of pt's home infusion costs accept for RN which could be done once a week at [facility] for wound dressing and blood draw or through HH. Carlos has already spoken to pt and Dtr via phone regarding their services and coverage and [facility] can be set up for providing pt's next dose at her house tomorrow morning if pt is discharged home from the hospital today. HAO met bedside and confirmed that pt and Dtr are agreeable with d/c home today with [facility] tomorrow to do teaching and still agreeable with [facility] referral for RN/PT/MOBILE DEVELOPMENT MANAGER and HAO provided brochures for both agencies to Dtr. Pt and Dtr aware that waiting for final d/c from Ortho team and Dtr confirms that she can provide transport for pt home today. HAO provided a copy of pt's Medicare Message to take home. HAO updated RN and cutter inspector and Hospitalist who completed the scripts for the two IV-Abx and SW faxed d/c summary and scripts to [facility] to review and left msg for Ortho PA regarding finalized d/c plan and request for discharge today if pt still stable. HAO called [facility] with update and faxed signed F2F and HH orders. Plan: SW to follow for Ortho team to complete final discharge for pt to d/c home with [facility] and new [facility] and family assist. HALIMA Prince Original Note: DCP ongoing IV-Abx planning Per , pt now medically stable to d/c once ongoing IV-Abx set up for ongoing management by ESTEBAN CLARKE at [facility]. Pt will d/c on Q24 Ceftriaxone and Q48 Dapto until pt's follow up appt with ESTEBAN CLARKE within a week from d/c and Hospitalist has spoken to ESTEBAN CLARKE and set up follow up appt for pt after d/c. SW called [facility] and faxed referral to determine out of pocket expense for pt to confirm if she can afford home infusion. SW also called [facility] [phone] and spoke to Patti and faxed initial information and she states she has also spoken with ID who is willing to write the orders that they need through their [employer] system as they cannot accept orders faxed from Hospitalist but that ID is willing and agreeable to do it but that ID MD was under the understanding that pt was going to have Home Infusion. SW updated on above and with pt's Medicare likely would be significant out pocket expense but waiting confirmation. SW called [facility] again and their billing department is running information to determine out pocket expense and coverage. Per PT, recommending safe d/c home with family to stay with pt for assist and HH and feels pt could manage daily outpt infusion clinic if needed safely if home infusion not a financial option. HAO met bedside with pt and Dtr and updated on above and pt is agreeable to outpt daily infusion if home infusion not an option and aware that if it can be set up for ongoing IV-Abx then she may d/c today. Per RN, pt getting her daily dose of Ceftriaxone now so will be ready for d/c today if all arranged for safe IV-Abx plan. Plan: HAO to follow closely for return call from [facility] to see out pocket expense and then updating [facility] and updating [facility]. HALIMA Prince
[2020-10-18 14:00] VITALS: BP 136/49; PULSE 71; RESP 16; TEMP 36.6; O2SAT 98
--- NOTE | 2020-10-18 15:32 | P.DS_ITS ---
History of Present Illness History of Present Illness Date Patient Seen: 10/18/20 Time Patient Seen: 15:32 Chief complaint: Infection of Surgical Site,Lumbar Narrative: Refer to previous HPI. Discharge Providers Provider Date of admission: 10/11/20 12:34 Discharge Date: 10/18/20 Primary care physician: Brenda Dotson PA-C Consults: 10/11/20 12:55 Consult to Hospitalist Service Routine Comment: Consulting Provider: Kavin Garcia Reason for consultation: manage diabetes Has provider been notified: Yes 10/11/20 17:08 Consult to Dietitian, Adult Routine Comment: Reason For Exam: poor appetite/nutrition 10/13/20 10:47 Consult to Physical Therapy Evaluate & Treat Comment: Physician Instructions: Evaluate and Treat 10/15/20 11:39 Consult to Discharge Planning Routine Comment: Consult to Physical Therapy Evaluate & Treat Comment: Physician Instructions: Evaluate and Treat Consult to Respiratory Therapy Evaluate & Treat Comment: Physician Instructions: Evaluate and treat 10/16/20 10:25 Consult to Occupational Therapy Evaluate & Treat Comment: Physician Instructions: Evaluate and treat 10/18/20 14:26 Consult to Home Health Routine Comment: Infection surgical site lumbar, set up and charger/blood lanette Reason For Exam: Set up HH RN/PT/CASEWORK SPECIALIST for d/c home Discharge provider: Erwin Peñaloza PA-C Summary Hospital Course Discharge Diagnosis: Infected back wound with some necrotic tissue status post multilevel decompression and fusion Status post Excisional lumbar spine debridement with debridement of skin and subcutaneous tissues and necrotic muscle Hospital Course: Patient was admitted to the hospital following the above-listed procedure for the above-listed diagnosis. Following the procedure the patient has been convalescing appropriately in her pain has been managed with current pain management regimen. Patient has remained weight-bearing as tolerated with the assistance of a wheel walker with physical therapy. Dressing over the incision site has been changed as needed as it has become damaged or soiled. Patient is creatinine has been monitored by hospitalist throughout her stay, as of today she has been cleared for discharge. Cultures were obtained during her surgery of the surgical site infection. Patient has been on IV antibiotics following surgery. Throughout the course of her time in the hospital the patient has denied fever, chills, nausea, chest pain, shortness of breath, or urinary retention. Status at Discharge Cognitive/behavioral status at discharge: oriented Functional status at discharge: uses cane/walker Overall status at discharge: patient is progressing back to baseline Exam Vital Signs (past 8 hours): - 10/18/20 10:00 10/18/20 14:00 Temperature 97.7 F 98 F Pulse Rate 69 71 Respiratory Rate 17 16 Blood Pressure 137/81 136/49 L Pulse Oximetry 97 98 Oxygen Delivery Method Room Air Oxygen Flow Rate 0 Narrative Exam Narrative: 85-year-old female postop day 3. Patient is resting comfortably in bed, is in no acute distress, is alert and oriented x3. Skin is warm dry, and the skin surrounding the incision site is free of erythema, warmth, induration, or discharge. Dressing over the incision site is clean, dry, and intact. Good sensation appreciated throughout the bilateral lower extremities to light touch. Hip flexion performed bilaterally without difficulty or discomfort. Ankle dorsiflexion, plantar flexion, eversion, inversion performed bilaterally without difficulty or discomfort. Calves are soft nontender, negative Homans sign. DP pulses palpated bilaterally. No other signs of DVT appreciated. Const General: cooperative, healthy appearing and comfortable Resp Effort & Inspection: normal respiratory effort and able to speak in complete sentences Skin General: no rashes or lesions noted Objective Labs Result Diagrams: 10/16/20 05:58 10/18/20 05:58 Labs: Laboratory Results - last 24 hr 10/18/20 05:58 Sodium 140 Potassium 3.9 Chloride 111 H Carbon Dioxide 24 BUN 27 H Creatinine 2.03 H Estimated GFR 23.4 L BUN/Creatinine Ratio 13.3 Glucose 72 L Calcium 8.7 Magnesium 1.6 [facility] Medical History Abnormal breast biopsy Asthma due to environmental allergies Breast cancer, left (06/2011) Cataract (lens) fragments in eye following cataract surgery, bilateral Cervical cancer (1973) Diabetes Diabetic peripheral neuropathy Difficulty swallowing Eczema GERD (gastroesophageal reflux disease) Gout Herniated nucleus pulposus, L3-4 left HLD (hyperlipidemia) HNP (herniated nucleus pulposus), thoracic HTN (hypertension) Hypothyroidism Kidney infection Lumbar radiculopathy Sacrococcygeal disorders, not elsewhere classified Status post lumbar spinal arthrodesis Vertebral fracture Vertigo Wound abscess Surgical History H/O bilateral mastectomy H/O hysterectomy for benign disease History of bunionectomy of right great toe History of left knee replacement History of lumbar spinal fusion History of surgery History of total right knee replacement Hx of bilateral cataract extraction S/P trigger finger release (2013) Family History Father Congestive heart failure Advanced cirrhosis of liver Grandmother Congestive heart failure Social History household members: none Smoking Status: Former smoker alcohol intake: current Discharge Assessment & Plan Assessment and Plan Assessment: Patient is doing well and is stable. Plan of Treatment: Patient will be discharged home with home health. Patient is set to begin [facility] at [facility] starting tomorrow 11:30 in the morning. Prescriptions for Rocephin and daptomycin have been provided for IV antibiotic therapy. Patient is to follow-up in 2 weeks for her 1st postoperative visit in clinic. Dressing over the incision site is to be changed as needed if it becomes damaged or soiled. Avoid placing topical ointments over the incision sites or soaking the incision sites. Patient is to remain weight- bearing as tolerated with the assistance of a front wheeled walker. Contact the clinic with any concerns or questions. Any signs of increased redness, swelling, warmth, pain, or discharge from around the incision sites should be reported to the clinic per discussion with hospitalist patient has discontinued lisinopril and will begin amlodipine.. Discharge Plan Discharge Plan Patient Disposition: Home Health Service Provider Discharge Comment: Patient cleared for discharge. Discharge orders & Medications Prescriptions: New ceftriaxone 1 gram Recon Soln 1,000 mg IV Q24H 14 Days Qty: 14 RF: 0 daptomycin 500 mg recon soln See Rx Instructions .ROUTE .COMPLEX Qty: 10 RF: 0 amlodipine 5 mg tablet 5 mg PO DAILY 30 Days Qty: 30 RF: 0 acetaminophen 325 mg Tablet 975 mg PO TID Qty: 90 RF: 0 hydrocodone-acetaminophen 5-325 mg Tablet 1 tab PO BID PRN (Reason: Pain (Scale Score 4-6)) Qty: 42 RF: 0 aspirin 81 mg Tablet,Delayed Release (Dr/Ec) 81 mg PO DAILY Qty: 90 RF: 0 Continued pantoprazole 40 mg Tablet,Delayed Release (Dr/Ec) 40 mg PO DAILY RF: 0 hydrocodone-acetaminophen 5-325 mg Tablet 1 tab PO BID PRN (Reason: Pain (Scale Score 4-6)) Qty: 42 RF: 0 ciprofloxacin [Cipro] 500 mg/5 mL suspension,microcapsule recon 500 mg PO BID Qty: 420 RF: 0 melatonin 3 mg Tablet 9 mg PO BEDTIME RF: 0 trospium 20 mg Tablet 20 mg PO BEDTIME RF: 0 triamcinolone acetonide 0.1 % Cream 1 applic TOPICAL BID PRN (Reason: Rash various locations) RF: 0 aspirin [Adult Aspirin Regimen] 81 mg tablet,delayed release (DR/EC) 81 mg PO DAILY RF: 0 levothyroxine 88 mcg capsule 88 mcg PO DAILY RF: 0 allopurinol 300 mg tablet 300 mg PO DAILY RF: 0 insulin lispro [Humalog U-100 Insulin] 100 unit/mL solution 4 - 20 sliding scale dose SUBCUT USEASDIRECTD RF: 0 Lantus U-100 Insulin 100 unit/mL solution 16 unit SUBCUT BID RF: 0 ezetimibe [Zetia] 10 mg tablet 10 mg PO DAILY RF: 0 dicyclomine 10 mg capsule 10 mg PO BID RF: 0 Discontinued celecoxib [Celebrex] 200 mg capsule 200 mg PO DAILY Qty: 90 RF: 1 naproxen sodium [Aleve] 220 mg Capsule 220 mg PO TID-QID PRN (Reason: Pain) RF: 0 lisinopril 40 mg tablet 40 mg PO DAILY RF: 0 Follow up/Referrals: Brenda Dotson PA-C [Primary Care Provider] - Diet/Activity/Treatments Diet: Regular Activity: Weight-bearing as tolerated with the assistance of a front wheeled walker P Skin/Wound/Dressing Care Report to your healthcare provider any signs of infection, such as:: chills, fever, night sweats, increased pain, unusual drainage and unusual redness Dressing: Dressing over the incision site can be changed as needed if it becomes damaged or soiled. Other wound treatment: Avoid placing topical ointments over the incision sites. Avoid soaking the incision sites. Visit Report/Discharge Packet Instructions: DI for Prescription Opioid Use, DI for Incision and Drainage Stand Alone Forms: Surgery Discharge Discharge Data Primary Care Provider: Brenda Dotson
--- NOTE | 2020-10-18 16:00 | PC.NURSE ---
Pt cleared by Ortho for Discharge. Instructions given w/ understanding. Pt D/C w/[facility] midline for home ABO's. Escorted by staff via W/C to waiting vehicle in stable condition.
[2020-10-28 12:34] LABS: Bacteria Det by PCR Univ WA SEE SCANNED RESULT
== END 2020-10-18 16:00 | disposition home or self-care (01) | DRG 856 ==
PROVIDERS: Internal Medicine; Nurse Practitioner Family; Orthopaedic Surgery; Admitting Provider Orthopaedic Surgery Orthopaedic Surgery of the Spine; PCP Physician Assistant; Referring Provider Orthopaedic Surgery Orthopaedic Surgery of the Spine; Visit Provider Orthopaedic Surgery Orthopaedic Surgery of the Spine
PROC: 0KBG0ZZ Excision of Left Trunk Muscle, Open Approach (ICD-10-PCS; CPT 10180; principal; 2020-10-15 07:45)
DX: T81.42XA Infection following a procedure, deep incisional surgical site, initial encounter (principal); N17.0 Acute kidney failure with tubular necrosis; T84.63XA Infection and inflammatory reaction due to internal fixation device of spine, initial encounter; I96 Gangrene, not elsewhere classified; D62 Acute posthemorrhagic anemia; L76.82 Other postprocedural complications of skin and subcutaneous tissue; N14.1 Nephropathy induced by other drugs, medicaments and biological substances; E11.649 Type 2 diabetes mellitus with hypoglycemia without coma; I10 Essential (primary) hypertension; E63.8 Other specified nutritional deficiencies; E03.9 Hypothyroidism, unspecified; Z20.822 Contact with and (suspected) exposure to COVID-19; Z79.4 Long term (current) use of insulin; Z71.3 Dietary counseling and surveillance; Y79.8 Miscellaneous orthopedic devices associated with adverse incidents, not elsewhere classified; T36.8X5A Adverse effect of other systemic antibiotics, initial encounter; T39.315A Adverse effect of propionic acid derivatives, initial encounter; T39.395A Adverse effect of other nonsteroidal anti-inflammatory drugs [NSAID], initial encounter; T46.4X5A Adverse effect of angiotensin-converting-enzyme inhibitors, initial encounter
CPT/HCPCS: 36415; 36569; 36592; 71045; 76770; 80048; 80053; 81001; 82550; 82570; 82962; 83735; 84100; 84300; 85025; 85027; 87040; 87070; 87075; 87077; 87086; 87147; 87176; 87186; 87205; 87635; 87801; 97116; 97161; 97165; 97530; 97535; C9803; J0330; J0696; J0878; J1642; J1815; J2405; J2543; J2704; J3010; J3475; J7121